=== PATIENT | female | born 1945 ===

== ENCOUNTER 2020-12-23 11:57 | Inpatient (IN) | payer MEDICARE, BC ==
[2020-12-23] MEDS ORDERED: DEXAMETHASONE SOD PHOSPHATE 10 MG/ML 1 ML VIAL IV STA (12:19)
--- NOTE | 2020-12-23 12:32 | ED ---
General Adult HPI - General Chief complaint: Shortness of Breath Stated complaint: SYNCOPE Time Seen by Provider: 12/23/20 12:04 Source: patient, EMS Mode of arrival: EMS Limitations: no limitations - History of Present Illness Initial comments: Dictation was produced using [employer] dictation software. please excuse any grammatical, word or spelling errors. Chief Complaint: 75-year-old female presents to the emergency department for s yncopal episode, shortness of breath and possible coronavirus History of Present Illness: She is 75-year-old female to the last 4-5 days she's been feeling very weak. She went to go get tested for coronavirus however while waiting she had an episode of syncope. She denies any pain complex at this time. Denies any head trauma. No neck pain. Patient states that she does not feel significantly short of breath. Patient allegedly had a syncopal episode. EMS was called and patient was found to be hypoxic with oxygen saturations of 70%. She was placed on nonrebreather with improvement into the mid 90 percents. Patient states she got her to series [employer] vaccine for coronavirus earlier th is year. She has a lower extremity pain. No leg swelling. She denies any chest pain. States that she does have myalgias and diffuse weakness. The ROS documented in this emergency department record has been reviewed and confirmed by me. Those systems with pertinent positive or negative responses have been documented in the HPI. All other systems are other negative and/or noncontributory. PHYSICAL EXAM: General Impression: Alert and oriented x3, not in acute distress HEENT: Normocephalic atraumatic, extra-ocular movements intact, pupils equal and reactive to light bilaterally, mucous membranes moist. Cardiovascular: Heart regular rate and rhythm Chest: Able to complete full sentences, no retractions, no tachypnea, diffuse lung crackles auscultation Abdomen: abdomen soft, non-tender, non-distended, no organomegaly Musculoskeletal: Pulses present and equal in all extremities, no peripheral edema Motor: no focal deficits noted Neurological: CN II-XII grossly intact, no focal motor or sensory deficits noted Skin: Intact with no visualized rashes Psych: Normal affect and mood ED course: 75-year-old female presents to the emergency department for hypoxic respiratory failure, possible coronavirus, syncopal episode vital signs upon arrival shows 71% on room air. She was placed on 15 L nonrebreather with improvement of oxygen to mid 90 percents. Patient's well-appearing at the bedside. She is a well-appearing hypoxic patient. Limited evaluation obtained. CBC within acceptable limits. Coag panel is negative. D-dimer is 1.07. Metabolic panel shows mild acute kidney injury. Troponin levels elevated 0.247. Brain natruretic peptide is 21,100. Coronavirus is positive. Chest x-ray shows diffuse bilateral infiltrates. Patient observed in the emergency department for approximately 3 hours and 20 minutes. She's been maintaining good saturations on BiPAP. Case is discussed with heel seat laster who did not feel patient met criteria for ICU admission. Patient given 10 mg of IV Decadron. Case discussed with Dr. irwin barnett was willing to accept patients care for admission. Patient will be admitted for coronavirus treatment. Pulmonology will be on consult. EKG interpretation: Ventricular rate 64, normal sinus rhythm, NY interval 180, QRS 112, QTC 491. No NY prolongation, no QTC prolongation. T-wave inversions in lateral leads and high lateral leads. No old EKG for comparison. - Related Data Allergies Allergy/AdvReac Type Severity Reaction Status Date / Time No Known Allergies Allergy Verified 12/23/20 12:38 Review of Systems ROS Statement: Those systems with pertinent positive or pertinent negative responses have been documented in the HPI. ROS Other: All systems not noted in ROS Statement are negative. Past Medical History Past Medical History: Chest Pain / Angina, Diabetes Mellitus History of Any Multi-Drug Resistant Organisms: None Reported Past Surgical History: No Surgical Hx Reported Past Psychological History: No Psychological Hx Reported Smoking Status: Never smoker Past Alcohol Use History: None Reported Past Drug Use History: None Reported General Exam Limitations: no limitations Course Vital Signs 12/23/20 12/23/20 12/23/20 12:07 12:41 14:49 Temperature 98.7 F 98.7 F Pulse Rate 58 L 60 62 Respiratory 20 25 H 32 H Rate Blood Pressure 125/61 115/57 113/64 O2 Sat by Pulse 71 L 100 92 L Oximetry Medical Decision Making - Lab Data Result diagrams: 12/23/20 12:33 12/23/20 12:33 Lab Results 12/23/20 12/23/20 12/23/20 Range/Units 12:33 12:33 12:33 WBC 10.6 (3.8-10.6) k/uL RBC 3.64 L (3.80-5.40) m/uL Hgb 12.0 (11.4-16.0) gm/dL Hct 35.0 (34.0-46.0) % MCV 96.3 (80.0-100.0) fL MCH 32.9 (25.0-35.0) pg MCHC 34.1 (31.0-37.0) g/dL RDW 13.6 (11.5-15.5) % Plt Count 191 (150-450) k/uL MPV 7.8 Neutrophils % 90 % Lymphocytes % 6 % Monocytes % 3 % Eosinophils % 0 % Basophils % 0 % Neutrophils # 9.6 H (1.3-7.7) k/uL Lymphocytes # 0.6 L (1.0-4.8) k/uL Monocytes # 0.4 (0-1.0) k/uL Eosinophils # 0.0 (0-0.7) k/uL Basophils # 0.0 (0-0.2) k/uL PT 10.7 (9.0-12.0) sec INR 1.0 (<1.2) APTT 28.4 (22.0-30.0) sec D-Dimer 1.07 H (<0.60) mg/L FEU Sodium 132 L (137-145) mmol/L Potassium 4.5 (3.5-5.1) mmol/L Chloride 102 (98-107) mmol/L Carbon Dioxide 19 L (22-30) mmol/L Anion Gap 11 mmol/L BUN 56 H (7-17) mg/dL Creatinine 1.90 H (0.52-1.04) mg/dL Est GFR (CKD-EPI)AfAm 29 (>60 ml/min/1.73 sqM) Est GFR (CKD-EPI)NonAf 25 (>60 ml/min/1.73 sqM) Glucose 283 H (74-99) mg/dL Plasma Lactic Acid Gigi (0.7-2.0) mmol/L Calcium 8.9 (8.4-10.2) mg/dL Magnesium 1.9 (1.6-2.3) mg/dL Total Bilirubin 0.7 (0.2-1.3) mg/dL AST 44 H (14-36) U/L ALT 17 (4-34) U/L Alkaline Phosphatase 51 (38-126) U/L Troponin I (0.000-0.034) ng/mL C-Reactive Protein 22.8 H (<1.0) mg/dL NT-Pro-B Natriuret Pep pg/mL Total Protein 6.3 (6.3-8.2) g/dL Albumin 3.5 (3.5-5.0) g/dL Coronavirus (PCR) (Not Detectd) 12/23/20 12/23/20 12/23/20 Range/Units 12:33 12:33 12:33 WBC (3.8-10.6) k/uL RBC (3.80-5.40) m/uL Hgb (11.4-16.0) gm/dL Hct (34.0-46.0) % MCV (80.0-100.0) fL MCH (25.0-35.0) pg MCHC (31.0-37.0) g/dL RDW (11.5-15.5) % Plt Count (150-450) k/uL MPV Neutrophils % % Lymphocytes % % Monocytes % % Eosinophils % % Basophils % % Neutrophils # (1.3-7.7) k/uL Lymphocytes # (1.0-4.8) k/uL Monocytes # (0-1.0) k/uL Eosinophils # (0-0.7) k/uL Basophils # (0-0.2) k/uL PT (9.0-12.0) sec INR (<1.2) APTT (22.0-30.0) sec D-Dimer (<0.60) mg/L FEU Sodium (137-145) mmol/L Potassium (3.5-5.1) mmol/L Chloride (98-107) mmol/L Carbon Dioxide (22-30) mmol/L Anion Gap mmol/L BUN (7-17) mg/dL Creatinine (0.52-1.04) mg/dL Est GFR (CKD-EPI)AfAm (>60 ml/min/1.73 sqM) Est GFR (CKD-EPI)NonAf (>60 ml/min/1.73 sqM) Glucose (74-99) mg/dL Plasma Lactic Acid Gigi 1.7 (0.7-2.0) mmol/L Calcium (8.4-10.2) mg/dL Magnesium (1.6-2.3) mg/dL Total Bilirubin (0.2-1.3) mg/dL AST (14-36) U/L ALT (4-34) U/L Alkaline Phosphatase (38-126) U/L Troponin I 0.247 H* (0.000-0.034) ng/mL C-Reactive Protein (<1.0) mg/dL NT-Pro-B Natriuret Pep 78263 pg/mL Total Protein (6.3-8.2) g/dL Albumin (3.5-5.0) g/dL Coronavirus (PCR) (Not Detectd) 12/23/20 Range/Units 12:33 WBC (3.8-10.6) k/uL RBC (3.80-5.40) m/uL Hgb (11.4-16.0) gm/dL Hct (34.0-46.0) % MCV (80.0-100.0) fL MCH (25.0-35.0) pg MCHC (31.0-37.0) g/dL RDW (11.5-15.5) % Plt Count (150-450) k/uL MPV Neutrophils % % Lymphocytes % % Monocytes % % Eosinophils % % Basophils % % Neutrophils # (1.3-7.7) k/uL Lymphocytes # (1.0-4.8) k/uL Monocytes # (0-1.0) k/uL Eosinophils # (0-0.7) k/uL Basophils # (0-0.2) k/uL PT (9.0-12.0) sec INR (<1.2) APTT (22.0-30.0) sec D-Dimer (<0.60) mg/L FEU Sodium (137-145) mmol/L Potassium (3.5-5.1) mmol/L Chloride (98-107) mmol/L Carbon Dioxide (22-30) mmol/L Anion Gap mmol/L BUN (7-17) mg/dL Creatinine (0.52-1.04) mg/dL Est GFR (CKD-EPI)AfAm (>60 ml/min/1.73 sqM) Est GFR (CKD-EPI)NonAf (>60 ml/min/1.73 sqM) Glucose (74-99) mg/dL Plasma Lactic Acid Gigi (0.7-2.0) mmol/L Calcium (8.4-10.2) mg/dL Magnesium (1.6-2.3) mg/dL Total Bilirubin (0.2-1.3) mg/dL AST (14-36) U/L ALT (4-34) U/L Alkaline Phosphatase (38-126) U/L Troponin I (0.000-0.034) ng/mL C-Reactive Protein (<1.0) mg/dL NT-Pro-B Natriuret Pep pg/mL Total Protein (6.3-8.2) g/dL Albumin (3.5-5.0) g/dL Coronavirus (PCR) Detected A (Not Detectd) Critical Care Time Critical Care Time: Yes Total Critical Care Time: 33 Disposition Clinical Impression: Coronavirus infection, Acute respiratory failure with hypoxia Disposition: ADMITTED IP TO THIS [facility] Condition: Critical Referrals: Cindy Landin, MARCO ANTONIO [Primary Care Provider] - 1-2 days
[2020-12-23 12:55] LABS: Basophils % (A) 0 %; Eosinophils % (A) 0 %; Lymphocytes # (A) 0.6 k/uL (1.0-4.8); Lymphocytes % (A) 6 %; MCH 32.9 pg (25.0-35.0); MCHC 34.1 g/dL (31.0-37.0); MCV 96.3 fL (80.0-100.0); Mean Platelet Volume 7.8; Monocytes # (A) 0.4 k/uL (0-1.0); Monocytes % (A) 3 %; Neutrophils # (A) 9.6 k/uL (1.3-7.7); Neutrophils % (A) 90 %; Platelet Count 191 k/uL (150-450); RBC 3.64 m/uL (3.80-5.40); RDW 13.6 % (11.5-15.5); WBC 10.6 k/uL (3.8-10.6)
[2020-12-23 13:09] LABS: Albumin 3.5 g/dL (3.5-5.0); Calcium 8.9 mg/dL (8.4-10.2); Magnesium 1.9 mg/dL (1.6-2.3); Potassium 4.5 mmol/L (3.5-5.1); Total Bilirubin 0.7 mg/dL (0.2-1.3); Total Protein 6.3 g/dL (6.3-8.2)
[2020-12-23 13:13] LABS: Partial Thromboplastin Time 28.4 sec (22.0-30.0); Prothrombin Time 10.7 sec (9.0-12.0)
[2020-12-23] MEDS ORDERED: ENOXAPARIN 40 MG/0.4 ML SYRINGE SQ STA (13:22)
[2020-12-23] MEDS ORDERED: ALBUTEROL HFA INHALER INHALATION STA (13:24)
[2020-12-23] MEDS ORDERED: SODIUM CHLORIDE 0.9% 500 ML 500 ML IV STA (13:26)
[2020-12-23 13:33] LABS: C Reactive Protein 22.8 mg/dL (<1.0)
--- NOTE | 2020-12-23 13:34 | XR ---
EXAMINATION TYPE: XR chest 1V portable DATE OF EXAM: 12/23/2020 HISTORY: Shortness of breath. COMPARISON: None. TECHNIQUE: Single view of the chest is submitted. FINDINGS: Demonstrated are scattered senescent parenchymal change. Perihilar and right basilar infiltrates. Correlate for Covid 19 pneumonia. The heart is stable. Hilar and mediastinal structures are within normal limits. Degenerative changes are seen of the dorsal spine. IMPRESSION: 1. Perihilar and right basilar infiltrates. Correlate for Covid 19 pneumonia.
[2020-12-23] MEDS ORDERED: SODIUM CHLORIDE 0.9% 1,000 ML IV STA (13:50)
[2020-12-23] MEDS ORDERED: NALOXONE 0.4 MG/ML 1 ML VIAL IV PRN (15:14)
--- NOTE | 2020-12-23 16:43 | CONS ---
CONSULTATION PULMONARY/CRITICAL CARE CONSULTATION: DATE OF CONSULTATION: 12/23/2020 This is a 75-year-old female who presented to the emergency department with complaints of shortness of breath. The patient apparently became ill on November. She tested positive for coronavirus infection on December 23. She apparently went to [facility], had a syncopal episode and was transferred here where she was evaluated and admitted. The patient is currently on BiPAP, her settings are 10/5 and 100%. Not receiving any IV fluids. The patient does not look particularly ill at this time. She seemed relatively comfortable on the BiPAP. One of the concerns of the ER physician was that she was on 100%. ALLERGIES: Denied. PAST MEDICAL HISTORY: Includes diabetes and angina pectoris. SURGICAL HISTORY: Unremarkable. FAMILY HISTORY: Unremarkable. She is a lifelong nonsmoker. No illicit drug use. No alcohol use. REVIEW OF SYSTEMS: CONSTITUTIONAL: Weakness, muscle aches, joint aches. NEUROLOGIC: Negative. HEENT: Negative. CARDIOVASCULAR: Negative. PULMONARY: Shortness of breath. GI: Negative. : Negative. RHEUMATOLOGIC: Negative. IMMUNOLOGIC: Negative. ENDOCRINOLOGIC: Negative. DERMATOLOGIC: Negative. In addition, the patient apparently did have a syncopal episode at [facility]. PHYSICAL EXAMINATION: VITAL SIGNS: Current vital signs are reviewed. Temperature is 98.7 heart rate 60, respiratory rate 20, blood pressure 115/57 with a mean of 76. The saturations are 71% on room air. On BiPAP, she is 100%. Appears in no acute distress. HEENT: Examination is grossly unremarkable. She is wearing BiPAP. NECK: Supple, full range of motion. CARDIOVASCULAR: Examination reveals regular rhythm rate. S1, S2 normal. No S3, S4, or murmur. Heart rate 60. LUNGS: Reveal mild scattered rhonchi. No wheezes or crackles. Breath sounds equal. ABDOMEN: Soft, bowel sounds are heard. EXTREMITIES are intact. No cyanosis, clubbing, or edema. SKIN: Without rash. NEUROLOGIC: Examination is nonfocal. LABS: White count 10.6, hemoglobin 12, hematocrit 35, platelet count 191,000. PT, INR and PTT normal. D-dimer 1.07. Sodium 132, potassium 4.5, chloride 102, CO2 19, anion gap 11. BUN and creatinine were 56 and 1.90. Glucose 283. Chest x-ray does show diffuse bilateral infiltrates. Medications have not yet been ordered. She is getting Decadron or least Decadron was given. ASSESSMENT: 1. Acute hypoxemic respiratory failure secondary to coronavirus infection/COVID-19 pneumonia. 2. History of diabetes mellitus. 3. History of angina. PLAN: In my opinion, the patient should get vitamin C, vitamin D3, and zinc. She should also getting an albuterol inhaler. The patient is currently on BiPAP and the FiO2 can be titrated down. She would be a good candidate for Remdesivir since she has only been sick for a few days. She should also get Decadron 6 mg a day and Lovenox at usual dose of 40 mg. In addition, if her saturations and oxygenation worsen, the patient could be a candidate for monoclonal antibody interleukin-6. We will continue to follow. Prognosis is guarded. JAMAAL / ZEE: [id number] /
[2020-12-23] MEDS: SODIUM CHLORIDE 0.9% 1,000 ML IV SCH (17:18)
--- NOTE | 2020-12-23 18:52 | P.HPIM ---
History of Present Illness H&P Date: 12/23/20 Chief Complaint: syncope Patient is a 75-year-old female with a history of prior angina, diabetes, hypothyroidism, dyslipidemia, and hypertension who presented with complaint of weakness and syncope. She started having upper respiratory symptoms approximately 4-5 days ago. She went to obtain an outpatient Covid test and passed out. She has completed a 2 series [employer] vaccine earlier this year. In the ER she underwent an extensive evaluation. On arrival her oxygenation was 71% on room air. She was started on BiPAP. Initial laboratory analysis showed a sodium of 132, carbon dioxide 19, anion gap 11, BUN 56, creatinine 1.9, S2 83, troponin 0.247, CRP 22.8, BNP 21,100. Covid testing was positive. Chest x-ray showed diffuse bilateral interstitial infiltrates is reviewed by myself. She was given a dose of dexamethasone. She was seen by pulmonary who felt she could be managed on selective care. Patient seen and examined at bedside. General: ill appearing, moderate distress, appears at stated age Derm: warm, dry Head: atraumatic, normocephalic, symmetric Eyes: EOMI, no lid lag, anicteric sclera, pupils equal round reactive to light ENT: Nose and ears atraumatic, no thrush, no pharyngeal erythema Neck: No thyromegaly, no cervical lymphadenopathy, trachea midline, supple Mouth: no lip lesion, mucus membranes moist Cardiovascular: S1S2 reg, no murmur, positive posterior tibial pulse bilateral, no edema, capillary refill less than 2 seconds Lungs: course bs bilateral, + accessory muscle use, no conversation dyspnea Abdominal: soft, nontender to palpation, no guarding, no appreciable organomegaly, normal bowel sounds Ext: no gross muscle atrophy, muscle strength muscle strength 5 out of 5 in all 4 extremities, no contractures Neuro: CN II-XI grossly intact, light touch intact all 4 extremities, finger to nose within normal limits, Psych: Alert, oriented, appropriate affect COVID-19 pneumonia Acute hypoxic respiratory failure Acute kidney injury, Hyponatremia Non-anion gap metabolic acidosis Elevated troponin Elevated BNP - Vit D - Dexamethasone, Pepcid - Wean O2 as able - Pulm recs - conisder Barasitanib - Lovenox - hold lisnopril, lasix Syncope - likely due to hypoxia - tele - echo ELevated toponin - follow trop - ASA - Consider cardio consult in AM if elevating if stable likely due to hypoxia. HTN - hold lisinopril due to VERONICA - resume norvasc, coreg - follow BP HLD - statin DM 2 - Long acting, SSI, and fixed dose insulin - follow BS with steroids - check A1C ASCAD - plavics, BB, statin The patient is admitted with an anticipated greater than 2 midnight stay for evaluation of COVID pneumonitis. Surrogate decision-maker: , daughter CODE STATUS:full DVT prophylaxis: Lovenox Discussed with: patient, bobby ED physician Anticipated discharge date: 7-[address]: undetermined A total of 75 minutes was spent on the care of this complex patient more than 50% of the time was spent in counseling and care coordination. Past Medical History Past Medical History: Coronary Artery Disease (CAD), Chest Pain / Angina, Diabetes Mellitus, Hyperlipidemia, Hypertension Last Myocardial Infarction Date:: hypothyroidism History of Any Multi-Drug Resistant Organisms: None Reported Additional Past Surgical History / Comment(s): Stent X 1, CABG X 4 Past Psychological History: No Psychological Hx Reported Smoking Status: Former smoker Past Alcohol Use History: None Reported Past Drug Use History: None Reported Additional History: no cane or walker - Past Family History Father Additional Family Medical History / Comment(s): from lung cancer Mother Additional Family Medical History / Comment(s): from old age Medications and Allergies Home Medications Medication Instructions Recorded Confirmed Type Carvedilol [Coreg] 25 mg PO BID 12/23/20 12/23/20 History Clopidogrel [Plavix] 75 mg PO DAILY 12/23/20 12/23/20 History Ergocalciferol [Vitamin D2 (1250 1,250 mcg PO Q7D 12/23/20 12/23/20 History Mcg = 13848 Iu)] Furosemide [Lasix] 20 mg PO DAILY 12/23/20 12/23/20 History INSULIN ASPART (NovoLOG) [NovoLOG 10 - 15 unit SQ AC-TID 12/23/20 12/23/20 History (formulary)] Insulin Glargine,Hum.rec.anlog 35 unit SQ DAILY 12/23/20 12/23/20 History [Lantus Solostar Pen] Levothyroxine Sodium [Euthyrox] 50 mcg PO DAILY 12/23/20 12/23/20 History Omeprazole 20 mg PO DAILY 12/23/20 12/23/20 History Rosuvastatin [Crestor] 20 mg PO HS 12/23/20 12/23/20 History amLODIPine [Norvasc] 10 mg PO DAILY 12/23/20 12/23/20 History lisinopriL [Zestril] 20 mg PO BID 12/23/20 12/23/20 History Allergies Allergy/AdvReac Type Severity Reaction Status Date / Time No Known Allergies Allergy Verified 12/23/20 15:33 Physical Exam Osteopathic Statement: *. No significant issues noted on an osteopathic structural exam other than those noted in the History and Physical/Consult. Vitals: Vital Signs Temp Pulse Resp BP Pulse Ox 12/23/20 18:24 97.9 F 60 24 110/70 96 12/23/20 17:12 98.5 F 61 20 113/61 97 12/23/20 14:49 98.7 F 62 32 H 113/64 92 L 12/23/20 12:41 60 25 H 115/57 100 12/23/20 12:07 98.7 F 58 L 20 125/61 71 L Intake and Output 12/23/20 12/23/20 12/23/20 06:59 14:59 22:59 Other: Weight 87.09 kg Results CBC & Chem 7: 12/23/20 12:33 12/23/20 12:33 Labs: Abnormal Lab Results - Last 24 Hours (Table) 12/23/20 12/23/20 12/23/20 Range/Units 12:33 12:33 12:33 RBC 3.64 L (3.80-5.40) m/uL Neutrophils # 9.6 H (1.3-7.7) k/uL Lymphocytes # 0.6 L (1.0-4.8) k/uL D-Dimer 1.07 H (<0.60) mg/L FEU Sodium 132 L (137-145) mmol/L Carbon Dioxide 19 L (22-30) mmol/L BUN 56 H (7-17) mg/dL Creatinine 1.90 H (0.52-1.04) mg/dL Glucose 283 H (74-99) mg/dL AST 44 H (14-36) U/L Lactate Dehydrogenase (313-618) U/L Troponin I (0.000-0.034) ng/mL C-Reactive Protein 22.8 H (<1.0) mg/dL Coronavirus (PCR) (Not Detectd) 12/23/20 12/23/20 12/23/20 Range/Units 12:33 12:33 12:33 RBC (3.80-5.40) m/uL Neutrophils # (1.3-7.7) k/uL Lymphocytes # (1.0-4.8) k/uL D-Dimer (<0.60) mg/L FEU Sodium (137-145) mmol/L Carbon Dioxide (22-30) mmol/L BUN (7-17) mg/dL Creatinine (0.52-1.04) mg/dL Glucose (74-99) mg/dL AST (14-36) U/L Lactate Dehydrogenase 1275 H (313-618) U/L Troponin I 0.247 H* (0.000-0.034) ng/mL C-Reactive Protein (<1.0) mg/dL Coronavirus (PCR) Detected A (Not Detectd)
[2020-12-24 06:07] LABS: Glucose,Whole Blood 355 mg/dL (75-99)
[2020-12-24] MEDS: INSULIN ASPART (NovoLOG) 100 UNIT/ML VIAL SQ SCH ×3 (06:27→17:20)
[2020-12-24] MEDS: SODIUM CHLORIDE 0.9% 1,000 ML IV SCH ×2 (06:28→17:21)
[2020-12-24] MEDS ORDERED: INSULIN DETEMIR (LEVEMIR) 100 UNIT/ML SYR SQ SCH (07:00)
[2020-12-24] MEDS: ALBUTEROL HFA INHALER INHALATION PRN ×3 (08:22→17:01)
[2020-12-24] MEDS: CHOLECALCIFEROL 25 MCG (1000 IU) TABLET PO SCH (08:58)
[2020-12-24] MEDS: FAMOTIDINE 20 MG/2 ML VIAL IV SCH (08:58)
[2020-12-24] MEDS: DEXAMETHASONE SOD PHOSPHATE 10 MG/ML 1 ML VIAL IV SCH (08:58)
[2020-12-24] MEDS ORDERED: ENOXAPARIN 30 MG/0.3 ML SYRINGE SQ SCH (09:00)
[2020-12-24 09:10] LABS: HCT 34.6 % (34.0-46.0); HGB 11.6 gm/dL (11.4-16.0); MCH 32.5 pg (25.0-35.0); MCHC 33.6 g/dL (31.0-37.0); MCV 96.5 fL (80.0-100.0); Mean Platelet Volume 7.9; Platelet Count 210 k/uL (150-450); RBC 3.59 m/uL (3.80-5.40); RDW 13.7 % (11.5-15.5); WBC 13.9 k/uL (3.8-10.6)
[2020-12-24 09:24] LABS: Prothrombin Time 10.3 sec (9.0-12.0)
[2020-12-24 09:25] LABS: Albumin 3.3 g/dL (3.5-5.0); Calcium 8.9 mg/dL (8.4-10.2); Magnesium 2.1 mg/dL (1.6-2.3); Potassium 4.4 mmol/L (3.5-5.1); Total Bilirubin 0.4 mg/dL (0.2-1.3); Total Protein 6.2 g/dL (6.3-8.2)
[2020-12-24 09:54] LABS: C Reactive Protein 22.3 mg/dL (<1.0)
--- NOTE | 2020-12-24 10:56 | ECHOF ---
Referral Reason:chf MEASUREMENTS -------- HEIGHT: 162.6 cm WEIGHT: 82.1 kg BP: RVIDd: 3.3 cm (< 3.3) IVSd: 1.3 cm (0.6 - 1.1) LVIDd: 5.1 cm (3.9 - 5.3) LVPWd: 1.6 cm (0.6 - 1.1) IVSs: 1.5 cm LVIDs: 3.8 cm LVPWs: 2.0 cm LA Diam: 5.3 cm (2.7 - 3.8) Ao Diam: 2.8 cm (2.0 - 3.7) AV Cusp: 0.6 cm (1.5 - 2.6) LA Diam: 5.8 cm (2.7 - 3.8) MV EXCURSION: 18.458 mm (> 18.000) MV EF SLOPE: 29 mm/s (70 - 150) EPSS: 1.3 cm MV E Sarthak: 1.33 m/s MV DecT: 290 ms MV A Sarthak: 0.97 m/s MV E/A Ratio: 1.37 AV maxP.90 mmHg AV meanP.75 mmHg RAP: 5.00 mmHg RVSP: 28.51 mmHg FINDINGS -------- Sinus rhythm. Pt is Covid positive. The left ventricular size is normal. There is moderate concentric left ventricular hypertrophy. O verall left ventricular systolic function is low-normal with, an EF between 50 - 55 %. The right ventricle is normal in size. The left atrium is markedly dilated. The right atrial size is normal. There is severe aortic stenosis present. Peak/mean gradient across the Aortic Valve is 69.90mmHg / 40.75mmHg. Mild mitral regurgitation is present. Mild tricuspid regurgitation present. Right ventricular systolic pressure is normal at < 35 mmHg. There is no pulmonic regurgitation present. Echo free space represents a pericardial fat pad. CONCLUSIONS -------- 1. Pt is Covid positive. 2. The left ventricular size is normal. 3. There is moderate concentric left ventricular hypertrophy. 4. Overall left ventricular systolic function is low-normal with, an EF between 50 - 55 %. 5. The right ventricle is normal in size. 6. The left atrium is markedly dilated. 7. The right atrial size is normal. 8. There is severe aortic stenosis present. 9. Peak/mean gradient across the Aortic Valve is 69.90mmHg / 40.75mmHg. 10. Mild mitral regurgitation is present. 11. Mild tricuspid regurgitation present. 12. Echo free space represents a pericardial fat pad. AUTOMATION AND CONTROLS MANAGER: Candie Juarez RDCS
[2020-12-24 12:25] LABS: Glucose,Whole Blood 257 mg/dL (75-99)
--- NOTE | 2020-12-24 13:50 | P.PN ---
Subjective Progress Note Date: 12/24/20 Principal diagnosis: COVID 19 pneumonia. Progress note dated 12/24/2020. This is a 75-year-old female presented to the emergency department complaints of shortness of breath. She apparently became ill on December 18. She tested positive for coronavirus infection on December 23. She initially went to [facility], had a syncopal episode, who was transferred here to the emergency room to be evaluated. She was on BiPAP initially saw her, with settings of 10/5, and 100%. She has a history of diabetes, and angina. She is a lifelong nonsmoker. White count 13.9, hemoglobin 11.6, hematocrit 34.6, platelet count 210,000. D- dimer was 0.90. Sodium 136, potassium 4.4, chlorides 104, CO2 19, anion gap 13, BUN and creatinine were 72 and 1.94. LDH was 1605, troponin was 0.133, C- reactive protein was 22.2, and N-terminal proBNP, was 7930, down from 21,100. Chest x-ray showed perihilar and right basilar infiltrates, consistent with coronavirus pneumonia. Objective - Vital Signs Vital signs: Vital Signs Temp 96.7 F L 12/24/20 08:00 Pulse 74 12/24/20 12:00 Resp 18 12/24/20 12:00 BP 129/68 12/24/20 12:00 Pulse Ox 90 L 12/24/20 12:00 Intake & Output 12/23/20 12/24/20 12/24/20 18:59 06:59 18:59 Intake Total 0 Balance 0 Weight 87.09 kg 82.5 kg Intake: Oral 0 Other: Voiding Method Bedside Commode # Voids 1 - Exam No acute distress, oriented 3. Currently on AIRVO, at 60 L/m and 90%. HEENT examination is grossly unremarkable. Neck supple. Full range of motion. No adenopathy thyromegaly or neck vein distention. Cardiovascular examination reveals regular rhythm rate. S1-S2 normal. No S3 or S4. No discernible murmur noted. Heart rate 74 bpm. Lungs reveal scattered bilateral rhonchi. No wheezes or crackles. Breath sounds equal bilaterally. Saturations are between 90 and 93%. Abdomen soft bowel sounds are heard. No masses or tenderness. Extremities are intact. No cyanosis clubbing or edema. Skin is without rash or lesion. Neurologic examination is brief but nonfocal. - Labs CBC & Chem 7: 12/24/20 08:38 12/24/20 08:38 Labs: Abnormal Lab Results - Last 24 Hours (Table) 12/23/20 12/23/20 12/23/20 Range/Units 12:33 12:33 12:33 WBC (3.8-10.6) k/uL RBC (3.80-5.40) m/uL D-Dimer (<0.60) mg/L FEU Sodium (137-145) mmol/L Carbon Dioxide (22-30) mmol/L BUN (7-17) mg/dL Creatinine (0.52-1.04) mg/dL Glucose (74-99) mg/dL POC Glucose (mg/dL) (75-99) mg/dL AST (14-36) U/L Lactate Dehydrogenase 1275 H (313-618) U/L Troponin I 0.247 H* (0.000-0.034) ng/mL C-Reactive Protein (<1.0) mg/dL Total Protein (6.3-8.2) g/dL Albumin (3.5-5.0) g/dL Coronavirus (PCR) Detected A (Not Detectd) 12/23/20 12/24/20 12/24/20 Range/Units 20:29 06:05 08:38 WBC (3.8-10.6) k/uL RBC (3.80-5.40) m/uL D-Dimer (<0.60) mg/L FEU Sodium 136 L (137-145) mmol/L Carbon Dioxide 19 L (22-30) mmol/L BUN 72 H (7-17) mg/dL Creatinine 1.94 H (0.52-1.04) mg/dL Glucose 325 H (74-99) mg/dL POC Glucose (mg/dL) 355 H (75-99) mg/dL AST 49 H (14-36) U/L Lactate Dehydrogenase 1605 H (313-618) U/L Troponin I 0.243 H* (0.000-0.034) ng/mL C-Reactive Protein 22.3 H (<1.0) mg/dL Total Protein 6.2 L (6.3-8.2) g/dL Albumin 3.3 L (3.5-5.0) g/dL Coronavirus (PCR) (Not Detectd) 12/24/20 12/24/20 12/24/20 Range/Units 08:38 08:38 08:38 WBC 13.9 H (3.8-10.6) k/uL RBC 3.59 L (3.80-5.40) m/uL D-Dimer 0.90 H (<0.60) mg/L FEU Sodium (137-145) mmol/L Carbon Dioxide (22-30) mmol/L BUN (7-17) mg/dL Creatinine (0.52-1.04) mg/dL Glucose (74-99) mg/dL POC Glucose (mg/dL) (75-99) mg/dL AST (14-36) U/L Lactate Dehydrogenase (313-618) U/L Troponin I 0.133 H* (0.000-0.034) ng/mL C-Reactive Protein (<1.0) mg/dL Total Protein (6.3-8.2) g/dL Albumin (3.5-5.0) g/dL Coronavirus (PCR) (Not Detectd) 12/24/20 12/24/20 Range/Units 08:38 12:21 WBC (3.8-10.6) k/uL RBC (3.80-5.40) m/uL D-Dimer (<0.60) mg/L FEU Sodium (137-145) mmol/L Carbon Dioxide (22-30) mmol/L BUN (7-17) mg/dL Creatinine (0.52-1.04) mg/dL Glucose (74-99) mg/dL POC Glucose (mg/dL) 257 H (75-99) mg/dL AST (14-36) U/L Lactate Dehydrogenase (313-618) U/L Troponin I (0.000-0.034) ng/mL C-Reactive Protein 22.2 H (<1.0) mg/dL Total Protein (6.3-8.2) g/dL Albumin (3.5-5.0) g/dL Coronavirus (PCR) (Not Detectd) Assessment and Plan Assessment: Acute hypoxemic respiratory failure secondary to coronavirus infection/COVID 19 pneumonia. History of diabetes mellitus. History of angina pectoris. Plan: Plan dated 12/24/2020. The patient was placed on vitamin C, vitamin D3, and zinc. The patient was also given an albuterol inhaler. The patient's BiPAP was converted to AIRVO. We thought she would be a good candidate for REM. In addition, Decadron and Lovenox should be given a usual doses. We will continue to follow make recommendations where appropriate. Additional recommendations and suggestions are forthcoming. Prognosis is guarded. Time with Patient: Less than 30
--- NOTE | 2020-12-24 16:10 | P.PN ---
Subjective Progress Note Date: 12/24/20 Principal diagnosis: shortness of breath Patient is a 75-year-old female with a history of prior angina, diabetes, hypothyroidism, dyslipidemia, and hypertension who presented with complaint of weakness and syncope. She started having upper respiratory symptoms approximately 4-5 days ago. She went to obtain an outpatient Covid test and passed out. She has completed a 2 series Pfizer vaccine earlier this year. In the ER she underwent an extensive evaluation. On arrival her oxygenation was 71% on room air. She was started on BiPAP. Initial laboratory analysis showed a sodium of 132, carbon dioxide 19, anion gap 11, BUN 56, creatinine 1.9, S2 83, troponin 0.247, CRP 22.8, BNP 21,100. Covid testing was positive. Chest x-ray showed diffuse bilateral interstitial infiltrates is reviewed by myself. She was given a dose of dexamethasone. She was seen by pulmonary who felt she could be managed on selective care. Patient seen and examined at bedside. She states that breathing is better than yesterday. Still feeling very tired. No nasuea, no belly pain, no chest pain some chest tightness. General: ill appearing, mild distress, appears at stated age Derm: warm, dry Head: atraumatic, normocephalic, symmetric Eyes: EOMI, no lid lag, anicteric sclera Mouth: no lip lesion, mucus membranes moist Cardiovascular: S1S2 reg, + murmur, positive posterior tibial pulse bilateral, Lungs: + wheezing bilateral, no rhonchi, no rales , + accessory muscle use Abdominal: soft, nontender to palpation, no guarding, no appreciable organomegaly Ext: no gross muscle atrophy, no edema, no contractures Neuro: CN II-XI grossly intact, no focal neuro deficits Psych: Alert, oriented, appropriate affect COVID-19 pneumonia Acute hypoxic respiratory failure Acute kidney injury, Hyponatremia Non-anion gap metabolic acidosis Elevated troponin, flat not consistent with ACS. Elevated BNP likely due to hypoxia/ - Vit D - Dexamethasone, Pepcid - Wean O2 as able - Pulm recs - Lovenox - hold lisnopril, lasix - follow inflammatory labs Severe Aortic Stenosis Syncope- likely due to hypoxia Elevated toponin- likely due to hypoxia, not consistent with ACS - careful fluid management - tele - ASA -Consult Cardio HTN - hold lisinopril due to VERONICA - resume norvasc, coreg - follow BP HLD - statin DM 2 - Long acting, SSI, and fixed dose insulin - follow BS with steroids - check A1C ASCAD - plavix, BB, statin Daughter updated over the phone DVT prophylaxis: Lovenox Discussed with: patient, nursing Anticipated discharge date: in 5-[address]: undetermined A total of 35 minutes was spent on the care of this complex patient more than 50% of the time was spent in counseling and care coordination. Objective - Vital Signs Vital signs: Vital Signs Temp 96.7 F L 12/24/20 08:00 Pulse 75 12/24/20 15:47 Resp 24 12/24/20 15:47 BP 122/63 12/24/20 15:47 Pulse Ox 89 L 12/24/20 15:47 Intake & Output 12/23/20 12/24/20 12/24/20 18:59 06:59 18:59 Intake Total 240 Balance 240 Weight 87.09 kg 82.5 kg Intake: Oral 240 Other: Voiding Method Bedside Commode # Voids 1 1 - Labs CBC & Chem 7: 12/24/20 08:38 12/24/20 08:38 Labs: Abnormal Lab Results - Last 24 Hours (Table) 12/23/20 12/23/20 12/24/20 Range/Units 12:33 20:29 06:05 WBC (3.8-10.6) k/uL RBC (3.80-5.40) m/uL D-Dimer (<0.60) mg/L FEU Sodium (137-145) mmol/L Carbon Dioxide (22-30) mmol/L BUN (7-17) mg/dL Creatinine (0.52-1.04) mg/dL Glucose (74-99) mg/dL POC Glucose (mg/dL) 355 H (75-99) mg/dL AST (14-36) U/L Lactate Dehydrogenase 1275 H (313-618) U/L Troponin I 0.243 H* (0.000-0.034) ng/mL C-Reactive Protein (<1.0) mg/dL Total Protein (6.3-8.2) g/dL Albumin (3.5-5.0) g/dL 12/24/20 12/24/20 12/24/20 Range/Units 08:38 08:38 08:38 WBC 13.9 H (3.8-10.6) k/uL RBC 3.59 L (3.80-5.40) m/uL D-Dimer 0.90 H (<0.60) mg/L FEU Sodium 136 L (137-145) mmol/L Carbon Dioxide 19 L (22-30) mmol/L BUN 72 H (7-17) mg/dL Creatinine 1.94 H (0.52-1.04) mg/dL Glucose 325 H (74-99) mg/dL POC Glucose (mg/dL) (75-99) mg/dL AST 49 H (14-36) U/L Lactate Dehydrogenase 1605 H (313-618) U/L Troponin I (0.000-0.034) ng/mL C-Reactive Protein 22.3 H (<1.0) mg/dL Total Protein 6.2 L (6.3-8.2) g/dL Albumin 3.3 L (3.5-5.0) g/dL 12/24/20 12/24/20 12/24/20 Range/Units 08:38 08:38 12:21 WBC (3.8-10.6) k/uL RBC (3.80-5.40) m/uL D-Dimer (<0.60) mg/L FEU Sodium (137-145) mmol/L Carbon Dioxide (22-30) mmol/L BUN (7-17) mg/dL Creatinine (0.52-1.04) mg/dL Glucose (74-99) mg/dL POC Glucose (mg/dL) 257 H (75-99) mg/dL AST (14-36) U/L Lactate Dehydrogenase (313-618) U/L Troponin I 0.133 H* (0.000-0.034) ng/mL C-Reactive Protein 22.2 H (<1.0) mg/dL Total Protein (6.3-8.2) g/dL Albumin (3.5-5.0) g/dL Microbiology - Last 24 Hours (Table) 12/23/20 12:33 Blood Culture - Preliminary Blood No Growth after 24 hours
[2020-12-24 16:54] LABS: Glucose,Whole Blood 247 mg/dL (75-99)
[2020-12-24] MEDS ORDERED: LORazepam 2 MG/ML INJ IV PRN (17:58)
[2020-12-24 18:29] LABS: Glucose,Whole Blood 286 mg/dL (75-99)
[2020-12-24 18:49] LABS: Basophils % (A) 0 %; Eosinophils # (A) 0.1 k/uL (0-0.7); Eosinophils % (A) 1 %; HCT 36.6 % (34.0-46.0); HGB 11.7 gm/dL (11.4-16.0); Lymphocytes # (A) 1.1 k/uL (1.0-4.8); Lymphocytes % (A) 5 %; MCH 32.1 pg (25.0-35.0); MCV 100.3 fL (80.0-100.0); Mean Platelet Volume 8.1; Monocytes # (A) 0.3 k/uL (0-1.0); Monocytes % (A) 2 %; Neutrophils # (A) 21.2 k/uL (1.3-7.7); Neutrophils % (A) 93 %; Platelet Count 313 k/uL (150-450); RBC 3.65 m/uL (3.80-5.40); RDW 13.8 % (11.5-15.5); WBC 22.9 k/uL (3.8-10.6)
[2020-12-24 18:52] LABS: Albumin 3.2 g/dL (3.5-5.0); Calcium 8.7 mg/dL (8.4-10.2); INR 0.9 (<1.2); Magnesium 2.4 mg/dL (1.6-2.3); Partial Thromboplastin Time 22.9 sec (22.0-30.0); Phosphorus 7.2 mg/dL (2.5-4.5); Potassium 4.7 mmol/L (3.5-5.1); Prothrombin Time 10.2 sec (9.0-12.0); Total Bilirubin 0.7 mg/dL (0.2-1.3); Total Protein 6.2 g/dL (6.3-8.2)
--- NOTE | 2020-12-24 18:56 | XR ---
EXAMINATION TYPE: XR chest 1V portable DATE OF EXAM: 12/24/2020 COMPARISON: NONE HISTORY: Check tube placement TECHNIQUE: Single view FINDINGS: There is moderate pulmonary edema. There are chest leads. There are sternal wires. The endo tracheal tube is 4 cm from the raúl. I see no definite pleural effusion. IMPRESSION: There is moderately severe pulmonary edema that is worse than yesterday. This could be in creasing RDS.
[2020-12-24 19:01] LABS: ABG Base Excess -7.5 mmol/L; ABG HCO3 20 mmol/L (21-25); ABG Oxygen Saturation 81.4 % (94-97); ABG PCO2 49 mmHg (35-45); ABG PH 7.22 (7.35-7.45); ABG TCO2 22 mmol/L (19-24); Allen Test Performed? Yes
[2020-12-24 19:08] LABS: ABG PO2 53 mmHg (83-108)
[2020-12-24] MEDS ORDERED: HEPARIN SODIUM 1,000 UN/ML (10ML VL) IV ONE (19:15)
--- NOTE | 2020-12-24 19:20 | P.EN ---
CODE BLUE Indication: PEA arrest Arrived on Scene to find: CPR in progress, S/P epi X 1 Initial Rhythm: PEA Code Course: received 1 of epinephrine as well as 1 amp of bicarb. Obtained Ross with an initial blood pressure of 158/83 on the monitor. She was intubated by S[employer]INE[employer] with a 7.5 ET tube. Total down time less than 7 minutes. Vital signs reviewed General: non toxic, no distress, appears at stated age Cardiovascular: S1S2 reg, no murmur, positive posterior tibial pulse bilateral, Lungs:course but equal breath sounds bilateral Abdominal: soft, nontender to palpation, no guarding, no appreciable organomegaly Ext: no gross muscle atrophy, no edema, no contractures Neuro: Moving all 4 extremity independently Psych: Alert, oriented, appropriate affect Assessment: PEA arrest with ROSC New onset A fib with incomplete right bundle. Plan: - Patient was transferred to ICU, started on the vent 14/400/12/100, CXR showed pulm edema with ET tube in place - stat labs revewed without significant change - Change from Lovenox to Heparin gtt due to new onset A fib Disposition: ICU Notified: Dr Daniels Daughter A Total of 32 minutes of critical care time was spent on the complex care of this patient.
[2020-12-24] MEDS: HEPARIN SOD,PORK IN 0.45% NACL 25,000 UNIT in 0.45% NACL 1 250ML.BAG IV SCH (20:00)
[2020-12-24] MEDS ORDERED: INSULIN ASPART (NovoLOG) 100 UNIT/ML VIAL SQ SCH (20:00)
[2020-12-24] MEDS ORDERED: NOREPINEPHRIN 4 MG-0.9% NS PMX 4 MG/250 ML ML IV ONE (20:06)
[2020-12-24] MEDS ORDERED: SODIUM CHLORIDE 0.9% 2,000 ML IV ONE (20:20)
[2020-12-24] MEDS: CHLORHEXIDINE GLUCONATE 15 ML CUP MUCOUS MEM SCH (20:24)
[2020-12-24] MEDS: INSULIN DETEMIR (LEVEMIR) 100 UNIT/ML SYR SQ SCH (20:24)
[2020-12-24] MEDS: NOREPINEPHRINE 4 MG in SODIUM CHLORIDE 0.9% 250 ML IV SCH (22:09)
[2020-12-25 00:10] LABS: Glucose,Whole Blood 214 mg/dL (75-99)
[2020-12-25] MEDS: INSULIN ASPART (NovoLOG) 100 UNIT/ML VIAL SQ SCH ×9 (00:11→23:36)
[2020-12-25 02:05] LABS: Basophils % (A) 0 %; Eosinophils % (A) 0 %; HCT 34.2 % (34.0-46.0); HGB 10.9 gm/dL (11.4-16.0); Lymphocytes # (A) 0.5 k/uL (1.0-4.8); Lymphocytes % (A) 3 %; MCH 32.3 pg (25.0-35.0); MCV 100.9 fL (80.0-100.0); Macrocytosis Slight; Mean Platelet Volume 8.2; Monocytes # (A) 0.6 k/uL (0-1.0); Monocytes % (A) 3 %; Neutrophils # (A) 17.5 k/uL (1.3-7.7); Neutrophils % (A) 93 %; Platelet Count 252 k/uL (150-450); RBC 3.39 m/uL (3.80-5.40); RDW 13.8 % (11.5-15.5); WBC 18.7 k/uL (3.8-10.6)
[2020-12-25 02:33] LABS: Albumin 2.8 g/dL (3.5-5.0); Magnesium 2.3 mg/dL (1.6-2.3); Potassium 4.8 mmol/L (3.5-5.1); Total Bilirubin 0.7 mg/dL (0.2-1.3); Total Protein 5.7 g/dL (6.3-8.2)
[2020-12-25 02:49] LABS: INR 1.1 (<1.2); Prothrombin Time 11.2 sec (9.0-12.0)
[2020-12-25] MEDS: ALBUTEROL HFA INHALER INHALATION PRN (04:58)
[2020-12-25 05:46] LABS: ABG Base Excess -11.3 mmol/L; ABG HCO3 16 mmol/L (21-25); ABG Oxygen Saturation 90.7 % (94-97); ABG PCO2 38 mmHg (35-45); ABG PH 7.23 (7.35-7.45); ABG PO2 64 mmHg (83-108); ABG TCO2 17 mmol/L (19-24); Allen Test Performed? Yes
--- NOTE | 2020-12-25 05:46 | P.CRDCN ---
History of Present Illness Consult date: 12/25/20 Chief complaint: Shortness of breath History of present illness: This is a 75-year-old female patient with consulted to see in the intensive care unit for cardiopulmonary arrest on the floor yesterday. The patient currently is intubated and she is on mechanical ventilation and the history was taken from the chart as well as was taking care of the patient does have a past medical history significant for coronary artery disease and prior coronary artery bypass grafting as well as history of aortic stenosis and hypertension and dyslipidemia and obesity. She presented to the hospital with symptoms of progressive weakness and also possible loss of consciousness. She was also experiencing symptoms of upper respiratory infection for the last week. The patient was diagnosed with COVID 19 infection and she was admitted initially on the floor. She was hypoxic. She was on BiPAP. Subsequently the patient did have cardiopulmonary arrest was pulseless electrical activity and she received CPR and subsequently she was transferred to the intensive care unit. Currently she is intubated. She is hemodynamically unstable and requiring small doses of norepinephrine. Beside that she went into atrial fibrillation with rapid ventricular response and currently she is not on any AV mayra bonnie agents because her heart rate seems to be controlled. The troponin came in to be elevated with mildly elevated and seems to be flat and not consistent with acute coronary event. The chest x-ray showed bilateral interstitial infiltrate. The EKG showed atrial fibrillation with ST changes in the lateral leads with don't have any old EKG to compare to this one. Before the event the patient underwent an echocardiogram which revealed normal left ventricular systolic function was evidence of severe aortic stenosis. The mean gradient across aortic valve was 14 mmHg. On physical examination she does have significant systolic murmur at the right upper sternal border with significant diminished in the intensity of S2 Past Medical History Past Medical History: Coronary Artery Disease (CAD), Chest Pain / Angina, Diabetes Mellitus, Hyperlipidemia, Hypertension Last Myocardial Infarction Date:: hypothyroidism History of Any Multi-Drug Resistant Organisms: None Reported Past Surgical History: No Surgical Hx Reported Additional Past Surgical History / Comment(s): Stent X 1, CABG X 4 Past Psychological History: No Psychological Hx Reported Smoking Status: Former smoker Past Alcohol Use History: None Reported Past Drug Use History: None Reported - Past Family History Father Additional Family Medical History / Comment(s): from lung cancer Mother Additional Family Medical History / Comment(s): from old age Medications and Allergies Home Medications Medication Instructions Recorded Confirmed Type Carvedilol [Coreg] 25 mg PO BID 12/23/20 12/23/20 History Clopidogrel [Plavix] 75 mg PO DAILY 12/23/20 12/23/20 History Ergocalciferol [Vitamin D2 (1250 1,250 mcg PO Q7D 12/23/20 12/23/20 History Mcg = 30545 Iu)] Furosemide [Lasix] 20 mg PO DAILY 12/23/20 12/23/20 History INSULIN ASPART (NovoLOG) [NovoLOG 10 - 15 unit SQ AC-TID 12/23/20 12/23/20 History (formulary)] Insulin Glargine,Hum.rec.anlog 35 unit SQ DAILY 12/23/20 12/23/20 History [Lantus Solostar Pen] Levothyroxine Sodium [Euthyrox] 50 mcg PO DAILY 12/23/20 12/23/20 History Omeprazole 20 mg PO DAILY 12/23/20 12/23/20 History Rosuvastatin [Crestor] 20 mg PO HS 12/23/20 12/23/20 History amLODIPine [Norvasc] 10 mg PO DAILY 12/23/20 12/23/20 History lisinopriL [Zestril] 20 mg PO BID 12/23/20 12/23/20 History Allergies Allergy/AdvReac Type Severity Reaction Status Date / Time No Known Allergies Allergy Verified 12/23/20 15:33 Physical Exam Vitals: Vital Signs Temp Pulse Pulse Resp BP BP Pulse Ox 12/25/20 05:15 96 24 95/68 96 12/25/20 05:00 81 23 78/56 96 12/25/20 04:45 100 21 79/62 99 12/25/20 04:30 111 H 20 82/66 99 12/25/20 04:15 89 28 H 101/63 99 12/25/20 04:00 95 F L 97 24 82/64 99 12/25/20 03:45 98 13 102/58 99 12/25/20 03:30 77 13 94/65 99 12/25/20 03:15 101 H 23 85/58 99 12/25/20 03:00 84 8 L 94/51 98 12/25/20 02:45 103 H 20 101/63 98 09/05/21 02:30 81 20 95/62 98 12/25/20 02:15 89 23 100/60 98 12/25/20 02:00 84 22 104/70 98 12/25/20 01:45 96 15 105/67 96 12/25/20 01:30 85 19 99/75 92 L 12/25/20 01:15 111 H 16 104/62 97 12/25/20 01:00 88 20 90/60 98 12/25/20 00:45 87 18 101/67 98 12/25/20 00:30 80 22 105/63 98 12/25/20 00:18 92 19 94 L 12/25/20 00:15 83 14 113/56 97 12/25/20 00:00 96.7 F L 81 21 115/60 98 12/24/20 23:45 88 20 105/65 97 12/24/20 23:30 78 21 98/78 93 L 12/24/20 23:15 90 20 108/72 98 12/24/20 23:00 89 20 110/76 98 12/24/20 22:45 100 27 H 116/84 97 12/24/20 22:30 86 16 101/74 95 12/24/20 22:15 82 22 79/55 91 L 12/24/20 22:00 74 20 86/53 86 L 12/24/20 21:45 80 25 H 78/56 95 12/24/20 21:30 68 28 H 82/62 88 L 12/24/20 21:15 79 25 H 83/66 88 L 12/24/20 21:00 80 22 82/55 98 12/24/20 20:45 64 33 H 76/55 98 12/24/20 20:30 87 21 65/51 97 12/24/20 20:15 98 21 69/58 96 12/24/20 20:00 97.7 F 64 22 73/36 91 L 12/24/20 19:45 80 26 H 91/65 82 L 12/24/20 19:30 74 31 H 93/62 84 L 12/24/20 19:15 84 19 93/62 80 L 12/24/20 19:00 70 34 H 93/62 82 L 12/24/20 15:47 75 24 122/63 89 L 12/24/20 14:00 18 12/24/20 12:00 74 18 129/68 90 L 12/24/20 08:23 93 L 12/24/20 08:00 96.7 F L 64 26 H 135/65 91 L Intake and Output 12/24/20 12/24/20 12/25/20 14:59 22:59 06:59 Intake Total 240 342.076 580.719 Output Total 140 160 Balance 240 202.076 420.719 Intake: IV 300 375 Sodium Chloride 0.9% 1, 300 375 000 ml @ 75 mls/hr IV . [id number] [facility]ETTE Rx#:[id number] Intake, IV Titration 42.076 205.719 Amount Norepinephrine 4 mg In 19.332 Sodium Chloride 0.9% 250 ml @ 0.05 MCG/KG/MIN 15. 716 mls/hr IV .[id number] [facility]ETTE Rx#:[id number] propofoL 1,000 mg In 42.076 186.387 Empty Bag 1 bag @ Titrate IV .Q0M EVETTE Rx#: [id number] Oral 240 Output: Urine 140 160 Other: Voiding Method Indwelling Catheter Indwelling Catheter # Voids 1 - Constitutional General appearance: no acute distress - Respiratory Respiratory: bilateral: rales - Cardiovascular Rhythm: irregularly irregular Heart sounds: normal: S1 Abnormal Heart Sounds: systolic murmur Results 12/25/20 01:30 12/25/20 01:30 Cardiac Enzymes 12/24/20 12/24/20 12/24/20 Range/Units 08:38 08:38 18:25 AST 49 H 282 H (14-36) U/L Lactate Dehydrogenase 1605 H (313-618) U/L Troponin I 0.133 H* (0.000-0.034) ng/mL 12/24/20 12/25/20 12/25/20 Range/Units 18:25 01:30 01:30 AST 243 H (14-36) U/L Lactate Dehydrogenase 2249 H (313-618) U/L Troponin I 0.090 H* 0.099 H* (0.000-0.034) ng/mL Coagulation 12/24/20 12/24/20 12/25/20 Range/Units 08:38 18:25 01:30 PT 10.3 10.2 11.2 (9.0-12.0) sec APTT 22.9 (22.0-30.0) sec 12/25/20 Range/Units 01:30 PT (9.0-12.0) sec APTT 63.9 H (22.0-30.0) sec CBC 12/24/20 12/24/20 12/25/20 Range/Units 08:38 18:25 01:30 WBC 13.9 H 22.9 H 18.7 H (3.8-10.6) k/uL RBC 3.59 L 3.65 L 3.39 L (3.80-5.40) m/uL Hgb 11.6 11.7 10.9 L (11.4-16.0) gm/dL Hct 34.6 36.6 34.2 (34.0-46.0) % Plt Count 210 313 252 (150-450) k/uL Comprehensive Metabolic Panel 12/24/20 12/24/20 12/25/20 Range/Units 08:38 18:25 01:30 Sodium 136 L 138 138 (137-145) mmol/L Potassium 4.4 4.7 4.8 (3.5-5.1) mmol/L Chloride 104 108 H 112 H (98-107) mmol/L Carbon Dioxide 19 L 18 L 15 L (22-30) mmol/L BUN 72 H 74 H 75 H (7-17) mg/dL Creatinine 1.94 H 1.79 H 1.80 H (0.52-1.04) mg/dL Glucose 325 H 307 H 272 H (74-99) mg/dL Calcium 8.9 8.7 8.0 L (8.4-10.2) mg/dL AST 49 H 282 H 243 H (14-36) U/L ALT 19 146 H 138 H (4-34) U/L Alkaline Phosphatase 63 61 70 (38-126) U/L Total Protein 6.2 L 6.2 L 5.7 L (6.3-8.2) g/dL Albumin 3.3 L 3.2 L 2.8 L (3.5-5.0) g/dL Current Medications Generic Name Dose Route Start Last Admin Trade Name Freq PRN Reason Stop Dose Admin Acetaminophen 650 mg 12/23/20 15:14 Acetaminophen Tab 325 Mg Tab PO Q6HR PRN Mild Pain or Fever > 100.5 Albuterol Sulfate 2 puff 12/23/20 18:30 12/24/20 17:01 Albuterol Hfa Inhaler INHALATION 2 puff RT-Q6H PRN Administration Shortness Of Breath Or Wheezing Ascorbic Acid 1,000 mg 12/25/20 09:00 Ascorbic Acid 500 Mg Tab PO DAILY EVETTE Chlorhexidine Gluconate 15 ml 12/24/20 21:00 12/24/20 20:24 Chlorhexidine Gluconate 15 Ml Cup MUCOUS MEM 15 ml BID EVETTE Administration Cholecalciferol 100 mcg 12/24/20 09:00 12/24/20 08:58 Cholecalciferol 25 Mcg (1000 Iu) Tablet PO 100 mcg DAILY EVETTE Administration Dexamethasone Sodium Phosphate 6 mg 12/24/20 09:00 12/24/20 08:58 Dexamethasone Sod Phosphate 10 Mg/Ml 1 Ml Vial IV 6 mg DAILY EVETTE Administration Famotidine 20 mg 12/24/20 09:00 12/24/20 08:58 Famotidine 20 Mg/2 Ml Vial IV 20 mg DAILY EVETTE Administration Heparin Sodium (Porcine) 0 unit 12/24/20 19:15 Heparin Sodium 1,000 Un/Ml (10ml Vl) IV PER PROTOCOL PRN Low PTT Protocol Sodium Chloride 1,000 mls @ 75 mls/hr 12/23/20 15:15 12/24/20 17:21 Saline 0.9% IV 75 mls/hr .[id number] [facility]TE Administration Propofol 1,000 mg/ IV Solution 100 mls @ 0 mls/hr 12/24/20 19:00 12/25/20 03:47 IV 75 mcg/kg/min .Q0M [facility] 37.125 mls/hr Administration Protocol Titrate Heparin Sodium/Sodium Chloride 250 mls @ 9.9 mls/hr 12/24/20 19:15 12/24/20 20:00 25,000 unit/ Sodium Chloride IV 12 units/kg/hr .Q24H [facility]ETTE 9.9 mls/hr Administration Protocol 12 UNITS/KG/HR Norepinephrine Bitartrate 4 mg 254 mls @ 15.716 mls/hr 12/24/20 22:15 12/25/20 00:12 / Sodium Chloride IV 0.05 mcg/kg/min .[id number] [facility]ETTE 15.716 mls/hr Titration Protocol 0.05 MCG/KG/MIN Insulin Aspart 0 unit 12/25/20 00:00 12/25/20 00:11 Insulin Aspart (Novolog) 100 Unit/Ml Vial SQ 4 unit Q6H [facility]TE Administration Protocol Insulin Detemir 35 unit 12/24/20 21:00 12/24/20 20:24 Insulin Detemir (Levemir) 100 Unit/Ml Syr SQ 35 unit HS [facility]ETTE Administration Lorazepam 0.5 mg 12/24/20 17:58 Lorazepam 2 Mg/Ml Inj IV Q6HR PRN Anxiety Naloxone HCl 0.2 mg 12/23/20 15:14 Naloxone 0.4 Mg/Ml 1 Ml Vial IV Q2M PRN Opioid Reversal Zinc Sulfate 220 mg 12/25/20 09:00 Zinc Sulfate 220 Mg Cap PO DAILY [facility]TE Intake and Output 12/24/20 12/24/20 12/25/20 14:59 22:59 06:59 Intake Total 240 342.076 580.719 Output Total 140 160 Balance 240 202.076 420.719 Intake: IV 300 375 Sodium Chloride 0.9% 1, 300 375 000 ml @ 75 mls/hr IV . [id number] [facility] Rx#:[id number] Intake, IV Titration 42.076 205.719 Amount Norepinephrine 4 mg In 19.332 Sodium Chloride 0.9% 250 ml @ 0.05 MCG/KG/MIN 15. 716 mls/hr IV .[id number] [facility] Rx#:[id number] propofoL 1,000 mg In 42.076 186.387 Empty Bag 1 bag @ Titrate IV .Q0M [facility] Rx#: [id number] Oral 240 Output: Urine 140 160 Other: Voiding Method Indwelling Catheter Indwelling Catheter # Voids 1 12/25/20 01:30 12/25/20 01:30 Assessment and Plan Assessment: Assessment #1 COVID 19 infection #2 cardiopulmonary arrest was pulseless electrical activity #3 severe aortic stenosis #4 mildly abnormal troponin does not reflect acute coronary event #5 coronary artery disease and prior revascularization #6 atrial fibrillation with controlled heart rate. This is a newly diagnosis the patient Plan #1 consider medical treatment for the mildly abnormal troponin #2 continue IV heparin #3 consider switching the patient to oral anticoagulation #4 address the aortic stenosis once the patient recovered from the current infection. The aortic stenosis could be behind her episode of loss of consciousness before she was admitted to the hospital. #5 repeat the echocardiogram #6 follow-up with the patient
[2020-12-25 06:32] LABS: Glucose,Whole Blood 328 mg/dL (75-99)
[2020-12-25] MEDS: SODIUM CHLORIDE 0.9% 1,000 ML IV SCH ×2 (06:37→19:51)
[2020-12-25] MEDS ORDERED: ALBUTEROL HFA INHALER INHALATION PRN (08:30)
[2020-12-25] MEDS ORDERED: CISATRACURIUM 2 MG/ML 5 ML VIAL IV ONE (08:36)
--- NOTE | 2020-12-25 09:30 | XR ---
EXAMINATION TYPE: XR chest 1V portable DATE OF EXAM: 12/25/2020 COMPARISON: Chest radiographs December 23 and 2020 HISTORY: Placement TECHNIQUE: Single frontal view of the chest is obtained. FINDINGS: Median sternotomy wires. Endotracheal tube with tip approximately 5 cm above the raúl. N G tube coursing below the diaphragm with the distal tip not imaged. Its over the right hemithorax. The heart is enlarged, stable. The pulmonary vasculature is obscured. Next There is diffuse bilateral patchy airspace opacity. No pneumothorax or sizable effusion. IMPRESSION: 1. Multifocal pneumonia. 2. Lines and tubes as above.
--- NOTE | 2020-12-25 09:34 | PCN ---
PROCEDURE NOTE PULMONARY/CRITICAL CARE PROCEDURE NOTE: PROCEDURE: Left internal jugular triple-lumen catheter. PREOP DIAGNOSIS: Administration of fluids and pressors. POSTOP DIAGNOSIS: Administration of fluids and pressors. FOAM CASTER: Dr. Daniels and Dr. Ha. TRIPLE LUMEN CATHETER PLACEMENT: Indication: Hemodynamic monitoring/Intravenous access. A time-out was completed verifying correct patient, procedure, site, positioning, and implant(s) or special equipment if applicable. The patient was placed in a dependent position appropriate for triple lumen catheter placement based on the vein to be cannulated. The patient's left neck was prepped and draped in sterile fashion. 1% Lidocaine was used to anesthetize the surrounding skin area. A triple lumen 9F Cordis catheter was introduced into the internal jugular vein using Seldinger technique. The catheter was threaded smoothly over the guide wire and appropriate blood return was obtained. Each lumen of the catheter was evacuated of air and flushed with sterile saline. The catheter was then sutured in place to the skin and a sterile dressing applied. Perfusion to the extremity distal to the point of catheter insertion was checked and found to be adequate. The procedure went very well. There was no immediate complication. The tip of catheter was seen in the junction of the superior vena cava right atrium. There was good blood return from all 3 ports. The patient tolerated the procedure well. The catheter was sutured in place. Sterile dressing was applied by the nurse. There was no immediate complication. MMODL / IJN: [id number] /
[2020-12-25] MEDS: ALBUTEROL HFA INHALER INHALATION SCH ×5 (09:41→23:19)
--- NOTE | 2020-12-25 09:44 | XR ---
EXAMINATION TYPE: XR chest 1V confirm line [facility] DATE OF EXAM: 12/25/2020 COMPARISON: Chest radiograph December 25, 2020 HISTORY: Pneumonia TECHNIQUE: Single frontal view of the chest is obtained. FINDINGS: Interval placement of left central venous catheter with the tip over the cavoatrial juncti on. Endotracheal tube tip over the mid trachea. Gastric tube coursing below the diaphragm with the ti p not seen. Median sternotomy wires. Clips over the left hemithorax. Cardiac mediastinal silhouette is stable. Multifocal airspace opacity. No large effusion or pneumotho rax. IMPRESSION: 1. Multifocal pneumonia. 2. Lines and tubes as above. No pneumothorax.
[2020-12-25] MEDS: CHLORHEXIDINE GLUCONATE 15 ML CUP MUCOUS MEM SCH ×2 (10:23→20:24)
[2020-12-25] MEDS: ASCORBIC ACID 500 MG TAB PO SCH (10:24)
[2020-12-25] MEDS: DEXAMETHASONE SOD PHOSPHATE 10 MG/ML 1 ML VIAL IV SCH (10:24)
[2020-12-25] MEDS: FAMOTIDINE 20 MG/2 ML VIAL IV SCH (10:24)
[2020-12-25] MEDS: CHOLECALCIFEROL 25 MCG (1000 IU) TABLET PO SCH (10:24)
[2020-12-25] MEDS: ZINC SULFATE 220 MG CAP PO SCH (10:25)
[2020-12-25] MEDS: INSULIN DETEMIR (LEVEMIR) 100 UNIT/ML SYR SQ SCH ×2 (10:25→20:24)
--- NOTE | 2020-12-25 11:24 | P.PN ---
Subjective Progress Note Date: 12/25/20 Principal diagnosis: COVID 19 pneumonia. Progress note dated 12/24/2020. This is a 75-year-old female presented to the emergency department complaints of shortness of breath. She apparently became ill on December 18. She tested positive for coronavirus infection on December 23. She initially went to [facility], had a syncopal episode, who was transferred here to the emergency room to be evaluated. She was on BiPAP initially saw her, with settings of 10/5, and 100%. She has a history of diabetes, and angina. She is a lifelong nonsmoker. White count 13.9, hemoglobin 11.6, hematocrit 34.6, platelet count 210,000. D- dimer was 0.90. Sodium 136, potassium 4.4, chlorides 104, CO2 19, anion gap 13, BUN and creatinine were 72 and 1.94. LDH was 1605, troponin was 0.133, C- reactive protein was 22.2, and N-terminal proBNP, was 7930, down from 21,100. Chest x-ray showed perihilar and right basilar infiltrates, consistent with coronavirus pneumonia. Progress note dated 12/25/2020. 75-year-old female who came into the emergency department initially with complaints of shortness of breath. She became ill on December 18, and was tested positive for coronavirus on December 23. She apparently went to [facility], which is an urgent care facility, and had a syncopal episode. Last night, the patient developed cardiopulmonary arrest. She had about 7 minutes worth of cardiopulmonary resuscitation. She was found to be in pulseless electrical activity. The patient was intubated on December 24. Currently, she is on volume assist control mode, rate 20, tidal volume 400, FiO2 80%, and a PEEP of 15. Blood gases show pO2 of 64, pCO2 of 38, pH is 7.23. The patient is currently on heparin via weightbase protocol, saline at 75 mL an hour, propofol at 75 mcg/kg/m, norepinephrine at 4 mcg/m, in she did receive 3 L of fluid yesterday. Today, she had a central line placed, and an arterial line placed. We'll also start tube feedings. White count 18.7, hemoglobin 10.9, hematocrit 34.2, and platelet count is normal. PTT is 63.9. D-dimer was 5.32. PO2 was 64, pCO2 of 38, pH 7.23. Sodium 138, potassium 4.8, chlorides 112, CO2 15, anion gap 11, BUN 75, and creatinine 1.80. Troponin was 0.099. C-reactive protein was 20. N-terminal proBNP was 8500. Her cortisol level was 35. Chest x-ray after central line placement shows multifocal pneumonia, and in properly placed left internal jugular term open catheter, without complication. Objective - Vital Signs Vital signs: Vital Signs Temp 98.5 F 12/25/20 06:45 Pulse 109 H 12/25/20 10:30 Resp 20 12/25/20 10:30 BP 96/73 12/25/20 10:30 Pulse Ox 98 12/25/20 10:30 Intake & Output 12/24/20 12/25/20 12/25/20 18:59 06:59 18:59 Intake Total 240 1228.851 300 Output Total 100 325 170 Balance 140 903.851 130 Weight 93.7 kg Intake: IV 900 300 Sodium Chloride 0.9% 1, 900 300 000 ml @ 75 mls/hr IV . [id number] [facility] Rx#:[id number] Intake, IV Titration 328.851 Amount Norepinephrine 4 mg In 19.332 Sodium Chloride 0.9% 250 ml @ 0.05 MCG/KG/MIN 15. 716 mls/hr IV .[id number] [facility] Rx#:[id number] propofoL 1,000 mg In 309.519 Empty Bag 1 bag @ Titrate IV .Q0M [facility] Rx#: [id number] Oral 240 Output: Urine 100 325 170 Other: Voiding Method Indwelling Catheter Indwelling Catheter # Voids 1 ABP, PAP, CO, CI - Last Documented Arterial Blood Pressure 95/48 - Exam No acute distress, sedated on propofol, with an orally placed endotracheal tube and NG tube. HEENT examination is grossly unremarkable. Neck supple. Full range of motion. No adenopathy thyromegaly or neck vein distention. Cardiovascular examination reveals regular rhythm rate. S1-S2 normal. No S3 or S4. No discernible murmur noted. Heart rate 109 bpm. Lungs reveal scattered bilateral rhonchi. No wheezes or crackles. Breath sounds equal bilaterally. Saturations are 98%. Abdomen soft bowel sounds are heard. No masses or tenderness. Extremities are intact. No cyanosis clubbing or edema. Skin is without rash or lesion. Neurologic examination cannot be assessed as the patient's currently sedated. - Labs CBC & Chem 7: 12/25/20 01:30 12/25/20 01:30 Labs: Abnormal Lab Results - Last 24 Hours (Table) 12/24/20 12/24/20 12/24/20 Range/Units 12:21 16:40 18:25 WBC 22.9 H (3.8-10.6) k/uL RBC 3.65 L (3.80-5.40) m/uL Hgb (11.4-16.0) gm/dL MCV 100.3 H (80.0-100.0) fL Neutrophils # 21.2 H (1.3-7.7) k/uL Lymphocytes # (1.0-4.8) k/uL APTT (22.0-30.0) sec D-Dimer (<0.60) mg/L FEU ABG pH (7.35-7.45) ABG pCO2 (35-45) mmHg ABG pO2 (83-108) mmHg ABG HCO3 (21-25) mmol/L ABG Total CO2 (19-24) mmol/L ABG O2 Saturation (94-97) % Chloride (98-107) mmol/L Carbon Dioxide (22-30) mmol/L BUN (7-17) mg/dL Creatinine (0.52-1.04) mg/dL Glucose (74-99) mg/dL POC Glucose (mg/dL) 257 H 247 H (75-99) mg/dL Calcium (8.4-10.2) mg/dL Phosphorus (2.5-4.5) mg/dL Magnesium (1.6-2.3) mg/dL AST (14-36) U/L ALT (4-34) U/L Lactate Dehydrogenase (313-618) U/L Troponin I (0.000-0.034) ng/mL C-Reactive Protein (<1.0) mg/dL Total Protein (6.3-8.2) g/dL Albumin (3.5-5.0) g/dL 12/24/20 12/24/20 12/24/20 Range/Units 18:25 18:25 18:27 WBC (3.8-10.6) k/uL RBC (3.80-5.40) m/uL Hgb (11.4-16.0) gm/dL MCV (80.0-100.0) fL Neutrophils # (1.3-7.7) k/uL Lymphocytes # (1.0-4.8) k/uL APTT (22.0-30.0) sec D-Dimer (<0.60) mg/L FEU ABG pH (7.35-7.45) ABG pCO2 (35-45) mmHg ABG pO2 (83-108) mmHg ABG HCO3 (21-25) mmol/L ABG Total CO2 (19-24) mmol/L ABG O2 Saturation (94-97) % Chloride 108 H (98-107) mmol/L Carbon Dioxide 18 L (22-30) mmol/L BUN 74 H (7-17) mg/dL Creatinine 1.79 H (0.52-1.04) mg/dL Glucose 307 H (74-99) mg/dL POC Glucose (mg/dL) 286 H (75-99) mg/dL Calcium (8.4-10.2) mg/dL Phosphorus 7.2 H (2.5-4.5) mg/dL Magnesium 2.4 H (1.6-2.3) mg/dL AST 282 H (14-36) U/L ALT 146 H (4-34) U/L Lactate Dehydrogenase (313-618) U/L Troponin I 0.090 H* (0.000-0.034) ng/mL C-Reactive Protein (<1.0) mg/dL Total Protein 6.2 L (6.3-8.2) g/dL Albumin 3.2 L (3.5-5.0) g/dL 12/24/20 12/25/20 12/25/20 Range/Units 18:52 00:08 01:30 WBC 18.7 H (3.8-10.6) k/uL RBC 3.39 L (3.80-5.40) m/uL Hgb 10.9 L (11.4-16.0) gm/dL MCV 100.9 H (80.0-100.0) fL Neutrophils # 17.5 H (1.3-7.7) k/uL Lymphocytes # 0.5 L (1.0-4.8) k/uL APTT (22.0-30.0) sec D-Dimer (<0.60) mg/L FEU ABG pH 7.22 L (7.35-7.45) ABG pCO2 49 H (35-45) mmHg ABG pO2 53 L* (83-108) mmHg ABG HCO3 20 L (21-25) mmol/L ABG Total CO2 (19-24) mmol/L ABG O2 Saturation 81.4 L (94-97) % Chloride (98-107) mmol/L Carbon Dioxide (22-30) mmol/L BUN (7-17) mg/dL Creatinine (0.52-1.04) mg/dL Glucose (74-99) mg/dL POC Glucose (mg/dL) 214 H (75-99) mg/dL Calcium (8.4-10.2) mg/dL Phosphorus (2.5-4.5) mg/dL Magnesium (1.6-2.3) mg/dL AST (14-36) U/L ALT (4-34) U/L Lactate Dehydrogenase (313-618) U/L Troponin I (0.000-0.034) ng/mL C-Reactive Protein (<1.0) mg/dL Total Protein (6.3-8.2) g/dL Albumin (3.5-5.0) g/dL 12/25/20 12/25/20 12/25/20 Range/Units 01:30 01:30 01:30 WBC (3.8-10.6) k/uL RBC (3.80-5.40) m/uL Hgb (11.4-16.0) gm/dL MCV (80.0-100.0) fL Neutrophils # (1.3-7.7) k/uL Lymphocytes # (1.0-4.8) k/uL APTT (22.0-30.0) sec D-Dimer 5.32 H (<0.60) mg/L FEU ABG pH (7.35-7.45) ABG pCO2 (35-45) mmHg ABG pO2 (83-108) mmHg ABG HCO3 (21-25) mmol/L ABG Total CO2 (19-24) mmol/L ABG O2 Saturation (94-97) % Chloride 112 H (98-107) mmol/L Carbon Dioxide 15 L (22-30) mmol/L BUN 75 H (7-17) mg/dL Creatinine 1.80 H (0.52-1.04) mg/dL Glucose 272 H (74-99) mg/dL POC Glucose (mg/dL) (75-99) mg/dL Calcium 8.0 L (8.4-10.2) mg/dL Phosphorus (2.5-4.5) mg/dL Magnesium (1.6-2.3) mg/dL AST 243 H (14-36) U/L ALT 138 H (4-34) U/L Lactate Dehydrogenase 2249 H (313-618) U/L Troponin I 0.099 H* (0.000-0.034) ng/mL C-Reactive Protein 20.0 H (<1.0) mg/dL Total Protein 5.7 L (6.3-8.2) g/dL Albumin 2.8 L (3.5-5.0) g/dL 12/25/20 12/25/20 12/25/20 Range/Units 01:30 05:40 06:30 WBC (3.8-10.6) k/uL RBC (3.80-5.40) m/uL Hgb (11.4-16.0) gm/dL MCV (80.0-100.0) fL Neutrophils # (1.3-7.7) k/uL Lymphocytes # (1.0-4.8) k/uL APTT 63.9 H (22.0-30.0) sec D-Dimer (<0.60) mg/L FEU ABG pH 7.23 L (7.35-7.45) ABG pCO2 (35-45) mmHg ABG pO2 64 L (83-108) mmHg ABG HCO3 16 L (21-25) mmol/L ABG Total CO2 17 L (19-24) mmol/L ABG O2 Saturation 90.7 L (94-97) % Chloride (98-107) mmol/L Carbon Dioxide (22-30) mmol/L BUN (7-17) mg/dL Creatinine (0.52-1.04) mg/dL Glucose (74-99) mg/dL POC Glucose (mg/dL) 328 H (75-99) mg/dL Calcium (8.4-10.2) mg/dL Phosphorus (2.5-4.5) mg/dL Magnesium (1.6-2.3) mg/dL AST (14-36) U/L ALT (4-34) U/L Lactate Dehydrogenase (313-618) U/L Troponin I (0.000-0.034) ng/mL C-Reactive Protein (<1.0) mg/dL Total Protein (6.3-8.2) g/dL Albumin (3.5-5.0) g/dL Microbiology - Last 24 Hours (Table) 12/23/20 12:33 Blood Culture - Preliminary Blood No Growth after 24 hours Assessment and Plan Assessment: Acute hypoxemic respiratory failure secondary to coronavirus infection/COVID 19 pneumonia. Status post cardiopulmonary arrest, with pulseless electrical activity, for 7 minutes, status post intubation and mechanical ventilation, on 12/24/2020. New-onset paroxysmal atrial fibrillation, currently on IV heparin. Non-anion gap metabolic acidosis. Hypotension, likely secondary to underlying sepsis/infection. History of diabetes mellitus. History of angina pectoris. Plan: Plan dated 12/24/2020. The patient was placed on vitamin C, vitamin D3, and zinc. The patient was also given an albuterol inhaler. The patient's BiPAP was converted to AIRVO. We t hought she would be a good candidate for REM. In addition, Decadron and Lovenox should be given a usual doses. We will continue to follow make recommendations where appropriate. Additional recommendations and suggestions are forthcoming. Prognosis is guarded. Plan dated 12/25/2020. The patient was transferred after being resuscitated and after having cardiopulmonary resuscitation for about 7 minutes. A right radial art line was placed today. In addition, we did a left internal jugular triple-lumen catheter. The patient remains on heparin, for her new onset atrial fibrillation, saline, propofol, a small amount of norepinephrine, and she did receive 3 L of fluid. PEEP was increased from 15-18. She's currently on 80%. We'll see if we can wean the FiO2 down. Additional recommendations and suggestions are forthcoming. Prognosis is very guarded. Time with Patient: Greater than 30
[2020-12-25 11:47] LABS: Glucose,Whole Blood 264 mg/dL (75-99)
--- NOTE | 2020-12-25 12:39 | P.PN ---
Subjective Progress Note Date: 12/25/20 Principal diagnosis: shortness of breath Patient is a 75-year-old female with a history of prior angina, diabetes, hypothyroidism, dyslipidemia, and hypertension who presented with complaint of weakness and syncope. She started having upper respiratory symptoms approximately 4-5 days ago. She went to obtain an outpatient Covid test and passed out. She has completed a 2 series Pfizer vaccine earlier this year. In the ER she underwent an extensive evaluation. On arrival her oxygenation was 71% on room air. She was started on BiPAP. Initial laboratory analysis showed a sodium of 132, carbon dioxide 19, anion gap 11, BUN 56, creatinine 1.9, S2 83, troponin 0.247, CRP 22.8, BNP 21,100. Covid testing was positive. Chest x-ray showed diffuse bilateral interstitial infiltrates. She was given a dose of dexamethasone. She was seen by pulmonary who felt she could be managed on selective care. She was continued on dexamethasone. She is not a candidate for eRemdesivir secondary to her high oxygen requirements. On the afternoon of 12/24 she had sudden decline in heart rate and had PEA arrest lasting approximately 5 minutes. She was transitioned to the ICU and started on propofol for sedation. She did require small amounts of levo. She was noted to have A. fib after Jefferson was achieved and she was subsequently transitioned from Lovenox to heparin drip. She was seen by cardiology secondary to her echocardiogram with severe aortic stenosis in her PEA arrest. Patient seen and examined at bedside. Sedated on vent. General: Ill appearing, mild distress Derm: warm, dry Head: atraumatic, normocephalic, symmetric Eyes: Pupils equal round reactive to light, no lid lesion, anicteric sclera Mouth: no lip lesion, mucus membranes dry Cardiovascular: S1S2 reg, + murmur, positive posterior tibial pulse bilateral, Lungs: Coarse breath sounds bilateral, equal chest rise, on vent Abdominal: soft, nontender to palpation, no guarding, no appreciable organomegaly Ext: no gross muscle atrophy, small amounts of left upper extremity edema likely secondary to multiple IVs with fluids running, no contractures Neuro: CN II-XI grossly intact, no focal neuro deficits Psych: Alert, oriented, appropriate affect COVID-19 pneumonia Acute hypoxic respiratory failure Acute kidney injury, Non-anion gap metabolic acidosis Transaminitis secondary to above and cardiac arrest Septic shock - Vit D, zinc, vitamin C - Dexamethasone, Pepcid - Wean O2 as able - Pulm recs - Lovenox - hold lisnopril, lasix - follow inflammatory labs : D-dimer increasing -Follow CMP - IV fluids - Start oral sodium bicarb secondary to non-gap metabolic acidosis of renal failure Severe Aortic Stenosis Syncope- likely due to hypoxia versus severe aortic stenosis Elevated toponin- likely due to hypoxia, not consistent with ACS Aborted sudden cardiac Atrial fibrillation with rapid ventricular response - careful fluid management - tele - ASA - Heparin drip -Cardiology recommendations appreciated -Patient follows with Dr. Mcgraw at [facility] if requesting records for further evaluation if appropriate HTN - hold lisinopril due to VERONICA - Norvasc and Coreg on hold secondary to hypotension - follow BP HLD - statin DM 2 - Long acting, SSI, and fixed dose insulin - follow BS with steroids - check A1C ASCAD - plavix, BB, statin Hyponatremia, resolved Daughter updated over the phone DVT prophylaxis: Lovenox Discussed with: patient, nursing Anticipated discharge date: in 7-[address]: undetermined A total of 35 minutes was spent on the care of this complex patient more than 50% of the time was spent in counseling and care coordination. Objective - Vital Signs Vital signs: Vital Signs Temp 98.5 F 12/25/20 06:45 Pulse 109 H 12/25/20 10:30 Resp 20 12/25/20 10:30 BP 96/73 12/25/20 10:30 Pulse Ox 98 12/25/20 10:30 Intake & Output 12/24/20 12/25/20 12/25/20 18:59 06:59 18:59 Intake Total 240 1228.851 300 Output Total 100 325 170 Balance 140 903.851 130 Weight 93.7 kg Intake: IV 900 300 Sodium Chloride 0.9% 1, 900 300 000 ml @ 75 mls/hr IV . [id number] [facility] Rx#:[id number] Intake, IV Titration 328.851 Amount Norepinephrine 4 mg In 19.332 Sodium Chloride 0.9% 250 ml @ 0.05 MCG/KG/MIN 15. 716 mls/hr IV .[id number] [facility] Rx#:[id number] propofoL 1,000 mg In 309.519 Empty Bag 1 bag @ Titrate IV .Q0M [facility] Rx#: [id number] Oral 240 Output: Urine 100 325 170 Other: Voiding Method Indwelling Catheter Indwelling Catheter # Voids 1 ABP, PAP, CO, CI - Last Documented Arterial Blood Pressure 95/48 - Labs CBC & Chem 7: 12/25/20 01:30 12/25/20 01:30 Labs: Abnormal Lab Results - Last 24 Hours (Table) 12/24/20 12/24/20 12/24/20 Range/Units 16:40 18:25 18:25 WBC 22.9 H (3.8-10.6) k/uL RBC 3.65 L (3.80-5.40) m/uL Hgb (11.4-16.0) gm/dL MCV 100.3 H (80.0-100.0) fL Neutrophils # 21.2 H (1.3-7.7) k/uL Lymphocytes # (1.0-4.8) k/uL APTT (22.0-30.0) sec D-Dimer (<0.60) mg/L FEU ABG pH (7.35-7.45) ABG pCO2 (35-45) mmHg ABG pO2 (83-108) mmHg ABG HCO3 (21-25) mmol/L ABG Total CO2 (19-24) mmol/L ABG O2 Saturation (94-97) % Chloride 108 H (98-107) mmol/L Carbon Dioxide 18 L (22-30) mmol/L BUN 74 H (7-17) mg/dL Creatinine 1.79 H (0.52-1.04) mg/dL Glucose 307 H (74-99) mg/dL POC Glucose (mg/dL) 247 H (75-99) mg/dL Calcium (8.4-10.2) mg/dL Phosphorus 7.2 H (2.5-4.5) mg/dL Magnesium 2.4 H (1.6-2.3) mg/dL AST 282 H (14-36) U/L ALT 146 H (4-34) U/L Lactate Dehydrogenase (313-618) U/L Troponin I (0.000-0.034) ng/mL C-Reactive Protein (<1.0) mg/dL Total Protein 6.2 L (6.3-8.2) g/dL Albumin 3.2 L (3.5-5.0) g/dL 12/24/20 12/24/20 12/24/20 Range/Units 18:25 18:27 18:52 WBC (3.8-10.6) k/uL RBC (3.80-5.40) m/uL Hgb (11.4-16.0) gm/dL MCV (80.0-100.0) fL Neutrophils # (1.3-7.7) k/uL Lymphocytes # (1.0-4.8) k/uL APTT (22.0-30.0) sec D-Dimer (<0.60) mg/L FEU ABG pH 7.22 L (7.35-7.45) ABG pCO2 49 H (35-45) mmHg ABG pO2 53 L* (83-108) mmHg ABG HCO3 20 L (21-25) mmol/L ABG Total CO2 (19-24) mmol/L ABG O2 Saturation 81.4 L (94-97) % Chloride (98-107) mmol/L Carbon Dioxide (22-30) mmol/L BUN (7-17) mg/dL Creatinine (0.52-1.04) mg/dL Glucose (74-99) mg/dL POC Glucose (mg/dL) 286 H (75-99) mg/dL Calcium (8.4-10.2) mg/dL Phosphorus (2.5-4.5) mg/dL Magnesium (1.6-2.3) mg/dL AST (14-36) U/L ALT (4-34) U/L Lactate Dehydrogenase (313-618) U/L Troponin I 0.090 H* (0.000-0.034) ng/mL C-Reactive Protein (<1.0) mg/dL Total Protein (6.3-8.2) g/dL Albumin (3.5-5.0) g/dL 12/25/20 12/25/20 12/25/20 Range/Units 00:08 01:30 01:30 WBC 18.7 H (3.8-10.6) k/uL RBC 3.39 L (3.80-5.40) m/uL Hgb 10.9 L (11.4-16.0) gm/dL MCV 100.9 H (80.0-100.0) fL Neutrophils # 17.5 H (1.3-7.7) k/uL Lymphocytes # 0.5 L (1.0-4.8) k/uL APTT (22.0-30.0) sec D-Dimer 5.32 H (<0.60) mg/L FEU ABG pH (7.35-7.45) ABG pCO2 (35-45) mmHg ABG pO2 (83-108) mmHg ABG HCO3 (21-25) mmol/L ABG Total CO2 (19-24) mmol/L ABG O2 Saturation (94-97) % Chloride (98-107) mmol/L Carbon Dioxide (22-30) mmol/L BUN (7-17) mg/dL Creatinine (0.52-1.04) mg/dL Glucose (74-99) mg/dL POC Glucose (mg/dL) 214 H (75-99) mg/dL Calcium (8.4-10.2) mg/dL Phosphorus (2.5-4.5) mg/dL Magnesium (1.6-2.3) mg/dL AST (14-36) U/L ALT (4-34) U/L Lactate Dehydrogenase (313-618) U/L Troponin I (0.000-0.034) ng/mL C-Reactive Protein (<1.0) mg/dL Total Protein (6.3-8.2) g/dL Albumin (3.5-5.0) g/dL 12/25/20 12/25/20 12/25/20 Range/Units 01:30 01:30 01:30 WBC (3.8-10.6) k/uL RBC (3.80-5.40) m/uL Hgb (11.4-16.0) gm/dL MCV (80.0-100.0) fL Neutrophils # (1.3-7.7) k/uL Lymphocytes # (1.0-4.8) k/uL APTT 63.9 H (22.0-30.0) sec D-Dimer (<0.60) mg/L FEU ABG pH (7.35-7.45) ABG pCO2 (35-45) mmHg ABG pO2 (83-108) mmHg ABG HCO3 (21-25) mmol/L ABG Total CO2 (19-24) mmol/L ABG O2 Saturation (94-97) % Chloride 112 H (98-107) mmol/L Carbon Dioxide 15 L (22-30) mmol/L BUN 75 H (7-17) mg/dL Creatinine 1.80 H (0.52-1.04) mg/dL Glucose 272 H (74-99) mg/dL POC Glucose (mg/dL) (75-99) mg/dL Calcium 8.0 L (8.4-10.2) mg/dL Phosphorus (2.5-4.5) mg/dL Magnesium (1.6-2.3) mg/dL AST 243 H (14-36) U/L ALT 138 H (4-34) U/L Lactate Dehydrogenase 2249 H (313-618) U/L Troponin I 0.099 H* (0.000-0.034) ng/mL C-Reactive Protein 20.0 H (<1.0) mg/dL Total Protein 5.7 L (6.3-8.2) g/dL Albumin 2.8 L (3.5-5.0) g/dL 12/25/20 12/25/20 12/25/20 Range/Units 05:40 06:30 11:46 WBC (3.8-10.6) k/uL RBC (3.80-5.40) m/uL Hgb (11.4-16.0) gm/dL MCV (80.0-100.0) fL Neutrophils # (1.3-7.7) k/uL Lymphocytes # (1.0-4.8) k/uL APTT (22.0-30.0) sec D-Dimer (<0.60) mg/L FEU ABG pH 7.23 L (7.35-7.45) ABG pCO2 (35-45) mmHg ABG pO2 64 L (83-108) mmHg ABG HCO3 16 L (21-25) mmol/L ABG Total CO2 17 L (19-24) mmol/L ABG O2 Saturation 90.7 L (94-97) % Chloride (98-107) mmol/L Carbon Dioxide (22-30) mmol/L BUN (7-17) mg/dL Creatinine (0.52-1.04) mg/dL Glucose (74-99) mg/dL POC Glucose (mg/dL) 328 H 264 H (75-99) mg/dL Calcium (8.4-10.2) mg/dL Phosphorus (2.5-4.5) mg/dL Magnesium (1.6-2.3) mg/dL AST (14-36) U/L ALT (4-34) U/L Lactate Dehydrogenase (313-618) U/L Troponin I (0.000-0.034) ng/mL C-Reactive Protein (<1.0) mg/dL Total Protein (6.3-8.2) g/dL Albumin (3.5-5.0) g/dL Microbiology - Last 24 Hours (Table) 12/23/20 12:33 Blood Culture - Preliminary Blood No Growth after 24 hours
[2020-12-25] MEDS: SODIUM BICARBONATE TAB 650 MG TAB PO SCH ×2 (16:56→21:10)
[2020-12-25] MEDS: NOREPINEPHRINE 4 MG in SODIUM CHLORIDE 0.9% 250 ML IV SCH ×2 (16:56→20:24)
[2020-12-25 17:40] LABS: Glucose,Whole Blood 171 mg/dL (75-99)
[2020-12-25] MEDS: HEPARIN SOD,PORK IN 0.45% NACL 25,000 UNIT in 0.45% NACL 1 250ML.BAG IV SCH (18:28)
[2020-12-25 23:34] LABS: Glucose,Whole Blood 212 mg/dL (75-99)
[2020-12-26] MEDS: ALBUTEROL HFA INHALER INHALATION SCH ×6 (03:29→23:30)
[2020-12-26 04:03] LABS: HGB 10.9 gm/dL (11.4-16.0); Hypochromasia Slight; MCH 33.2 pg (25.0-35.0); MCHC 33.1 g/dL (31.0-37.0); MCV 100.5 fL (80.0-100.0); Macrocytosis Slight; Mean Platelet Volume 7.3; Platelet Count 323 k/uL (150-450); RBC 3.28 m/uL (3.80-5.40); RDW 13.9 % (11.5-15.5); WBC 14.6 k/uL (3.8-10.6)
[2020-12-26 04:21] LABS: Albumin 2.8 g/dL (3.5-5.0); Calcium 8.4 mg/dL (8.4-10.2); Potassium 4.9 mmol/L (3.5-5.1); Total Bilirubin 0.4 mg/dL (0.2-1.3); Total Protein 5.9 g/dL (6.3-8.2)
[2020-12-26 04:22] LABS: Partial Thromboplastin Time 67.4 sec (22.0-30.0)
[2020-12-26 05:24] LABS: ABG Base Excess -9.1 mmol/L; ABG HCO3 19 mmol/L (21-25); ABG Oxygen Saturation 99.3 % (94-97); ABG PCO2 50 mmHg (35-45); ABG PO2 237 mmHg (83-108); ABG TCO2 21 mmol/L (19-24)
[2020-12-26 05:37] LABS: ABG PH 7.19 (7.35-7.45); Allen Test Performed? NO
[2020-12-26 05:46] LABS: C Reactive Protein 16.4 mg/dL (<1.0)
[2020-12-26 06:07] LABS: Glucose,Whole Blood 259 mg/dL (75-99)
[2020-12-26] MEDS: INSULIN ASPART (NovoLOG) 100 UNIT/ML VIAL SQ SCH ×6 (06:07→17:58)
[2020-12-26] MEDS: INSULIN DETEMIR (LEVEMIR) 100 UNIT/ML SYR SQ SCH (06:07)
--- NOTE | 2020-12-26 07:45 | P.PN ---
Subjective Progress Note Date: 12/26/20 Principal diagnosis: Cardiopulmonary arrest The patient was seen this morning. She continues to be intubated on mechanical ventilation. Hemodynamically she is stable and not requiring any vasopressors. She continues to be in atrial fibrillation was controlled heart rate. She continues to be on IV heparin at this point. She is on amiodarone IV as well. The echo showed normal left ventricular systolic function with evidence of severe aortic stenosis with a mean gradient more than 40 mmHg. That echo was performed before the patient went into cardiopulmonary arrest. The chest x-ray as well as blood work were reviewed. We will consider repeating the echocardiogram. Objective - Vital Signs Vital signs: Vital Signs Temp 97.7 F 12/26/20 04:00 Pulse 86 12/26/20 06:00 Resp 20 12/26/20 06:00 BP 96/73 12/26/20 06:00 Pulse Ox 99 12/26/20 06:00 Intake & Output 12/25/20 12/26/20 12/26/20 18:59 06:59 18:59 Intake Total 9396.623 8579.457 Output Total 510 590 Balance 957.088 823.457 Weight 92.3 kg Intake: IV 900 825 Sodium Chloride 0.9% 1, 900 825 000 ml @ 75 mls/hr IV . [id number] [facility] Rx#:[id number] Intake, IV Titration 557.088 388.457 Amount Heparin Sod,Pork in 0.45% 222.42 98.505 NaCl 25,000 unit In 0.45 % NaCl 1 250ml.bag @ 12 UNITS/KG/HR 9.9 mls/hr IV .Q24H [facility] Rx#:[id number] Norepinephrine 4 mg In 234.668 Sodium Chloride 0.9% 250 ml @ 0.05 MCG/KG/MIN 15. 716 mls/hr IV .[id number] [facility] Rx#:[id number] propofoL 1,000 mg In 100 289.952 Empty Bag 1 bag @ Titrate IV .Q0M [facility] Rx#: [id number] Tube Feeding 10 110 Other 90 Output: Urine 510 590 Other: Voiding Method Indwelling Catheter Indwelling Catheter ABP, PAP, CO, CI - Last Documented Arterial Blood Pressure 93/54 - Constitutional General appearance: Present: no acute distress - Labs CBC & Chem 7: 12/26/20 03:45 12/26/20 03:45 Labs: Abnormal Lab Results - Last 24 Hours (Table) 12/25/20 12/25/20 12/25/20 Range/Units 11:46 17:38 23:33 WBC (3.8-10.6) k/uL RBC (3.80-5.40) m/uL Hgb (11.4-16.0) gm/dL Hct (34.0-46.0) % MCV (80.0-100.0) fL APTT (22.0-30.0) sec D-Dimer (<0.60) mg/L FEU ABG pH (7.35-7.45) ABG pCO2 (35-45) mmHg ABG pO2 (83-108) mmHg ABG HCO3 (21-25) mmol/L ABG O2 Saturation (94-97) % Chloride (98-107) mmol/L Carbon Dioxide (22-30) mmol/L BUN (7-17) mg/dL Creatinine (0.52-1.04) mg/dL Glucose (74-99) mg/dL POC Glucose (mg/dL) 264 H 171 H 212 H (75-99) mg/dL AST (14-36) U/L ALT (4-34) U/L Lactate Dehydrogenase (313-618) U/L C-Reactive Protein (<1.0) mg/dL Total Protein (6.3-8.2) g/dL Albumin (3.5-5.0) g/dL 12/26/20 12/26/20 12/26/20 Range/Units 03:45 03:45 03:45 WBC 14.6 H (3.8-10.6) k/uL RBC 3.28 L (3.80-5.40) m/uL Hgb 10.9 L (11.4-16.0) gm/dL Hct 33.0 L (34.0-46.0) % MCV 100.5 H (80.0-100.0) fL APTT 67.4 H (22.0-30.0) sec D-Dimer 1.20 H (<0.60) mg/L FEU ABG pH (7.35-7.45) ABG pCO2 (35-45) mmHg ABG pO2 (83-108) mmHg ABG HCO3 (21-25) mmol/L ABG O2 Saturation (94-97) % Chloride 114 H (98-107) mmol/L Carbon Dioxide 17 L (22-30) mmol/L BUN 73 H (7-17) mg/dL Creatinine 1.95 H (0.52-1.04) mg/dL Glucose 258 H (74-99) mg/dL POC Glucose (mg/dL) (75-99) mg/dL AST 71 H (14-36) U/L ALT 93 H (4-34) U/L Lactate Dehydrogenase 1142 H (313-618) U/L C-Reactive Protein 16.4 H (<1.0) mg/dL Total Protein 5.9 L (6.3-8.2) g/dL Albumin 2.8 L (3.5-5.0) g/dL 12/26/20 12/26/20 Range/Units 05:11 06:05 WBC (3.8-10.6) k/uL RBC (3.80-5.40) m/uL Hgb (11.4-16.0) gm/dL Hct (34.0-46.0) % MCV (80.0-100.0) fL APTT (22.0-30.0) sec D-Dimer (<0.60) mg/L FEU ABG pH 7.19 L* (7.35-7.45) ABG pCO2 50 H (35-45) mmHg ABG pO2 237 H (83-108) mmHg ABG HCO3 19 L (21-25) mmol/L ABG O2 Saturation 99.3 H (94-97) % Chloride (98-107) mmol/L Carbon Dioxide (22-30) mmol/L BUN (7-17) mg/dL Creatinine (0.52-1.04) mg/dL Glucose (74-99) mg/dL POC Glucose (mg/dL) 259 H (75-99) mg/dL AST (14-36) U/L ALT (4-34) U/L Lactate Dehydrogenase (313-618) U/L C-Reactive Protein (<1.0) mg/dL Total Protein (6.3-8.2) g/dL Albumin (3.5-5.0) g/dL Microbiology - Last 24 Hours (Table) 12/23/20 12:33 Blood Culture - Preliminary Blood No Growth after 48 hours Assessment and Plan Assessment: Assessment #1 COVID 19 infection #2 cardiopulmonary arrest with pulseless electrical activity #3 severe aortic stenosis #4 mildly abnormal troponin does not reflect acute coronary event #5 coronary artery disease and prior revascularization #6 atrial fibrillation with controlled heart rate. This is a newly diagnosis the patient Plan #1 consider medical treatment for the mildly abnormal troponin #2 continue IV heparin at this point #3 consider switching the patient to oral anticoagulation down the line #4 address the aortic stenosis once the patient recovered from the current infection. The aortic stenosis could be behind her episode of loss of consciousness before she was admitted to the hospital. #5 switch the patient to amiodarone by mouth #6 consider repeating the echocardiogram
--- NOTE | 2020-12-26 07:59 | XR ---
EXAMINATION TYPE: XR chest 1V portable DATE OF EXAM: 12/26/2020 COMPARISON: 12/25/2020 INDICATION: Tube placement TECHNIQUE: Single frontal view of the chest is obtained. FINDINGS: The heart size is normal. The pulmonary vasculature is prominent. Diffuse increased lung markings are present bilaterally. This is improved over the interval. Sternoto my wires are in the midline. Endotracheal tube tip is above the raúl. Nasogastric tube transverses the thorax. Left-sided centra l venous catheter tip is in the proximal right atrium IMPRESSION: 1. Improving bilateral lung infiltrates. 2. Lines and catheters discussed above
[2020-12-26] MEDS: ZINC SULFATE 220 MG CAP PO SCH (10:28)
[2020-12-26] MEDS: CHOLECALCIFEROL 25 MCG (1000 IU) TABLET PO SCH (10:28)
[2020-12-26] MEDS: CHLORHEXIDINE GLUCONATE 15 ML CUP MUCOUS MEM SCH ×2 (10:29→19:39)
[2020-12-26] MEDS: ASCORBIC ACID 500 MG TAB PO SCH (10:29)
[2020-12-26] MEDS: FAMOTIDINE 20 MG/2 ML VIAL IV SCH (10:29)
[2020-12-26] MEDS: DEXAMETHASONE SOD PHOSPHATE 10 MG/ML 1 ML VIAL IV SCH (10:29)
[2020-12-26] MEDS: AMIODARONE 200 MG TAB PO SCH ×2 (10:29→19:39)
[2020-12-26] MEDS: SODIUM CHLORIDE 0.9% 1,000 ML IV SCH (10:30)
[2020-12-26 11:29] LABS: Glucose,Whole Blood 274 mg/dL (75-99)
--- NOTE | 2020-12-26 11:48 | P.PN ---
Subjective Progress Note Date: 12/26/20 Principal diagnosis: COVID 19 pneumonia. Progress note dated 12/24/2020. This is a 75-year-old female presented to the emergency department complaints of shortness of breath. She apparently became ill on December 18. She tested positive for coronavirus infection on December 23. She initially went to [facility], had a syncopal episode, who was transferred here to the emergency room to be evaluated. She was on BiPAP initially saw her, with settings of 10/5, and 100%. She has a history of diabetes, and angina. She is a lifelong nonsmoker. White count 13.9, hemoglobin 11.6, hematocrit 34.6, platelet count 210,000. D- dimer was 0.90. Sodium 136, potassium 4.4, chlorides 104, CO2 19, anion gap 13, BUN and creatinine were 72 and 1.94. LDH was 1605, troponin was 0.133, C- reactive protein was 22.2, and N-terminal proBNP, was 7930, down from 21,100. Chest x-ray showed perihilar and right basilar infiltrates, consistent with coronavirus pneumonia. Progress note dated 12/25/2020. 75-year-old female who came into the emergency department initially with complaints of shortness of breath. She became ill on December 18, and was tested positive for coronavirus on December 23. She apparently went to [facility], which is an urgent care facility, and had a syncopal episode. Last night, the patient developed cardiopulmonary arrest. She had about 7 minutes worth of cardiopulmonary resuscitation. She was found to be in pulseless electrical activity. The patient was intubated on December 24. Currently, she is on volume assist control mode, rate 20, tidal volume 400, FiO2 80%, and a PEEP of 15. Blood gases show pO2 of 64, pCO2 of 38, pH is 7.23. The patient is currently on heparin via weightbase protocol, saline at 75 mL an hour, propofol at 75 mcg/kg/m, norepinephrine at 4 mcg/m, in she did receive 3 L of fluid yesterday. Today, she had a central line placed, and an arterial line placed. We'll also start tube feedings. White count 18.7, hemoglobin 10.9, hematocrit 34.2, and platelet count is normal. PTT is 63.9. D-dimer was 5.32. PO2 was 64, pCO2 of 38, pH 7.23. Sodium 138, potassium 4.8, chlorides 112, CO2 15, anion gap 11, BUN 75, and creatinine 1.80. Troponin was 0.099. C-reactive protein was 20. N-terminal proBNP was 8500. Her cortisol level was 35. Chest x-ray after central line placement shows multifocal pneumonia, and in properly placed left internal jugular term open catheter, without complication. Progress note dated 12/26/2020. 75-year-old female came into the emergency department, initially with complaints of shortness of breath. She became ill, back on December 18, and was tested positive for coronavirus on December 23. She went to [facility], and apparently had a syncopal episode. The patient did develop cardiopulmonary arrest, and had about 7 minutes of cardiopulmonary resuscitation with return of spontaneous circulation. The patient was found to have PEA. Currently, the patient remains on the mechanical ventilator. He is on the volume assist control mode, rate 20, to be increased to 26, tidal volume 400, FiO2 50%, to be dropped down to 40%, and PEEP of 18. Blood gases show pO2 of 237, pCO2 of 50, and a pH is 7.19. Those blood gases were done on 60%. The patient is on propofol 60 mcg/kg/m, norepinephrine at 4.6 mcg/m, heparin via weightbase protocol, saline IV at 75 mL an hour, and vital high protein at 10 mL an hour. The patient will have a daily interruption of sedation. We will also attempt to wean down the PEEP levels. White count 14.6, hemoglobin 10.9, hematocrit 33, and platelet count 323,000. PTT is 67.4. D-dimer 1.2. Sodium 139, potassium 4.9, chlorides 114, CO2 17, anion gap 8, BUN 73, and creatinine 1.95. C- reactive protein is 16.4 and LDH is 1142. Chest x-ray shows improving bilateral lung infiltrates. Objective - Vital Signs Vital signs: Vital Signs Temp 97.7 F 12/26/20 04:00 Pulse 90 12/26/20 07:30 Resp 24 12/26/20 07:30 BP 96/73 12/26/20 07:30 Pulse Ox 99 12/26/20 07:30 Intake & Output 09/09/0912/26/20 12/26/20 18:59 06:59 18:59 Intake Total 6621.294 4089.457 85 Output Total 510 590 50 Balance 957.088 923.457 35 Weight 92.3 kg 92.3 kg Intake: IV 900 825 75 Sodium Chloride 0.9% 1, 900 825 75 000 ml @ 75 mls/hr IV . [id number] [facility] Rx#:[id number] Intake, IV Titration 557.088 488.457 Amount Heparin Sod,Pork in 0.45% 222.42 98.505 NaCl 25,000 unit In 0.45 % NaCl 1 250ml.bag @ 12 UNITS/KG/HR 9.9 mls/hr IV .Q24H [facility] Rx#:[id number] Norepinephrine 4 mg In 234.668 Sodium Chloride 0.9% 250 ml @ 0.05 MCG/KG/MIN 15. 716 mls/hr IV .[id number] [facility] Rx#:[id number] propofoL 1,000 mg In 100 389.952 Empty Bag 1 bag @ Titrate IV .Q0M [facility] Rx#: [id number] Tube Feeding 10 110 10 Other 90 Output: Urine 510 590 50 Other: Voiding Method Indwelling Catheter Indwelling Catheter ABP, PAP, CO, CI - Last Documented Arterial Blood Pressure 135/68 - Exam No acute distress, sedated on propofol, with an orally placed endotracheal tube and NG tube. HEENT examination is grossly unremarkable. Neck supple. Full range of motion. No adenopathy thyromegaly or neck vein distention. Cardiovascular examination reveals regular rhythm rate. S1-S2 normal. No S3 or S4. No discernible murmur noted. Heart rate 90 bpm. Lungs reveal scattered bilateral rhonchi. No wheezes or crackles. Breath sounds equal bilaterally. Saturations are 99%. Abdomen soft bowel sounds are heard. No masses or tenderness. Extremities are intact. No cyanosis clubbing or edema. Skin is without rash or lesion. Neurologic examination cannot be assessed as the patient's currently sedated. - Labs CBC & Chem 7: 12/26/20 03:45 12/26/20 03:45 Labs: Abnormal Lab Results - Last 24 Hours (Table) 12/25/20 12/25/20 12/25/20 Range/Units 11:46 17:38 23:33 WBC (3.8-10.6) k/uL RBC (3.80-5.40) m/uL Hgb (11.4-16.0) gm/dL Hct (34.0-46.0) % MCV (80.0-100.0) fL APTT (22.0-30.0) sec D-Dimer (<0.60) mg/L FEU ABG pH (7.35-7.45) ABG pCO2 (35-45) mmHg ABG pO2 (83-108) mmHg ABG HCO3 (21-25) mmol/L ABG O2 Saturation (94-97) % Chloride (98-107) mmol/L Carbon Dioxide (22-30) mmol/L BUN (7-17) mg/dL Creatinine (0.52-1.04) mg/dL Glucose (74-99) mg/dL POC Glucose (mg/dL) 264 H 171 H 212 H (75-99) mg/dL AST (14-36) U/L ALT (4-34) U/L Lactate Dehydrogenase (313-618) U/L C-Reactive Protein (<1.0) mg/dL Total Protein (6.3-8.2) g/dL Albumin (3.5-5.0) g/dL 12/26/20 12/26/20 12/26/20 Range/Units 03:45 03:45 03:45 WBC 14.6 H (3.8-10.6) k/uL RBC 3.28 L (3.80-5.40) m/uL Hgb 10.9 L (11.4-16.0) gm/dL Hct 33.0 L (34.0-46.0) % MCV 100.5 H (80.0-100.0) fL APTT 67.4 H (22.0-30.0) sec D-Dimer 1.20 H (<0.60) mg/L FEU ABG pH (7.35-7.45) ABG pCO2 (35-45) mmHg ABG pO2 (83-108) mmHg ABG HCO3 (21-25) mmol/L ABG O2 Saturation (94-97) % Chloride 114 H (98-107) mmol/L Carbon Dioxide 17 L (22-30) mmol/L BUN 73 H (7-17) mg/dL Creatinine 1.95 H (0.52-1.04) mg/dL Glucose 258 H (74-99) mg/dL POC Glucose (mg/dL) (75-99) mg/dL AST 71 H (14-36) U/L ALT 93 H (4-34) U/L Lactate Dehydrogenase 1142 H (313-618) U/L C-Reactive Protein 16.4 H (<1.0) mg/dL Total Protein 5.9 L (6.3-8.2) g/dL Albumin 2.8 L (3.5-5.0) g/dL 12/26/20 12/26/20 12/26/20 Range/Units 05:11 06:05 11:28 WBC (3.8-10.6) k/uL RBC (3.80-5.40) m/uL Hgb (11.4-16.0) gm/dL Hct (34.0-46.0) % MCV (80.0-100.0) fL APTT (22.0-30.0) sec D-Dimer (<0.60) mg/L FEU ABG pH 7.19 L* (7.35-7.45) ABG pCO2 50 H (35-45) mmHg ABG pO2 237 H (83-108) mmHg ABG HCO3 19 L (21-25) mmol/L ABG O2 Saturation 99.3 H (94-97) % Chloride (98-107) mmol/L Carbon Dioxide (22-30) mmol/L BUN (7-17) mg/dL Creatinine (0.52-1.04) mg/dL Glucose (74-99) mg/dL POC Glucose (mg/dL) 259 H 274 H (75-99) mg/dL AST (14-36) U/L ALT (4-34) U/L Lactate Dehydrogenase (313-618) U/L C-Reactive Protein (<1.0) mg/dL Total Protein (6.3-8.2) g/dL Albumin (3.5-5.0) g/dL Microbiology - Last 24 Hours (Table) 12/23/20 12:33 Blood Culture - Preliminary Blood No Growth after 48 hours Assessment and Plan Assessment: Acute hypoxemic respiratory failure secondary to coronavirus infection/COVID 19 pneumonia. Status post cardiopulmonary arrest, with pulseless electrical activity, for 7 minutes, status post intubation and mechanical ventilation, on 12/24/2020. New-onset paroxysmal atrial fibrillation, currently on IV heparin. Non-anion gap metabolic acidosis. Hypotension, likely secondary to underlying sepsis/infection. History of diabetes mellitus. History of angina pectoris. Combined respiratory and metabolic acidosis. Plan: Plan dated 12/24/2020. The patient was placed on vitamin C, vitamin D3, and zinc. The patient was also given an albuterol inhaler. The patient's BiPAP was converted to AIRVO. We thought she would be a good candidate for REM. In addition, Decadron and Lovenox should be given a usual doses. We will continue to follow make recommendations where appropriate. Additional recommendations and suggestions are forthcoming. Prognosis is guarded. Plan dated 12/25/2020. The patient was transferred after being resuscitated and after having cardiopulmonary resuscitation for about 7 minutes. A right radial art line was placed today. In addition, we did a left internal jugular triple-lumen laura ter. The patient remains on heparin, for her new onset atrial fibrillation, saline, propofol, a small amount of norepinephrine, and she did receive 3 L of fluid. PEEP was increased from 15-18. She's currently on 80%. We'll see if we can wean the FiO2 down. Additional recommendations and suggestions are forthcoming. Prognosis is very guarded. Plan dated 12/26/2020. The patient's events changes were made. The FiO2 to was reduced from 60%, to 50%, down to 40%. In addition, the patient's ventilator rate was increased from 20-26 breaths per minute. The patient will have a daily interruption of sedation. The patient's PEEP levels will be reduced. We will continue to follow. Prognosis is guarded. No additional recommendations are made. The patient remains on appropriate medications as noted above. The patient's chest x-ray is a bit improved. Time with Patient: Greater than 30
--- NOTE | 2020-12-26 13:17 | P.PN ---
Subjective Progress Note Date: 12/26/20 Principal diagnosis: shortness of breath Patient is a 75-year-old female with a history of prior angina, diabetes, hypothyroidism, dyslipidemia, and hypertension who presented with complaint of weakness and syncope. She started having upper respiratory symptoms approximately 4-5 days ago. She went to obtain an outpatient Covid test and passed out. She has completed a 2 series Pfizer vaccine earlier this year. In the ER she underwent an extensive evaluation. On arrival her oxygenation was 71% on room air. She was started on BiPAP. Initial laboratory analysis showed a sodium of 132, carbon dioxide 19, anion gap 11, BUN 56, creatinine 1.9, S2 83, troponin 0.247, CRP 22.8, BNP 21,100. Covid testing was positive. Chest x-ray showed diffuse bilateral interstitial infiltrates. She was given a dose of dexamethasone. She was seen by pulmonary who felt she could be managed on selective care. She was continued on dexamethasone. She is not a candidate for eRemdesivir secondary to her high oxygen requirements. On the afternoon of 12/24 she had sudden decline in heart rate and had PEA arrest lasting approximately 5 minutes. She was transitioned to the ICU and started on propofol for sedation. She did require small amounts of levo. She was noted to have A. fib after [place] was achieved and she was subsequently transitioned from Lovenox to heparin drip. She was seen by cardiology secondary to her echocardiogram with severe aortic stenosis in her PEA arrest. She did require increasing PEEP on 12/25 that was able to be diminished on 12/26. Patient seen and examined at bedside. Sedated on vent. Per nursing no acute events overnight. General: Ill appearing, mild distress Derm: warm, dry Head: atraumatic, normocephalic, symmetric Eyes: Pupils equal round reactive to light, no lid lesion, anicteric sclera Mouth: no lip lesion, mucus membranes dry Cardiovascular: S1S2 reg, + murmur, positive posterior tibial pulse bilateral, Lungs: Coarse breath sounds bilateral, equal chest rise, on vent Abdominal: soft, nontender to palpation, no guarding, no appreciable organomegaly Ext: no gross muscle atrophy, trace edema, no contractures Neuro: Stable and then, not moving extremities Psych: Sedated on vent COVID-19 pneumonia Acute hypoxic respiratory failure Acute kidney injury, Non-anion gap metabolic acidosis Transaminitis secondary to above and cardiac arrest Septic shock - Vit D, zinc, vitamin C - Dexamethasone, Pepcid - Wean O2 as able - Pulm recs - Lovenox - hold lisnopril, lasix - follow inflammatory labs = -Follow CMP - IV fluids -oral sodium bicarb was started secondary to non-gap metabolic acidosis of renal failure discontinued by pulmonary Severe Aortic Stenosis Syncope- likely due to hypoxia versus severe aortic stenosis Elevated toponin- likely due to hypoxia, not consistent with ACS Aborted sudden cardiac Atrial fibrillation with rapid ventricular response - careful fluid management - tele - ASA - Heparin drip -Cardiology recommendations appreciated -Patient follows with Dr. Blake Herbert at [facility] if requesting records for further evaluation if appropriate - not a candidate for rate control at this time due to hypotnesion HTN - hold lisinopril due to VERONICA - Norvasc and Coreg on hold secondary to hypotension - follow BP HLD - statin DM 2 - Long acting, SSI, and fixed dose insulin - increased - follow BS with steroids - check A1C ASCAD - plavix, BB, statin Hyponatremia, resolved Daughter updated over the phone [phone] DVT prophylaxis: heparin gtt Discussed with: patient, nursing Anticipated discharge date: in 7-[address]: undetermined A total of 35 minutes was spent on the care of this complex patient more than 50% of the time was spent in counseling and care coordination. Objective - Vital Signs Vital signs: Vital Signs Temp 96.6 F L 12/26/20 12:00 Pulse 88 12/26/20 12:00 Resp 26 H 12/26/20 12:00 BP 96/73 12/26/20 12:00 Pulse Ox 99 12/26/20 12:00 Intake & Output 12/25/20 12/26/20 12/26/20 18:59 06:59 18:59 Intake Total 2495.735 0622.457 85 Output Total 510 590 50 Balance 957.088 923.457 35 Weight 92.3 kg 92.3 kg Intake: IV 900 825 75 Sodium Chloride 0.9% 1, 900 825 75 000 ml @ 75 mls/hr IV . [id number] [facility] Rx#:[id number] Intake, IV Titration 557.088 488.457 Amount Heparin Sod,Pork in 0.45% 222.42 98.505 NaCl 25,000 unit In 0.45 % NaCl 1 250ml.bag @ 12 UNITS/KG/HR 9.9 mls/hr IV .Q24H [facility] Rx#:[id number] Norepinephrine 4 mg In 234.668 Sodium Chloride 0.9% 250 ml @ 0.05 MCG/KG/MIN 15. 716 mls/hr IV .[id number] [facility] Rx#:[id number] propofoL 1,000 mg In 100 389.952 Empty Bag 1 bag @ Titrate IV .Q0M [facility] Rx#: [id number] Tube Feeding 10 110 10 Other 90 Output: Urine 510 590 50 Other: Voiding Method Indwelling Catheter Indwelling Catheter ABP, PAP, CO, CI - Last Documented Arterial Blood Pressure 138/64 - Labs CBC & Chem 7: 12/26/20 03:45 12/26/20 03:45 Labs: Abnormal Lab Results - Last 24 Hours (Table) 12/25/20 12/25/20 12/26/20 Range/Units 17:38 23:33 03:45 WBC 14.6 H (3.8-10.6) k/uL RBC 3.28 L (3.80-5.40) m/uL Hgb 10.9 L (11.4-16.0) gm/dL Hct 33.0 L (34.0-46.0) % MCV 100.5 H (80.0-100.0) fL APTT (22.0-30.0) sec D-Dimer (<0.60) mg/L FEU ABG pH (7.35-7.45) ABG pCO2 (35-45) mmHg ABG pO2 (83-108) mmHg ABG HCO3 (21-25) mmol/L ABG O2 Saturation (94-97) % Chloride (98-107) mmol/L Carbon Dioxide (22-30) mmol/L BUN (7-17) mg/dL Creatinine (0.52-1.04) mg/dL Glucose (74-99) mg/dL POC Glucose (mg/dL) 171 H 212 H (75-99) mg/dL AST (14-36) U/L ALT (4-34) U/L Lactate Dehydrogenase (313-618) U/L C-Reactive Protein (<1.0) mg/dL Total Protein (6.3-8.2) g/dL Albumin (3.5-5.0) g/dL 12/26/20 12/26/20 12/26/20 Range/Units 03:45 03:45 05:11 WBC (3.8-10.6) k/uL RBC (3.80-5.40) m/uL Hgb (11.4-16.0) gm/dL Hct (34.0-46.0) % MCV (80.0-100.0) fL APTT 67.4 H (22.0-30.0) sec D-Dimer 1.20 H (<0.60) mg/L FEU ABG pH 7.19 L* (7.35-7.45) ABG pCO2 50 H (35-45) mmHg ABG pO2 237 H (83-108) mmHg ABG HCO3 19 L (21-25) mmol/L ABG O2 Saturation 99.3 H (94-97) % Chloride 114 H (98-107) mmol/L Carbon Dioxide 17 L (22-30) mmol/L BUN 73 H (7-17) mg/dL Creatinine 1.95 H (0.52-1.04) mg/dL Glucose 258 H (74-99) mg/dL POC Glucose (mg/dL) (75-99) mg/dL AST 71 H (14-36) U/L ALT 93 H (4-34) U/L Lactate Dehydrogenase 1142 H (313-618) U/L C-Reactive Protein 16.4 H (<1.0) mg/dL Total Protein 5.9 L (6.3-8.2) g/dL Albumin 2.8 L (3.5-5.0) g/dL 12/26/20 12/26/20 12/26/20 Range/Units 06:05 11:28 11:42 WBC (3.8-10.6) k/uL RBC (3.80-5.40) m/uL Hgb (11.4-16.0) gm/dL Hct (34.0-46.0) % MCV (80.0-100.0) fL APTT 47.0 H (22.0-30.0) sec D-Dimer (<0.60) mg/L FEU ABG pH (7.35-7.45) ABG pCO2 (35-45) mmHg ABG pO2 (83-108) mmHg ABG HCO3 (21-25) mmol/L ABG O2 Saturation (94-97) % Chloride (98-107) mmol/L Carbon Dioxide (22-30) mmol/L BUN (7-17) mg/dL Creatinine (0.52-1.04) mg/dL Glucose (74-99) mg/dL POC Glucose (mg/dL) 259 H 274 H (75-99) mg/dL AST (14-36) U/L ALT (4-34) U/L Lactate Dehydrogenase (313-618) U/L C-Reactive Protein (<1.0) mg/dL Total Protein (6.3-8.2) g/dL Albumin (3.5-5.0) g/dL Microbiology - Last 24 Hours (Table) 12/23/20 12:33 Blood Culture - Preliminary Blood No Growth after 48 hours
[2020-12-26] MEDS: SODIUM CHLORIDE 0.45% 1,000 ML IV SCH (13:30)
[2020-12-26 17:52] LABS: Glucose,Whole Blood 195 mg/dL (75-99)
[2020-12-26] MEDS ORDERED: INSULIN DETEMIR (LEVEMIR) 100 UNIT/ML SYR SQ SCH (21:00)
[2020-12-26] MEDS: HEPARIN SOD,PORK IN 0.45% NACL 25,000 UNIT in 0.45% NACL 1 250ML.BAG IV SCH (21:17)
[2020-12-26] MEDS: NOREPINEPHRINE 4 MG in SODIUM CHLORIDE 0.9% 250 ML IV SCH (22:17)
[2020-12-27 00:37] LABS: Glucose,Whole Blood 79 mg/dL (75-99)
[2020-12-27] MEDS: INSULIN ASPART (NovoLOG) 100 UNIT/ML VIAL SQ SCH ×8 (01:25→18:14)
[2020-12-27] MEDS: ALBUTEROL HFA INHALER INHALATION SCH ×6 (03:19→23:45)
[2020-12-27 04:11] LABS: HCT 31.4 % (34.0-46.0); HGB 10.5 gm/dL (11.4-16.0); MCH 33.3 pg (25.0-35.0); MCHC 33.5 g/dL (31.0-37.0); MCV 99.4 fL (80.0-100.0); Platelet Count 337 k/uL (150-450); RBC 3.16 m/uL (3.80-5.40); RDW 14.1 % (11.5-15.5); WBC 18.8 k/uL (3.8-10.6)
[2020-12-27 04:24] LABS: Albumin 2.4 g/dL (3.5-5.0); Calcium 8.4 mg/dL (8.4-10.2); Magnesium 2.5 mg/dL (1.6-2.3); Phosphorus 2.7 mg/dL (2.5-4.5); Potassium 4.1 mmol/L (3.5-5.1); Total Bilirubin 0.4 mg/dL (0.2-1.3); Total Protein 5.1 g/dL (6.3-8.2)
[2020-12-27 05:28] LABS: ABG Base Excess -6.5 mmol/L; ABG HCO3 19 mmol/L (21-25); ABG PCO2 36 mmHg (35-45); ABG PH 7.34 (7.35-7.45); ABG PO2 105 mmHg (83-108); ABG TCO2 20 mmol/L (19-24)
[2020-12-27 05:30] LABS: Allen Test Performed? no
--- NOTE | 2020-12-27 05:39 | XR ---
EXAMINATION TYPE: XR chest 1V portable DATE OF EXAM: 12/27/2020 CLINICAL HISTORY: Difficulty breathing progress study. COVID. TECHNIQUE: Single AP portable semiupright view of the chest is obtained. COMPARISON: Chest x-ray from one day earlier and older studies. FINDINGS: Stable endotracheal and orogastric tubes. Stable left internal jugular central venous cath eter. Overlying sternal wires and mediastinal clips redemonstrated. Stable cardiomegaly with atheroscleroti c aorta. Persistent reticular interstitial changes with bilateral multifocal areas of increased opaci ty. No pleural effusion or pneumothorax seen. Osseous structures intact. IMPRESSION: Bilateral multifocal opacities consistent with covid-19 infection on background cardiomeg breanna and chronic parenchymal changes. No significant change from one day earlier.
[2020-12-27] MEDS: SODIUM CHLORIDE 0.45% 1,000 ML IV SCH (06:07)
[2020-12-27] MEDS: INSULIN DETEMIR (LEVEMIR) 100 UNIT/ML SYR SQ SCH ×2 (06:21→19:49)
[2020-12-27] MEDS: HEPARIN SODIUM 1,000 UN/ML (10ML VL) IV PRN (06:22)
[2020-12-27] MEDS ORDERED: FUROSEMIDE 10 MG/ML 4 ML VIAL IV STA ×2 (08:27→20:05)
[2020-12-27] MEDS: CHOLECALCIFEROL 25 MCG (1000 IU) TABLET PO SCH (08:47)
[2020-12-27] MEDS: CHLORHEXIDINE GLUCONATE 15 ML CUP MUCOUS MEM SCH ×2 (08:47→19:48)
[2020-12-27] MEDS: ASCORBIC ACID 500 MG TAB PO SCH (08:48)
[2020-12-27] MEDS: FAMOTIDINE 20 MG/2 ML VIAL IV SCH (08:48)
[2020-12-27] MEDS: AMIODARONE 200 MG TAB PO SCH ×2 (08:48→19:48)
[2020-12-27] MEDS: DEXAMETHASONE SOD PHOSPHATE 10 MG/ML 1 ML VIAL IV SCH (08:48)
--- NOTE | 2020-12-27 09:53 | PN ---
PROGRESS NOTE Ms. Manuel is a 75-year-old female who presented with cardiopulmonary arrest and was intubated with diagnosis with Covid 19 pneumonia. She had an echocardiogram revealed preserved left ventricular size and systolic function with severe aortic stenosis. She had mild troponin elevation and was felt to be related to a non acute ischemic event. She remains intubated and sedated at this time. She had atrial fibrillation on presentation and has been back in sinus mechanism. She continues to have episode of paroxysmal atrial fibrillation. MEDICATION: At this time include amiodarone 400 mg twice a day, IV heparin, insulin. PHYSICAL EXAMINATION: Blood pressure is running in the 130s with a heart rate in the 60s. LAB DATA: Lab data revealed a hemoglobin 10.5, white blood cell of 18.8, BUN and creatinine 64 and 1.37. Her potassium is 4.1. Renal function has improved compared to admission. Her pH 7.34 with a PO2 of 105. Her peak troponin was 0.247. IMPRESSION: 1. Respiratory failure. Status post cardiopulmonary arrest. 2. Covid 19 pneumonia. 3. Paroxysmal atrial fibrillation, most likely related to infectious process. 4. Severe aortic stenosis. 5. Status post CPR. 6. History of diabetes. RECOMMENDATION: From the cardiac standpoint, we will continue observation at this time. We will continue anticoagulation and continue on the amiodarone as present. Depending on her respiratory status, further recommendation will be made regarding further evaluating the aortic valve down the road. At this time, we will continue observation. MMODL / DALIN: [id number] /
[2020-12-27] MEDS: ZINC SULFATE 220 MG CAP PO SCH (09:57)
--- NOTE | 2020-12-27 11:06 | ECHOF ---
Referral Reason:Cardiac arrest MEASUREMENTS -------- HEIGHT: 162.6 cm WEIGHT: 92.1 kg BP: 135/68 IVSd: 1.6 cm (0.6 - 1.1) LVIDd: 4.3 cm (3.9 - 5.3) LVPWd: 1.7 cm (0.6 - 1.1) IVSs: 1.9 cm LVIDs: 3.3 cm LVPWs: 2.1 cm AV maxP.95 mmHg AV meanP.21 mmHg FINDINGS -------- Sinus rhythm. Limited Study Pt. on a vent. The left ventricular size is normal. There is moderate concentric left ventricular hypertrophy. T here is moderate global hypokinesis of LV . Overall left ventricular systolic function is moderate- severely impaired with, an EF between 30 - 35 %. There is lbjugzsx-re-apxquw aortic stenosis present. Peak/mean gradient across the Aortic Valve is 58.95mmHg / 37.21mmHg. There is no pericardial effusion. CONCLUSIONS -------- 1. The left ventricular size is normal. 2. There is moderate concentric left ventricular hypertrophy. 3. There is moderate global hypokinesis of LV . 4. Overall left ventricular systolic function is moderate-severely impaired with, an EF between 30 - 35 %. 5. There is ckmaxmtm-ut-uogyrg aortic stenosis present. 6. Peak/mean gradient across the Aortic Valve is 58.95mmHg / 37.21mmHg. [employer]: Adina Santamaria JONA
[2020-12-27 12:28] LABS: Glucose,Whole Blood 146 mg/dL (75-99)
[2020-12-27 13:42] LABS: Glucose,Whole Blood 144 mg/dL (75-99)
--- NOTE | 2020-12-27 14:59 | P.PN ---
Subjective Progress Note Date: 12/27/20 Patient is sedated and intubated. Vent setting improved compared to yesterday currently on PEEP of 12. Objective - Vital Signs Vital signs: Vital Signs Temp 98.6 F 12/27/20 12:00 Pulse 61 12/27/20 14:00 Resp 27 H 12/27/20 14:00 BP 130/59 12/27/20 09:00 Pulse Ox 97 12/27/20 14:00 Intake & Output 12/26/20 12/27/20 12/27/20 18:59 06:59 18:59 Intake Total 5613.537 0135.087 655.383 Output Total 775 1060 1375 Balance 364.000 386.087 -719.617 Weight 92.3 kg Intake: IV 775 650 140 Sodium Chloride 0.45% 1, 250 650 140 000 ml @ 20 mls/hr IV . Q24H [facility] Rx#:[id number] Sodium Chloride 0.9% 1, 525 000 ml @ 75 mls/hr IV . [id number] [facility] Rx#:[id number] Intake, IV Titration 354.000 514.087 375.383 Amount Heparin Sod,Pork in 0.45% 214.087 NaCl 25,000 unit In 0.45 % NaCl 1 250ml.bag @ 12 UNITS/KG/HR 9.9 mls/hr IV .Q24H [facility] Rx#:[id number] Norepinephrine 4 mg In 254 148.154 Sodium Chloride 0.9% 250 ml @ 0.05 MCG/KG/MIN 15. 716 mls/hr IV .[id number] [facility] Rx#:[id number] propofoL 1,000 mg In 100.000 300 227.229 Empty Bag 1 bag @ Titrate IV .Q0M [facility] Rx#: [id number] Tube Feeding 10 192 80 Other 90 60 Output: Urine 775 1060 1375 Other: Voiding Method Indwelling Catheter Indwelling Catheter ABP, PAP, CO, CI - Last Documented Arterial Blood Pressure 151/52 - Exam General: The patient is sedated and intubated Eye: there is normal conjunctiva bilaterally. Neck: The neck is supple, there is no JVD. Cardiovascular: Normal S1-S2, no S3-S4, no murmurs. Respiratory: Lungs clear to auscultation bilaterally Gastrointestinal: Abdomen is soft, nontender Musculoskeletal: There is +1 pedal edema. Skin: Skin is warm and dry - Labs CBC & Chem 7: 12/27/20 03:50 12/27/20 03:50 Labs: Abnormal Lab Results - Last 24 Hours (Table) 12/26/20 12/26/20 12/27/20 Range/Units 03:45 17:50 03:50 WBC 18.8 H (3.8-10.6) k/uL RBC 3.16 L (3.80-5.40) m/uL Hgb 10.5 L (11.4-16.0) gm/dL Hct 31.4 L (34.0-46.0) % APTT (22.0-30.0) sec ABG pH (7.35-7.45) ABG HCO3 (21-25) mmol/L ABG O2 Saturation (94-97) % Chloride (98-107) mmol/L Carbon Dioxide (22-30) mmol/L BUN (7-17) mg/dL Creatinine (0.52-1.04) mg/dL Glucose (74-99) mg/dL POC Glucose (mg/dL) 195 H (75-99) mg/dL Hemoglobin A1c 8.5 H (4.0-6.0) % Magnesium (1.6-2.3) mg/dL AST (14-36) U/L ALT (4-34) U/L Total Protein (6.3-8.2) g/dL Albumin (3.5-5.0) g/dL 12/27/20 12/27/20 12/27/20 Range/Units 03:50 03:50 05:26 WBC (3.8-10.6) k/uL RBC (3.80-5.40) m/uL Hgb (11.4-16.0) gm/dL Hct (34.0-46.0) % APTT 31.1 H (22.0-30.0) sec ABG pH 7.34 L (7.35-7.45) ABG HCO3 19 L (21-25) mmol/L ABG O2 Saturation 98.0 H (94-97) % Chloride 120 H (98-107) mmol/L Carbon Dioxide 18 L (22-30) mmol/L BUN 64 H (7-17) mg/dL Creatinine 1.37 H (0.52-1.04) mg/dL Glucose 103 H (74-99) mg/dL POC Glucose (mg/dL) (75-99) mg/dL Hemoglobin A1c (4.0-6.0) % Magnesium 2.5 H (1.6-2.3) mg/dL AST 48 H (14-36) U/L ALT 68 H (4-34) U/L Total Protein 5.1 L (6.3-8.2) g/dL Albumin 2.4 L (3.5-5.0) g/dL 12/27/20 12/27/20 Range/Units 12:27 13:40 WBC (3.8-10.6) k/uL RBC (3.80-5.40) m/uL Hgb (11.4-16.0) gm/dL Hct (34.0-46.0) % APTT (22.0-30.0) sec ABG pH (7.35-7.45) ABG HCO3 (21-25) mmol/L ABG O2 Saturation (94-97) % Chloride (98-107) mmol/L Carbon Dioxide (22-30) mmol/L BUN (7-17) mg/dL Creatinine (0.52-1.04) mg/dL Glucose (74-99) mg/dL POC Glucose (mg/dL) 146 H 144 H (75-99) mg/dL Hemoglobin A1c (4.0-6.0) % Magnesium (1.6-2.3) mg/dL AST (14-36) U/L ALT (4-34) U/L Total Protein (6.3-8.2) g/dL Albumin (3.5-5.0) g/dL Microbiology - Last 24 Hours (Table) 12/23/20 12:33 Blood Culture - Preliminary Blood No Growth after 96 hours Assessment and Plan Assessment: Patient is a 75-year-old female with a history of prior angina, diabetes, hypothyroidism, dyslipidemia, and hypertension who presented with complaint of weakness and syncope. She started having upper respiratory symptoms approximately 4-5 days ago. She went to obtain an outpatient Covid test and passed out. She has completed a 2 series Pfizer vaccine earlier this year. In the ER she underwent an extensive evaluation. On arrival her oxygenation was 71% on room air. She was started on BiPAP. Initial laboratory analysis showed a sodium of 132, carbon dioxide 19, anion gap 11, BUN 56, creatinine 1.9, S2 83, troponin 0.247, CRP 22.8, BNP 21,100. Covid testing was positive. Chest x-ray showed diffuse bilateral interstitial infiltrates. She was given a dose of dexamethasone. She was seen by pulmonary who felt she could be managed on selective care. She was continued on dexamethasone. She is not a candidate for eRemdesivir secondary to her high oxygen requirements. On the afternoon of 12/24 she had sudden decline in heart rate and had PEA arrest lasting approximately 5 minutes. She was transitioned to the ICU and started on propofol for sedation. She did require small amounts of levo. She was noted to have A. fib after [place] was achieved and she was subsequently transitioned from Lovenox to heparin drip. She was seen by cardiology secondary to her echocardiogram with severe aortic stenosis in her PEA arrest. COVID-19 pneumonia Acute hypoxic respiratory failure Acute kidney injury, Non-anion gap metabolic acidosis Transaminitis secondary to above and cardiac arrest Septic shock - Vit D, zinc, vitamin C - Dexamethasone, Pepcid - Wean O2 as able - Pulm recs, managing ventilator - Lovenox - IV Lasix when necessary - follow inflammatory labs = Severe Aortic Stenosis Syncope- likely due to hypoxia versus severe aortic stenosis Elevated toponin- likely due to hypoxia, not consistent with ACS Aborted sudden cardiac Atrial fibrillation with rapid ventricular response Underlying ischemic cardiomyopathy with ejection fraction of 30-35% down from 45% on last echocardiogram at [facility] - careful fluid management - tele - ASA - Heparin drip -Cardiology recommendations appreciated - not a candidate for rate control at this time due to hypotnesion HTN - hold lisinopril due to VERONICA - Norvasc and Coreg on hold secondary to hypotension - follow BP HLD - statin DM 2 - Long acting, SSI, and fixed dose insulin - increased - follow BS with steroids - check A1C ASCAD - plavix, BB, statin Hyponatremia, resolved
--- NOTE | 2020-12-27 16:09 | P.PN ---
Subjective Progress Note Date: 12/27/20 12/27/2020, the patient is being seen for a follow-up. Patient is a 75-year-old here patient with community related pneumonia with secondary respiratory failure. The patient also has severe valvular heart disease with severe aortic stenosis. The patient is post cardiac pulmonary arrest with a PEA rhythm that lasted around 7 minutes post intubation on 12/24/2020. The patient also has new onset paroxysmal atrial fibrillation. The patient is diabetic. On today's evaluation, the patient remains sedated. The patient on Profore running at 60 mg/kg/m. The patient is well sedated and she is calm and comfortable on mechanical ventilator. She is an assist-control mode with a rate of 26 with a tidal volume of 400 and PEEP of 13 with a FiO2 of 40%. The blood gases from today shows a pH of 7.34 with a pCO2 of 36 and pO2 of 105. Peak airway pressure 31. Static airway airway pressure 23. The patient had a follow-up chest x-ray that showed no evidence of any pneumothorax. There is persistent but the pulmonary infiltrates consistent with community related pneumonia. Pulmonary edema cannot be completely excluded. Previous echocardiogram in this patient echocardiogram showed global hypokinesis with an ejection fraction of 3035%. There was also moderate to severe degree of aortic valve was 58 with a mean gradient of 37. Hemodynamically, the patient remains on pressors. The patient is running on a low-dose of norepinephrine urine at 0.03 units per kilogram per minute. The patient is in a sinus rhythm and the patient is also on IV heparin. Patient is sitting up and feeding for nutritional support. The patient is on vital high protein at 60 mL an hour which is currently at goal. Afebrile. She is also on Decadron 6 mg IV every 24 hours. She remains on amiodarone 400 mg by mouth twice a day and Levemir insulin for blood sugar control 30 units at night and 20 units in the morning along with a fasting coverage. She remains on IV Pepcid. Objective - Vital Signs Vital signs: Vital Signs Temp 98.8 F 12/27/20 15:00 Pulse 66 12/27/20 15:00 Resp 26 H 12/27/20 15:00 BP 130/59 12/27/20 09:00 Pulse Ox 95 12/27/20 15:00 Intake & Output 12/26/20 12/27/2021 18:59 06:59 18:59 Intake Total 8170.066 7860.087 691.383 Output Total 775 1060 1600 Balance 364.000 386.087 -908.617 Weight 92.3 kg Intake: IV 775 650 160 Sodium Chloride 0.45% 1, 250 650 160 000 ml @ 20 mls/hr IV . Q24H [facility] Rx#:[id number] Sodium Chloride 0.9% 1, 525 000 ml @ 75 mls/hr IV . [id number] [facility] Rx#:[id number] Intake, IV Titration 354.000 514.087 375.383 Amount Heparin Sod,Pork in 0.45% 214.087 NaCl 25,000 unit In 0.45 % NaCl 1 250ml.bag @ 12 UNITS/KG/HR 9.9 mls/hr IV .Q24H [facility] Rx#:[id number] Norepinephrine 4 mg In 254 148.154 Sodium Chloride 0.9% 250 ml @ 0.05 MCG/KG/MIN 15. 716 mls/hr IV .[id number] [facility] Rx#:[id number] propofoL 1,000 mg In 100.000 300 227.229 Empty Bag 1 bag @ Titrate IV .Q0M [facility] Rx#: [id number] Tube Feeding 10 192 96 Other 90 60 Output: Urine 775 1060 1600 Other: Voiding Method Indwelling Catheter Indwelling Catheter ABP, PAP, CO, CI - Last Documented Arterial Blood Pressure 105/44 - Exam No acute distress, sedated on propofol, with an orally placed endotracheal tube and NG tube. The patient is well sedated, comfortable and symptoms mechanical ventilator. Head exam was generally normal. There was no scleral icterus or corneal arcus. Mucous membranes were moist. Neck was supple and without jugular venous distension, thyromegaly, or carotid bruits. Carotids were easily palpable bilaterally. There was no adenopathy. Orogastric and orotracheal tube are both in place Cardiac exam revealed the PMI to be normally situated and sized. The rhythm was regular and no extrasystoles were noted during several minutes of auscultation. The first and second heart sounds were normal and physiologic splitting of the second heart sound was noted. There were there is a severe systolic ejection murmur grade 4/6 systolic the precordium specially the left lung apex, rubs, clicks, or gallops. Lungs reveal scattered bilateral rhonchi. No wheezes or crackles. Breath sounds equal bilaterally. Abdominal exam revealed normal bowel sounds. The abdomen was soft, non-tender, and without masses, organomegaly, or appreciable enlargement of the abdominal aorta. Extremities are intact. No cyanosis clubbing or edema. Examination of the extremities revealed easily palpable radial, femoral and pedal pulses. There was no cyanosis, clubbing or edema. Examination of the skin revealed no evidence of significant rashes, suspicious appearing nevi or other concerning lesions. Neurologic the patient is sedated and the patient is able to withdraw to painful stimulation bilaterally. - Labs CBC & Chem 7: 12/27/20 03:50 12/27/20 03:50 Labs: Abnormal Lab Results - Last 24 Hours (Table) 12/26/20 12/26/20 12/27/20 Range/Units 03:45 17:50 03:50 WBC 18.8 H (3.8-10.6) k/uL RBC 3.16 L (3.80-5.40) m/uL Hgb 10.5 L (11.4-16.0) gm/dL Hct 31.4 L (34.0-46.0) % APTT (22.0-30.0) sec ABG pH (7.35-7.45) ABG HCO3 (21-25) mmol/L ABG O2 Saturation (94-97) % Chloride (98-107) mmol/L Carbon Dioxide (22-30) mmol/L BUN (7-17) mg/dL Creatinine (0.52-1.04) mg/dL Glucose (74-99) mg/dL POC Glucose (mg/dL) 195 H (75-99) mg/dL Hemoglobin A1c 8.5 H (4.0-6.0) % Magnesium (1.6-2.3) mg/dL AST (14-36) U/L ALT (4-34) U/L Total Protein (6.3-8.2) g/dL Albumin (3.5-5.0) g/dL 12/27/20 12/27/20 12/27/20 Range/Units 03:50 03:50 05:26 WBC (3.8-10.6) k/uL RBC (3.80-5.40) m/uL Hgb (11.4-16.0) gm/dL Hct (34.0-46.0) % APTT 31.1 H (22.0-30.0) sec ABG pH 7.34 L (7.35-7.45) ABG HCO3 19 L (21-25) mmol/L ABG O2 Saturation 98.0 H (94-97) % Chloride 120 H (98-107) mmol/L Carbon Dioxide 18 L (22-30) mmol/L BUN 64 H (7-17) mg/dL Creatinine 1.37 H (0.52-1.04) mg/dL Glucose 103 H (74-99) mg/dL POC Glucose (mg/dL) (75-99) mg/dL Hemoglobin A1c (4.0-6.0) % Magnesium 2.5 H (1.6-2.3) mg/dL AST 48 H (14-36) U/L ALT 68 H (4-34) U/L Total Protein 5.1 L (6.3-8.2) g/dL Albumin 2.4 L (3.5-5.0) g/dL 12/27/20 12/27/20 Range/Units 12:27 13:40 WBC (3.8-10.6) k/uL RBC (3.80-5.40) m/uL Hgb (11.4-16.0) gm/dL Hct (34.0-46.0) % APTT (22.0-30.0) sec ABG pH (7.35-7.45) ABG HCO3 (21-25) mmol/L ABG O2 Saturation (94-97) % Chloride (98-107) mmol/L Carbon Dioxide (22-30) mmol/L BUN (7-17) mg/dL Creatinine (0.52-1.04) mg/dL Glucose (74-99) mg/dL POC Glucose (mg/dL) 146 H 144 H (75-99) mg/dL Hemoglobin A1c (4.0-6.0) % Magnesium (1.6-2.3) mg/dL AST (14-36) U/L ALT (4-34) U/L Total Protein (6.3-8.2) g/dL Albumin (3.5-5.0) g/dL Microbiology - Last 24 Hours (Table) 12/23/20 12:33 Blood Culture - Preliminary Blood No Growth after 96 hours Assessment and Plan Plan: 1 acute hypoxic respiratory failure. This is associated related to community related pneumonia. The patient is currently intubated on a mechanical ventilator. The patient was intubated on 12/24/2020. 2 acute COVID 19 pneumonia with secondary hypoxic respiratory failure and currently the patient intubated on a mechanical ventilator 3 Status post cardiopulmonary arrest, with pulseless electrical activity, for 7 minutes, status post intubation and mechanical ventilation, on 12/24/2020. 4 moderate severe aortic stenosis 5 CHF with global hypokinesis and an ejection fraction of 30-35%. The patient has systolic heart failure, likely chronic 6 hypotension secondary to above, , currently on a low-dose norepinephrine infusion for blood pressure support 7 diabetes mellitus 8 proximity fibrillation currently normal sinus rhythm and the patient remains on IV heparin and the patient is also on oral amiodarone 9 acute kidney injury, improving and the creatinine is down to 1.37 10 non-anion gap metabolic acidosis, improving 11 elevated inflammatory markers, improving. The patient's LDH level is down to 1142 12 non-STEMI troponin peaked at 0.2, improved and the patient subsequent up in the LV function with an ejection fraction of 30-35%, currently on pressors Plan Continue ventilator support. keep down to 11. Give the patient a dose of Lasix 40 mg IV push 1 Wean off pressors and the patient is currently on low-dose norepinephrine infusion IV fluids to KVO Continue Decadron Give the patient sedation holiday and says underlying mental status Continue enteral feeding for nutritional support Chest x-ray blood gases were noted. No other ventilator changes for today We'll continue to follow make further recommendations. Renal function is improving. Inflammatory markers will be monitored. Continue aspirin and IV heparin for now We'll continue to follow make further recommendations based on patient's clini karishma response. There is a critically care evaluation that was done and more than 30 minutes. Time with Patient: Greater than 30
[2020-12-27] MEDS: HEPARIN SOD,PORK IN 0.45% NACL 25,000 UNIT in 0.45% NACL 1 250ML.BAG IV SCH (17:29)
[2020-12-27 17:46] LABS: Glucose,Whole Blood 181 mg/dL (75-99)
[2020-12-27] MEDS: NOREPINEPHRINE 4 MG in SODIUM CHLORIDE 0.9% 250 ML IV SCH (20:06)
[2020-12-27] MEDS ORDERED: MIDAZOLAM HCL 50 MG in SODIUM CHLORIDE 0.9% 40 ML IV SCH (23:00)
[2020-12-28 00:03] LABS: Glucose,Whole Blood 155 mg/dL (75-99)
[2020-12-28] MEDS: INSULIN ASPART (NovoLOG) 100 UNIT/ML VIAL SQ SCH ×8 (00:06→19:25)
[2020-12-28] MEDS: HEPARIN SODIUM 1,000 UN/ML (10ML VL) IV PRN ×2 (00:06→07:17)
[2020-12-28] MEDS: ALBUTEROL HFA INHALER INHALATION SCH ×5 (03:27→19:41)
[2020-12-28 04:48] LABS: ABG Base Excess -2.4 mmol/L; ABG HCO3 22 mmol/L (21-25); ABG Oxygen Saturation 95.7 % (94-97); ABG PCO2 36 mmHg (35-45); ABG PO2 77 mmHg (83-108); ABG TCO2 24 mmol/L (19-24); Allen Test Performed? Yes
[2020-12-28] MEDS: SODIUM CHLORIDE 0.45% 1,000 ML IV SCH (05:00)
[2020-12-28 05:41] LABS: Glucose,Whole Blood 143 mg/dL (75-99)
[2020-12-28] MEDS: INSULIN DETEMIR (LEVEMIR) 100 UNIT/ML SYR SQ SCH ×2 (06:05→20:52)
[2020-12-28] MEDS: NOREPINEPHRINE 4 MG in SODIUM CHLORIDE 0.9% 250 ML IV SCH (06:13)
[2020-12-28 06:23] LABS: Basophils % (A) 0 %; Eosinophils # (A) 0.1 k/uL (0-0.7); Eosinophils % (A) 1 %; HCT 30.7 % (34.0-46.0); HGB 10.1 gm/dL (11.4-16.0); Lymphocytes # (A) 0.6 k/uL (1.0-4.8); Lymphocytes % (A) 4 %; MCH 32.4 pg (25.0-35.0); Mean Platelet Volume 7.5; Monocytes # (A) 0.7 k/uL (0-1.0); Monocytes % (A) 4 %; Neutrophils # (A) 14.1 k/uL (1.3-7.7); Neutrophils % (A) 90 %; Platelet Count 268 k/uL (150-450); RBC 3.13 m/uL (3.80-5.40); RDW 13.6 % (11.5-15.5); WBC 15.7 k/uL (3.8-10.6)
[2020-12-28 07:21] LABS: Albumin 2.3 g/dL (3.5-5.0); Calcium 8.5 mg/dL (8.4-10.2); Potassium 4.1 mmol/L (3.5-5.1); Total Bilirubin 0.4 mg/dL (0.2-1.3); Total Protein 5.3 g/dL (6.3-8.2)
[2020-12-28] MEDS ORDERED: FUROSEMIDE 10 MG/ML 4 ML VIAL IV STA (07:37)
--- NOTE | 2020-12-28 08:29 | XR ---
EXAMINATION TYPE: XR chest 1V portable DATE OF EXAM: 12/28/2020 COMPARISON: 12/27/2020 INDICATION: Tube placement TECHNIQUE: Single frontal view of the chest is obtained. FINDINGS: The heart size is mildly prominent. The pulmonary vasculature is normal. Mild patchy infiltrate is present. This is improving. This may be more focal in the right lower lobe. Endotracheal tube tip is above the raúl. Nasogastric tube transverses the thorax. Left central veno us catheter tip is in proximal right atrium IMPRESSION: 1. Patchy infiltrates greater in the right lower lobe slightly improved from comparison. 2. Lines and catheters discussed above.
[2020-12-28] MEDS: ENOXAPARIN 30 MG/0.3 ML SYRINGE SQ SCH (08:59)
[2020-12-28] MEDS: ASCORBIC ACID 500 MG TAB PO SCH (08:59)
[2020-12-28] MEDS: AMIODARONE 200 MG TAB PO SCH (08:59)
[2020-12-28] MEDS: CHOLECALCIFEROL 25 MCG (1000 IU) TABLET PO SCH (08:59)
[2020-12-28] MEDS: CHLORHEXIDINE GLUCONATE 15 ML CUP MUCOUS MEM SCH ×2 (08:59→20:53)
[2020-12-28] MEDS: FAMOTIDINE 20 MG/2 ML VIAL IV SCH (08:59)
[2020-12-28] MEDS: DEXAMETHASONE SOD PHOSPHATE 10 MG/ML 1 ML VIAL IV SCH (08:59)
[2020-12-28] MEDS: ZINC SULFATE 220 MG CAP PO SCH (09:00)
[2020-12-28 09:49] LABS: C Reactive Protein 22.6 mg/dL (<1.0)
--- NOTE | 2020-12-28 10:55 | PN ---
PROGRESS NOTE Mrs. Manuel is a 75-year-old female who presented with cardiopulmonary arrest, intubated, has evidence of severe aortic stenosis, COVID-19 pneumonia. She remains intubated, hemodynamically stable. She continues to be in sinus mechanism. There is no evidence of malignant arrhythmia. She has good urinary output. She has been evaluated by Dr. Maldonado regarding her respiratory status and possibility of trying to wean the patient. She continues to be at this time on amiodarone 400 mg twice a day, Lovenox subcutaneously. She received one dose of IV Lasix. PHYSICAL EXAMINATION: Her blood pressure is running in the 140s with a heart rate in the 50s. LAB DATA: Lab data revealed a D-dimer 0.74, BUN and creatinine of 64 and 1.40, which is improved compared to admission. Her AST is 33, ALT is 49, improved. IMPRESSION: 1. Respiratory failure with pneumonia and COVID-19 infection. 2. Status post cardiopulmonary arrest. 3. Severe aortic stenosis. 4. Mild troponin elevation related to the event. RECOMMENDATIONS: I will cut down the dose of her amiodarone, start her on low-dose beta bonnie. Continue supportive care. Will await the input of the pulmonary service and, depending on her progress, further recommendations will be made. MMODL / IJN: [id number] /
[2020-12-28] MEDS: CLEVIDIPINE BUTYRATE 25 MG in EMPTY BAG 1 BAG IV SCH (11:20)
[2020-12-28 11:35] LABS: Glucose,Whole Blood 191 mg/dL (75-99)
--- NOTE | 2020-12-28 13:59 | P.PN ---
Subjective Progress Note Date: 12/28/20 Patient is sedated and intubated. No acute events overnight reported to me by nursing staff Objective - Vital Signs Vital signs: Vital Signs Temp 97.7 F 12/28/20 12:00 Pulse 68 12/28/20 13:30 Resp 24 12/28/20 13:30 BP 130/59 12/28/20 06:00 Pulse Ox 97 12/28/20 13:30 Intake & Output 12/27/20 12/28/20 12/28/20 18:59 06:59 18:59 Intake Total 1016.446 739.228 491.647 Output Total 1900 2100 1800 Balance -883.554 -1360.772 -1308.353 Intake: IV 220 240 140 Sodium Chloride 0.45% 1, 220 240 140 000 ml @ 20 mls/hr IV . Q24H [facility] Rx#:[id number] Intake, IV Titration 562.446 233.228 179.647 Amount Heparin Sod,Pork in 0.45% 109.216 54.588 77.041 NaCl 25,000 unit In 0.45 % NaCl 1 250ml.bag @ 12 UNITS/KG/HR 9.9 mls/hr IV .Q24H [facility] Rx#:[id number] Midazolam HCl 50 mg In 8.183 Sodium Chloride 0.9% 40 ml @ 1 MG/HR 1 mls/hr IV .Q24H [facility] Rx#:[id number] Norepinephrine 4 mg In 148.154 Sodium Chloride 0.9% 250 ml @ 0.05 MCG/KG/MIN 15. 716 mls/hr IV .[id number] [facility] Rx#:[id number] propofoL 1,000 mg In 305.076 178.64 94.423 Empty Bag 1 bag @ Titrate IV .Q0M [facility] Rx#: [id number] Tube Feeding 144 176 112 Other 90 90 60 Output: Urine 1900 2100 1800 Other: Voiding Method Indwelling Catheter Indwelling Catheter ABP, PAP, CO, CI - Last Documented Arterial Blood Pressure 160/53 - Exam General: The patient is sedated and intubated Eye: there is normal conjunctiva bilaterally. Neck: The neck is supple, there is no JVD. Cardiovascular: Normal S1-S2, no S3-S4, no murmurs. Respiratory: Lungs clear to auscultation bilaterally Gastrointestinal: Abdomen is soft, nontender Musculoskeletal: There is +1 pedal edema. Skin: Skin is warm and dry - Labs CBC & Chem 7: 12/28/20 05:35 12/28/20 05:35 Labs: Abnormal Lab Results - Last 24 Hours (Table) 12/27/20 12/27/20 12/28/20 Range/Units 17:45 22:15 00:02 WBC (3.8-10.6) k/uL RBC (3.80-5.40) m/uL Hgb (11.4-16.0) gm/dL Hct (34.0-46.0) % Neutrophils # (1.3-7.7) k/uL Lymphocytes # (1.0-4.8) k/uL APTT 31.0 H (22.0-30.0) sec D-Dimer (<0.60) mg/L FEU ABG pO2 (83-108) mmHg Chloride (98-107) mmol/L Carbon Dioxide (22-30) mmol/L BUN (7-17) mg/dL Creatinine (0.52-1.04) mg/dL Glucose (74-99) mg/dL POC Glucose (mg/dL) 181 H 155 H (75-99) mg/dL ALT (4-34) U/L Lactate Dehydrogenase (313-618) U/L C-Reactive Protein (<1.0) mg/dL Total Protein (6.3-8.2) g/dL Albumin (3.5-5.0) g/dL 12/28/20 12/28/20 12/28/20 Range/Units 04:42 05:35 05:35 WBC 15.7 H (3.8-10.6) k/uL RBC 3.13 L (3.80-5.40) m/uL Hgb 10.1 L (11.4-16.0) gm/dL Hct 30.7 L (34.0-46.0) % Neutrophils # 14.1 H (1.3-7.7) k/uL Lymphocytes # 0.6 L (1.0-4.8) k/uL APTT (22.0-30.0) sec D-Dimer (<0.60) mg/L FEU ABG pO2 77 L (83-108) mmHg Chloride 118 H (98-107) mmol/L Carbon Dioxide 21 L (22-30) mmol/L BUN 64 H (7-17) mg/dL Creatinine 1.40 H (0.52-1.04) mg/dL Glucose 140 H (74-99) mg/dL POC Glucose (mg/dL) (75-99) mg/dL ALT 49 H (4-34) U/L Lactate Dehydrogenase (313-618) U/L C-Reactive Protein (<1.0) mg/dL Total Protein 5.3 L (6.3-8.2) g/dL Albumin 2.3 L (3.5-5.0) g/dL 12/28/20 12/28/20 12/28/20 Range/Units 05:35 05:35 05:35 WBC (3.8-10.6) k/uL RBC (3.80-5.40) m/uL Hgb (11.4-16.0) gm/dL Hct (34.0-46.0) % Neutrophils # (1.3-7.7) k/uL Lymphocytes # (1.0-4.8) k/uL APTT 32.9 H (22.0-30.0) sec D-Dimer 0.74 H (<0.60) mg/L FEU ABG pO2 (83-108) mmHg Chloride (98-107) mmol/L Carbon Dioxide (22-30) mmol/L BUN (7-17) mg/dL Creatinine (0.52-1.04) mg/dL Glucose (74-99) mg/dL POC Glucose (mg/dL) (75-99) mg/dL ALT (4-34) U/L Lactate Dehydrogenase 970 H (313-618) U/L C-Reactive Protein 22.6 H (<1.0) mg/dL Total Protein (6.3-8.2) g/dL Albumin (3.5-5.0) g/dL 12/28/20 12/28/20 Range/Units 05:40 11:34 WBC (3.8-10.6) k/uL RBC (3.80-5.40) m/uL Hgb (11.4-16.0) gm/dL Hct (34.0-46.0) % Neutrophils # (1.3-7.7) k/uL Lymphocytes # (1.0-4.8) k/uL APTT (22.0-30.0) sec D-Dimer (<0.60) mg/L FEU ABG pO2 (83-108) mmHg Chloride (98-107) mmol/L Carbon Dioxide (22-30) mmol/L BUN (7-17) mg/dL Creatinine (0.52-1.04) mg/dL Glucose (74-99) mg/dL POC Glucose (mg/dL) 143 H 191 H (75-99) mg/dL ALT (4-34) U/L Lactate Dehydrogenase (313-618) U/L C-Reactive Protein (<1.0) mg/dL Total Protein (6.3-8.2) g/dL Albumin (3.5-5.0) g/dL Microbiology - Last 24 Hours (Table) 12/23/20 12:33 Blood Culture - Preliminary Blood No Growth after 96 hours Assessment and Plan Assessment: Patient is a 75-year-old female with a history of prior angina, diabetes, hypoth yroidism, dyslipidemia, and hypertension who presented with complaint of weakness and syncope. She started having upper respiratory symptoms approximately 4-5 days ago. She went to obtain an outpatient Covid test and passed out. She has completed a 2 series Pfizer vaccine earlier this year. In the ER she underwent an extensive evaluation. On arrival her oxygenation was 71% on room air. She was started on BiPAP. Initial laboratory analysis showed a sodium of 132, carbon dioxide 19, anion gap 11, BUN 56, creatinine 1.9, S2 83, troponin 0.247, CRP 22.8, BNP 21,100. Covid testing was positive. Chest x-ray showed diffuse bilateral interstitial infiltrates. She was given a dose of dexamethasone. She was seen by pulmonary who felt she could be managed on selective care. She was continued on dexamethasone. She is not a candidate for eRemdesivir secondary to her high oxygen requirements. On the afternoon of 12/24 she had sudden decline in heart rate and had PEA arrest lasting approximately 5 minutes. She was transitioned to the ICU and started on propofol for sedation. She did require small amounts of levo. She was noted to have A. fib after [place] was achieved and she was subsequently transitioned from Lovenox to heparin drip. She was seen by cardiology secondary to her echocardiogram with severe aortic stenosis in her PEA arrest. COVID-19 pneumonia Acute hypoxic respiratory failure Acute kidney injury, Non-anion gap metabolic acidosis Transaminitis secondary to above and cardiac arrest Septic shock - Vit D, zinc, vitamin C - Dexamethasone, Pepcid - Wean O2 as able - Pulm recs, managing ventilator - Lovenox - IV Lasix as directed by ICU team Severe Aortic Stenosis Syncope- likely due to hypoxia versus severe aortic stenosis Elevated toponin- likely due to hypoxia, not consistent with ACS Aborted sudden cardiac Atrial fibrillation with rapid ventricular response Underlying ischemic cardiomyopathy with ejection fraction of 30-35% down from 45% on last echocardiogram at - careful fluid management - tele - ASA - Heparin drip -Cardiology recommendations appreciated - not a candidate for rate control at this time due to hypotnesion HTN - hold lisinopril due to VERONICA - Norvasc and Coreg on hold secondary to hypotension - follow BP HLD - statin DM 2 - Long acting, SSI, and fixed dose insulin - increased - follow BS with steroids - check A1C ASCAD - plavix, BB, statin Hyponatremia, resolved
--- NOTE | 2020-12-28 16:27 | P.PN ---
Subjective Progress Note Date: 12/28/20 12/27/2020, the patient is being seen for a follow-up. Patient is a 75-year-old here patient with community related pneumonia with secondary respiratory failure. The patient also has severe valvular heart disease with severe aortic stenosis. The patient is post cardiac pulmonary arrest with a PEA rhythm that lasted around 7 minutes post intubation on 12/24/2020. The patient also has new onset paroxysmal atrial fibrillation. The patient is diabetic. On today's evaluation, the patient remains sedated. The patient on Profore running at 60 mg/kg/m. The patient is well sedated and she is calm and comfortable on mechanical ventilator. She is an assist-control mode with a rate of 26 with a tidal volume of 400 and PEEP of 13 with a FiO2 of 40%. The blood gases from today shows a pH of 7.34 with a pCO2 of 36 and pO2 of 105. Peak airway pressure 31. Static airway airway pressure 23. The patient had a follow-up chest x-ray that showed no evidence of any pneumothorax. There is persistent but the pulmonary infiltrates consistent with community related pneumonia. Pulmonary edema cannot be completely excluded. Previous echocardiogram in this patient echocardiogram showed global hypokinesis with an ejection fraction of 3035%. There was also moderate to severe degree of aortic valve was 58 with a mean gradient of 37. Hemodynamically, the patient remains on pressors. The patient is running on a low-dose of norepinephrine urine at 0.03 units per kilogram per minute. The patient is in a sinus rhythm and the patient is also on IV heparin. Patient is sitting up and feeding for nutritional support. The patient is on vital high protein at 60 mL an hour which is currently at goal. Afebrile. She is also on Decadron 6 mg IV every 24 hours. She remains on amiodarone 400 mg by mouth twice a day and Levemir insulin for blood sugar control 30 units at night and 20 units in the morning along with a fasting coverage. She remains on IV Pepcid. 12/28/2020, the patient is being seen for a follow-up. The patient remains intubated on a mechanical ventilator. This morning, the patient is on propofol at 40 mg/kg per minute and the patient is also on Versed at 1 mg an hour. She is intubated on a mechanical ventilator. She remains on assist control mode at a rate of 26 with a volume of 400 and FiO2 of 60% with a PEEP of 9. The cages at 7.4 episodes of 36 and pO2 77. Chest x-rays on changes consistent with diffuse but the pulmonary infiltrates consistent with community related pneumonia. Since yesterday, the patient was diuresed IV Lasix. The patient was given a total of 60 mg of IV Lasix and she has been negative fluid balance. Nevertheless, no major improvement in her oxygenation nor her chest x-ray findings. She is off pressors. She remains on IV heparin per protocol. The cardiac rhythm is sinus. She is receiving enteral feeding for nutritional support. White cell count of 15.7 with a hemoglobin of 10.1. Creatinine is at 1.4 with a BUN of 64. Electrolytes are normal. AST and ALP are 33 and 49 respectively. LDH level is at 970. CRP level is at 22.6. The d-dimer from today is at 0.7. The patient remains on Decadron 6 mg IV every 24 hours. When the process of getting the patient is sedation holiday. We'll use Cleviprex if needed for tighter blood pressure control. otherwise, no other significant events overnight. The patient on Levemir insulin 30 units at bedtime and 20 units in the morning along with sliding scale coverage and 4 units of regular insulin every 4 hours coverage. Objective - Vital Signs Vital signs: Vital Signs Temp 97.7 F 12/28/20 12:00 Pulse 68 12/28/20 13:30 Resp 24 12/28/20 13:30 BP 130/59 12/28/20 06:00 Pulse Ox 97 12/28/20 13:30 Intake & Output 12/27/20 12/28/20 12/28/20 18:59 06:59 18:59 Intake Total 1016.446 739.228 491.647 Output Total 1900 2100 1800 Balance -883.554 -1360.772 -1308.353 Intake: IV 220 240 140 Sodium Chloride 0.45% 1, 220 240 140 000 ml @ 20 mls/hr IV . Q24H [facility] [place] Rx#:[id number] Intake, IV Titration 562.446 233.228 179.647 Amount Heparin Sod,Pork in 0.45% 109.216 54.588 77.041 NaCl 25,000 unit In 0.45 % NaCl 1 250ml.bag @ 12 UNITS/KG/HR 9.9 mls/hr IV .Q24H [facility] Rx#:[id number] Midazolam HCl 50 mg In 8.183 Sodium Chloride 0.9% 40 ml @ 1 MG/HR 1 mls/hr IV .Q24H [facility] Rx#:[id number] Norepinephrine 4 mg In 148.154 Sodium Chloride 0.9% 250 ml @ 0.05 MCG/KG/MIN 15. 716 mls/hr IV .[id number] [facility] Rx#:[id number] propofoL 1,000 mg In 305.076 178.64 94.423 Empty Bag 1 bag @ Titrate IV .Q0M [facility] Rx#: [id number] Tube Feeding 144 176 112 Other 90 90 60 Output: Urine 1900 2100 1800 Other: Voiding Method Indwelling Catheter Indwelling Catheter Indwelling Catheter ABP, PAP, CO, CI - Last Documented Arterial Blood Pressure 160/53 - Exam No acute distress, sedated on propofo/Versed drip l, with an orally placed endotracheal tube and NG tube. The patient is well sedated, comfortable and symptoms mechanical ventilator. Head exam was generally normal. There was no scleral icterus or corneal arcus. Mucous membranes were moist. Neck was supple and without jugular venous distension, thyromegaly, or carotid bruits. Carotids were easily palpable bilaterally. There was no adenopathy. Orogastric and orotracheal tube are both in place Cardiac exam revealed the PMI to be normally situated and sized. The rhythm was regular and no extrasystoles were noted during several minutes of auscultation. The first and second heart sounds were normal and physiologic splitting of the second heart sound was noted. There were there is a severe systolic ejection murmur grade 4/6 systolic the precordium specially the left lung apex, rubs, clicks, or gallops. Lungs reveal scattered bilateral rhonchi. No wheezes or crackles. Breath sounds equal bilaterally. Abdominal exam revealed normal bowel sounds. The abdomen was soft, non-tender, and without masses, organomegaly, or appreciable enlargement of the abdominal aorta. Extremities are intact. No cyanosis clubbing or edema. Examination of the extremities revealed easily palpable radial, femoral and pedal pulses. There was no cyanosis, clubbing or edema. Examination of the skin revealed no evidence of significant rashes, suspicious appearing nevi or other concerning lesions. Neurologic the patient is sedated and the patient is able to withdraw to painful stimulation bilaterally. - Labs CBC & Chem 7: 12/28/20 05:35 12/28/20 05:35 Labs: Abnormal Lab Results - Last 24 Hours (Table) 12/27/20 12/27/20 12/28/20 Range/Units 17:45 22:15 00:02 WBC (3.8-10.6) k/uL RBC (3.80-5.40) m/uL Hgb (11.4-16.0) gm/dL Hct (34.0-46.0) % Neutrophils # (1.3-7.7) k/uL Lymphocytes # (1.0-4.8) k/uL APTT 31.0 H (22.0-30.0) sec D-Dimer (<0.60) mg/L FEU ABG pO2 (83-108) mmHg Chloride (98-107) mmol/L Carbon Dioxide (22-30) mmol/L BUN (7-17) mg/dL Creatinine (0.52-1.04) mg/dL Glucose (74-99) mg/dL POC Glucose (mg/dL) 181 H 155 H (75-99) mg/dL ALT (4-34) U/L Lactate Dehydrogenase (313-618) U/L C-Reactive Protein (<1.0) mg/dL Total Protein (6.3-8.2) g/dL Albumin (3.5-5.0) g/dL 12/28/20 12/28/20 12/28/20 Range/Units 04:42 05:35 05:35 WBC 15.7 H (3.8-10.6) k/uL RBC 3.13 L (3.80-5.40) m/uL Hgb 10.1 L (11.4-16.0) gm/dL Hct 30.7 L (34.0-46.0) % Neutrophils # 14.1 H (1.3-7.7) k/uL Lymphocytes # 0.6 L (1.0-4.8) k/uL APTT (22.0-30.0) sec D-Dimer (<0.60) mg/L FEU ABG pO2 77 L (83-108) mmHg Chloride 118 H (98-107) mmol/L Carbon Dioxide 21 L (22-30) mmol/L BUN 64 H (7-17) mg/dL Creatinine 1.40 H (0.52-1.04) mg/dL Glucose 140 H (74-99) mg/dL POC Glucose (mg/dL) (75-99) mg/dL ALT 49 H (4-34) U/L Lactate Dehydrogenase (313-618) U/L C-Reactive Protein (<1.0) mg/dL Total Protein 5.3 L (6.3-8.2) g/dL Albumin 2.3 L (3.5-5.0) g/dL 12/28/20 12/28/20 12/28/20 Range/Units 05:35 05:35 05:35 WBC (3.8-10.6) k/uL RBC (3.80-5.40) m/uL Hgb (11.4-16.0) gm/dL Hct (34.0-46.0) % Neutrophils # (1.3-7.7) k/uL Lymphocytes # (1.0-4.8) k/uL APTT 32.9 H (22.0-30.0) sec D-Dimer 0.74 H (<0.60) mg/L FEU ABG pO2 (83-108) mmHg Chloride (98-107) mmol/L Carbon Dioxide (22-30) mmol/L BUN (7-17) mg/dL Creatinine (0.52-1.04) mg/dL Glucose (74-99) mg/dL POC Glucose (mg/dL) (75-99) mg/dL ALT (4-34) U/L Lactate Dehydrogenase 970 H (313-618) U/L C-Reactive Protein 22.6 H (<1.0) mg/dL Total Protein (6.3-8.2) g/dL Albumin (3.5-5.0) g/dL 12/28/20 12/28/20 Range/Units 05:40 11:34 WBC (3.8-10.6) k/uL RBC (3.80-5.40) m/uL Hgb (11.4-16.0) gm/dL Hct (34.0-46.0) % Neutrophils # (1.3-7.7) k/uL Lymphocytes # (1.0-4.8) k/uL APTT (22.0-30.0) sec D-Dimer (<0.60) mg/L FEU ABG pO2 (83-108) mmHg Chloride (98-107) mmol/L Carbon Dioxide (22-30) mmol/L BUN (7-17) mg/dL Creatinine (0.52-1.04) mg/dL Glucose (74-99) mg/dL POC Glucose (mg/dL) 143 H 191 H (75-99) mg/dL ALT (4-34) U/L Lactate Dehydrogenase (313-618) U/L C-Reactive Protein (<1.0) mg/dL Total Protein (6.3-8.2) g/dL Albumin (3.5-5.0) g/dL Microbiology - Last 24 Hours (Table) 12/23/20 12:33 Blood Culture - Preliminary Blood No Growth after 120 hours Assessment and Plan Plan: 1 acute hypoxic respiratory failure. This is associated related to community re lated pneumonia. The patient is currently intubated on a mechanical ventilator. The patient was intubated on 12/24/2020. Chest x-ray on today's evaluation is unchanged. 2 acute COVID 19 pneumonia with secondary hypoxic respiratory failure and currently the patient intubated on a mechanical ventilator 3 Status post cardiopulmonary arrest, with pulseless electrical activity, for 7 minutes, status post intubation and mechanical ventilation, on 12/24/2020. 4 moderate severe aortic stenosis 5 CHF with global hypokinesis and an ejection fraction of 30-35%. The patient has systolic heart failure, likely chronic 6 hypotension secondary to above, , currently off pressors 7 diabetes mellitus, blood sugar has been under adequate control 8 proximity fibrillation currently normal sinus rhythm and the patient remains on IV heparin and the patient is also on oral amiodarone 9 acute kidney injury, creatinine is stable and the patient is producing adequate amount of urine output 10 non-anion gap metabolic acidosis, improving 11 elevated inflammatory markers, improving. The patient's LDH level is down compared to earlier levels 12 non-STEMI troponin peaked at 0.2, improved and the patient subsequent up in the LV function with an ejection fraction of 30-35%, currently on pressors Plan Continue ventilator support. Reduce the PEEP down to 8 Sedation holiday as the patient will be taken off the Versed drip and the patient will be gradually taken off the propofol and her underlying mental status will be assessed. We'll definitely get rid of the Versed drip. We will also wean off propofol and assess the patient's underlying mental status. Give the patient another dose of Lasix 40 mg IV push 1 Norepinephrine has been discontinued IV fluids to KVO Continue Decadron Use Cleviprex for blood pressure control especially while the patient is being off the sedation Continue enteral feeding for nutritional support Chest x-ray blood gases were noted. No other ventilator changes for today We'll discontinue IV heparin and put the patient on Lovenox for DVT prophylaxis. We'll continue to follow make further recommendations based on patient's clinical response. There is a critically care evaluation that was done and more than 30 minutes. Time with Patient: Greater than 30
[2020-12-28 17:56] LABS: Glucose,Whole Blood 198 mg/dL (75-99)
[2020-12-28] MEDS: METOPROLOL TARTRATE 25 MG TAB PO SCH (20:52)
[2020-12-28] MEDS ORDERED: AMIODARONE 200 MG TAB PO SCH (21:00)
[2020-12-28 23:20] LABS: Glucose,Whole Blood 183 mg/dL (75-99)
[2020-12-28 23:28] LABS: Glucose,Whole Blood 197 mg/dL (75-99)
[2020-12-29] MEDS: ALBUTEROL HFA INHALER INHALATION SCH ×6 (00:21→19:40)
[2020-12-29] MEDS: INSULIN ASPART (NovoLOG) 100 UNIT/ML VIAL SQ SCH ×10 (01:19→23:59)
[2020-12-29] MEDS: SODIUM CHLORIDE 0.45% 1,000 ML IV SCH ×2 (01:20→21:00)
[2020-12-29 04:16] LABS: Basophils % (A) 0 %; Eosinophils % (A) 0 %; HCT 34.5 % (34.0-46.0); HGB 11.4 gm/dL (11.4-16.0); Lymphocytes # (A) 0.6 k/uL (1.0-4.8); Lymphocytes % (A) 3 %; MCH 32.1 pg (25.0-35.0); MCHC 33.1 g/dL (31.0-37.0); MCV 97.2 fL (80.0-100.0); Mean Platelet Volume 7.6; Monocytes # (A) 0.9 k/uL (0-1.0); Monocytes % (A) 5 %; Neutrophils # (A) 17.4 k/uL (1.3-7.7); Neutrophils % (A) 91 %; Platelet Count 316 k/uL (150-450); RBC 3.55 m/uL (3.80-5.40); RDW 13.6 % (11.5-15.5); WBC 19.2 k/uL (3.8-10.6)
[2020-12-29 04:50] LABS: Calcium 9.1 mg/dL (8.4-10.2); Potassium 4.2 mmol/L (3.5-5.1)
[2020-12-29 04:53] LABS: ABG HCO3 26 mmol/L (21-25); ABG Oxygen Saturation 95.8 % (94-97); ABG PCO2 35 mmHg (35-45); ABG PH 7.47 (7.35-7.45); ABG PO2 78 mmHg (83-108); ABG TCO2 27 mmol/L (19-24); Allen Test Performed? Yes
[2020-12-29] MEDS: DEXMEDETOMIDINE/0.9% NACL(PMX) 400 MCG in EMPTY BAG 1 BAG IV SCH ×2 (05:02→19:56)
[2020-12-29 05:05] LABS: C Reactive Protein 16.5 mg/dL (<1.0)
[2020-12-29 05:31] LABS: Glucose,Whole Blood 169 mg/dL (75-99)
[2020-12-29] MEDS: CLEVIDIPINE BUTYRATE 25 MG in EMPTY BAG 1 BAG IV SCH (06:09)
[2020-12-29] MEDS: INSULIN DETEMIR (LEVEMIR) 100 UNIT/ML SYR SQ SCH ×2 (06:09→20:59)
--- NOTE | 2020-12-29 07:18 | XR ---
EXAMINATION TYPE: XR chest 1V portable DATE OF EXAM: 12/29/2020 CLINICAL HISTORY: Difficulty breathing progress study. COVID. TECHNIQUE: Single AP portable semiupright view of the chest is obtained. COMPARISON: Chest x-ray from one day earlier and older studies. FINDINGS: Stable endotracheal and orogastric tubes. Stable left internal jugular central venous cath eter. Overlying sternal wires and mediastinal clips redemonstrated. Stable cardiomegaly with atheroscleroti c aorta. Persistent bilateral multifocal reticulonodular opacities. No pleural effusion or pneumothor ax seen. Osseous structures intact. IMPRESSION: Persistent Bilateral multifocal opacities consistent with covid-19 infection on backgroun d cardiomegaly and chronic parenchymal changes. No significant change from one day earlier.
--- NOTE | 2020-12-29 07:51 | P.PN ---
Subjective Progress Note Date: 12/29/20 12/27/2020, the patient is being seen for a follow-up. Patient is a 75-year-old here patient with community related pneumonia with secondary respiratory failure. The patient also has severe valvular heart disease with severe aortic stenosis. The patient is post cardiac pulmonary arrest with a PEA rhythm that lasted around 7 minutes post intubation on 12/24/2020. The patient also has new onset paroxysmal atrial fibrillation. The patient is diabetic. On today's evaluation, the patient remains sedated. The patient on Profore running at 60 mg/kg/m. The patient is well sedated and she is calm and comfortable on mechanical ventilator. She is an assist-control mode with a rate of 26 with a tidal volume of 400 and PEEP of 13 with a FiO2 of 40%. The blood gases from today shows a pH of 7.34 with a pCO2 of 36 and pO2 of 105. Peak airway pressure 31. Static airway airway pressure 23. The patient had a follow-up chest x-ray that showed no evidence of any pneumothorax. There is persistent but the pulmonary infiltrates consistent with community related pneumonia. Pulmonary edema cannot be completely excluded. Previous echocardiogram in this patient echocardiogram showed global hypokinesis with an ejection fraction of 3035%. There was also moderate to severe degree of aortic valve was 58 with a mean gradient of 37. Hemodynamically, the patient remains on pressors. The patient is running on a low-dose of norepinephrine urine at 0.03 units per kilogram per minute. The patient is in a sinus rhythm and the patient is also on IV heparin. Patient is sitting up and feeding for nutritional support. The patient is on vital high protein at 60 mL an hour which is currently at goal. Afebrile. She is also on Decadron 6 mg IV every 24 hours. She remains on amiodarone 400 mg by mouth twice a day and Levemir insulin for blood sugar control 30 units at night and 20 units in the morning along with a fasting coverage. She remains on IV Pepcid. 12/28/2020, the patient is being seen for a follow-up. The patient remains intubated on a mechanical ventilator. This morning, the patient is on propofol at 40 mg/kg per minute and the patient is also on Versed at 1 mg an hour. She is intubated on a mechanical ventilator. She remains on assist control mode at a rate of 26 with a volume of 400 and FiO2 of 60% with a PEEP of 9. The cages at 7.4 episodes of 36 and pO2 77. Chest x-rays on changes consistent with diffuse but the pulmonary infiltrates consistent with community related pneumonia. Since yesterday, the patient was diuresed IV Lasix. The patient was given a total of 60 mg of IV Lasix and she has been negative fluid balance. Nevertheless, no major improvement in her oxygenation nor her chest x-ray findings. She is off pressors. She remains on IV heparin per protocol. The cardiac rhythm is sinus. She is receiving enteral feeding for nutritional support. White cell count of 15.7 with a hemoglobin of 10.1. Creatinine is at 1.4 with a BUN of 64. Electrolytes are normal. AST and ALP are 33 and 49 respectively. LDH level is at 970. CRP level is at 22.6. The d-dimer from today is at 0.7. The patient remains on Decadron 6 mg IV every 24 hours. When the process of getting the patient is sedation holiday. We'll use Cleviprex if needed for tighter blood pressure control. otherwise, no other significant events overnight. The patient on Levemir insulin 30 units at bedtime and 20 units in the morning along with sliding scale coverage and 4 units of regular insulin every 4 hours coverage. 12/29/2020, the patient is being seen for a follow-up. Remains on a mechanical ventilator. Remains on Precedex for sedation. Note that I think this patient off sedation yesterday. Following her sedation holiday, the patient did not wake up completely. She was becoming more restless and hypertensive at that point Cleviprex was admitted for blood pressure control is currently running at 2 mg an hour. Later on during the day, Precedex was also added for sedation at around 4:30 AM this morning and Precedex is running at 0.2 g. Remains intubat ed. The patient remains on assist control mode at the rate of 26 with a tidal volume of 100 and FiO2 is currently at 40% with a PEEP of 6. We managed to cut down the PEEP overnight slowly maintaining a saturation above 90%. Current pulse ox is 96%. Morning blood gases showed a pH of 7.47 with a pCO2 of 35 and pO2 of 78 and this was on FiO2 of 40%. Chest x-ray from today showing bilateral pulmonary infiltrates, with probably some improvement in infiltrates patient the right lung base. ET tube remains in a good location. The patient also has a left IJ triple-lumen catheter in place. The patient was receiving daily diuretics. The net fluid balance over the past 24 hours has been -2.4 L. The peak airway pressure on a mechanical ventilator is 16. No significant orotracheal secretions. Creatinine today is at 1.4 which is essentially stable. Sodium level is at 146 slightly higher compared to yesterday as the patient is being diuresed. In terms of inflammatory markers, the patient has a LDH level of 1100 and his CRP level of 16.5. The white cell count is slightly elevated today at 19.2. In terms of her medication coverage, the patient remains on Decadron 6 g IV every 24 hours. The patient is still on she will feeds and currently she is receiving enteral feeding for nutritional support and she is on vital high protein at the rate of 16 mL an hour. Blood sugars are under adequate control and patient is receiving Levemir insulin 30 units at bedtime and 20 units in the morning along with a sliding scale coverage. Objective - Vital Signs Vital signs: Vital Signs Temp 99.9 F H 12/29/20 04:00 Pulse 72 12/29/20 07:00 Resp 26 H 12/29/20 07:00 BP 130/59 12/29/20 07:00 Pulse Ox 96 12/29/20 07:00 Intake & Output 12/28/20 12/29/20 12/29/20 18:59 06:59 18:59 Intake Total 669.647 529.633 36 Output Total 2625 1020 75 Balance -1955.353 -490.367 -39 Intake: IV 240 240 20 Sodium Chloride 0.45% 1, 240 240 20 000 ml @ 20 mls/hr IV . Q24H [facility] Rx#:[id number] Intake, IV Titration 179.647 37.633 Amount Clevidipine Butyrate 25 37.633 mg In Empty Bag 1 bag @ 1 MG/HR 2 mls/hr IV .Q24H [facility] Rx#:[id number] Heparin Sod,Pork in 0.45% 77.041 NaCl 25,000 unit In 0.45 % NaCl 1 250ml.bag @ 12 UNITS/KG/HR 9.9 mls/hr IV .Q24H [facility] Rx#:[id number] Midazolam HCl 50 mg In 8.183 Sodium Chloride 0.9% 40 ml @ 1 MG/HR 1 mls/hr IV .Q24H [facility] Rx#:[id number] propofoL 1,000 mg In 94.423 Empty Bag 1 bag @ Titrate IV .Q0M [facility] Rx#: [id number] Tube Feeding 160 192 16 Other 90 60 Output: Urine 2625 1020 75 Other: Voiding Method Indwelling Catheter Indwelling Catheter ABP, PAP, CO, CI - Last Documented Arterial Blood Pressure 138/44 - Exam No acute distress, sedated on precedex, with an orally placed endotracheal tube and NG tube. The patient is well sedated, comfortable and symptoms mechanical ventilator. Head exam was generally normal. There was no scleral icterus or corneal arcus. Mucous membranes were moist. Neck was supple and without jugular venous distension, thyromegaly, or carotid bruits. Carotids were easily palpable bilaterally. There was no adenopathy. Orogastric and orotracheal tube are both in place Cardiac exam revealed the PMI to be normally situated and sized. The rhythm was regular and no extrasystoles were noted during several minutes of auscultation. The first and second heart sounds were normal and physiologic splitting of the second heart sound was noted. There were there is a severe systolic ejection murmur grade 4/6 systolic the precordium specially the left lung apex, rubs, clicks, or gallops. Lungs reveal scattered bilateral rhonchi. No wheezes or crackles. Breath sounds equal bilaterally. Abdominal exam revealed normal bowel sounds. The abdomen was soft, non-tender, and without masses, organomegaly, or appreciable enlargement of the abdominal aorta. Extremities are intact. No cyanosis clubbing or edema. Examination of the extremities revealed easily palpable radial, femoral and pedal pulses. There was no cyanosis, clubbing or edema. Examination of the skin revealed no evidence of significant rashes, suspicious appearing nevi or other concerning lesions. Neurologic the patient is sedated and the patient is able to withdraw to painful stimulation bilaterally. - Labs CBC & Chem 7: 12/29/20 03:45 12/29/20 03:45 Labs: Abnormal Lab Results - Last 24 Hours (Table) 12/28/20 12/28/20 12/28/20 Range/Units 05:35 05:35 11:34 WBC (3.8-10.6) k/uL RBC (3.80-5.40) m/uL Neutrophils # (1.3-7.7) k/uL Lymphocytes # (1.0-4.8) k/uL D-Dimer 0.74 H (<0.60) mg/L FEU ABG pH (7.35-7.45) ABG pO2 (83-108) mmHg ABG HCO3 (21-25) mmol/L ABG Total CO2 (19-24) mmol/L Sodium (137-145) mmol/L Chloride (98-107) mmol/L BUN (7-17) mg/dL Creatinine (0.52-1.04) mg/dL Glucose (74-99) mg/dL POC Glucose (mg/dL) 191 H (75-99) mg/dL Lactate Dehydrogenase 970 H (313-618) U/L C-Reactive Protein 22.6 H (<1.0) mg/dL 12/28/20 12/28/20 12/28/20 Range/Units 17:55 23:19 23:26 WBC (3.8-10.6) k/uL RBC (3.80-5.40) m/uL Neutrophils # (1.3-7.7) k/uL Lymphocytes # (1.0-4.8) k/uL D-Dimer (<0.60) mg/L FEU ABG pH (7.35-7.45) ABG pO2 (83-108) mmHg ABG HCO3 (21-25) mmol/L ABG Total CO2 (19-24) mmol/L Sodium (137-145) mmol/L Chloride (98-107) mmol/L BUN (7-17) mg/dL Creatinine (0.52-1.04) mg/dL Glucose (74-99) mg/dL POC Glucose (mg/dL) 198 H 183 H 197 H (75-99) mg/dL Lactate Dehydrogenase (313-618) U/L C-Reactive Protein (<1.0) mg/dL 12/29/20 12/29/20 12/29/20 Range/Units 03:45 03:45 03:45 WBC 19.2 H (3.8-10.6) k/uL RBC 3.55 L (3.80-5.40) m/uL Neutrophils # 17.4 H (1.3-7.7) k/uL Lymphocytes # 0.6 L (1.0-4.8) k/uL D-Dimer 2.19 H (<0.60) mg/L FEU ABG pH (7.35-7.45) ABG pO2 (83-108) mmHg ABG HCO3 (21-25) mmol/L ABG Total CO2 (19-24) mmol/L Sodium (137-145) mmol/L Chloride (98-107) mmol/L BUN (7-17) mg/dL Creatinine (0.52-1.04) mg/dL Glucose (74-99) mg/dL POC Glucose (mg/dL) (75-99) mg/dL Lactate Dehydrogenase 1100 H (313-618) U/L C-Reactive Protein 16.5 H (<1.0) mg/dL 12/29/20 12/29/20 12/29/20 Range/Units 03:45 04:50 05:20 WBC (3.8-10.6) k/uL RBC (3.80-5.40) m/uL Neutrophils # (1.3-7.7) k/uL Lymphocytes # (1.0-4.8) k/uL D-Dimer (<0.60) mg/L FEU ABG pH 7.47 H (7.35-7.45) ABG pO2 78 L (83-108) mmHg ABG HCO3 26 H (21-25) mmol/L ABG Total CO2 27 H (19-24) mmol/L Sodium 146 H (137-145) mmol/L Chloride 114 H (98-107) mmol/L BUN 60 H (7-17) mg/dL Creatinine 1.43 H (0.52-1.04) mg/dL Glucose 187 H (74-99) mg/dL POC Glucose (mg/dL) 169 H (75-99) mg/dL Lactate Dehydrogenase (313-618) U/L C-Reactive Protein (<1.0) mg/dL Microbiology - Last 24 Hours (Table) 12/23/20 12:33 Blood Culture - Preliminary Blood No Growth after 120 hours Assessment and Plan Plan: 1 acute hypoxic respiratory failure. This is associated related to community related pneumonia. The patient is currently intubated on a mechanical ventilator. The patient was intubated on 12/24/2020. Chest x-ray he has was noted. There is improvement in the patient's oxygenation. PEEP is down to 6 with an FiO2 of 40%. The patient is maintaining her pulse ox above 90%. Chest x-ray showed limited improvement and the patient remains on Decadron. She has been adequately diuresed with IV Lasix. 2 acute COVID 19 pneumonia with secondary hypoxic respiratory failure and currently the patient intubated on a mechanical ventilator 3 Status post cardiopulmonary arrest, with pulseless electrical activity, for 7 minutes, status post intubation and mechanical ventilation, on 12/24/2020. 4 moderate severe aortic stenosis 5 CHF with global hypokinesis and an ejection fraction of 30-35%. The patient has systolic heart failure, likely chronic 6 hypotension secondary to above, , currently off pressors the patient is currently hypertensive while coming off sedation and she is on Cleviprex drip running at 2 mg an hour. 7 diabetes mellitus, blood sugar has been under adequate control 8 proximity fibrillation currently normal sinus rhythm and the patient remains on IV heparin and the patient is also on oral amiodarone 9 acute kidney injury, creatinine is stable and the patient is producing adequate amount of urine output 10 non-anion gap metabolic acidosis, improving 11 elevated inflammatory markers, improving. The patient's LDH level is down compared to earlier levels 12 non-STEMI troponin peaked at 0.2, improved and the patient subsequent up in the LV function with an ejection fraction of 30-35%, currently on pressors Plan Continue ventilator support. Reduce the PEEP down to5 Sedation holiday that only if needed. I'm very interested to I will evaluate this patient's mental status and hopefully she will be able to follow some commands. When he was Cleviprex drip for tighter blood pressure control if needed. IV fluids to KVO Continue Decadron Use Cleviprex for blood pressure control especially while the patient is being off the sedation Continue enteral feeding for nutritional support Chest x-ray blood gases were noted. Lovenox for DVT prophylaxis. We'll continue to follow make further recommendations based on patient's clinical response. There is a critically care evaluation that was done and more than 30 minutes. Time with Patient: Greater than 30
[2020-12-29] MEDS: ENOXAPARIN 30 MG/0.3 ML SYRINGE SQ SCH (09:34)
[2020-12-29] MEDS: ZINC SULFATE 220 MG CAP PO SCH (09:35)
[2020-12-29] MEDS: CHOLECALCIFEROL 25 MCG (1000 IU) TABLET PO SCH (09:35)
[2020-12-29] MEDS: METOPROLOL TARTRATE 25 MG TAB PO SCH (09:35)
[2020-12-29] MEDS: CHLORHEXIDINE GLUCONATE 15 ML CUP MUCOUS MEM SCH ×2 (09:35→20:54)
[2020-12-29] MEDS: AMIODARONE 200 MG TAB PO SCH ×3 (09:35→20:58)
[2020-12-29] MEDS: FAMOTIDINE 20 MG/2 ML VIAL IV SCH (09:35)
[2020-12-29] MEDS: ASCORBIC ACID 500 MG TAB PO SCH (09:35)
[2020-12-29] MEDS: DEXAMETHASONE SOD PHOSPHATE 10 MG/ML 1 ML VIAL IV SCH (09:35)
--- NOTE | 2020-12-29 10:24 | P.PN ---
Subjective Progress Note Date: 12/29/20 Patient was seen and evaluated by me this morning. She was off sedation but not following commands. She appears slightly restless. She is on minimal vent settings. Objective - Vital Signs Vital signs: Vital Signs Temp 99.9 F H 12/29/20 04:00 Pulse 72 12/29/20 07:00 Resp 26 H 12/29/20 07:00 BP 130/59 12/29/20 07:00 Pulse Ox 96 12/29/20 07:00 Intake & Output 12/28/20 12/29/20 12/29/20 18:59 06:59 18:59 Intake Total 669.647 529.633 36 Output Total 2625 1020 75 Balance -1955.353 -490.367 -39 Intake: IV 240 240 20 Sodium Chloride 0.45% 1, 240 240 20 000 ml @ 20 mls/hr IV . Q24H [facility] Rx#:[id number] Intake, IV Titration 179.647 37.633 Amount Clevidipine Butyrate 25 37.633 mg In Empty Bag 1 bag @ 1 MG/HR 2 mls/hr IV .Q24H [facility] Rx#:[id number] Heparin Sod,Pork in 0.45% 77.041 NaCl 25,000 unit In 0.45 % NaCl 1 250ml.bag @ 12 UNITS/KG/HR 9.9 mls/hr IV .Q24H [facility] Rx#:[id number] Midazolam HCl 50 mg In 8.183 Sodium Chloride 0.9% 40 ml @ 1 MG/HR 1 mls/hr IV .Q24H [facility] Rx#:[id number] propofoL 1,000 mg In 94.423 Empty Bag 1 bag @ Titrate IV .Q0M [facility] Rx#: [id number] Tube Feeding 160 192 16 Other 90 60 Output: Urine 2625 1020 75 Other: Voiding Method Indwelling Catheter Indwelling Catheter ABP, PAP, CO, CI - Last Documented Arterial Blood Pressure 138/44 - Exam General: The patient is sedated and intubated Eye: there is normal conjunctiva bilaterally. Neck: The neck is supple, there is no JVD. Cardiovascular: Normal S1-S2, no S3-S4, no murmurs. Respiratory: Lungs clear to auscultation bilaterally Gastrointestinal: Abdomen is soft, nontender Musculoskeletal: There is +1 pedal edema. Skin: Skin is warm and dry - Labs CBC & Chem 7: 12/29/20 03:45 12/29/20 03:45 Labs: Abnormal Lab Results - Last 24 Hours (Table) 12/28/20 12/28/20 12/28/20 Range/Units 11:34 17:55 23:19 WBC (3.8-10.6) k/uL RBC (3.80-5.40) m/uL Neutrophils # (1.3-7.7) k/uL Lymphocytes # (1.0-4.8) k/uL D-Dimer (<0.60) mg/L FEU ABG pH (7.35-7.45) ABG pO2 (83-108) mmHg ABG HCO3 (21-25) mmol/L ABG Total CO2 (19-24) mmol/L Sodium (137-145) mmol/L Chloride (98-107) mmol/L BUN (7-17) mg/dL Creatinine (0.52-1.04) mg/dL Glucose (74-99) mg/dL POC Glucose (mg/dL) 191 H 198 H 183 H (75-99) mg/dL Lactate Dehydrogenase (313-618) U/L C-Reactive Protein (<1.0) mg/dL 12/28/20 12/29/20 12/29/20 Range/Units 23:26 03:45 03:45 WBC (3.8-10.6) k/uL RBC (3.80-5.40) m/uL Neutrophils # (1.3-7.7) k/uL Lymphocytes # (1.0-4.8) k/uL D-Dimer 2.19 H (<0.60) mg/L FEU ABG pH (7.35-7.45) ABG pO2 (83-108) mmHg ABG HCO3 (21-25) mmol/L ABG Total CO2 (19-24) mmol/L Sodium (137-145) mmol/L Chloride (98-107) mmol/L BUN (7-17) mg/dL Creatinine (0.52-1.04) mg/dL Glucose (74-99) mg/dL POC Glucose (mg/dL) 197 H (75-99) mg/dL Lactate Dehydrogenase 1100 H (313-618) U/L C-Reactive Protein 16.5 H (<1.0) mg/dL 12/29/20 12/29/20 12/29/20 Range/Units 03:45 03:45 04:50 WBC 19.2 H (3.8-10.6) k/uL RBC 3.55 L (3.80-5.40) m/uL Neutrophils # 17.4 H (1.3-7.7) k/uL Lymphocytes # 0.6 L (1.0-4.8) k/uL D-Dimer (<0.60) mg/L FEU ABG pH 7.47 H (7.35-7.45) ABG pO2 78 L (83-108) mmHg ABG HCO3 26 H (21-25) mmol/L ABG Total CO2 27 H (19-24) mmol/L Sodium 146 H (137-145) mmol/L Chloride 114 H (98-107) mmol/L BUN 60 H (7-17) mg/dL Creatinine 1.43 H (0.52-1.04) mg/dL Glucose 187 H (74-99) mg/dL POC Glucose (mg/dL) (75-99) mg/dL Lactate Dehydrogenase (313-618) U/L C-Reactive Protein (<1.0) mg/dL 12/29/20 Range/Units 05:20 WBC (3.8-10.6) k/uL RBC (3.80-5.40) m/uL Neutrophils # (1.3-7.7) k/uL Lymphocytes # (1.0-4.8) k/uL D-Dimer (<0.60) mg/L FEU ABG pH (7.35-7.45) ABG pO2 (83-108) mmHg ABG HCO3 (21-25) mmol/L ABG Total CO2 (19-24) mmol/L Sodium (137-145) mmol/L Chloride (98-107) mmol/L BUN (7-17) mg/dL Creatinine (0.52-1.04) mg/dL Glucose (74-99) mg/dL POC Glucose (mg/dL) 169 H (75-99) mg/dL Lactate Dehydrogenase (313-618) U/L C-Reactive Protein (<1.0) mg/dL Microbiology - Last 24 Hours (Table) 12/23/20 12:33 Blood Culture - Preliminary Blood No Growth after 120 hours Assessment and Plan Assessment: Patient is a 75-year-old female with a history of prior angina, diabetes, hypothyroidism, dyslipidemia, and hypertension who presented with complaint of weakness and syncope. She started having upper respiratory symptoms approximately 4-5 days ago. She went to obtain an outpatient Covid test and passed out. She has completed a 2 series Pfizer vaccine earlier this year. In the ER she underwent an extensive evaluation. On arrival her oxygenation was 71% on room air. She was started on BiPAP. Initial laboratory analysis showed a sodium of 132, carbon dioxide 19, anion gap 11, BUN 56, creatinine 1.9, S2 83, troponin 0.247, CRP 22.8, BNP 21,100. Covid testing was positive. Chest x-ray showed diffuse bilateral interstitial infiltrates. She was given a dose of dexamethasone. She was seen by pulmonary who felt she could be managed on selective care. She was continued on dexamethasone. She is not a candidate for eRemdesivir secondary to her high oxygen requirements. On the afternoon of 12/24 she had sudden decline in heart rate and had PEA arrest lasting approximately 5 minutes. She was transitioned to the ICU and started on propofol for sedation. She did require small amounts of levo. She was noted to have A. fib after [place] was achieved and she was subsequently transitioned from Lovenox to heparin drip. She was seen by cardiology secondary to her echocardiogram with severe aortic stenosis in her PEA arrest. COVID-19 pneumonia Acute hypoxic respiratory failure Acute kidney injury, Non-anion gap metabolic acidosis Transaminitis secondary to above and cardiac arrest Septic shock - Vit D, zinc, vitamin C - Dexamethasone, Pepcid - Wean O2 as able - Pulm recs, managing ventilator - Lovenox - IV Lasix as directed by ICU team Severe Aortic Stenosis Syncope- likely due to hypoxia versus severe aortic stenosis Elevated toponin- likely due to hypoxia, not consistent with ACS Aborted sudden cardiac Atrial fibrillation with rapid ventricular response Underlying ischemic cardiomyopathy with ejection fraction of 30-35% down from 45% on last echocardiogram at [facility] - careful fluid management - tele - ASA - Heparin drip -Cardiology recommendations appreciated - not a candidate for rate control at this time due to hypotnesion HTN - hold lisinopril due to VERONICA - Norvasc and Coreg on hold secondary to hypotension - follow BP HLD - statin DM 2 - Long acting, SSI, and fixed dose insulin - increased - follow BS with steroids - A1C 8.5 ASCAD - plavix, BB, statin Hyponatremia, resolved
--- NOTE | 2020-12-29 11:09 | PN ---
PROGRESS NOTE Mrs. Manuel is a 75-year-old female who presented with respiratory failure, pneumonia and COVID-19 infection. She has a history of aortic stenosis. She remains intubated. She had short bursts of atrial fibrillation earlier. She is back in sinus mechanism. There is no evident ventricular ectopic activity. Her urine output has been stable. Her echocardiogram during this admission revealed an ejection fraction of 30% to 35% with moderate to severe aortic stenosis. She continues to be at this time on amiodarone 200 mg twice a day, Lovenox subcutaneously, Lasix 20 mg IV daily, insulin, metoprolol tartrate 25 mg twice a day. PHYSICAL EXAMINATION: Blood pressure 130/59 with a heart rate in the 70s. LAB DATA: Lab data revealed a BUN and creatinine of 16 and 1.43, potassium 4.2, hemoglobin of 11.4, white blood cell count of 19.2. IMPRESSION: 1. Respiratory failure with pneumonia and COVID-19 infection. 2. Paroxysmal atrial fibrillation. 3. Aortic stenosis. 4. Cardiomyopathy. 5. Renal failure. RECOMMENDATIONS: From the cardiac standpoint, I will increase the dose of her amiodarone because of her episode of atrial fibrillation. I will continue supportive care. Continue her on the beta bonnie and, depending on her blood pressure, the dose will be adjusted. The patient remains intubated. Will await the input of the pulmonary service to see if there is any plan for weaning. Unfortunately the prognosis remains guarded. MMODL / IJN: [id number] / MTDD
[2020-12-29] MEDS ORDERED: METOPROLOL TARTRATE 25 MG TAB PO STA (11:12)
[2020-12-29] MEDS: NOREPINEPHRINE 4 MG in SODIUM CHLORIDE 0.9% 250 ML IV SCH (11:12)
[2020-12-29 11:39] LABS: Glucose,Whole Blood 178 mg/dL (75-99)
[2020-12-29] MEDS ORDERED: DEXMEDETOMIDINE/0.9% NACL(PMX) 400 MCG in EMPTY BAG 1 BAG IV SCH (16:45)
[2020-12-29 17:55] LABS: Glucose,Whole Blood 158 mg/dL (75-99)
[2020-12-29] MEDS: METOPROLOL TARTRATE 50 MG TAB PO SCH (20:55)
[2020-12-29] MEDS: ACETAMINOPHEN TAB 325 MG TAB PO PRN (23:41)
[2020-12-29 23:56] LABS: Glucose,Whole Blood 105 mg/dL (75-99)
[2020-12-30] MEDS: ALBUTEROL HFA INHALER INHALATION SCH ×7 (00:03→23:47)
[2020-12-30 00:23] LABS: Amorphous Sediment,Urine Rare /hpf; Appearance,Urine Turbid (Clear); Bacteria,Urine Many /hpf; Bilirubin,Urine Negative (Negative); Blood,Urine Trace (Negative); Color,Urine Yellow; Glucose,Urine (UA) Negative (Negative); Ketones,Urine Negative (Negative); Leukocyte Esterase,Urine Moderate (Negative); Mucus,Urine Rare /hpf; Nitrite,Urine Negative (Negative); Protein,Urine 1+ (Negative); RBC,Urine 2 /hpf (0-5); Specific Gravity,Urine 1.016 (1.001-1.035); Squamous Epithelial Cell,Urine <1 /hpf (0-4); Uric Acid Crystals,Urine Moderate /hpf; Urobilinogen,Urine <2.0 mg/dL (<2.0); WBC,Urine 19 /hpf (0-5)
[2020-12-30 04:02] LABS: ABG Base Excess 4.3 mmol/L; ABG HCO3 28 mmol/L (21-25); ABG Oxygen Saturation 96.3 % (94-97); ABG PCO2 35 mmHg (35-45); ABG PO2 80 mmHg (83-108); ABG TCO2 29 mmol/L (19-24); Allen Test Performed? Yes
[2020-12-30] MEDS: DEXMEDETOMIDINE/0.9% NACL(PMX) 400 MCG in EMPTY BAG 1 BAG IV SCH ×2 (04:30→12:53)
[2020-12-30] MEDS: ACETAMINOPHEN TAB 325 MG TAB PO PRN ×4 (04:43→20:56)
[2020-12-30 05:12] LABS: Glucose,Whole Blood 150 mg/dL (75-99)
[2020-12-30 05:26] LABS: Basophils % (A) 0 %; Eosinophils % (A) 0 %; HGB 11.5 gm/dL (11.4-16.0); Lymphocytes # (A) 0.9 k/uL (1.0-4.8); Lymphocytes % (A) 4 %; MCH 31.3 pg (25.0-35.0); MCHC 31.9 g/dL (31.0-37.0); MCV 98.3 fL (80.0-100.0); Mean Platelet Volume 7.5; Monocytes # (A) 1.1 k/uL (0-1.0); Monocytes % (A) 6 %; Neutrophils % (A) 88 %; Platelet Count 311 k/uL (150-450); RBC 3.66 m/uL (3.80-5.40); RDW 13.6 % (11.5-15.5); WBC 19.3 k/uL (3.8-10.6)
[2020-12-30 05:39] LABS: Calcium 9.7 mg/dL (8.4-10.2); Potassium 4.4 mmol/L (3.5-5.1)
[2020-12-30] MEDS: INSULIN ASPART (NovoLOG) 100 UNIT/ML VIAL SQ SCH ×6 (07:12→17:29)
[2020-12-30] MEDS: INSULIN DETEMIR (LEVEMIR) 100 UNIT/ML SYR SQ SCH ×2 (07:13→20:14)
[2020-12-30] MEDS: DEXAMETHASONE SOD PHOSPHATE 10 MG/ML 1 ML VIAL IV SCH (08:02)
[2020-12-30] MEDS: CHLORHEXIDINE GLUCONATE 15 ML CUP MUCOUS MEM SCH ×2 (08:02→20:14)
[2020-12-30] MEDS: ENOXAPARIN 30 MG/0.3 ML SYRINGE SQ SCH (08:03)
[2020-12-30] MEDS: FAMOTIDINE 20 MG/2 ML VIAL IV SCH (08:03)
[2020-12-30] MEDS: ASCORBIC ACID 500 MG TAB PO SCH (08:03)
[2020-12-30] MEDS: CHOLECALCIFEROL 25 MCG (1000 IU) TABLET PO SCH (08:03)
[2020-12-30] MEDS: hydrALAZINE HCL 25 MG TAB PO SCH ×3 (08:03→20:56)
[2020-12-30] MEDS: ZINC SULFATE 220 MG CAP PO SCH (08:04)
[2020-12-30] MEDS: METOPROLOL TARTRATE 50 MG TAB PO SCH ×2 (08:04→20:14)
[2020-12-30] MEDS: AMIODARONE 200 MG TAB PO SCH ×3 (08:04→21:45)
--- NOTE | 2020-12-30 08:24 | XR ---
EXAMINATION TYPE: XR chest 1V portable DATE OF EXAM: 12/30/2020 Comparison: 12/29/2020 Clinical History: 75-year-old female Tube placement Findings: ET tube tip satisfactory. Left CVC tip cavoatrial junction. Median sternotomy wires with postoperativ e clips in the mediastinum. NG tube courses below the diaphragm. Heart remains borderline enlarged. I nterstitial changes persist but may show slight improvement. No mabel consolidation or pleural effusi on. Impression: Slight improvement in interstitial changes, possible improving pulmonary vascular congestion.
[2020-12-30] MEDS: DEXTROSE 5% IN WATER 1,000 ML IV SCH (09:00)
--- NOTE | 2020-12-30 09:29 | PN ---
PROGRESS NOTE Mrs. Manuel is a 75-year-old female who presented with respiratory failure requiring mechanical ventilation, had COVID-19 pneumonia. She remains intubated. She continues to have episodes of atrial fibrillation, predominantly on movement or repositioning. She has cardiomyopathy by echocardiography as well as moderate severe aortic stenosis. Her urine output is stable. She continues to be hypertensive. She has no malignant arrhythmia. She continues to be anticoagulated. Attempts to wean her yesterday were unsuccessful. She became agitated, according to the nursing staff. She continues to be on amiodarone 200 mg 3 times a day, Lovenox, metoprolol tartrate 50 mg twice a day. PHYSICAL EXAMINATION: Blood pressure is still running in the 160s with a heart rate in the 70s. LAB DATA: BUN and creatinine of 60 and 1.40; not changed compared to yesterday. Her sodium is 150, potassium 4.4, hemoglobin 11.5, pH 7.5. IMPRESSION: 1. Respiratory failure with COVID-19 pneumonia requiring mechanical ventilation. 2. Status post cardiopulmonary arrest. 3. Moderate to severe aortic stenosis. 4. Cardiomyopathy of unknown duration. 5. Hypertension. 6. Paroxysmal atrial fibrillation. RECOMMENDATIONS: From the cardiac standpoint, I will add to her regimen hydralazine to improve her blood pressure. Will continue on the present dose of amiodarone and the beta bonnie. Continue to attempt to wean her and extubate her. I will adjust the dose of her Lovenox if it is agreeable with Dr. Maldonado. MMMARIA GUADALUPEL / DALIN: [id number] /
--- NOTE | 2020-12-30 09:34 | P.PN ---
Subjective Progress Note Date: 12/30/20 Principal diagnosis: Acute hypoxic respiratory failure secondary to COVID-19 pneumonia 12/27/2020, the patient is being seen for a follow-up. Patient is a 75-year-old here patient with community related pneumonia with secondary respiratory failure. The patient also has severe valvular heart disease with severe aortic stenosis. The patient is post cardiac pulmonary arrest with a PEA rhythm that lasted around 7 minutes post intubation on 12/24/2020. The patient also has new onset paroxysmal atrial fibrillation. The patient is diabetic. On today's evaluation, the patient remains sedated. The patient on Profore running at 60 mg/kg/m. The patient is well sedated and she is calm and comfortable on mechanical ventilator. She is an assist-control mode with a rate of 26 with a tidal volume of 400 and PEEP of 13 with a FiO2 of 40%. The blood gases from today shows a pH of 7.34 with a pCO2 of 36 and pO2 of 105. Peak airway pressure 31. Static airway airway pressure 23. The patient had a follow-up chest x-ray that showed no evidence of any pneumothorax. There is persistent but the pulmonary infiltrates consistent with community related pneumonia. Pulmonary e jose francisco cannot be completely excluded. Previous echocardiogram in this patient echocardiogram showed global hypokinesis with an ejection fraction of 3035%. There was also moderate to severe degree of aortic valve was 58 with a mean gradient of 37. Hemodynamically, the patient remains on pressors. The patient is running on a low-dose of norepinephrine urine at 0.03 units per kilogram per minute. The patient is in a sinus rhythm and the patient is also on IV heparin. Patient is sitting up and feeding for nutritional support. The patient is on vital high protein at 60 mL an hour which is currently at goal. Afebrile. She is also on Decadron 6 mg IV every 24 hours. She remains on amiodarone 400 mg by mouth twice a day and Levemir insulin for blood sugar control 30 units at night and 20 units in the morning along with a fasting coverage. She remains on IV Pepcid. 12/28/2020, the patient is being seen for a follow-up. The patient remains intubated on a mechanical ventilator. This morning, the patient is on propofol at 40 mg/kg per minute and the patient is also on Versed at 1 mg an hour. She is intubated on a mechanical ventilator. She remains on assist control mode at a rate of 26 with a volume of 400 and FiO2 of 60% with a PEEP of 9. The cages at 7.4 episodes of 36 and pO2 77. Chest x-rays on changes consistent with diffuse but the pulmonary infiltrates consistent with community related pneumonia. Since yesterday, the patient was diuresed IV Lasix. The patient was given a total of 60 mg of IV Lasix and she has been negative fluid balance. Nevertheless, no major improvement in her oxygenation nor her chest x-ray findings. She is off pressors. She remains on IV heparin per protocol. The cardiac rhythm is sinus. She is receiving enteral feeding for nutritional support. White cell count of 15.7 with a hemoglobin of 10.1. Creatinine is at 1.4 with a BUN of 64. Electrolytes are normal. AST and ALP are 33 and 49 respectively. LDH level is at 970. CRP level is at 22.6. The d-dimer from today is at 0.7. The patient remains on Decadron 6 mg IV every 24 hours. When the process of getting the patient is sedation holiday. We'll use Cleviprex if needed for tighter blood pressure control. otherwise, no other significant events overnight. The patient on Levemir insulin 30 units at bedtime and 20 units in the morning along with sliding scale coverage and 4 units of regular insulin every 4 hours coverage. 12/29/2020, the patient is being seen for a follow-up. Remains on a mechanical ventilator. Remains on Precedex for sedation. Note that I think this patient off sedation yesterday. Following her sedation holiday, the patient did not wak e up completely. She was becoming more restless and hypertensive at that point Cleviprex was admitted for blood pressure control is currently running at 2 mg an hour. Later on during the day, Precedex was also added for sedation at around 4:30 AM this morning and Precedex is running at 0.2 g. Remains intubated. The patient remains on assist control mode at the rate of 26 with a tidal volume of 100 and FiO2 is currently at 40% with a PEEP of 6. We managed to cut down the PEEP overnight slowly maintaining a saturation above 90%. Current pulse ox is 96%. Morning blood gases showed a pH of 7.47 with a pCO2 of 35 and pO2 of 78 and this was on FiO2 of 40%. Chest x-ray from today showing b ilateral pulmonary infiltrates, with probably some improvement in infiltrates patient the right lung base. ET tube remains in a good location. The patient also has a left IJ triple-lumen catheter in place. The patient was receiving daily diuretics. The net fluid balance over the past 24 hours has been -2.4 L. The peak airway pressure on a mechanical ventilator is 16. No significant orotracheal secretions. Creatinine today is at 1.4 which is essentially stable. Sodium level is at 146 slightly higher compared to yesterday as the patient is being diuresed. In terms of inflammatory markers, the patient has a LDH level of 1100 and his CRP level of 16.5. The white cell count is slightly elevated today at 19.2. In terms of her medication coverage, the patient remains on Decadron 6 g IV every 24 hours. The patient is still on she will feeds and currently she is receiving enteral feeding for nutritional support and she is on vital high protein at the rate of 16 mL an hour. Blood sugars are under adequate control and patient is receiving Levemir insulin 30 units at bedtime and 20 units in the morning along with a sliding scale coverage. Patient was reevaluated today on 12/30/2020, patient remains in the ICU, intubated and mechanically ventilated. Remains sedated on Precedex. Dose is 0.4 mcg/kg/h. IV fluid is 0.9 at 20 mL per hour. Patient is not arousable. She seems to get intermittent episodes of atrial fibrillation with RVR with any minimal agitation hence unable to address weaning on this patient today. Ventilator settings are assist control of 26, volume is 400 FiO2 40% PEEP of 5 ABG showed a pO2 of 80 pCO2 of 35 pH of 7.50. No changes were made in the venti lator settings. Chest x-ray continues to show bilateral infiltrates. Patient had a T-max of 101.7. Sputum cultures are negative. Blood cultures remain negative. Patient remains on enteral feedings. Elisa peterson has a left IJ triple- lumen catheter in place. Remains on diuretics intermittently. CBC count is 19.0 hemoglobin is 11.5. Sodium is 150. Hence we'll change her IV fluid to D5W. BUN is 60 creatinine 1.40. Considering the patient is having significant episodes of atrial fibrillation with RVR, patient was placed on oral anticoagulation in the form of Eliquis 2.5 mg twice a day and we can discontinue Lovenox. Remains on albuterol, remains on Decadron. Remains on the COVID-19 cocktail. And she remains on Precedex. Considering her atrial fibrillation with RVR, I have no plans to wean and extubate the patient, she is presently not weanable Objective - Vital Signs Vital signs: Vital Signs Temp 100.4 F H 12/30/20 04:00 Pulse 72 12/30/20 07:30 Resp 26 H 12/30/20 07:30 BP 163/75 12/30/20 07:30 Pulse Ox 94 L 12/30/20 07:30 Intake & Output 12/29/20 12/30/20 12/30/20 18:59 06:59 18:59 Intake Total 507.7 680.680 77.55 Output Total 1175 1335 100 Balance -667.3 -654.320 -22.45 Weight 92.3 kg 86 kg Intake: IV 240 240 20 Sodium Chloride 0.45% 1, 240 240 20 000 ml @ 20 mls/hr IV . Q24H [facility] Rx#:[id number] Intake, IV Titration 17.7 149.680 36.55 Amount Clevidipine Butyrate 25 17.7 mg In Empty Bag 1 bag @ 1 MG/HR 2 mls/hr IV .Q24H [facility] Rx#:[id number] Dexmedetomidine/0.9% NaCl 149.680 36.55 (Pmx) 400 mcg In Empty Bag 1 bag @ Titrate IV . Q0M [facility] Rx#:[id number] Tube Feeding 160 231 21 Other 90 60 Output: Urine 1175 1335 100 Other: Voiding Method Indwelling Catheter Indwelling Catheter ABP, PAP, CO, CI - Last Documented Arterial Blood Pressure 131/80 - Exam Physical Exam: Revealed 75-year-old female sedated, on Precedex, in no distress, intubated and mechanically ventilated. Head: Atraumatic, normocephalic. HEENT:[Neck is supple.] [No neck masses.] [No thyromegaly.] [No JVD.] Endotracheal tube is intact. Orogastric tube is intact. Chest: [Symmetrical chest expansion fine crackles at the bases..] Cardiac Exam: [Normal S1 and S2, no S3 gallop, 3/6 systolic murmur thought the precordium best heard at the left apex. Abdomen: [Soft, nontender, no megaly, no rebound, no guarding, normal bowel sounds.] Extremities: [No clubbing, no edema, no cyanosis.] Pulses bilaterally. Neurological Exam: Patient is sedated, and with any minimal stimulation, the patient goes into atrial fibrillation with RVR, hence could not assess neurological status. Psychiatric: Could not be assessed. Skin: No rashes. - Labs CBC & Chem 7: 12/30/20 05:10 12/30/20 05:10 Labs: Abnormal Lab Results - Last 24 Hours (Table) 12/29/20 12/29/20 12/29/20 Range/Units 03:45 11:37 14:24 WBC (3.8-10.6) k/uL RBC (3.80-5.40) m/uL Neutrophils # (1.3-7.7) k/uL Lymphocytes # (1.0-4.8) k/uL Monocytes # (0-1.0) k/uL ABG pH (7.35-7.45) ABG pO2 (83-108) mmHg ABG HCO3 (21-25) mmol/L ABG Total CO2 (19-24) mmol/L Sodium (137-145) mmol/L Chloride (98-107) mmol/L BUN (7-17) mg/dL Creatinine (0.52-1.04) mg/dL Glucose (74-99) mg/dL POC Glucose (mg/dL) 178 H (75-99) mg/dL Procalcitonin 0.26 H (0.02-0.09) ng/mL Urine Appearance Turbid H (Clear) Urine Protein 1+ H (Negative) Urine Blood Trace H (Negative) Ur Leukocyte Esterase Moderate H (Negative) Urine WBC 19 H (0-5) /hpf Urine WBC Clumps Few H (None) /hpf Uric Acid Crystals Moderate H (None) /hpf Amorphous Sediment Rare H (None) /hpf Urine Bacteria Many H (None) /hpf Urine Mucus Rare H (None) /hpf 12/29/20 12/29/20 12/30/20 Range/Units 17:53 23:54 03:58 WBC (3.8-10.6) k/uL RBC (3.80-5.40) m/uL Neutrophils # (1.3-7.7) k/uL Lymphocytes # (1.0-4.8) k/uL Monocytes # (0-1.0) k/uL ABG pH 7.50 H (7.35-7.45) ABG pO2 80 L (83-108) mmHg ABG HCO3 28 H (21-25) mmol/L ABG Total CO2 29 H (19-24) mmol/L Sodium (137-145) mmol/L Chloride (98-107) mmol/L BUN (7-17) mg/dL Creatinine (0.52-1.04) mg/dL Glucose (74-99) mg/dL POC Glucose (mg/dL) 158 H 105 H (75-99) mg/dL Procalcitonin (0.02-0.09) ng/mL Urine Appearance (Clear) Urine Protein (Negative) Urine Blood (Negative) Ur Leukocyte Esterase (Negative) Urine WBC (0-5) /hpf Urine WBC Clumps (None) /hpf Uric Acid Crystals (None) /hpf Amorphous Sediment (None) /hpf Urine Bacteria (None) /hpf Urine Mucus (None) /hpf 12/30/20 12/30/20 12/30/20 Range/Units 05:10 05:10 05:10 WBC 19.3 H (3.8-10.6) k/uL RBC 3.66 L (3.80-5.40) m/uL Neutrophils # 17.0 H (1.3-7.7) k/uL Lymphocytes # 0.9 L (1.0-4.8) k/uL Monocytes # 1.1 H (0-1.0) k/uL ABG pH (7.35-7.45) ABG pO2 (83-108) mmHg ABG HCO3 (21-25) mmol/L ABG Total CO2 (19-24) mmol/L Sodium 150 H (137-145) mmol/L Chloride 118 H (98-107) mmol/L BUN 60 H (7-17) mg/dL Creatinine 1.40 H (0.52-1.04) mg/dL Glucose 162 H (74-99) mg/dL POC Glucose (mg/dL) 150 H (75-99) mg/dL Procalcitonin (0.02-0.09) ng/mL Urine Appearance (Clear) Urine Protein (Negative) Urine Blood (Negative) Ur Leukocyte Esterase (Negative) Urine WBC (0-5) /hpf Urine WBC Clumps (None) /hpf Uric Acid Crystals (None) /hpf Amorphous Sediment (None) /hpf Urine Bacteria (None) /hpf Urine Mucus (None) /hpf Microbiology - Last 24 Hours (Table) 12/29/20 Unknown Gram Stain - Preliminary Sputum Sputum Culture - Preliminary 12/23/20 12:33 Blood Culture - Final Blood No Growth after 144 hours Assessment and Plan Assessment: Impression: Acute hypoxic respiratory failure secondary to COVID-19 pneumonia requiring intubation and mechanical ventilation. Status post cardiac arrest with pulseless electrical activity for 7 minutes, status post intubation and mechanical ventilation since 12/2020. Severe aortic stenosis. Severe cardiomyopathy and LV dysfunction with ejection fraction of 30%. Atrial fibrillation with RVR. Seems to be paroxysmal. Type 2 diabetes. Acute kidney injury with a relatively good urine output. Could be cardiorenal or could be related to the COVID-19 pneumonia Elevated inflammatory markers secondary to acute COVID-19 infection/pneumonia Non-ST elevation [place] is suspected. Recommendation: Continue ventilatory support, no changes in the present vent settings made. Continue nutritional support. Continue anticoagulation therapy patient is now on Eliquis. Continue hemodynamic support if necessary presently not requiring any pressors. Continue the COVID-19 cocktail. Continue Decadron. Consider adding Baricitinib at 2 mg daily, no clear-cut evidence of infection noted. Patient is not receiving any antibiotics. Urine culture so far is nondiagnostic, the final report is pending Overall prognosis remains extremely poor and guarded. Patient is a critically ill. Critical care time is over 30 minutes. Discussed her condition with the silver wrapper on the case. Time with Patient: Greater than 30
[2020-12-30] MEDS: APIXABAN 2.5 MG TABLET PO SCH ×2 (10:30→20:13)
[2020-12-30 11:45] LABS: Glucose,Whole Blood 234 mg/dL (75-99)
[2020-12-30] MEDS ORDERED: CEFEPIME 1 GM in SODIUM CHLORIDE 0.9% 50 ML IVPB ONE (12:30)
--- NOTE | 2020-12-30 13:49 | P.PN ---
Subjective Patient was noted to be in atrial fibrillation with rapid ventricular response this morning. Her heart rate is fluctuating between 110 and 150. She is hemodynamically stable. She is still on Precedex. Objective - Vital Signs Vital signs: Vital Signs Temp 102.1 F H 12/30/20 12:20 Pulse 93 12/30/20 12:00 Resp 33 H 12/30/20 12:00 BP 155/93 12/30/20 12:00 Pulse Ox 94 L 12/30/20 12:00 Intake & Output 12/29/20 12/30/20 12/30/20 18:59 06:59 18:59 Intake Total 507.7 680.680 320.87 Output Total 1175 1335 642 Balance -667.3 -654.320 -321.13 Weight 92.3 kg 86 kg 86 kg Intake: IV 240 240 60 Sodium Chloride 0.45% 1, 240 240 60 000 ml @ 20 mls/hr IV . Q24H [facility] Rx#:[id number] Intake, IV Titration 17.7 149.680 239.87 Amount Clevidipine Butyrate 25 17.7 mg In Empty Bag 1 bag @ 1 MG/HR 2 mls/hr IV .Q24H [facility] Rx#:[id number] Dexmedetomidine/0.9% NaCl 149.680 89.87 (Pmx) 400 mcg In Empty Bag 1 bag @ Titrate IV . Q0M [facility] Rx#:[id number] Dextrose 5% in Water 1, 150 000 ml @ 50 mls/hr IV . Q20H [facility] Rx#:[id number] Tube Feeding 160 231 21 Other 90 60 Output: Urine 1175 1335 642 Other: Voiding Method Indwelling Catheter Indwelling Catheter Indwelling Catheter ABP, PAP, CO, CI - Last Documented Arterial Blood Pressure 163/72 - Exam General: The patient is sedated and intubated Eye: there is normal conjunctiva bilaterally. Neck: The neck is supple, there is no JVD. Cardiovascular: Normal S1-S2, no S3-S4, no murmurs. Respiratory: Lungs clear to auscultation bilaterally Gastrointestinal: Abdomen is soft, nontender Musculoskeletal: There is +1 pedal edema. Skin: Skin is warm and dry - Labs CBC & Chem 7: 12/30/20 05:10 12/30/20 05:10 Labs: Abnormal Lab Results - Last 24 Hours (Table) 12/29/20 12/29/20 12/29/20 Range/Units 03:45 14:24 17:53 WBC (3.8-10.6) k/uL RBC (3.80-5.40) m/uL Neutrophils # (1.3-7.7) k/uL Lymphocytes # (1.0-4.8) k/uL Monocytes # (0-1.0) k/uL ABG pH (7.35-7.45) ABG pO2 (83-108) mmHg ABG HCO3 (21-25) mmol/L ABG Total CO2 (19-24) mmol/L Sodium (137-145) mmol/L Chloride (98-107) mmol/L BUN (7-17) mg/dL Creatinine (0.52-1.04) mg/dL Glucose (74-99) mg/dL POC Glucose (mg/dL) 158 H (75-99) mg/dL Procalcitonin 0.26 H (0.02-0.09) ng/mL Urine Appearance Turbid H (Clear) Urine Protein 1+ H (Negative) Urine Blood Trace H (Negative) Ur Leukocyte Esterase Moderate H (Negative) Urine WBC 19 H (0-5) /hpf Urine WBC Clumps Few H (None) /hpf Uric Acid Crystals Moderate H (None) /hpf Amorphous Sediment Rare H (None) /hpf Urine Bacteria Many H (None) /hpf Urine Mucus Rare H (None) /hpf 12/29/20 12/30/20 12/30/20 Range/Units 23:54 03:58 05:10 WBC 19.3 H (3.8-10.6) k/uL RBC 3.66 L (3.80-5.40) m/uL Neutrophils # 17.0 H (1.3-7.7) k/uL Lymphocytes # 0.9 L (1.0-4.8) k/uL Monocytes # 1.1 H (0-1.0) k/uL ABG pH 7.50 H (7.35-7.45) ABG pO2 80 L (83-108) mmHg ABG HCO3 28 H (21-25) mmol/L ABG Total CO2 29 H (19-24) mmol/L Sodium (137-145) mmol/L Chloride (98-107) mmol/L BUN (7-17) mg/dL Creatinine (0.52-1.04) mg/dL Glucose (74-99) mg/dL POC Glucose (mg/dL) 105 H (75-99) mg/dL Procalcitonin (0.02-0.09) ng/mL Urine Appearance (Clear) Urine Protein (Negative) Urine Blood (Negative) Ur Leukocyte Esterase (Negative) Urine WBC (0-5) /hpf Urine WBC Clumps (None) /hpf Uric Acid Crystals (None) /hpf Amorphous Sediment (None) /hpf Urine Bacteria (None) /hpf Urine Mucus (None) /hpf 12/30/20 12/30/20 12/30/20 Range/Units 05:10 05:10 11:43 WBC (3.8-10.6) k/uL RBC (3.80-5.40) m/uL Neutrophils # (1.3-7.7) k/uL Lymphocytes # (1.0-4.8) k/uL Monocytes # (0-1.0) k/uL ABG pH (7.35-7.45) ABG pO2 (83-108) mmHg ABG HCO3 (21-25) mmol/L ABG Total CO2 (19-24) mmol/L Sodium 150 H (137-145) mmol/L Chloride 118 H (98-107) mmol/L BUN 60 H (7-17) mg/dL Creatinine 1.40 H (0.52-1.04) mg/dL Glucose 162 H (74-99) mg/dL POC Glucose (mg/dL) 150 H 234 H (75-99) mg/dL Procalcitonin (0.02-0.09) ng/mL Urine Appearance (Clear) Urine Protein (Negative) Urine Blood (Negative) Ur Leukocyte Esterase (Negative) Urine WBC (0-5) /hpf Urine WBC Clumps (None) /hpf Uric Acid Crystals (None) /hpf Amorphous Sediment (None) /hpf Urine Bacteria (None) /hpf Urine Mucus (None) /hpf Microbiology - Last 24 Hours (Table) 12/29/20 Unknown Gram Stain - Preliminary Sputum Sputum Culture - Preliminary Gram Neg Bacilli 12/23/20 12:33 Blood Culture - Final Blood No Growth after 144 hours Assessment and Plan Assessment: Patient is a 75-year-old female with a history of prior angina, diabetes, hypothyroidism, dyslipidemia, and hypertension who presented with complaint of weakness and syncope. She started having upper respiratory symptoms approximately 4-5 days ago. She went to obtain an outpatient Covid test and passed out. She has completed a 2 series Pfizer vaccine earlier this year. In the ER she underwent an extensive evaluation. On arrival her oxygenation was 71% on room air. She was started on BiPAP. Initial laboratory analysis showed a sodium of 132, carbon dioxide 19, anion gap 11, BUN 56, creatinine 1.9, S2 83, troponin 0.247, CRP 22.8, BNP 21,100. Covid testing was positive. Chest x-ray showed diffuse bilateral interstitial infiltrates. She was given a dose of dexamethasone. She was seen by pulmonary who felt she could be managed on selective care. She was continued on dexamethasone. She is not a candidate for eRemdesivir secondary to her high oxygen requirements. On the afternoon of 12/24 she had sudden decline in heart rate and had PEA arrest lasting approximately 5 minutes. She was transitioned to the ICU and started on propofol for sedation. She did require small amounts of levo. She was noted to have A. fib after [place] was achieved and she was subsequently transitioned from Lovenox to heparin drip. She was seen by cardiology secondary to her echocardiogram with severe aortic stenosis in her PEA arrest. COVID-19 pneumonia Acute hypoxic respiratory failure Acute kidney injury, Non-anion gap metabolic acidosis Transaminitis secondary to above and cardiac arrest Septic shock - Vit D, zinc, vitamin C - Dexamethasone, Pepcid - Wean O2 as able - Pulm recs, managing ventilator - Anticoagulation currently with Eliquis - IV Lasix as directed by ICU team Severe Aortic Stenosis Syncope- likely due to hypoxia versus severe aortic stenosis Elevated toponin- likely due to hypoxia, not consistent with ACS Aborted sudden cardiac Atrial fibrillation with rapid ventricular response Underlying ischemic cardiomyopathy with ejection fraction of 30-35% down from 45% on last echocardiogram at [facility] - tele - ASA - Eliquis twice daily -Cardiology recommendations appreciated - not a candidate for rate control at this time due to hypotnesion HTN - hold lisinopril due to VERONICA - Norvasc and Coreg on hold secondary to hypotension - follow BP HLD - statin DM 2 - Long acting, SSI, and fixed dose insulin - increased - follow BS with steroids - A1C 8.5 ASCAD - plavix, BB, statin Hyponatremia, resolved No plan for ventilator weaning today given significant rapid ventricular response
[2020-12-30] MEDS ORDERED: METOPROLOL TARTRATE 50 MG TAB PO STA (17:02)
[2020-12-30 17:16] LABS: Glucose,Whole Blood 191 mg/dL (75-99)
[2020-12-30] MEDS: CEFEPIME 1 GM in SODIUM CHLORIDE 0.9% 50 ML IVPB SCH (20:13)
[2020-12-31 00:15] LABS: Glucose,Whole Blood 192 mg/dL (75-99)
[2020-12-31] MEDS: INSULIN ASPART (NovoLOG) 100 UNIT/ML VIAL SQ SCH ×8 (00:45→18:33)
[2020-12-31] MEDS: CEFEPIME 1 GM in SODIUM CHLORIDE 0.9% 50 ML IVPB SCH ×3 (03:14→22:06)
[2020-12-31] MEDS: ACETAMINOPHEN TAB 325 MG TAB PO PRN ×3 (03:18→22:08)
[2020-12-31] MEDS: ALBUTEROL HFA INHALER INHALATION SCH ×6 (03:26→23:57)
[2020-12-31] MEDS: DEXMEDETOMIDINE/0.9% NACL(PMX) 400 MCG in EMPTY BAG 1 BAG IV SCH ×2 (04:47→13:45)
[2020-12-31 04:52] LABS: ABG Base Excess 3.5 mmol/L; ABG HCO3 26 mmol/L (21-25); ABG Oxygen Saturation 95.6 % (94-97); ABG PCO2 33 mmHg (35-45); ABG PH 7.52 (7.35-7.45); ABG PO2 74 mmHg (83-108); ABG TCO2 27 mmol/L (19-24); Allen Test Performed? Yes
[2020-12-31 04:53] LABS: Calcium 9.2 mg/dL (8.4-10.2); Potassium 4.3 mmol/L (3.5-5.1)
--- NOTE | 2020-12-31 06:17 | XR ---
EXAMINATION TYPE: XR chest 1V portable DATE OF EXAM: 12/31/2020 CLINICAL HISTORY: Difficulty breathing progress study. TECHNIQUE: Single AP portable semiupright view of the chest is obtained. COMPARISON: Chest x-ray from one day earlier and older studies FINDINGS: Stable endotracheal and orogastric tubes. Stable left internal jugular central venous cath eter. Overlying sternal wires and mediastinal clips redemonstrated. Stable cardiomegaly with atheroscleroti c aorta. Persistent improved bilateral opacities with residual right basilar opacity. No pleural effu padmini or pneumothorax seen. Osseous structures intact. IMPRESSION: Cardiomegaly and background chronic parenchymal changes. Continued improved bilateral mul tifocal opacities, some residual right basilar acute infiltrate and/or atelectasis remains present.
[2020-12-31] MEDS: DEXTROSE 5% IN WATER 1,000 ML IV SCH (06:46)
[2020-12-31 06:58] LABS: Glucose,Whole Blood 238 mg/dL (75-99)
[2020-12-31] MEDS: INSULIN DETEMIR (LEVEMIR) 100 UNIT/ML SYR SQ SCH ×2 (07:08→22:07)
[2020-12-31] MEDS: AMIODARONE 200 MG TAB PO SCH ×3 (08:17→22:08)
[2020-12-31] MEDS: ZINC SULFATE 220 MG CAP PO SCH (08:17)
[2020-12-31] MEDS: hydrALAZINE HCL 25 MG TAB PO SCH (08:18)
[2020-12-31] MEDS: CHOLECALCIFEROL 25 MCG (1000 IU) TABLET PO SCH (08:18)
[2020-12-31] MEDS: APIXABAN 2.5 MG TABLET PO SCH ×2 (08:18→21:52)
[2020-12-31] MEDS: ASCORBIC ACID 500 MG TAB PO SCH (08:18)
[2020-12-31] MEDS: METOPROLOL TARTRATE 50 MG TAB PO SCH ×2 (08:20→22:07)
[2020-12-31] MEDS: DEXAMETHASONE SOD PHOSPHATE 10 MG/ML 1 ML VIAL IV SCH (08:21)
[2020-12-31] MEDS: FAMOTIDINE 20 MG/2 ML VIAL IV SCH (08:21)
[2020-12-31] MEDS: CHLORHEXIDINE GLUCONATE 15 ML CUP MUCOUS MEM SCH ×2 (08:22→22:07)
[2020-12-31] MEDS: hydrALAZINE HCL 50 MG TAB PO SCH ×3 (10:01→22:08)
--- NOTE | 2020-12-31 10:21 | PN ---
PROGRESS NOTE Mrs. Manuel is a 75 -year-old female who presented with respiratory failure requiring mechanical ventilation. Covid 19. Evidence of aortic stenosis as well as cardiomyopathy. She remains intubated. She is in atrial fibrillation. She had episode of paroxysmal atrial fibrillation earlier. She is in persistent atrial fibrillation at this time. Hemodynamically, she is stable. She had episode of hypertension. Her urine output is good. She was started on oral Eliquis. She continues to be on amiodarone 200 mg 3 times a day, Eliquis 2.5 mg twice a day, hydralazine 25 mg 3 times a day, metoprolol tartrate 50 mg twice a day. PHYSICAL EXAMINATION: Blood pressure running in the 140s and 160s with a heart rate in the 70s. Temperature of 101. LAB DATA: Lab data revealed BUN and creatinine of 63 and 1.5. pH 7.52 with pCO2 83, PO2 of 74. Her chest x-ray revealed some improvement in the infiltrate. IMPRESSION: 1. Respiratory failure with Covid 19 infection. 2. Atrial fibrillation, paroxysmal anticoagulation initiated. 3. Renal failure. 4. Aortic stenosis. 5. Cardiomyopathy. 6. Hypertension. RECOMMENDATIONS: I will increase the dose of hydralazine to improve her blood pressure control. Continue the rest of her medical regimen. Follow her blood pressure and her rhythm and depending on her progress, further recommendations will be made. The prognosis remains guarded. MMODL / IJN: [id number] /
--- NOTE | 2020-12-31 10:32 | P.PN ---
Subjective Progress Note Date: 12/31/20 Patient was seen and evaluated by me this morning. She is still sedated and intubated. No acute events overnight. Sodium level is not improving and still around 150. Objective - Vital Signs Vital signs: Vital Signs Temp 101.7 F H 12/31/20 08:00 Pulse 80 12/31/20 10:00 Resp 28 H 12/31/20 10:00 BP 121/69 12/30/20 21:00 Pulse Ox 93 L 12/31/20 10:00 Intake & Output 12/30/20 12/31/20 12/31/20 18:59 06:59 18:59 Intake Total 703.87 1157 279.715 Output Total 1201 1201 300 Balance -497.13 -44 -20.285 Weight 86 kg 87.8 kg Intake: IV 93 36 12 Sodium Chloride 0.45% 1, 60 000 ml @ 20 mls/hr IV . Q24H [facility] Rx#:[id number] pressure bag 33 36 12 Intake, IV Titration 589.87 800 174.715 Amount Cefepime 1 gm In Sodium 50 100 110 Chloride 0.9% 50 ml @ 100 mls/hr IVPB ONCE ONE Rx# :[id number] Dexmedetomidine/0.9% NaCl 89.87 100 64.715 (Pmx) 400 mcg In Empty Bag 1 bag @ Titrate IV . Q0M [facility] Rx#:[id number] Dextrose 5% in Water 1, 450 600 000 ml @ 50 mls/hr IV . Q20H [facility] Rx#:[id number] Tube Feeding 21 231 63 Other 90 30 Output: Urine 1201 1201 300 Other: Voiding Method Indwelling Catheter Indwelling Catheter # Voids 1 ABP, PAP, CO, CI - Last Documented Arterial Blood Pressure 164/67 - Exam General: The patient is sedated and intubated Eye: there is normal conjunctiva bilaterally. Neck: The neck is supple, there is no JVD. Cardiovascular: Normal S1-S2, no S3-S4, no murmurs. Respiratory: Lungs clear to auscultation bilaterally Gastrointestinal: Abdomen is soft, nontender Musculoskeletal: There is +1 pedal edema. Skin: Skin is warm and dry - Labs CBC & Chem 7: 12/30/20 05:10 12/31/20 04:10 Labs: Abnormal Lab Results - Last 24 Hours (Table) 12/30/20 12/30/20 12/31/20 Range/Units 11:43 17:15 00:14 ABG pH (7.35-7.45) ABG pCO2 (35-45) mmHg ABG pO2 (83-108) mmHg ABG HCO3 (21-25) mmol/L ABG Total CO2 (19-24) mmol/L Sodium (137-145) mmol/L Chloride (98-107) mmol/L BUN (7-17) mg/dL Creatinine (0.52-1.04) mg/dL Glucose (74-99) mg/dL POC Glucose (mg/dL) 234 H 191 H 192 H (75-99) mg/dL 12/31/20 12/31/20 12/31/20 Range/Units 04:10 04:47 06:57 ABG pH 7.52 H (7.35-7.45) ABG pCO2 33 L (35-45) mmHg ABG pO2 74 L (83-108) mmHg ABG HCO3 26 H (21-25) mmol/L ABG Total CO2 27 H (19-24) mmol/L Sodium 150 H (137-145) mmol/L Chloride 118 H (98-107) mmol/L BUN 63 H (7-17) mg/dL Creatinine 1.50 H (0.52-1.04) mg/dL Glucose 214 H (74-99) mg/dL POC Glucose (mg/dL) 238 H (75-99) mg/dL Microbiology - Last 24 Hours (Table) 12/29/20 14:24 Urine Culture - Preliminary Urine,Voided 12/29/20 Unknown Gram Stain - Preliminary Sputum Sputum Culture - Preliminary Gram Neg Bacilli Assessment and Plan Assessment: Patient is a 75-year-old female with a history of prior angina, diabetes, hypothyroidism, dyslipidemia, and hypertension who presented with complaint of weakness and syncope. She started having upper respiratory symptoms approximately 4-5 days prior to presentation. She went to obtain an outpatient Covid test and passed out. She has completed a 2 series Pfizer vaccine earlier this year. In the ER she underwent an extensive evaluation. On arrival her oxygenation was 71% on room air. She was started on BiPAP. Covid testing was positive. Chest x-ray showed diffuse bilateral interstitial infiltrates. She was given a dose of dexamethasone. She was seen by pulmonary who felt she could be managed on selective care. She was continued on dexamethasone. She is not a candidate for Remdesivir secondary to her high oxygen requirements. On the afternoon of 12/24 she had sudden decline in heart rate and had PEA arrest lasting approximately 5 minutes. She was transitioned to the ICU and started on propofol for sedation. She did require small amounts of levo. She was noted to have A. fib after ROSC was achieved and she was subsequently transitioned from Lovenox to heparin drip and then to Eliquis. She was seen by cardiology secondary to her echocardiogram with severe aortic stenosis in her PEA arrest. COVID-19 pneumonia Acute hypoxic respiratory failure Acute kidney injury, Non-anion gap metabolic acidosis Transaminitis secondary to above and cardiac arrest Septic shock - Vit D, zinc, vitamin C - Dexamethasone, Pepcid - Wean O2 as able - Pulm recs, managing ventilator - Anticoagulation currently with Eliquis - IV Lasix as directed by ICU team Severe Aortic Stenosis Syncope- likely due to hypoxia versus severe aortic stenosis Elevated toponin- likely due to hypoxia, not consistent with ACS Aborted sudden cardiac Atrial fibrillation with rapid ventricular response Underlying ischemic cardiomyopathy with ejection fraction of 30-35% down from 45% on last echocardiogram at [facility] - tele - ASA, any other room - Eliquis twice daily -Cardiology recommendations appreciated - not a candidate for rate control at this time due to hypotnesion Hypernatremia -I would start patient on D5/half-normal saline and recheck lab work in the morning HTN - hold lisinopril due to VERONICA - Norvasc and Coreg on hold secondary to hypotension - follow BP HLD - statin DM 2 - Long acting, SSI, and fixed dose insulin - increased - follow BS with steroids - A1C 8.5 ASCAD - plavix, BB, statin Hyponatremia, resolved No plan for ventilator weaning today given significant rapid ventricular response
[2020-12-31] MEDS: DEXTROSE 5%-0.45% NACL 1,000 ML IV SCH (11:35)
[2020-12-31 11:44] LABS: Glucose,Whole Blood 200 mg/dL (75-99)
--- NOTE | 2020-12-31 12:18 | P.PN ---
Subjective Progress Note Date: 12/31/20 Principal diagnosis: Acute hypoxic respiratory failure secondary to COVID-19 pneumonia 12/27/2020, the patient is being seen for a follow-up. Patient is a 75-year-old here patient with community related pneumonia with secondary respiratory failure. The patient also has severe valvular heart disease with severe aortic stenosis. The patient is post cardiac pulmonary arrest with a PEA rhythm that lasted around 7 minutes post intubation on 12/24/2020. The patient also has new onset paroxysmal atrial fibrillation. The patient is diabetic. On today's evaluation, the patient remains sedated. The patient on Profore running at 60 mg/kg/m. The patient is well sedated and she is calm and comfortable on mechanical ventilator. She is an assist-control mode with a rate of 26 with a tidal volume of 400 and PEEP of 13 with a FiO2 of 40%. The blood gases from today shows a pH of 7.34 with a pCO2 of 36 and pO2 of 105. Peak airway pressure 31. Static airway airway pressure 23. The patient had a follow-up chest x-ray that showed no evidence of any pneumothorax. There is persistent but the pulmonary infiltrates consistent with community related pneumonia. Pulmonary e jose francisco cannot be completely excluded. Previous echocardiogram in this patient echocardiogram showed global hypokinesis with an ejection fraction of 3035%. There was also moderate to severe degree of aortic valve was 58 with a mean gradient of 37. Hemodynamically, the patient remains on pressors. The patient is running on a low-dose of norepinephrine urine at 0.03 units per kilogram per minute. The patient is in a sinus rhythm and the patient is also on IV heparin. Patient is sitting up and feeding for nutritional support. The patient is on vital high protein at 60 mL an hour which is currently at goal. Afebrile. She is also on Decadron 6 mg IV every 24 hours. She remains on amiodarone 400 mg by mouth twice a day and Levemir insulin for blood sugar control 30 units at night and 20 units in the morning along with a fasting coverage. She remains on IV Pepcid. 12/28/2020, the patient is being seen for a follow-up. The patient remains intubated on a mechanical ventilator. This morning, the patient is on propofol at 40 mg/kg per minute and the patient is also on Versed at 1 mg an hour. She is intubated on a mechanical ventilator. She remains on assist control mode at a rate of 26 with a volume of 400 and FiO2 of 60% with a PEEP of 9. The cages at 7.4 episodes of 36 and pO2 77. Chest x-rays on changes consistent with diffuse but the pulmonary infiltrates consistent with community related pneumonia. Since yesterday, the patient was diuresed IV Lasix. The patient was given a total of 60 mg of IV Lasix and she has been negative fluid balance. Nevertheless, no major improvement in her oxygenation nor her chest x-ray findings. She is off pressors. She remains on IV heparin per protocol. The cardiac rhythm is sinus. She is receiving enteral feeding for nutritional support. White cell count of 15.7 with a hemoglobin of 10.1. Creatinine is at 1.4 with a BUN of 64. Electrolytes are normal. AST and ALP are 33 and 49 respectively. LDH level is at 970. CRP level is at 22.6. The d-dimer from today is at 0.7. The patient remains on Decadron 6 mg IV every 24 hours. When the process of getting the patient is sedation holiday. We'll use Cleviprex if needed for tighter blood pressure control. otherwise, no other significant events overnight. The patient on Levemir insulin 30 units at bedtime and 20 units in the morning along with sliding scale coverage and 4 units of regular insulin every 4 hours coverage. 12/29/2020, the patient is being seen for a follow-up. Remains on a mechanical ventilator. Remains on Precedex for sedation. Note that I think this patient off sedation yesterday. Following her sedation holiday, the patient did not wak e up completely. She was becoming more restless and hypertensive at that point Cleviprex was admitted for blood pressure control is currently running at 2 mg an hour. Later on during the day, Precedex was also added for sedation at around 4:30 AM this morning and Precedex is running at 0.2 g. Remains intubated. The patient remains on assist control mode at the rate of 26 with a tidal volume of 100 and FiO2 is currently at 40% with a PEEP of 6. We managed to cut down the PEEP overnight slowly maintaining a saturation above 90%. Current pulse ox is 96%. Morning blood gases showed a pH of 7.47 with a pCO2 of 35 and pO2 of 78 and this was on FiO2 of 40%. Chest x-ray from today showing b ilateral pulmonary infiltrates, with probably some improvement in infiltrates patient the right lung base. ET tube remains in a good location. The patient also has a left IJ triple-lumen catheter in place. The patient was receiving daily diuretics. The net fluid balance over the past 24 hours has been -2.4 L. The peak airway pressure on a mechanical ventilator is 16. No significant orotracheal secretions. Creatinine today is at 1.4 which is essentially stable. Sodium level is at 146 slightly higher compared to yesterday as the patient is being diuresed. In terms of inflammatory markers, the patient has a LDH level of 1100 and his CRP level of 16.5. The white cell count is slightly elevated today at 19.2. In terms of her medication coverage, the patient remains on Decadron 6 g IV every 24 hours. The patient is still on she will feeds and currently she is receiving enteral feeding for nutritional support and she is on vital high protein at the rate of 16 mL an hour. Blood sugars are under adequate control and patient is receiving Levemir insulin 30 units at bedtime and 20 units in the morning along with a sliding scale coverage. Patient was reevaluated today on 12/30/2020, patient remains in the ICU, intubated and mechanically ventilated. Remains sedated on Precedex. Dose is 0.4 mcg/kg/h. IV fluid is 0.9 at 20 mL per hour. Patient is not arousable. She seems to get intermittent episodes of atrial fibrillation with RVR with any minimal agitation hence unable to address weaning on this patient today. Ventilator settings are assist control of 26, volume is 400 FiO2 40% PEEP of 5 ABG showed a pO2 of 80 pCO2 of 35 pH of 7.50. No changes were made in the venti lator settings. Chest x-ray continues to show bilateral infiltrates. Patient had a T-max of 101.7. Sputum cultures are negative. Blood cultures remain negative. Patient remains on enteral feedings. Elisa peterson has a left IJ triple- lumen catheter in place. Remains on diuretics intermittently. CBC count is 19.0 hemoglobin is 11.5. Sodium is 150. Hence we'll change her IV fluid to D5W. BUN is 60 creatinine 1.40. Considering the patient is having significant episodes of atrial fibrillation with RVR, patient was placed on oral anticoagulation in the form of Eliquis 2.5 mg twice a day and we can discontinue Lovenox. Remains on albuterol, remains on Decadron. Remains on the COVID-19 cocktail. And she remains on Precedex. Considering her atrial fibrillation with RVR, I have no plans to wean and extubate the patient, she is presently not weanable Reevaluated today on 12/31/2020, patient remains in the ICU, intubated and mechanically ventilated remains on Precedex. At 0.6 mcg/kg per hour. Remains on D5W at 50 mL per hour. She is on enteral feeding using vital HP. Continues to have hypernatremia, and we are recommending that the patient receives free water via nasogastric tube. Her ventilator settings are assist control rate of 26 tidal volume 400 FiO2 40% PEEP of 5 ABG showed a pO2 of 74 pCO2 of 33 pH of 7.52, and I lowered down her rate down to 24. Patient remains in atrial fibrillation but seems to be controlled rate is 92. The pressure seems to be a bit elevated at 173/76. Neurologically the patient does not seem to be responding to any verbal or painful stimuli, hence I'm recommending a CT of the brain, I'm also recommending neurologic evaluation. In the meantime we will discontinue Precedex and assess mental status. Clearly the patient is not ready for any form of weaning. Chest x-ray continues to show cardiomegaly and parenchymal changes, there is definite improvement in her multifocal opacities related to her underlying COVID-19 pneumonia. And that is clearly reflected on the improvement in the ABG. Appendectomy were reviewed sodium is 150 BUN is 63 creatinine 1.50 slightly worse compared to yesterday. Patient remains on updrafts, remains on amiodarone. Eliquis. Cefepime, Decadron, Pepcid, insulin, Toprol, sputum is positive for Klebsiella and proteus mirabilis. Both are sensitive to cefepime. Objective - Vital Signs Vital signs: Vital Signs Temp 101.7 F H 12/31/20 08:00 Pulse 89 12/31/20 11:00 Resp 21 12/31/20 11:00 BP 121/69 12/30/20 21:00 Pulse Ox 95 12/31/20 11:00 Intake & Output 12/30/20 12/31/20 12/31/20 18:59 06:59 18:59 Intake Total 703.87 1157 292.592 Output Total 1201 1201 300 Balance -497.13 -44 -7.408 Weight 86 kg 87.8 kg 87.8 kg Intake: IV 93 36 12 Sodium Chloride 0.45% 1, 60 000 ml @ 20 mls/hr IV . Q24H [facility] Rx#:[id number] pressure bag 33 36 12 Intake, IV Titration 589.87 800 187.592 Amount Cefepime 1 gm In Sodium 50 100 110 Chloride 0.9% 50 ml @ 100 mls/hr IVPB ONCE ONE Rx# :[id number] Dexmedetomidine/0.9% NaCl 89.87 100 77.592 (Pmx) 400 mcg In Empty Bag 1 bag @ Titrate IV . Q0M [facility] Rx#:[id number] Dextrose 5% in Water 1, 450 600 000 ml @ 50 mls/hr IV . Q20H [facility] Rx#:[id number] Tube Feeding 21 231 63 Other 90 30 Output: Urine 1201 1201 300 Other: Voiding Method Indwelling Catheter Indwelling Catheter Indwelling Catheter # Voids 1 ABP, PAP, CO, CI - Last Documented Arterial Blood Pressure 180/71 - Exam Physical Exam: Revealed 75-year-old female sedated, on Precedex, in no distress, intubated and mechanically ventilated. Not responding to any stimuli. Head: Atraumatic, normocephalic. HEENT:[Neck is supple.] [No neck masses.] [No thyromegaly.] [No JVD.] Endotracheal tube is intact. Orogastric tube is intact. Chest: [Symmetrical chest expansion fine crackles at the bases..] Cardiac Exam: [Irregular irregular rhythm. Normal S1 and S2, no S3 gallop, 3/6 systolic murmur thought the precordium best heard at the left apex. Abdomen: [Soft, nontender, no megaly, no rebound, no guarding, normal bowel sounds.] Extremities: [No clubbing, no edema, no cyanosis.] Pulses bilaterally. Neurological Exam: Patient is sedated, not responding to any stimuli. Psychiatric: Could not be assessed. Skin: No rashes. - Labs CBC & Chem 7: 12/30/20 05:10 12/31/20 04:10 Labs: Abnormal Lab Results - Last 24 Hours (Table) 12/30/20 12/31/20 12/31/20 Range/Units 17:15 00:14 04:10 ABG pH (7.35-7.45) ABG pCO2 (35-45) mmHg ABG pO2 (83-108) mmHg ABG HCO3 (21-25) mmol/L ABG Total CO2 (19-24) mmol/L Sodium 150 H (137-145) mmol/L Chloride 118 H (98-107) mmol/L BUN 63 H (7-17) mg/dL Creatinine 1.50 H (0.52-1.04) mg/dL Glucose 214 H (74-99) mg/dL POC Glucose (mg/dL) 191 H 192 H (75-99) mg/dL 12/31/20 12/31/20 12/31/20 Range/Units 04:47 06:57 11:42 ABG pH 7.52 H (7.35-7.45) ABG pCO2 33 L (35-45) mmHg ABG pO2 74 L (83-108) mmHg ABG HCO3 26 H (21-25) mmol/L ABG Total CO2 27 H (19-24) mmol/L Sodium (137-145) mmol/L Chloride (98-107) mmol/L BUN (7-17) mg/dL Creatinine (0.52-1.04) mg/dL Glucose (74-99) mg/dL POC Glucose (mg/dL) 238 H 200 H (75-99) mg/dL Microbiology - Last 24 Hours (Table) 12/29/20 Unknown Gram Stain - Final Sputum Sputum Culture - Final Klebsiella oxytoca Proteus mirabilis 12/29/20 14:24 Urine Culture - Preliminary Urine,Voided Assessment and Plan Assessment: Impression: Acute hypoxic respiratory failure secondary to COVID-19 pneumonia requiring intubation and mechanical ventilation. Status post cardiac arrest with pulseless electrical activity for 7 minutes, st atus post intubation and mechanical ventilation since 12/2020. Possible anoxic brain injury. CT of the brain was ordered and may consider neurological consultation. Severe aortic stenosis. Severe cardiomyopathy and LV dysfunction with ejection fraction of 30%. Atrial fibrillation with RVR. Seems to be paroxysmal. Type 2 diabetes. Acute kidney injury with a relatively good urine output. Could be cardiorenal or could be related to the COVID-19 pneumonia Elevated inflammatory markers secondary to acute COVID-19 infection/pneumonia Non-ST elevation IL is suspected. Possible underlying bacterial pneumonia secondary to Klebsiella and Proteus mirabilis. Hence the patient will remain on cefepime for now. Possible anoxic brain injury. Recommendation: CT of the brain without contrast. Consider neurological evaluation. Continue ventilatory support, decreased stressors rate to 24. Continue nutritional support. Patient is on enteral feeding up to goal. Continue anticoagulation therapy patient is now on Eliquis. Continue hemodynamic support if necessary presently not requiring any pressors. Continue the COVID-19 cocktail. Continue Decadron. Overall prognosis remains extremely poor and guarded. Patient is a critically ill. Critical care time is over 30 minutes. Time with Patient: Greater than 30
[2020-12-31 13:08] LABS: HCT 32.7 % (34.0-46.0); HGB 10.4 gm/dL (11.4-16.0); MCH 31.5 pg (25.0-35.0); MCHC 31.7 g/dL (31.0-37.0); MCV 99.2 fL (80.0-100.0); Mean Platelet Volume 7.8; Platelet Count 266 k/uL (150-450); RDW 13.9 % (11.5-15.5); WBC 17.2 k/uL (3.8-10.6)
[2020-12-31 13:29] LABS: Albumin 2.7 g/dL (3.5-5.0); C Reactive Protein 6.2 mg/dL (<1.0); Magnesium 2.5 mg/dL (1.6-2.3); Potassium 4.4 mmol/L (3.5-5.1); Total Bilirubin 1.5 mg/dL (0.2-1.3)
[2020-12-31 16:46] LABS: HCT 33.7 % (34.0-46.0); HGB 10.7 gm/dL (11.4-16.0); MCH 31.4 pg (25.0-35.0); MCHC 31.8 g/dL (31.0-37.0); MCV 98.8 fL (80.0-100.0); Platelet Count 262 k/uL (150-450); RBC 3.42 m/uL (3.80-5.40); WBC 16.8 k/uL (3.8-10.6)
--- NOTE | 2020-12-31 16:52 | CT ---
EXAMINATION TYPE: CT brain wo con DATE OF EXAM: 12/31/2020 COMPARISON: None available HISTORY: ams, unresponsive, covid CT DLP: 1158.4 mGycm. Automated Exposure Control for Dose Reduction was Utilized. TECHNIQUE: Multiple contiguous axial CT images of the head were performed from the skull base through the vertex without the administration of intravenous contrast. 2-D sagittal and coronal reformats we re obtained. FINDINGS: No acute intracranial hemorrhage, mass effect, or midline shift. The ventricles and sulci are within normal limits in size. Johnson-white differentiation is preserved. No CT evidence of acute large vessel territorial ischemia. Moderate diffuse cerebral atrophy and decreased attenuation of the periventricu lar and deep white matter bilaterally likely chronic small vessel ischemic disease. Calvarium appears intact. The globes appear intact. Partial opacification of the paranasal sinuses. Endotracheal and e nteric tubes are partially visualized. IMPRESSION: No acute intracranial process. If there is clinical concern for acute ischemia recommend MRI.
[2020-12-31 17:30] LABS: Glucose,Whole Blood 209 mg/dL (75-99)
[2020-12-31] MEDS: PANTOPRAZOLE 40 MG/10 ML VIAL IVP SCH (22:08)
[2020-12-31 23:54] LABS: Glucose,Whole Blood 195 mg/dL (75-99)
[2021-01-01] MEDS: INSULIN ASPART (NovoLOG) 100 UNIT/ML VIAL SQ SCH ×8 (00:59→17:48)
[2021-01-01] MEDS: ALBUTEROL HFA INHALER INHALATION SCH ×6 (03:49→23:00)
[2021-01-01] MEDS: CEFEPIME 1 GM in SODIUM CHLORIDE 0.9% 50 ML IVPB SCH ×3 (04:24→21:16)
[2021-01-01 05:22] LABS: Basophils % (A) 0 %; Eosinophils % (A) 0 %; HCT 35.1 % (34.0-46.0); HGB 11.3 gm/dL (11.4-16.0); Hypochromasia Slight; Lymphocytes # (A) 0.8 k/uL (1.0-4.8); Lymphocytes % (A) 5 %; MCH 32.3 pg (25.0-35.0); MCHC 32.2 g/dL (31.0-37.0); MCV 100.1 fL (80.0-100.0); Mean Platelet Volume 8.4; Monocytes # (A) 0.6 k/uL (0-1.0); Monocytes % (A) 4 %; Neutrophils # (A) 14.5 k/uL (1.3-7.7); Neutrophils % (A) 90 %; Platelet Count 237 k/uL (150-450); RBC 3.51 m/uL (3.80-5.40); RDW 13.2 % (11.5-15.5); WBC 16.1 k/uL (3.8-10.6)
[2021-01-01 05:26] LABS: Glucose,Whole Blood 201 mg/dL (75-99)
[2021-01-01 05:28] LABS: ABG Base Excess 1.9 mmol/L; ABG HCO3 25 mmol/L (21-25); ABG Oxygen Saturation 96.9 % (94-97); ABG PCO2 33 mmHg (35-45); ABG PH 7.49 (7.35-7.45); ABG PO2 84 mmHg (83-108); ABG TCO2 26 mmol/L (19-24); Allen Test Performed? Yes
[2021-01-01] MEDS: DEXTROSE 5%-0.45% NACL 1,000 ML IV SCH (05:33)
[2021-01-01 05:35] LABS: Calcium 8.7 mg/dL (8.4-10.2); Potassium 4.1 mmol/L (3.5-5.1)
[2021-01-01] MEDS: ACETAMINOPHEN TAB 325 MG TAB PO PRN ×2 (05:41→12:00)
[2021-01-01 05:42] LABS: INR 1.1 (<1.2); Partial Thromboplastin Time 21.5 sec (22.0-30.0); Prothrombin Time 11.5 sec (9.0-12.0)
[2021-01-01] MEDS: DEXMEDETOMIDINE/0.9% NACL(PMX) 400 MCG in EMPTY BAG 1 BAG IV SCH ×2 (05:59→14:57)
[2021-01-01] MEDS: INSULIN DETEMIR (LEVEMIR) 100 UNIT/ML SYR SQ SCH ×2 (06:02→21:15)
--- NOTE | 2021-01-01 07:21 | XR ---
EXAMINATION TYPE: XR chest 1V portable DATE OF EXAM: 01/01/2021 CLINICAL HISTORY: Difficulty breathing progress study. TECHNIQUE: Single AP portable semiupright view of the chest is obtained. COMPARISON: Chest x-ray from one day earlier and older studies. FINDINGS: Stable endotracheal and orogastric tubes. Stable left internal jugular central venous cath eter. Overlying sternal wires and mediastinal clips redemonstrated. Stable cardiomegaly with atheroscleroti c aorta. Persistent right greater than left bibasilar opacities . No pleural effusion or pneumothorax seen. Osseous structures are intact. IMPRESSION: Cardiomegaly and background chronic parenchymal changes redemonstrated. Persistent right greater than left patchy bibasilar acute infiltrate and/or atelectasis remains present. No Significan t change from one day earlier.
--- NOTE | 2021-01-01 09:06 | PN ---
PROGRESS NOTE Mrs. Manuel is a 75 -year-old female who presented with respiratory distress requiring mechanical ventilation with pneumonia, Covid 19 infection. She has a history of aortic valve disease and cardiomyopathy. She had episode of atrial fibrillation. She is back in atrial fibrillation and has been persistent for the last 24 hours. Left ventricular response is controlled. Her urine output is stable. Attempts to wean her yesterday was not successful. Patient has not been responsive. She has is inappropriate. She is on no vasopressor. She continues to be anticoagulated. She had a CT scan of the head that showed no evidence of acute event. She continues to be on amiodarone 200 mg 3 times a day, Eliquis 2.5 mg twice a day, hydralazine 50 mg 3 times a day, metoprolol tartrate 50 mg twice a day. PHYSICAL EXAMINATION: Blood pressure 138/60 with a heart rate in the 70s. LAB DATA: Lab data revealed a BUN and creatinine of 69 and 1.51. Potassium 4.1, hemoglobin 11.3, white blood cell of 16.1. IMPRESSION: 1. Respiratory failure with pneumonia and Covid 19 infection. 2. Inability to wean. 3. Aortic stenosis. 4. Cardiomyopathy. 5. Atrial fibrillation persistent for the last 24 hours. 6. Acute renal injury. 7. Episode of cardiac arrest and possible anoxic encephalopathy. RECOMMENDATIONS: From the cardiac standpoint, we will continue on supportive care. The patient remains critically ill. The prognosis is guarded. From the cardiac standpoint, no change in her treatment at this point. MMODL / IJN: [id number] /
--- NOTE | 2021-01-01 09:57 | P.PN ---
Subjective Patient is completely unresponsive today. She was taking off sedation and Precedex and not responding to painful stimuli. No purposeful movement. Objective - Vital Signs Vital signs: Vital Signs Temp 100.7 F H 01/01/21 04:00 Pulse 78 01/01/21 07:00 Resp 24 01/01/21 07:00 BP 121/69 12/30/20 21:00 Pulse Ox 96 01/01/21 07:00 Intake & Output 12/31/20 01/01/21 01/01/21 18:59 06:59 18:59 Intake Total 8904.856 4742.5 56.5 Output Total 1110 1025 60 Balance -104 611.5 -3.5 Weight 87.8 kg 84.6 kg Intake: IV 256 276 23 Dextrose 5%-0.45% NaCl 1, 220 240 20 000 ml @ 20 mls/hr IV . Q24H [facility] Rx#:[id number] pressure bag 36 36 3 Intake, IV Titration 210.000 187.5 12.5 Amount Cefepime 1 gm In Sodium 110 Chloride 0.9% 50 ml @ 100 mls/hr IVPB ONCE ONE Rx# :[id number] Cefepime 1 gm In Sodium 87.5 12.5 Chloride 0.9% 50 ml @ 12. 5 mls/hr IVPB Q8H [facility] Rx# :[id number] Dexmedetomidine/0.9% NaCl 100.000 100 (Pmx) 400 mcg In Empty Bag 1 bag @ Titrate IV . Q0M [facility] Rx#:[id number] Tube Feeding 210 273 21 Other 330 900 Output: Urine 1110 1025 60 Other: Voiding Method Indwelling Catheter Indwelling Catheter ABP, PAP, CO, CI - Last Documented Arterial Blood Pressure 138/61 - Exam General: The patient is sedated and intubated Eye: there is normal conjunctiva bilaterally. Neck: The neck is supple, there is no JVD. Cardiovascular: Normal S1-S2, no S3-S4, no murmurs. Respiratory: Lungs clear to auscultation bilaterally Gastrointestinal: Abdomen is soft, nontender Musculoskeletal: There is +1 pedal edema. Skin: Skin is warm and dry - Labs CBC & Chem 7: 01/01/21 05:00 01/01/21 05:00 Labs: Abnormal Lab Results - Last 24 Hours (Table) 12/31/20 12/31/20 12/31/20 Range/Units 11:42 12:30 12:30 WBC 17.2 H (3.8-10.6) k/uL RBC 3.30 L (3.80-5.40) m/uL Hgb 10.4 L (11.4-16.0) gm/dL Hct 32.7 L (34.0-46.0) % MCV (80.0-100.0) fL Neutrophils # (1.3-7.7) k/uL Lymphocytes # (1.0-4.8) k/uL APTT (22.0-30.0) sec D-Dimer 2.80 H (<0.60) mg/L FEU ABG pH (7.35-7.45) ABG pCO2 (35-45) mmHg ABG Total CO2 (19-24) mmol/L Sodium (137-145) mmol/L Chloride (98-107) mmol/L BUN (7-17) mg/dL Creatinine (0.52-1.04) mg/dL Glucose (74-99) mg/dL POC Glucose (mg/dL) 200 H (75-99) mg/dL Magnesium (1.6-2.3) mg/dL Total Bilirubin (0.2-1.3) mg/dL AST (14-36) U/L ALT (4-34) U/L Lactate Dehydrogenase (313-618) U/L C-Reactive Protein (<1.0) mg/dL Total Protein (6.3-8.2) g/dL Albumin (3.5-5.0) g/dL 12/31/20 12/31/20 12/31/20 Range/Units 12:30 16:34 17:29 WBC 16.8 H (3.8-10.6) k/uL RBC 3.42 L (3.80-5.40) m/uL Hgb 10.7 L (11.4-16.0) gm/dL Hct 33.7 L (34.0-46.0) % MCV (80.0-100.0) fL Neutrophils # (1.3-7.7) k/uL Lymphocytes # (1.0-4.8) k/uL APTT (22.0-30.0) sec D-Dimer (<0.60) mg/L FEU ABG pH (7.35-7.45) ABG pCO2 (35-45) mmHg ABG Total CO2 (19-24) mmol/L Sodium 149 H (137-145) mmol/L Chloride 117 H (98-107) mmol/L BUN 64 H (7-17) mg/dL Creatinine 1.55 H (0.52-1.04) mg/dL Glucose 246 H (74-99) mg/dL POC Glucose (mg/dL) 209 H (75-99) mg/dL Magnesium 2.5 H (1.6-2.3) mg/dL Total Bilirubin 1.5 H (0.2-1.3) mg/dL AST 85 H (14-36) U/L ALT 82 H (4-34) U/L Lactate Dehydrogenase 1167 H (313-618) U/L C-Reactive Protein 6.2 H (<1.0) mg/dL Total Protein 6.0 L (6.3-8.2) g/dL Albumin 2.7 L (3.5-5.0) g/dL 12/31/20 01/01/21 01/01/21 Range/Units 23:54 05:00 05:00 WBC 16.1 H (3.8-10.6) k/uL RBC 3.51 L (3.80-5.40) m/uL Hgb 11.3 L (11.4-16.0) gm/dL Hct (34.0-46.0) % MCV 100.1 H (80.0-100.0) fL Neutrophils # 14.5 H (1.3-7.7) k/uL Lymphocytes # 0.8 L (1.0-4.8) k/uL APTT 21.5 L (22.0-30.0) sec D-Dimer (<0.60) mg/L FEU ABG pH (7.35-7.45) ABG pCO2 (35-45) mmHg ABG Total CO2 (19-24) mmol/L Sodium (137-145) mmol/L Chloride (98-107) mmol/L BUN (7-17) mg/dL Creatinine (0.52-1.04) mg/dL Glucose (74-99) mg/dL POC Glucose (mg/dL) 195 H (75-99) mg/dL Magnesium (1.6-2.3) mg/dL Total Bilirubin (0.2-1.3) mg/dL AST (14-36) U/L ALT (4-34) U/L Lactate Dehydrogenase (313-618) U/L C-Reactive Protein (<1.0) mg/dL Total Protein (6.3-8.2) g/dL Albumin (3.5-5.0) g/dL 01/01/21 01/01/21 01/01/21 Range/Units 05:00 05:00 05:23 WBC (3.8-10.6) k/uL RBC (3.80-5.40) m/uL Hgb (11.4-16.0) gm/dL Hct (34.0-46.0) % MCV (80.0-100.0) fL Neutrophils # (1.3-7.7) k/uL Lymphocytes # (1.0-4.8) k/uL APTT (22.0-30.0) sec D-Dimer 2.95 H (<0.60) mg/L FEU ABG pH 7.49 H (7.35-7.45) ABG pCO2 33 L (35-45) mmHg ABG Total CO2 26 H (19-24) mmol/L Sodium 148 H (137-145) mmol/L Chloride 118 H (98-107) mmol/L BUN 69 H (7-17) mg/dL Creatinine 1.51 H (0.52-1.04) mg/dL Glucose 218 H (74-99) mg/dL POC Glucose (mg/dL) (75-99) mg/dL Magnesium (1.6-2.3) mg/dL Total Bilirubin (0.2-1.3) mg/dL AST (14-36) U/L ALT (4-34) U/L Lactate Dehydrogenase (313-618) U/L C-Reactive Protein (<1.0) mg/dL Total Protein (6.3-8.2) g/dL Albumin (3.5-5.0) g/dL 01/01/21 Range/Units 05:24 WBC (3.8-10.6) k/uL RBC (3.80-5.40) m/uL Hgb (11.4-16.0) gm/dL Hct (34.0-46.0) % MCV (80.0-100.0) fL Neutrophils # (1.3-7.7) k/uL Lymphocytes # (1.0-4.8) k/uL APTT (22.0-30.0) sec D-Dimer (<0.60) mg/L FEU ABG pH (7.35-7.45) ABG pCO2 (35-45) mmHg ABG Total CO2 (19-24) mmol/L Sodium (137-145) mmol/L Chloride (98-107) mmol/L BUN (7-17) mg/dL Creatinine (0.52-1.04) mg/dL Glucose (74-99) mg/dL POC Glucose (mg/dL) 201 H (75-99) mg/dL Magnesium (1.6-2.3) mg/dL Total Bilirubin (0.2-1.3) mg/dL AST (14-36) U/L ALT (4-34) U/L Lactate Dehydrogenase (313-618) U/L C-Reactive Protein (<1.0) mg/dL Total Protein (6.3-8.2) g/dL Albumin (3.5-5.0) g/dL Microbiology - Last 24 Hours (Table) 12/29/20 14:24 Urine Culture - Preliminary Urine,Voided Gram Neg Bacilli 12/29/20 Unknown Gram Stain - Final Sputum Sputum Culture - Final Klebsiella oxytoca Proteus mirabilis Assessment and Plan Assessment: Patient is a 75-year-old female with a history of prior angina, diabetes, hypothyroidism, dyslipidemia, and hypertension who presented with complaint of weakness and syncope. She started having upper respiratory symptoms approximately 4-5 days prior to presentation. She went to obtain an outpatient Covid test and passed out. She has completed a 2 series Pfizer vaccine earlier this year. In the ER she underwent an extensive evaluation. On arrival her oxygenation was 71% on room air. She was started on BiPAP. Covid testing was positive. Chest x-ray showed diffuse bilateral interstitial infiltrates. She was given a dose of dexamethasone. She was seen by pulmonary who felt she could be managed on selective care. She was continued on dexamethasone. She is not a candidate for Remdesivir secondary to her high oxygen requirements. On the afternoon of 12/24 she had sudden decline in heart rate and had PEA arrest lasting approximately 5 minutes. She was transitioned to the ICU and started on propofol for sedation. She did require small amounts of levo. She was noted to have A. fib after ROSC was achieved and she was subsequently transitioned from Lovenox to heparin drip and then to Eliquis. She was seen by cardiology secondary to her echocardiogram with severe aortic stenosis. Patient had a complicated clinical course in the ICU and was eventually taken off sedation but was not responsive to painful stimuli or any stimulation. Patient did not have any purposeful movement. Awaiting neurology evaluation. Suspected anoxic brain injury -Computed tomography scan of the brain showed no acute findings. EEG ordered. -Neurology consulted for further evaluation. COVID-19 pneumonia Acute hypoxic respiratory failure Acute kidney injury, Non-anion gap metabolic acidosis Transaminitis secondary to above and cardiac arrest Septic shock - Vit D, zinc, vitamin C - Steroid managed by pulmonary - Wean O2 as able - Pulm recs, managing ventilator - Anticoagulation as directed by pulmonary - IV Lasix as directed by ICU team Severe Aortic Stenosis Syncope- likely due to hypoxia versus severe aortic stenosis Elevated toponin- likely due to hypoxia, not consistent with ACS Aborted sudden cardiac Atrial fibrillation with rapid ventricular response Underlying ischemic cardiomyopathy with ejection fraction of 30-35% down from 45% on last echocardiogram at [facility] - tele - ASA, any other room - Eliquis twice daily -Cardiology recommendations appreciated - not a candidate for rate control at this time due to hypotnesion Hypernatremia -Continue D5/half-normal saline and recheck lab work in the morning HTN - hold lisinopril due to VERONICA - Norvasc and Coreg on hold secondary to hypotension - follow BP HLD - statin DM 2 - Long acting, SSI, and fixed dose insulin - increased - follow BS with steroids - A1C 8.5 ASCAD - plavix, BB, statin Hyponatremia, resolved
[2021-01-01] MEDS: CHLORHEXIDINE GLUCONATE 15 ML CUP MUCOUS MEM SCH ×2 (10:09→21:15)
[2021-01-01] MEDS: FAMOTIDINE 20 MG/2 ML VIAL IV SCH (10:09)
[2021-01-01] MEDS: DEXAMETHASONE SOD PHOSPHATE 10 MG/ML 1 ML VIAL IV SCH (10:09)
[2021-01-01] MEDS: PANTOPRAZOLE 40 MG/10 ML VIAL IVP SCH ×2 (10:09→21:16)
[2021-01-01] MEDS: METOPROLOL TARTRATE 50 MG TAB PO SCH ×2 (10:10→21:16)
[2021-01-01] MEDS: AMIODARONE 200 MG TAB PO SCH ×3 (10:10→21:16)
[2021-01-01] MEDS: CHOLECALCIFEROL 25 MCG (1000 IU) TABLET PO SCH (10:10)
[2021-01-01] MEDS: APIXABAN 2.5 MG TABLET PO SCH ×2 (10:10→21:16)
[2021-01-01] MEDS: ZINC SULFATE 220 MG CAP PO SCH (10:10)
[2021-01-01] MEDS: hydrALAZINE HCL 50 MG TAB PO SCH ×3 (10:10→21:16)
[2021-01-01] MEDS: ASCORBIC ACID 500 MG TAB PO SCH (10:10)
[2021-01-01 11:54] LABS: Glucose,Whole Blood 181 mg/dL (75-99)
--- NOTE | 2021-01-01 12:38 | P.PN ---
Subjective Progress Note Date: 01/01/21 Principal diagnosis: Acute hypoxic respiratory failure secondary to COVID-19 pneumonia 12/27/2020, the patient is being seen for a follow-up. Patient is a 75-year-old here patient with community related pneumonia with secondary respiratory failure. The patient also has severe valvular heart disease with severe aortic stenosis. The patient is post cardiac pulmonary arrest with a PEA rhythm that lasted around 7 minutes post intubation on 12/24/2020. The patient also has new onset paroxysmal atrial fibrillation. The patient is diabetic. On today's evaluation, the patient remains sedated. The patient on Profore running at 60 mg/kg/m. The patient is well sedated and she is calm and comfortable on mechanical ventilator. She is an assist-control mode with a rate of 26 with a tidal volume of 400 and PEEP of 13 with a FiO2 of 40%. The blood gases from today shows a pH of 7.34 with a pCO2 of 36 and pO2 of 105. Peak airway pressure 31. Static airway airway pressure 23. The patient had a follow-up chest x-ray that showed no evidence of any pneumothorax. There is persistent but the pulmonary infiltrates consistent with community related pneumonia. Pulmonary e jose francisco cannot be completely excluded. Previous echocardiogram in this patient echocardiogram showed global hypokinesis with an ejection fraction of 3035%. There was also moderate to severe degree of aortic valve was 58 with a mean gradient of 37. Hemodynamically, the patient remains on pressors. The patient is running on a low-dose of norepinephrine urine at 0.03 units per kilogram per minute. The patient is in a sinus rhythm and the patient is also on IV heparin. Patient is sitting up and feeding for nutritional support. The patient is on vital high protein at 60 mL an hour which is currently at goal. Afebrile. She is also on Decadron 6 mg IV every 24 hours. She remains on amiodarone 400 mg by mouth twice a day and Levemir insulin for blood sugar control 30 units at night and 20 units in the morning along with a fasting coverage. She remains on IV Pepcid. 12/28/2020, the patient is being seen for a follow-up. The patient remains intubated on a mechanical ventilator. This morning, the patient is on propofol at 40 mg/kg per minute and the patient is also on Versed at 1 mg an hour. She is intubated on a mechanical ventilator. She remains on assist control mode at a rate of 26 with a volume of 400 and FiO2 of 60% with a PEEP of 9. The cages at 7.4 episodes of 36 and pO2 77. Chest x-rays on changes consistent with diffuse but the pulmonary infiltrates consistent with community related pneumonia. Since yesterday, the patient was diuresed IV Lasix. The patient was given a total of 60 mg of IV Lasix and she has been negative fluid balance. Nevertheless, no major improvement in her oxygenation nor her chest x-ray findings. She is off pressors. She remains on IV heparin per protocol. The cardiac rhythm is sinus. She is receiving enteral feeding for nutritional support. White cell count of 15.7 with a hemoglobin of 10.1. Creatinine is at 1.4 with a BUN of 64. Electrolytes are normal. AST and ALP are 33 and 49 respectively. LDH level is at 970. CRP level is at 22.6. The d-dimer from today is at 0.7. The patient remains on Decadron 6 mg IV every 24 hours. When the process of getting the patient is sedation holiday. We'll use Cleviprex if needed for tighter blood pressure control. otherwise, no other significant events overnight. The patient on Levemir insulin 30 units at bedtime and 20 units in the morning along with sliding scale coverage and 4 units of regular insulin every 4 hours coverage. 12/29/2020, the patient is being seen for a follow-up. Remains on a mechanical ventilator. Remains on Precedex for sedation. Note that I think this patient off sedation yesterday. Following her sedation holiday, the patient did not wak e up completely. She was becoming more restless and hypertensive at that point Cleviprex was admitted for blood pressure control is currently running at 2 mg an hour. Later on during the day, Precedex was also added for sedation at around 4:30 AM this morning and Precedex is running at 0.2 g. Remains intubated. The patient remains on assist control mode at the rate of 26 with a tidal volume of 100 and FiO2 is currently at 40% with a PEEP of 6. We managed to cut down the PEEP overnight slowly maintaining a saturation above 90%. Current pulse ox is 96%. Morning blood gases showed a pH of 7.47 with a pCO2 of 35 and pO2 of 78 and this was on FiO2 of 40%. Chest x-ray from today showing b ilateral pulmonary infiltrates, with probably some improvement in infiltrates patient the right lung base. ET tube remains in a good location. The patient also has a left IJ triple-lumen catheter in place. The patient was receiving daily diuretics. The net fluid balance over the past 24 hours has been -2.4 L. The peak airway pressure on a mechanical ventilator is 16. No significant orotracheal secretions. Creatinine today is at 1.4 which is essentially stable. Sodium level is at 146 slightly higher compared to yesterday as the patient is being diuresed. In terms of inflammatory markers, the patient has a LDH level of 1100 and his CRP level of 16.5. The white cell count is slightly elevated today at 19.2. In terms of her medication coverage, the patient remains on Decadron 6 g IV every 24 hours. The patient is still on she will feeds and currently she is receiving enteral feeding for nutritional support and she is on vital high protein at the rate of 16 mL an hour. Blood sugars are under adequate control and patient is receiving Levemir insulin 30 units at bedtime and 20 units in the morning along with a sliding scale coverage. Patient was reevaluated today on 12/30/2020, patient remains in the ICU, intubated and mechanically ventilated. Remains sedated on Precedex. Dose is 0.4 mcg/kg/h. IV fluid is 0.9 at 20 mL per hour. Patient is not arousable. She seems to get intermittent episodes of atrial fibrillation with RVR with any minimal agitation hence unable to address weaning on this patient today. Ventilator settings are assist control of 26, volume is 400 FiO2 40% PEEP of 5 ABG showed a pO2 of 80 pCO2 of 35 pH of 7.50. No changes were made in the venti lator settings. Chest x-ray continues to show bilateral infiltrates. Patient had a T-max of 101.7. Sputum cultures are negative. Blood cultures remain negative. Patient remains on enteral feedings. Elisa peterson has a left IJ triple- lumen catheter in place. Remains on diuretics intermittently. CBC count is 19.0 hemoglobin is 11.5. Sodium is 150. Hence we'll change her IV fluid to D5W. BUN is 60 creatinine 1.40. Considering the patient is having significant episodes of atrial fibrillation with RVR, patient was placed on oral anticoagulation in the form of Eliquis 2.5 mg twice a day and we can discontinue Lovenox. Remains on albuterol, remains on Decadron. Remains on the COVID-19 cocktail. And she remains on Precedex. Considering her atrial fibrillation with RVR, I have no plans to wean and extubate the patient, she is presently not weanable Reevaluated today on 12/31/2020, patient remains in the ICU, intubated and mechanically ventilated remains on Precedex. At 0.6 mcg/kg per hour. Remains on D5W at 50 mL per hour. She is on enteral feeding using vital HP. Continues to have hypernatremia, and we are recommending that the patient receives free water via nasogastric tube. Her ventilator settings are assist control rate of 26 tidal volume 400 FiO2 40% PEEP of 5 ABG showed a pO2 of 74 pCO2 of 33 pH of 7.52, and I lowered down her rate down to 24. Patient remains in atrial fibrillation but seems to be controlled rate is 92. The pressure seems to be a bit elevated at 173/76. Neurologically the patient does not seem to be responding to any verbal or painful stimuli, hence I'm recommending a CT of the brain, I'm also recommending neurologic evaluation. In the meantime we will discontinue Precedex and assess mental status. Clearly the patient is not ready for any form of weaning. Chest x-ray continues to show cardiomegaly and parenchymal changes, there is definite improvement in her multifocal opacities related to her underlying COVID-19 pneumonia. And that is clearly reflected on the improvement in the ABG. Appendectomy were reviewed sodium is 150 BUN is 63 creatinine 1.50 slightly worse compared to yesterday. Patient remains on updrafts, remains on amiodarone. Eliquis. Cefepime, Decadron, Pepcid, insulin, Toprol, sputum is positive for Klebsiella and proteus mirabilis. Both are sensitive to cefepime. Patient was reevaluated today on 01/01/2021, remains in the ICU, intubated and mechanically ventilated. No major electronic data interchange specialist the last 24 hours, patient remains unresponsive to any verbal or painful stimuli. CT of the brain showed no evidence of active disease. And neurological consultation is pending. I strongly believe the patient also sustained some anoxic brain injury related to her initial cardiac arrest. Her ventilator settings are assist control rate of 24 to 400 FiO2 40% and PEEP of 5. ABG showed a pO2 of 84 pCO2 33 pH of 7.49. Patient remains on Precedex. And I would likely place on hold and continue to assess mental status on a regular basis. He she does not requiring any narcotics or any paralytics. Yesterday she developed some coffee-ground emesis, and Eliquis was placed on hold, Protonix was increased to twice a day, however no further evidence of any GI bleeding, we'll restart Eliquis today. Patient remains in atrial flutter with a rate of 93. She is also on enteral feeding using vital HP at 20 mL per hour. Neurological consultation is pending on this patient. Chest x-ray continues to show cardiomegaly, chronic parenchymal changes, and possibly left patchy basilar atelectasis, possible infiltrate. CBC today showed leukocytosis with WBC count of 16.1 hemoglobin of 11.3. D-dimer is 2.95. Laura ctrolytes showed sodium of 148 potassium 4.1 chloride 118 bicarb 23 BUN is 69 creatinine is 1.51. Renal profile seems to be holding about the same. Objective - Vital Signs Vital signs: Vital Signs Temp 99.9 F H 01/01/21 08:00 Pulse 68 01/01/21 11:00 Resp 24 01/01/21 11:00 BP 121/69 12/30/20 21:00 Pulse Ox 97 01/01/21 11:00 Intake & Output 12/31/20 01/01/21 01/01/21 18:59 06:59 18:59 Intake Total 1146.234 6817.5 532.5 Output Total 1110 1025 385 Balance -104 611.5 147.5 Weight 87.8 kg 84.6 kg Intake: IV 256 276 115 Dextrose 5%-0.45% NaCl 1, 220 240 100 000 ml @ 20 mls/hr IV . Q24H [facility] Rx#:[id number] pressure bag 36 36 15 Intake, IV Titration 210.000 187.5 12.5 Amount Cefepime 1 gm In Sodium 110 Chloride 0.9% 50 ml @ 100 mls/hr IVPB ONCE ONE Rx# :[id number] Cefepime 1 gm In Sodium 87.5 12.5 Chloride 0.9% 50 ml @ 12. 5 mls/hr IVPB Q8H [facility] Rx# :[id number] Dexmedetomidine/0.9% NaCl 100.000 100 (Pmx) 400 mcg In Empty Bag 1 bag @ Titrate IV . Q0M [facility] Rx#:[id number] Tube Feeding 210 273 105 Other 330 900 300 Output: Urine 1110 1025 385 Other: Voiding Method Indwelling Catheter Indwelling Catheter ABP, PAP, CO, CI - Last Documented Arterial Blood Pressure 131/57 - Exam Physical Exam: Revealed 75-year-old female sedated, on Precedex, in no distress, intubated and mechanically ventilated. No response to any deep painful stimuli or verbal stimuli. Head: Atraumatic, normocephalic. HEENT:[Neck is supple.] [No neck masses.] [No thyromegaly.] [No JVD.] Endotracheal tube is intact. Orogastric tube is intact. Chest: [Symmetrical chest expansion minimal crackles at the bases. Cardiac Exam: [Irregular irregular rhythm. Normal S1 and S2, no S3 gallop, 3/6 systolic murmur thought the precordium best heard at the left apex. Abdomen: [Soft, nontender, no megaly, no rebound, no guarding, normal bowel sounds.] Extremities: [No clubbing, no edema, no cyanosis.] Pulses bilaterally. Neurological Exam, not responding to any stimuli. Loading verbal and painful stimuli. Psychiatric: Could not be assessed. Skin: No rashes. - Labs CBC & Chem 7: 01/01/21 05:00 01/01/21 05:00 Labs: Abnormal Lab Results - Last 24 Hours (Table) 12/31/20 12/31/20 12/31/20 Range/Units 12:30 12:30 12:30 WBC 17.2 H (3.8-10.6) k/uL RBC 3.30 L (3.80-5.40) m/uL Hgb 10.4 L (11.4-16.0) gm/dL Hct 32.7 L (34.0-46.0) % MCV (80.0-100.0) fL Neutrophils # (1.3-7.7) k/uL Lymphocytes # (1.0-4.8) k/uL APTT (22.0-30.0) sec D-Dimer 2.80 H (<0.60) mg/L FEU ABG pH (7.35-7.45) ABG pCO2 (35-45) mmHg ABG Total CO2 (19-24) mmol/L Sodium 149 H (137-145) mmol/L Chloride 117 H (98-107) mmol/L BUN 64 H (7-17) mg/dL Creatinine 1.55 H (0.52-1.04) mg/dL Glucose 246 H (74-99) mg/dL POC Glucose (mg/dL) (75-99) mg/dL Magnesium 2.5 H (1.6-2.3) mg/dL Total Bilirubin 1.5 H (0.2-1.3) mg/dL AST 85 H (14-36) U/L ALT 82 H (4-34) U/L Lactate Dehydrogenase 1167 H (313-618) U/L C-Reactive Protein 6.2 H (<1.0) mg/dL Total Protein 6.0 L (6.3-8.2) g/dL Albumin 2.7 L (3.5-5.0) g/dL 12/31/20 12/31/20 12/31/20 Range/Units 16:34 17:29 23:54 WBC 16.8 H (3.8-10.6) k/uL RBC 3.42 L (3.80-5.40) m/uL Hgb 10.7 L (11.4-16.0) gm/dL Hct 33.7 L (34.0-46.0) % MCV (80.0-100.0) fL Neutrophils # (1.3-7.7) k/uL Lymphocytes # (1.0-4.8) k/uL APTT (22.0-30.0) sec D-Dimer (<0.60) mg/L FEU ABG pH (7.35-7.45) ABG pCO2 (35-45) mmHg ABG Total CO2 (19-24) mmol/L Sodium (137-145) mmol/L Chloride (98-107) mmol/L BUN (7-17) mg/dL Creatinine (0.52-1.04) mg/dL Glucose (74-99) mg/dL POC Glucose (mg/dL) 209 H 195 H (75-99) mg/dL Magnesium (1.6-2.3) mg/dL Total Bilirubin (0.2-1.3) mg/dL AST (14-36) U/L ALT (4-34) U/L Lactate Dehydrogenase (313-618) U/L C-Reactive Protein (<1.0) mg/dL Total Protein (6.3-8.2) g/dL Albumin (3.5-5.0) g/dL 01/01/21 01/01/21 01/01/21 Range/Units 05:00 05:00 05:00 WBC 16.1 H (3.8-10.6) k/uL RBC 3.51 L (3.80-5.40) m/uL Hgb 11.3 L (11.4-16.0) gm/dL Hct (34.0-46.0) % MCV 100.1 H (80.0-100.0) fL Neutrophils # 14.5 H (1.3-7.7) k/uL Lymphocytes # 0.8 L (1.0-4.8) k/uL APTT 21.5 L (22.0-30.0) sec D-Dimer (<0.60) mg/L FEU ABG pH (7.35-7.45) ABG pCO2 (35-45) mmHg ABG Total CO2 (19-24) mmol/L Sodium 148 H (137-145) mmol/L Chloride 118 H (98-107) mmol/L BUN 69 H (7-17) mg/dL Creatinine 1.51 H (0.52-1.04) mg/dL Glucose 218 H (74-99) mg/dL POC Glucose (mg/dL) (75-99) mg/dL Magnesium (1.6-2.3) mg/dL Total Bilirubin (0.2-1.3) mg/dL AST (14-36) U/L ALT (4-34) U/L Lactate Dehydrogenase (313-618) U/L C-Reactive Protein (<1.0) mg/dL Total Protein (6.3-8.2) g/dL Albumin (3.5-5.0) g/dL 01/01/21 01/01/21 01/01/21 Range/Units 05:00 05:23 05:24 WBC (3.8-10.6) k/uL RBC (3.80-5.40) m/uL Hgb (11.4-16.0) gm/dL Hct (34.0-46.0) % MCV (80.0-100.0) fL Neutrophils # (1.3-7.7) k/uL Lymphocytes # (1.0-4.8) k/uL APTT (22.0-30.0) sec D-Dimer 2.95 H (<0.60) mg/L FEU ABG pH 7.49 H (7.35-7.45) ABG pCO2 33 L (35-45) mmHg ABG Total CO2 26 H (19-24) mmol/L Sodium (137-145) mmol/L Chloride (98-107) mmol/L BUN (7-17) mg/dL Creatinine (0.52-1.04) mg/dL Glucose (74-99) mg/dL POC Glucose (mg/dL) 201 H (75-99) mg/dL Magnesium (1.6-2.3) mg/dL Total Bilirubin (0.2-1.3) mg/dL AST (14-36) U/L ALT (4-34) U/L Lactate Dehydrogenase (313-618) U/L C-Reactive Protein (<1.0) mg/dL Total Protein (6.3-8.2) g/dL Albumin (3.5-5.0) g/dL 01/01/21 Range/Units 11:53 WBC (3.8-10.6) k/uL RBC (3.80-5.40) m/uL Hgb (11.4-16.0) gm/dL Hct (34.0-46.0) % MCV (80.0-100.0) fL Neutrophils # (1.3-7.7) k/uL Lymphocytes # (1.0-4.8) k/uL APTT (22.0-30.0) sec D-Dimer (<0.60) mg/L FEU ABG pH (7.35-7.45) ABG pCO2 (35-45) mmHg ABG Total CO2 (19-24) mmol/L Sodium (137-145) mmol/L Chloride (98-107) mmol/L BUN (7-17) mg/dL Creatinine (0.52-1.04) mg/dL Glucose (74-99) mg/dL POC Glucose (mg/dL) 181 H (75-99) mg/dL Magnesium (1.6-2.3) mg/dL Total Bilirubin (0.2-1.3) mg/dL AST (14-36) U/L ALT (4-34) U/L Lactate Dehydrogenase (313-618) U/L C-Reactive Protein (<1.0) mg/dL Total Protein (6.3-8.2) g/dL Albumin (3.5-5.0) g/dL Microbiology - Last 24 Hours (Table) 12/29/20 14:24 Urine Culture - Preliminary Urine,Voided Gram Neg Bacilli 12/29/20 Unknown Gram Stain - Final Sputum Sputum Culture - Final Klebsiella oxytoca Proteus mirabilis Assessment and Plan Assessment: Impression: Acute hypoxic respiratory failure secondary to COVID-19 pneumonia requiring intubation and mechanical ventilation. Status post cardiac arrest with pulseless electrical activity for 7 minutes, status post intubation and mechanical ventilation since 12/24/2020. Possible anoxic brain injury. CT of the brain was ordered and may consider neurological consultation. Severe aortic stenosis. Severe cardiomyopathy and LV dysfunction with ejection fraction of 30%. Atrial fibrillation/atrial flutter. Type 2 diabetes. Acute kidney injury, likely secondary to acute tubular necrosis. And related to cardiac arrest possibly related to COVID-19 infection. Elevated inflammatory markers secondary to acute COVID-19 infection/pneumonia Non-ST elevation VT is suspected. Possible underlying bacterial pneumonia secondary to Klebsiella and Proteus mirabilis. Hence the patient will remain on cefepime for now. Possible anoxic brain injury. Coffee-ground emesis, possibly erosive gastritis, Protonix is 40 mg twice a day. Recommendation: CT of the brain without contrast. Was nondiagnostic. Neurologic consultation is pending. Continue ventilatory support, no changes in the vent settings today. ABG was noted. Ventilator settings were The same. Continue nutritional support. Patient is on enteral feeding up to goal. Continue anticoagulation therapy, back on Eliquis. Continue hemodynamic support if necessary presently not requiring any pressors. Continue the COVID-19 cocktail. Continue Decadron. Overall prognosis remains extremely poor and guarded. Patient is a critically ill. Critical care time is over 30 minutes. Time with Patient: Greater than 30
--- NOTE | 2021-01-01 14:04 | P.CNNES ---
History of Present Illness Consult date: 01/01/21 History of Present Illness: The patient is a 75-year-old female who is seen in neurologic consultation on January 01, 2021, via teleneurology. The patient is being seen because of concerns regarding cerebral anoxia. The patient has suffered respiratory failure secondary to pneumonia and Covid 19 infection. Patient also has been having episodes of atrial fibrillation. She is currently anticoagulated. In review of the chart, it seems that there have been attempts to wean sedation and wean the patient from the respirator. Neither of these have been successful. According to the patient's nurse, she reports that when the patient's sedation is weaned the patient becomes agitated. Per nursing, the patient was rotating her head, had her eyes open, did not follow commands and there was no withdrawal from noxious stimulation, at the time sedation was placed on hold.In review of another progress note, patient reportedly was weaned from sedation and continued to be nonresponsive. CT scan of the brain was performed yesterday. There is no evidence of acute he morrhage or infarct. No definitive ischemia was seen. Past Medical History Past Medical History: Coronary Artery Disease (CAD), Chest Pain / Angina, Diabetes Mellitus, Hyperlipidemia, Hypertension Last Myocardial Infarction Date:: hypothyroidism History of Any Multi-Drug Resistant Organisms: None Reported Past Surgical History: No Surgical Hx Reported Additional Past Surgical History / Comment(s): Stent X 1, CABG X 4 Past Psychological History: No Psychological Hx Reported Smoking Status: Former smoker Past Alcohol Use History: None Reported Past Drug Use History: None Reported - Past Family History Father Additional Family Medical History / Comment(s): from lung cancer Mother Additional Family Medical History / Comment(s): from old age Medications and Allergies Home Medications Medication Instructions Recorded Confirmed Type Carvedilol [Coreg] 25 mg PO BID 12/23/20 12/23/20 History Clopidogrel [Plavix] 75 mg PO DAILY 12/23/20 12/23/20 History Ergocalciferol [Vitamin D2 (1250 1,250 mcg PO Q7D 12/23/20 12/23/20 History Mcg = [id number] Iu)] Furosemide [Lasix] 20 mg PO DAILY 12/23/20 12/23/20 History INSULIN ASPART (NovoLOG) [NovoLOG 10 - 15 unit SQ AC-TID 12/23/20 12/23/20 His tory (formulary)] Insulin Glargine,Hum.rec.anlog 35 unit SQ DAILY 12/23/20 12/23/20 History [Lantus Solostar Pen] Levothyroxine Sodium [Euthyrox] 50 mcg PO DAILY 12/23/20 12/23/20 History Omeprazole 20 mg PO DAILY 12/23/20 12/23/20 History Rosuvastatin [Crestor] 20 mg PO HS 12/23/20 12/23/20 History amLODIPine [Norvasc] 10 mg PO DAILY 12/23/20 12/23/20 History lisinopriL [Zestril] 20 mg PO BID 12/23/20 12/23/20 History Allergies Allergy/AdvReac Type Severity Reaction Status Date / Time No Known Allergies Allergy Verified 12/23/20 15:33 Physical Examination - Vital Signs Vital Signs: Vital Signs Temp Pulse Resp Pulse Ox 01/01/21 12:00 102.7 F H 90 24 96 01/01/21 11:00 68 24 97 01/01/21 10:00 87 24 97 01/01/21 09:00 75 24 97 01/01/21 08:00 99.9 F H 88 24 97 01/01/21 07:00 78 24 96 01/01/21 06:00 95 22 97 01/01/21 05:00 84 24 97 01/01/21 04:00 100.7 F H 88 26 H 97 01/01/21 03:00 80 22 97 01/01/21 02:00 82 24 97 01/01/21 01:00 86 24 97 01/01/21 00:13 102 H 24 98 01/01/21 00:00 79 24 97 12/31/20 23:00 84 22 95 12/31/20 22:00 112 H 25 H 96 12/31/20 21:00 94 26 H 96 12/31/20 20:00 99.9 F H 81 19 95 12/31/20 19:00 86 25 H 96 12/31/20 18:00 86 26 H 96 12/31/20 17:00 85 24 96 12/31/20 16:00 100.7 F H 93 24 95 12/31/20 15:00 87 29 H 97 12/31/20 14:00 109 H 26 H 96 Intake and Output 12/31/20 01/01/21 01/01/21 22:59 06:59 14:59 Intake Total 764.5 1027.0 876.5 Output Total 750 725 510 Balance 14.5 302.0 366.5 Intake: IV 184 184 138 Dextrose 5%-0.45% NaCl 1, 160 160 120 000 ml @ 20 mls/hr IV . Q24H [facility] Rx#:[id number] pressure bag 24 24 18 Intake, IV Titration 112.5 75.0 12.5 Amount Cefepime 1 gm In Sodium 12.5 75.0 12.5 Chloride 0.9% 50 ml @ 12. 5 mls/hr IVPB Q8H [facility] Rx# :[id number] Dexmedetomidine/0.9% NaCl 100 (Pmx) 400 mcg In Empty Bag 1 bag @ Titrate IV . Q0M [facility] Rx#:[id number] Tube Feeding 168 168 126 Other 300 600 600 Output: Urine 750 725 510 Other: Voiding Method Indwelling Catheter Indwelling Catheter Weight 84.6 kg ABP, PAP, CO, CI - Last 8 Hours Arterial Blood Pressure 156/64 Arterial Blood Pressure 131/57 Arterial Blood Pressure 144/63 Arterial Blood Pressure 146/60 Arterial Blood Pressure 138/62 Arterial Blood Pressure 138/61 Arterial Blood Pressure 123/49 Gen.: Patient is reclining in the bed. She is intubated. She is in no acute distress. HEENT: Head is atraumatic, normocephalic. Fundus not visualized. There is no scleral icterus. Mucous membranes are moist. Neck: Supple Heart: Irregularly irregular Lungs: Diminished breath sounds throughout Extremities: Without edema Neurological examination Mental status: Patient is not responsive to verbal stimulation. There is no eye opening. Patient follows no commands. Cranial nerves: Pupils are equal at 2 mm and reactive. The patient does blink to visual threat when eyelids are passively held open. Corneal reflexes present bilaterally. There is no obvious facial asymmetry. Gag reflex is present. Motor: There are no spontaneous movements of the extremities. Patient is observed to reposition her head. Sensation: There is localization and slight withdrawal from noxious stimulation of the bilateral upper extremities. There is no response to noxious stimulation of the lower extremities. Results - Laboratory Findings CBC and BMP: 01/01/21 05:00 01/01/21 05:00 Abnormal Lab Findings: Abnormal Labs 12/23/20 12/23/20 12/23/20 12:33 12:33 12:33 WBC RBC 3.64 L Hgb Hct MCV Neutrophils # 9.6 H Lymphocytes # 0.6 L Monocytes # APTT D-Dimer 1.07 H ABG pH ABG pCO2 ABG pO2 ABG HCO3 ABG Total CO2 ABG O2 Saturation Sodium 132 L Chloride Carbon Dioxide 19 L BUN 56 H Creatinine 1.90 H Glucose 283 H POC Glucose (mg/dL) Hemoglobin A1c Calcium Phosphorus Magnesium Total Bilirubin AST 44 H ALT Lactate Dehydrogenase Troponin I C-Reactive Protein 22.8 H Total Protein Albumin Procalcitonin Urine Appearance Urine Protein Urine Blood Ur Leukocyte Esterase Urine WBC Urine WBC Clumps Uric Acid Crystals Amorphous Sediment Urine Bacteria Urine Mucus Coronavirus (PCR) 12/23/20 12/23/20 12/23/20 12:33 12:33 12:33 WBC RBC Hgb Hct MCV Neutrophils # Lymphocytes # Monocytes # APTT D-Dimer ABG pH ABG pCO2 ABG pO2 ABG HCO3 ABG Total CO2 ABG O2 Saturation Sodium Chloride Carbon Dioxide BUN Creatinine Glucose POC Glucose (mg/dL) Hemoglobin A1c Calcium Phosphorus Magnesium Total Bilirubin AST ALT Lactate Dehydrogenase 1275 H Troponin I 0.247 H* C-Reactive Protein Total Protein Albumin Procalcitonin Urine Appearance Urine Protein Urine Blood Ur Leukocyte Esterase Urine WBC Urine WBC Clumps Uric Acid Crystals Amorphous Sediment Urine Bacteria Urine Mucus Coronavirus (PCR) Detected A 12/23/20 12/24/20 12/24/20 20:29 06:05 08:38 WBC RBC Hgb Hct MCV Neutrophils # Lymphocytes # Monocytes # APTT D-Dimer ABG pH ABG pCO2 ABG pO2 ABG HCO3 ABG Total CO2 ABG O2 Saturation Sodium 136 L Chloride Carbon Dioxide 19 L BUN 72 H Creatinine 1.94 H Glucose 325 H POC Glucose (mg/dL) 355 H Hemoglobin A1c Calcium Phosphorus Magnesium Total Bilirubin AST 49 H ALT Lactate Dehydrogenase 1605 H Troponin I 0.243 H* C-Reactive Protein 22.3 H Total Protein 6.2 L Albumin 3.3 L Procalcitonin Urine Appearance Urine Protein Urine Blood Ur Leukocyte Esterase Urine WBC Urine WBC Clumps Uric Acid Crystals Amorphous Sediment Urine Bacteria Urine Mucus Coronavirus (PCR) 12/24/20 12/24/20 12/24/20 08:38 08:38 08:38 WBC 13.9 H RBC 3.59 L Hgb Hct MCV Neutrophils # Lymphocytes # Monocytes # APTT D-Dimer 0.90 H ABG pH ABG pCO2 ABG pO2 ABG HCO3 ABG Total CO2 ABG O2 Saturation Sodium Chloride Carbon Dioxide BUN Creatinine Glucose POC Glucose (mg/dL) Hemoglobin A1c Calcium Phosphorus Magnesium Total Bilirubin AST ALT Lactate Dehydrogenase Troponin I 0.133 H* C-Reactive Protein Total Protein Albumin Procalcitonin Urine Appearance Urine Protein Urine Blood Ur Leukocyte Esterase Urine WBC Urine WBC Clumps Uric Acid Crystals Amorphous Sediment Urine Bacteria Urine Mucus Coronavirus (PCR) 12/24/20 12/24/20 12/24/20 08:38 12:21 16:40 WBC RBC Hgb Hct MCV Neutrophils # Lymphocytes # Monocytes # APTT D-Dimer ABG pH ABG pCO2 ABG pO2 ABG HCO3 ABG Total CO2 ABG O2 Saturation Sodium Chloride Carbon Dioxide BUN Creatinine Glucose POC Glucose (mg/dL) 257 H 247 H Hemoglobin A1c Calcium Phosphorus Magnesium Total Bilirubin AST ALT Lactate Dehydrogenase Troponin I C-Reactive Protein 22.2 H Total Protein Albumin Procalcitonin Urine Appearance Urine Protein Urine Blood Ur Leukocyte Esterase Urine WBC Urine WBC Clumps Uric Acid Crystals Amorphous Sediment Urine Bacteria Urine Mucus Coronavirus (PCR) 12/24/20 12/24/20 12/24/20 18:25 18:25 18:25 WBC 22.9 H RBC 3.65 L Hgb Hct MCV 100.3 H Neutrophils # 21.2 H Lymphocytes # Monocytes # APTT D-Dimer ABG pH ABG pCO2 ABG pO2 ABG HCO3 ABG Total CO2 ABG O2 Saturation Sodium Chloride 108 H Carbon Dioxide 18 L BUN 74 H Creatinine 1.79 H Glucose 307 H POC Glucose (mg/dL) Hemoglobin A1c Calcium Phosphorus 7.2 H Magnesium 2.4 H Total Bilirubin AST 282 H ALT 146 H Lactate Dehydrogenase Troponin I 0.090 H* C-Reactive Protein Total Protein 6.2 L Albumin 3.2 L Procalcitonin Urine Appearance Urine Protein Urine Blood Ur Leukocyte Esterase Urine WBC Urine WBC Clumps Uric Acid Crystals Amorphous Sediment Urine Bacteria Urine Mucus Coronavirus (PCR) 12/24/20 12/24/20 12/25/20 18:27 18:52 00:08 WBC RBC Hgb Hct MCV Neutrophils # Lymphocytes # Monocytes # APTT D-Dimer ABG pH 7.22 L ABG pCO2 49 H ABG pO2 53 L* ABG HCO3 20 L ABG Total CO2 ABG O2 Saturation 81.4 L Sodium Chloride Carbon Dioxide BUN Creatinine Glucose POC Glucose (mg/dL) 286 H 214 H Hemoglobin A1c Calcium Phosphorus Magnesium Total Bilirubin AST ALT Lactate Dehydrogenase Troponin I C-Reactive Protein Total Protein Albumin Procalcitonin Urine Appearance Urine Protein Urine Blood Ur Leukocyte Esterase Urine WBC Urine WBC Clumps Uric Acid Crystals Amorphous Sediment Urine Bacteria Urine Mucus Coronavirus (PCR) 12/25/20 12/25/20 12/25/20 01:30 01:30 01:30 WBC 18.7 H RBC 3.39 L Hgb 10.9 L Hct MCV 100.9 H Neutrophils # 17.5 H Lymphocytes # 0.5 L Monocytes # APTT D-Dimer 5.32 H ABG pH ABG pCO2 ABG pO2 ABG HCO3 ABG Total CO2 ABG O2 Saturation Sodium Chloride 112 H Carbon Dioxide 15 L BUN 75 H Creatinine 1.80 H Glucose 272 H POC Glucose (mg/dL) Hemoglobin A1c Calcium 8.0 L Phosphorus Magnesium Total Bilirubin AST 243 H ALT 138 H Lactate Dehydrogenase 2249 H Troponin I C-Reactive Protein 20.0 H Total Protein 5.7 L Albumin 2.8 L Procalcitonin Urine Appearance Urine Protein Urine Blood Ur Leukocyte Esterase Urine WBC Urine WBC Clumps Uric Acid Crystals Amorphous Sediment Urine Bacteria Urine Mucus Coronavirus (PCR) 12/25/20 12/25/20 12/25/20 01:30 01:30 05:40 WBC RBC Hgb Hct MCV Neutrophils # Lymphocytes # Monocytes # APTT 63.9 H D-Dimer ABG pH 7.23 L ABG pCO2 ABG pO2 64 L ABG HCO3 16 L ABG Total CO2 17 L ABG O2 Saturation 90.7 L Sodium Chloride Carbon Dioxide BUN Creatinine Glucose POC Glucose (mg/dL) Hemoglobin A1c Calcium Phosphorus Magnesium Total Bilirubin AST ALT Lactate Dehydrogenase Troponin I 0.099 H* C-Reactive Protein Total Protein Albumin Procalcitonin Urine Appearance Urine Protein Urine Blood Ur Leukocyte Esterase Urine WBC Urine WBC Clumps Uric Acid Crystals Amorphous Sediment Urine Bacteria Urine Mucus Coronavirus (PCR) 12/25/20 12/25/20 12/25/20 06:30 11:46 17:38 WBC RBC Hgb Hct MCV Neutrophils # Lymphocytes # Monocytes # APTT D-Dimer ABG pH ABG pCO2 ABG pO2 ABG HCO3 ABG Total CO2 ABG O2 Saturation Sodium Chloride Carbon Dioxide BUN Creatinine Glucose POC Glucose (mg/dL) 328 H 264 H 171 H Hemoglobin A1c Calcium Phosphorus Magnesium Total Bilirubin AST ALT Lactate Dehydrogenase Troponin I C-Reactive Protein Total Protein Albumin Procalcitonin Urine Appearance Urine Protein Urine Blood Ur Leukocyte Esterase Urine WBC Urine WBC Clumps Uric Acid Crystals Amorphous Sediment Urine Bacteria Urine Mucus Coronavirus (PCR) 12/25/20 12/26/20 12/26/20 23:33 03:45 03:45 WBC 14.6 H RBC 3.28 L Hgb 10.9 L Hct 33.0 L MCV 100.5 H Neutrophils # Lymphocytes # Monocytes # APTT D-Dimer ABG pH ABG pCO2 ABG pO2 ABG HCO3 ABG Total CO2 ABG O2 Saturation Sodium Chloride Carbon Dioxide BUN Creatinine Glucose POC Glucose (mg/dL) 212 H Hemoglobin A1c 8.5 H Calcium Phosphorus Magnesium Total Bilirubin AST ALT Lactate Dehydrogenase Troponin I C-Reactive Protein Total Protein Albumin Procalcitonin Urine Appearance Urine Protein Urine Blood Ur Leukocyte Esterase Urine WBC Urine WBC Clumps Uric Acid Crystals Amorphous Sediment Urine Bacteria Urine Mucus Coronavirus (PCR) 12/26/20 12/26/20 12/26/20 03:45 03:45 05:11 WBC RBC Hgb Hct MCV Neutrophils # Lymphocytes # Monocytes # APTT 67.4 H D-Dimer 1.20 H ABG pH 7.19 L* ABG pCO2 50 H ABG pO2 237 H ABG HCO3 19 L ABG Total CO2 ABG O2 Saturation 99.3 H Sodium Chloride 114 H Carbon Dioxide 17 L BUN 73 H Creatinine 1.95 H Glucose 258 H POC Glucose (mg/dL) Hemoglobin A1c Calcium Phosphorus Magnesium Total Bilirubin AST 71 H ALT 93 H Lactate Dehydrogenase 1142 H Troponin I C-Reactive Protein 16.4 H Total Protein 5.9 L Albumin 2.8 L Procalcitonin Urine Appearance Urine Protein Urine Blood Ur Leukocyte Esterase Urine WBC Urine WBC Clumps Uric Acid Crystals Amorphous Sediment Urine Bacteria Urine Mucus Coronavirus (PCR) 12/26/20 12/26/20 12/26/20 06:05 11:28 11:42 WBC RBC Hgb Hct MCV Neutrophils # Lymphocytes # Monocytes # APTT 47.0 H D-Dimer ABG pH ABG pCO2 ABG pO2 ABG HCO3 ABG Total CO2 ABG O2 Saturation Sodium Chloride Carbon Dioxide BUN Creatinine Glucose POC Glucose (mg/dL) 259 H 274 H Hemoglobin A1c Calcium Phosphorus Magnesium Total Bilirubin AST ALT Lactate Dehydrogenase Troponin I C-Reactive Protein Total Protein Albumin Procalcitonin Urine Appearance Urine Protein Urine Blood Ur Leukocyte Esterase Urine WBC Urine WBC Clumps Uric Acid Crystals Amorphous Sediment Urine Bacteria Urine Mucus Coronavirus (PCR) 12/26/20 12/27/20 12/27/20 17:50 03:50 03:50 WBC 18.8 H RBC 3.16 L Hgb 10.5 L Hct 31.4 L MCV Neutrophils # Lymphocytes # Monocytes # APTT D-Dimer ABG pH ABG pCO2 ABG pO2 ABG HCO3 ABG Total CO2 ABG O2 Saturation Sodium Chloride 120 H Carbon Dioxide 18 L BUN 64 H Creatinine 1.37 H Glucose 103 H POC Glucose (mg/dL) 195 H Hemoglobin A1c Calcium Phosphorus Magnesium 2.5 H Total Bilirubin AST 48 H ALT 68 H Lactate Dehydrogenase Troponin I C-Reactive Protein Total Protein 5.1 L Albumin 2.4 L Procalcitonin Urine Appearance Urine Protein Urine Blood Ur Leukocyte Esterase Urine WBC Urine WBC Clumps Uric Acid Crystals Amorphous Sediment Urine Bacteria Urine Mucus Coronavirus (PCR) 12/27/20 12/27/20 12/27/20 03:50 05:26 12:27 WBC RBC Hgb Hct MCV Neutrophils # Lymphocytes # Monocytes # APTT 31.1 H D-Dimer ABG pH 7.34 L ABG pCO2 ABG pO2 ABG HCO3 19 L ABG Total CO2 ABG O2 Saturation 98.0 H Sodium Chloride Carbon Dioxide BUN Creatinine Glucose POC Glucose (mg/dL) 146 H Hemoglobin A1c Calcium Phosphorus Magnesium Total Bilirubin AST ALT Lactate Dehydrogenase Troponin I C-Reactive Protein Total Protein Albumin Procalcitonin Urine Appearance Urine Protein Urine Blood Ur Leukocyte Esterase Urine WBC Urine WBC Clumps Uric Acid Crystals Amorphous Sediment Urine Bacteria Urine Mucus Coronavirus (PCR) 12/27/20 12/27/20 12/27/20 13:40 17:45 22:15 WBC RBC Hgb Hct MCV Neutrophils # Lymphocytes # Monocytes # APTT 31.0 H D-Dimer ABG pH ABG pCO2 ABG pO2 ABG HCO3 ABG Total CO2 ABG O2 Saturation Sodium Chloride Carbon Dioxide BUN Creatinine Glucose POC Glucose (mg/dL) 144 H 181 H Hemoglobin A1c Calcium Phosphorus Magnesium Total Bilirubin AST ALT Lactate Dehydrogenase Troponin I C-Reactive Protein Total Protein Albumin Procalcitonin Urine Appearance Urine Protein Urine Blood Ur Leukocyte Esterase Urine WBC Urine WBC Clumps Uric Acid Crystals Amorphous Sediment Urine Bacteria Urine Mucus Coronavirus (PCR) 12/28/20 12/28/20 12/28/20 00:02 04:42 05:35 WBC 15.7 H RBC 3.13 L Hgb 10.1 L Hct 30.7 L MCV Neutrophils # 14.1 H Lymphocytes # 0.6 L Monocytes # APTT D-Dimer ABG pH ABG pCO2 ABG pO2 77 L ABG HCO3 ABG Total CO2 ABG O2 Saturation Sodium Chloride Carbon Dioxide BUN Creatinine Glucose POC Glucose (mg/dL) 155 H Hemoglobin A1c Calcium Phosphorus Magnesium Total Bilirubin AST ALT Lactate Dehydrogenase Troponin I C-Reactive Protein Total Protein Albumin Procalcitonin Urine Appearance Urine Protein Urine Blood Ur Leukocyte Esterase Urine WBC Urine WBC Clumps Uric Acid Crystals Amorphous Sediment Urine Bacteria Urine Mucus Coronavirus (PCR) 12/28/20 12/28/20 12/28/20 05:35 05:35 05:35 WBC RBC Hgb Hct MCV Neutrophils # Lymphocytes # Monocytes # APTT 32.9 H D-Dimer 0.74 H ABG pH ABG pCO2 ABG pO2 ABG HCO3 ABG Total CO2 ABG O2 Saturation Sodium Chloride 118 H Carbon Dioxide 21 L BUN 64 H Creatinine 1.40 H Glucose 140 H POC Glucose (mg/dL) Hemoglobin A1c Calcium Phosphorus Magnesium Total Bilirubin AST ALT 49 H Lactate Dehydrogenase Troponin I C-Reactive Protein Total Protein 5.3 L Albumin 2.3 L Procalcitonin Urine Appearance Urine Protein Urine Blood Ur Leukocyte Esterase Urine WBC Urine WBC Clumps Uric Acid Crystals Amorphous Sediment Urine Bacteria Urine Mucus Coronavirus (PCR) 12/28/20 12/28/20 12/28/20 05:35 05:40 11:34 WBC RBC Hgb Hct MCV Neutrophils # Lymphocytes # Monocytes # APTT D-Dimer ABG pH ABG pCO2 ABG pO2 ABG HCO3 ABG Total CO2 ABG O2 Saturation Sodium Chloride Carbon Dioxide BUN Creatinine Glucose POC Glucose (mg/dL) 143 H 191 H Hemoglobin A1c Calcium Phosphorus Magnesium Total Bilirubin AST ALT Lactate Dehydrogenase 970 H Troponin I C-Reactive Protein 22.6 H Total Protein Albumin Procalcitonin Urine Appearance Urine Protein Urine Blood Ur Leukocyte Esterase Urine WBC Urine WBC Clumps Uric Acid Crystals Amorphous Sediment Urine Bacteria Urine Mucus Coronavirus (PCR) 12/28/20 12/28/20 12/28/20 17:55 23:19 23:26 WBC RBC Hgb Hct MCV Neutrophils # Lymphocytes # Monocytes # APTT D-Dimer ABG pH ABG pCO2 ABG pO2 ABG HCO3 ABG Total CO2 ABG O2 Saturation Sodium Chloride Carbon Dioxide BUN Creatinine Glucose POC Glucose (mg/dL) 198 H 183 H 197 H Hemoglobin A1c Calcium Phosphorus Magnesium Total Bilirubin AST ALT Lactate Dehydrogenase Troponin I C-Reactive Protein Total Protein Albumin Procalcitonin Urine Appearance Urine Protein Urine Blood Ur Leukocyte Esterase Urine WBC Urine WBC Clumps Uric Acid Crystals Amorphous Sediment Urine Bacteria Urine Mucus Coronavirus (PCR) 12/29/20 12/29/20 12/29/20 03:45 03:45 03:45 WBC 19.2 H RBC 3.55 L Hgb Hct MCV Neutrophils # 17.4 H Lymphocytes # 0.6 L Monocytes # APTT D-Dimer 2.19 H ABG pH ABG pCO2 ABG pO2 ABG HCO3 ABG Total CO2 ABG O2 Saturation Sodium Chloride Carbon Dioxide BUN Creatinine Glucose POC Glucose (mg/dL) Hemoglobin A1c Calcium Phosphorus Magnesium Total Bilirubin AST ALT Lactate Dehydrogenase 1100 H Troponin I C-Reactive Protein 16.5 H Total Protein Albumin Procalcitonin Urine Appearance Urine Protein Urine Blood Ur Leukocyte Esterase Urine WBC Urine WBC Clumps Uric Acid Crystals Amorphous Sediment Urine Bacteria Urine Mucus Coronavirus (PCR) 12/29/20 12/29/20 12/29/20 03:45 03:45 04:50 WBC RBC Hgb Hct MCV Neutrophils # Lymphocytes # Monocytes # APTT D-Dimer ABG pH 7.47 H ABG pCO2 ABG pO2 78 L ABG HCO3 26 H ABG Total CO2 27 H ABG O2 Saturation Sodium 146 H Chloride 114 H Carbon Dioxide BUN 60 H Creatinine 1.43 H Glucose 187 H POC Glucose (mg/dL) Hemoglobin A1c Calcium Phosphorus Magnesium Total Bilirubin AST ALT Lactate Dehydrogenase Troponin I C-Reactive Protein Total Protein Albumin Procalcitonin 0.26 H Urine Appearance Urine Protein Urine Blood Ur Leukocyte Esterase Urine WBC Urine WBC Clumps Uric Acid Crystals Amorphous Sediment Urine Bacteria Urine Mucus Coronavirus (PCR) 12/29/20 12/29/20 12/29/20 05:20 11:37 14:24 WBC RBC Hgb Hct MCV Neutrophils # Lymphocytes # Monocytes # APTT D-Dimer ABG pH ABG pCO2 ABG pO2 ABG HCO3 ABG Total CO2 ABG O2 Saturation Sodium Chloride Carbon Dioxide BUN Creatinine Glucose POC Glucose (mg/dL) 169 H 178 H Hemoglobin A1c Calcium Phosphorus Magnesium Total Bilirubin AST ALT Lactate Dehydrogenase Troponin I C-Reactive Protein Total Protein Albumin Procalcitonin Urine Appearance Turbid H Urine Protein 1+ H Urine Blood Trace H Ur Leukocyte Esterase Moderate H Urine WBC 19 H Urine WBC Clumps Few H Uric Acid Crystals Moderate H Amorphous Sediment Rare H Urine Bacteria Many H Urine Mucus Rare H Coronavirus (PCR) 12/29/20 12/29/20 12/30/20 17:53 23:54 03:58 WBC RBC Hgb Hct MCV Neutrophils # Lymphocytes # Monocytes # APTT D-Dimer ABG pH 7.50 H ABG pCO2 ABG pO2 80 L ABG HCO3 28 H ABG Total CO2 29 H ABG O2 Saturation Sodium Chloride Carbon Dioxide BUN Creatinine Glucose POC Glucose (mg/dL) 158 H 105 H Hemoglobin A1c Calcium Phosphorus Magnesium Total Bilirubin AST ALT Lactate Dehydrogenase Troponin I C-Reactive Protein Total Protein Albumin Procalcitonin Urine Appearance Urine Protein Urine Blood Ur Leukocyte Esterase Urine WBC Urine WBC Clumps Uric Acid Crystals Amorphous Sediment Urine Bacteria Urine Mucus Coronavirus (PCR) 12/30/20 12/30/20 12/30/20 05:10 05:10 05:10 WBC 19.3 H RBC 3.66 L Hgb Hct MCV Neutrophils # 17.0 H Lymphocytes # 0.9 L Monocytes # 1.1 H APTT D-Dimer ABG pH ABG pCO2 ABG pO2 ABG HCO3 ABG Total CO2 ABG O2 Saturation Sodium 150 H Chloride 118 H Carbon Dioxide BUN 60 H Creatinine 1.40 H Glucose 162 H POC Glucose (mg/dL) 150 H Hemoglobin A1c Calcium Phosphorus Magnesium Total Bilirubin AST ALT Lactate Dehydrogenase Troponin I C-Reactive Protein Total Protein Albumin Procalcitonin Urine Appearance Urine Protein Urine Blood Ur Leukocyte Esterase Urine WBC Urine WBC Clumps Uric Acid Crystals Amorphous Sediment Urine Bacteria Urine Mucus Coronavirus (PCR) 12/30/20 12/30/20 12/31/20 11:43 17:15 00:14 WBC RBC Hgb Hct MCV Neutrophils # Lymphocytes # Monocytes # APTT D-Dimer ABG pH ABG pCO2 ABG pO2 ABG HCO3 ABG Total CO2 ABG O2 Saturation Sodium Chloride Carbon Dioxide BUN Creatinine Glucose POC Glucose (mg/dL) 234 H 191 H 192 H Hemoglobin A1c Calcium Phosphorus Magnesium Total Bilirubin AST ALT Lactate Dehydrogenase Troponin I C-Reactive Protein Total Protein Albumin Procalcitonin Urine Appearance Urine Protein Urine Blood Ur Leukocyte Esterase Urine WBC Urine WBC Clumps Uric Acid Crystals Amorphous Sediment Urine Bacteria Urine Mucus Coronavirus (PCR) 12/31/20 12/31/20 12/31/20 04:10 04:47 06:57 WBC RBC Hgb Hct MCV Neutrophils # Lymphocytes # Monocytes # APTT D-Dimer ABG pH 7.52 H ABG pCO2 33 L ABG pO2 74 L ABG HCO3 26 H ABG Total CO2 27 H ABG O2 Saturation Sodium 150 H Chloride 118 H Carbon Dioxide BUN 63 H Creatinine 1.50 H Glucose 214 H POC Glucose (mg/dL) 238 H Hemoglobin A1c Calcium Phosphorus Magnesium Total Bilirubin AST ALT Lactate Dehydrogenase Troponin I C-Reactive Protein Total Protein Albumin Procalcitonin Urine Appearance Urine Protein Urine Blood Ur Leukocyte Esterase Urine WBC Urine WBC Clumps Uric Acid Crystals Amorphous Sediment Urine Bacteria Urine Mucus Coronavirus (PCR) 12/31/20 12/31/20 12/31/20 11:42 12:30 12:30 WBC 17.2 H RBC 3.30 L Hgb 10.4 L Hct 32.7 L MCV Neutrophils # Lymphocytes # Monocytes # APTT D-Dimer 2.80 H ABG pH ABG pCO2 ABG pO2 ABG HCO3 ABG Total CO2 ABG O2 Saturation Sodium Chloride Carbon Dioxide BUN Creatinine Glucose POC Glucose (mg/dL) 200 H Hemoglobin A1c Calcium Phosphorus Magnesium Total Bilirubin AST ALT Lactate Dehydrogenase Troponin I C-Reactive Protein Total Protein Albumin Procalcitonin Urine Appearance Urine Protein Urine Blood Ur Leukocyte Esterase Urine WBC Urine WBC Clumps Uric Acid Crystals Amorphous Sediment Urine Bacteria Urine Mucus Coronavirus (PCR) 12/31/20 12/31/20 12/31/20 12:30 16:34 17:29 WBC 16.8 H RBC 3.42 L Hgb 10.7 L Hct 33.7 L MCV Neutrophils # Lymphocytes # Monocytes # APTT D-Dimer ABG pH ABG pCO2 ABG pO2 ABG HCO3 ABG Total CO2 ABG O2 Saturation Sodium 149 H Chloride 117 H Carbon Dioxide BUN 64 H Creatinine 1.55 H Glucose 246 H POC Glucose (mg/dL) 209 H Hemoglobin A1c Calcium Phosphorus Magnesium 2.5 H Total Bilirubin 1.5 H AST 85 H ALT 82 H Lactate Dehydrogenase 1167 H Troponin I C-Reactive Protein 6.2 H Total Protein 6.0 L Albumin 2.7 L Procalcitonin Urine Appearance Urine Protein Urine Blood Ur Leukocyte Esterase Urine WBC Urine WBC Clumps Uric Acid Crystals Amorphous Sediment Urine Bacteria Urine Mucus Coronavirus (PCR) 12/31/20 01/01/21 01/01/21 23:54 05:00 05:00 WBC 16.1 H RBC 3.51 L Hgb 11.3 L Hct MCV 100.1 H Neutrophils # 14.5 H Lymphocytes # 0.8 L Monocytes # APTT 21.5 L D-Dimer ABG pH ABG pCO2 ABG pO2 ABG HCO3 ABG Total CO2 ABG O2 Saturation Sodium Chloride Carbon Dioxide BUN Creatinine Glucose POC Glucose (mg/dL) 195 H Hemoglobin A1c Calcium Phosphorus Magnesium Total Bilirubin AST ALT Lactate Dehydrogenase Troponin I C-Reactive Protein Total Protein Albumin Procalcitonin Urine Appearance Urine Protein Urine Blood Ur Leukocyte Esterase Urine WBC Urine WBC Clumps Uric Acid Crystals Amorphous Sediment Urine Bacteria Urine Mucus Coronavirus (PCR) 01/01/21 01/01/21 01/01/21 05:00 05:00 05:23 WBC RBC Hgb Hct MCV Neutrophils # Lymphocytes # Monocytes # APTT D-Dimer 2.95 H ABG pH 7.49 H ABG pCO2 33 L ABG pO2 ABG HCO3 ABG Total CO2 26 H ABG O2 Saturation Sodium 148 H Chloride 118 H Carbon Dioxide BUN 69 H Creatinine 1.51 H Glucose 218 H POC Glucose (mg/dL) Hemoglobin A1c Calcium Phosphorus Magnesium Total Bilirubin AST ALT Lactate Dehydrogenase Troponin I C-Reactive Protein Total Protein Albumin Procalcitonin Urine Appearance Urine Protein Urine Blood Ur Leukocyte Esterase Urine WBC Urine WBC Clumps Uric Acid Crystals Amorphous Sediment Urine Bacteria Urine Mucus Coronavirus (PCR) 01/01/21 01/01/21 05:24 11:53 WBC RBC Hgb Hct MCV Neutrophils # Lymphocytes # Monocytes # APTT D-Dimer ABG pH ABG pCO2 ABG pO2 ABG HCO3 ABG Total CO2 ABG O2 Saturation Sodium Chloride Carbon Dioxide BUN Creatinine Glucose POC Glucose (mg/dL) 201 H 181 H Hemoglobin A1c Calcium Phosphorus Magnesium Total Bilirubin AST ALT Lactate Dehydrogenase Troponin I C-Reactive Protein Total Protein Albumin Procalcitonin Urine Appearance Urine Protein Urine Blood Ur Leukocyte Esterase Urine WBC Urine WBC Clumps Uric Acid Crystals Amorphous Sediment Urine Bacteria Urine Mucus Coronavirus (PCR) Assessment and Plan Assessment: 1. Cerebral anoxia/hypoxia secondary to respiratory failure related to pneumonia and Covid 19 infection, degree of insult is not apparent at this time secondary to sedation 2. History of coronary artery disease 3. History of hypertension 4. History of atrial fibrillation on anticoagulation Plan: 1. Agree with EEG 2. MRI of brain, without gadolinium 3. Continue to attempt weaning from sedation Time with Patient: Greater than 30 (spent 35 minutes with patient via teleneurology)
[2021-01-01 17:45] LABS: Glucose,Whole Blood 182 mg/dL (75-99)
[2021-01-02 00:40] LABS: Glucose,Whole Blood 166 mg/dL (75-99)
[2021-01-02] MEDS: INSULIN ASPART (NovoLOG) 100 UNIT/ML VIAL SQ SCH ×8 (00:46→17:41)
[2021-01-02] MEDS: ALBUTEROL HFA INHALER INHALATION SCH ×6 (02:57→23:33)
[2021-01-02 03:51] LABS: Basophils % (A) 0 %; Eosinophils % (A) 0 %; HCT 33.3 % (34.0-46.0); HGB 10.3 gm/dL (11.4-16.0); Hypochromasia Slight; Lymphocytes # (A) 0.7 k/uL (1.0-4.8); Lymphocytes % (A) 4 %; MCHC 30.9 g/dL (31.0-37.0); MCV 100.1 fL (80.0-100.0); Mean Platelet Volume 8.8; Monocytes # (A) 0.7 k/uL (0-1.0); Monocytes % (A) 4 %; Neutrophils # (A) 13.3 k/uL (1.3-7.7); Neutrophils % (A) 90 %; Platelet Count 203 k/uL (150-450); RBC 3.33 m/uL (3.80-5.40); RDW 13.1 % (11.5-15.5); WBC 14.8 k/uL (3.8-10.6)
[2021-01-02] MEDS: DEXTROSE 5%-0.45% NACL 1,000 ML IV SCH (03:54)
[2021-01-02] MEDS: CEFEPIME 1 GM in SODIUM CHLORIDE 0.9% 50 ML IVPB SCH ×3 (03:54→19:47)
[2021-01-02 05:35] LABS: ABG Base Excess -0.5 mmol/L; ABG HCO3 23 mmol/L (21-25); ABG Oxygen Saturation 96.3 % (94-97); ABG PCO2 32 mmHg (35-45); ABG PH 7.47 (7.35-7.45); ABG PO2 80 mmHg (83-108); ABG TCO2 24 mmol/L (19-24)
[2021-01-02 05:39] LABS: C Reactive Protein 3.5 mg/dL (<1.0); Calcium 8.4 mg/dL (8.4-10.2); Potassium 4.1 mmol/L (3.5-5.1)
[2021-01-02 06:04] LABS: Allen Test Performed? no
[2021-01-02] MEDS: INSULIN DETEMIR (LEVEMIR) 100 UNIT/ML SYR SQ SCH ×2 (06:11→20:46)
--- NOTE | 2021-01-02 06:38 | XR ---
EXAMINATION TYPE: XR chest 1V portable DATE OF EXAM: 01/02/2021 CLINICAL HISTORY: Difficulty breathing progress study. TECHNIQUE: Single AP portable semiupright view of the chest is obtained. COMPARISON: Chest x-ray from one day earlier and older studies. FINDINGS: Stable endotracheal and orogastric tubes. Stable left internal jugular central venous cath eter. Overlying sternal wires and mediastinal clips redemonstrated. Stable mild cardiomegaly with atheroscl erotic thoracic aorta. Persistent patchy bibasilar opacities . No pleural effusion or pneumothorax se en. Osseous structures are intact. IMPRESSION: Cardiomegaly and background chronic parenchymal changes with persistent patchy bibasilar acute infiltrate and/or atelectasis remains present. No new infiltrate identified.
[2021-01-02] MEDS: DEXMEDETOMIDINE/0.9% NACL(PMX) 400 MCG in EMPTY BAG 1 BAG IV SCH (07:11)
--- NOTE | 2021-01-02 09:00 | P.PN ---
Subjective HISTORY OF PRESENTING ILLNESS This is a pleasant 75-year-old with past medical history significant for paroxysmal atrial fibrillation, COVID-19 pneumonia, cardiac arrest, cardiomyopathy ejection fraction 30-35%, moderate to severe aortic stenosis, possible anoxic brain injury. Patient had presented 12/23/2020 with shortness of breath having recently been diagnosed with [place] pneumonia. She has been unable to wean the vent and remains intubated and sedated. Currently remains in A. fib with controlled ventricular rates on amiodarone oral. Labs reviewed, white blood cell 14.8, hemoglobin 10.3, platelets 203, d-dimer 2.5, sodium 147, BUN 73, creatinine 1.47. Chest x-ray 01/02/2021 shows cardiomegaly and background chronic parenchymal changes with persistent patchy by basilar infiltrates. REVIEW OF SYSTEMS At the time of my exam: Unable to supply secondary to sedation PHYSICAL EXAMINATION Vital signs reviewed. CONSTITUTIONAL: No apparent distress, chronically ill appearing, sedated on ventilator. HEENT: Head is normocephalic. Pupils are equal, round. Sclerae anicteric. Mucous membranes of the mouth are moist. No JVD. No carotid bruit. CHEST EXAMINATION: Coarse breath sounds bilateralls HEART EXAMINATION: Irregular rate and rhythm. S1, S2 heard. +3/6 systolic murmur. ABDOMEN: Soft, nontender. Positive bowel sounds. EXTREMITIES: 2+ peripheral pulses, no lower extremity edema and no calf tenderness. NEUROLOGIC EXAMINATION: Patient is awake, alert and oriented x3. ASSESSMENT 1. COVID-19 pneumonia 2. Mildly elevated troponins likely type II mechanism 3. Cardiomyopathy ejection fraction 30-35% 4. Moderate to severe aortic stenosis, may be component of low-flow low gradient 5. Chronic kidney disease 6. Respiratory failure with inability to wean from ventilator 7. Staus post cardiac arrest, questionable anoxic brain injury 8. Paroxysmal atrial fibrillation, currently controlled ventricular rates 9. Hypernatremia PLAN Continue with supportive care for COVID-19 pneumonia. Continue with heart failure regimen with metoprolol 50 mg twice a day, hydralazine 50 mg 3 times a day, ideally UVALDO inhibitor or angiotensin receptor bonnie however she does have acute on chronic kidney disease. Continue with tube feeds and monitor ins and outs. Patient hypernatremic and may benefit from gentle IV fluids. Continue amiodarone at this time. Monitor with previous liver injury. Currently Eliquis 2.5 mg dosing however pending clinical course would likely increase to 5 mg dosing. Prognosis guarded. Objective - Vital Signs Vital signs: Vital Signs Temp 98.3 F 01/02/21 04:00 Pulse 80 01/02/21 07:00 Resp 24 01/02/21 07:00 BP 121/69 12/30/20 21:00 Pulse Ox 97 01/02/21 07:00 Intake & Output 01/01/21 01/02/21 01/02/21 18:59 06:59 18:59 Intake Total 2221.478 6663.529 20.515 Output Total 900 825 Balance 662.496 697.529 20.515 Weight 87.2 kg Intake: IV 276 299 Dextrose 5%-0.45% NaCl 1, 240 260 000 ml @ 20 mls/hr IV . Q24H [facility] Rx#:[id number] pressure bag 36 39 Intake, IV Titration 134.496 50.529 20.515 Amount Cefepime 1 gm In Sodium 12.5 50 Chloride 0.9% 50 ml @ 12. 5 mls/hr IVPB Q8H [facility] Rx# :[id number] Dexmedetomidine/0.9% NaCl 121.996 0.529 20.515 (Pmx) 400 mcg In Empty Bag 1 bag @ Titrate IV . Q0M [facility] Rx#:[id number] Tube Feeding 252 273 Other 900 900 Output: Urine 900 825 Other: Voiding Method Indwelling Catheter Indwelling Catheter ABP, PAP, CO, CI - Last Documented Arterial Blood Pressure 130/67 - Labs CBC & Chem 7: 01/02/21 03:32 01/02/21 04:30 Labs: Abnormal Lab Results - Last 24 Hours (Table) 01/01/21 01/01/21 01/02/21 Range/Units 11:53 17:43 00:38 WBC (3.8-10.6) k/uL RBC (3.80-5.40) m/uL Hgb (11.4-16.0) gm/dL Hct (34.0-46.0) % MCV (80.0-100.0) fL MCHC (31.0-37.0) g/dL Neutrophils # (1.3-7.7) k/uL Lymphocytes # (1.0-4.8) k/uL D-Dimer (<0.60) mg/L FEU ABG pH (7.35-7.45) ABG pCO2 (35-45) mmHg ABG pO2 (83-108) mmHg Sodium (137-145) mmol/L Chloride (98-107) mmol/L BUN (7-17) mg/dL Creatinine (0.52-1.04) mg/dL Glucose (74-99) mg/dL POC Glucose (mg/dL) 181 H 182 H 166 H (75-99) mg/dL Lactate Dehydrogenase (313-618) U/L Creatine Kinase (30-135) U/L C-Reactive Protein (<1.0) mg/dL 01/02/21 01/02/21 01/02/21 Range/Units 03:32 03:32 04:30 WBC 14.8 H (3.8-10.6) k/uL RBC 3.33 L (3.80-5.40) m/uL Hgb 10.3 L (11.4-16.0) gm/dL Hct 33.3 L (34.0-46.0) % MCV 100.1 H (80.0-100.0) fL MCHC 30.9 L (31.0-37.0) g/dL Neutrophils # 13.3 H (1.3-7.7) k/uL Lymphocytes # 0.7 L (1.0-4.8) k/uL D-Dimer 2.51 H (<0.60) mg/L FEU ABG pH (7.35-7.45) ABG pCO2 (35-45) mmHg ABG pO2 (83-108) mmHg Sodium 147 H (137-145) mmol/L Chloride 120 H (98-107) mmol/L BUN 73 H (7-17) mg/dL Creatinine 1.47 H (0.52-1.04) mg/dL Glucose 187 H (74-99) mg/dL POC Glucose (mg/dL) (75-99) mg/dL Lactate Dehydrogenase 905 H (313-618) U/L Creatine Kinase 27 L (30-135) U/L C-Reactive Protein 3.5 H (<1.0) mg/dL 01/02/21 Range/Units 05:34 WBC (3.8-10.6) k/uL RBC (3.80-5.40) m/uL Hgb (11.4-16.0) gm/dL Hct (34.0-46.0) % MCV (80.0-100.0) fL MCHC (31.0-37.0) g/dL Neutrophils # (1.3-7.7) k/uL Lymphocytes # (1.0-4.8) k/uL D-Dimer (<0.60) mg/L FEU ABG pH 7.47 H (7.35-7.45) ABG pCO2 32 L (35-45) mmHg ABG pO2 80 L (83-108) mmHg Sodium (137-145) mmol/L Chloride (98-107) mmol/L BUN (7-17) mg/dL Creatinine (0.52-1.04) mg/dL Glucose (74-99) mg/dL POC Glucose (mg/dL) (75-99) mg/dL Lactate Dehydrogenase (313-618) U/L Creatine Kinase (30-135) U/L C-Reactive Protein (<1.0) mg/dL Microbiology - Last 24 Hours (Table) 12/29/20 14:24 Urine Culture - Preliminary Urine,Voided Escherichia coli
[2021-01-02] MEDS: PANTOPRAZOLE 40 MG/10 ML VIAL IVP SCH ×2 (09:14→20:46)
[2021-01-02] MEDS: CHOLECALCIFEROL 25 MCG (1000 IU) TABLET PO SCH (09:15)
[2021-01-02] MEDS: AMIODARONE 200 MG TAB PO SCH ×3 (09:15→20:45)
[2021-01-02] MEDS: FAMOTIDINE 20 MG/2 ML VIAL IV SCH (09:15)
[2021-01-02] MEDS: APIXABAN 2.5 MG TABLET PO SCH ×2 (09:15→20:45)
[2021-01-02] MEDS: hydrALAZINE HCL 50 MG TAB PO SCH ×3 (09:15→20:45)
[2021-01-02] MEDS: ASCORBIC ACID 500 MG TAB PO SCH (09:15)
[2021-01-02] MEDS: ZINC SULFATE 220 MG CAP PO SCH (09:15)
[2021-01-02] MEDS: DEXAMETHASONE SOD PHOSPHATE 10 MG/ML 1 ML VIAL IV SCH (09:15)
[2021-01-02] MEDS: CHLORHEXIDINE GLUCONATE 15 ML CUP MUCOUS MEM SCH ×2 (09:15→20:46)
[2021-01-02] MEDS: METOPROLOL TARTRATE 50 MG TAB PO SCH ×2 (09:15→20:45)
--- NOTE | 2021-01-02 10:45 | XR ---
EXAMINATION TYPE: XR chest 1V portable DATE OF EXAM: 01/02/2021 CLINICAL HISTORY: OG placement. TECHNIQUE: Single AP portable frontal view of the chest is obtained. COMPARISON: Chest x-ray from earlier today and older studies FINDINGS: Stable endotracheal tube. Stable left internal jugular central venous catheter. Slight adv ancement of orogastric tube from prior. Position still satisfactory. Overlying sternal wires and mediastinal clips redemonstrated. Stable mild cardiomegaly with atheroscl erotic thoracic aorta. Stable Persistent patchy bibasilar opacities . No pleural effusion or pneumoth orax seen. Osseous structures are intact. IMPRESSION: As above.
[2021-01-02] MEDS: DEXTROSE 5% IN WATER 1,000 ML IV SCH ×2 (11:19→20:53)
[2021-01-02 11:30] LABS: Glucose,Whole Blood 189 mg/dL (75-99)
--- NOTE | 2021-01-02 11:45 | P.PN ---
Subjective Patient is still on low dose of Precedex today. Nursing staff informing the patient is still not following commands or doing any purposeful movement. Occasionally she open her eyes but does not track nursing staff around the room. Objective - Vital Signs Vital signs: Vital Signs Temp 99.2 F 01/02/21 08:00 Pulse 77 01/02/21 11:00 Resp 24 01/02/21 11:00 BP 121/69 12/30/20 21:00 Pulse Ox 97 01/02/21 11:00 Intake & Output 01/01/21 01/02/21 01/02/21 18:59 06:59 18:59 Intake Total 8150.489 7364.529 20.515 Output Total 900 825 Balance 662.496 697.529 20.515 Weight 87.2 kg Intake: IV 276 299 Dextrose 5%-0.45% NaCl 1, 240 260 000 ml @ 20 mls/hr IV . Q24H [facility] Rx#:[id number] pressure bag 36 39 Intake, IV Titration 134.496 50.529 20.515 Amount Cefepime 1 gm In Sodium 12.5 50 Chloride 0.9% 50 ml @ 12. 5 mls/hr IVPB Q8H [facility] Rx# :[id number] Dexmedetomidine/0.9% NaCl 121.996 0.529 20.515 (Pmx) 400 mcg In Empty Bag 1 bag @ Titrate IV . Q0M [facility] Rx#:[id number] Tube Feeding 252 273 Other 900 900 Output: Urine 900 825 Other: Voiding Method Indwelling Catheter Indwelling Catheter ABP, PAP, CO, CI - Last Documented Arterial Blood Pressure 133/61 - Exam General: The patient is sedated and intubated Eye: there is normal conjunctiva bilaterally. Neck: The neck is supple, there is no JVD. Cardiovascular: Normal S1-S2, no S3-S4, no murmurs. Respiratory: Lungs clear to auscultation bilaterally Gastrointestinal: Abdomen is soft, nontender Musculoskeletal: There is +1 pedal edema. Skin: Skin is warm and dry - Labs CBC & Chem 7: 01/02/21 03:32 01/02/21 04:30 Labs: Abnormal Lab Results - Last 24 Hours (Table) 01/01/21 01/01/21 01/02/21 Range/Units 11:53 17:43 00:38 WBC (3.8-10.6) k/uL RBC (3.80-5.40) m/uL Hgb (11.4-16.0) gm/dL Hct (34.0-46.0) % MCV (80.0-100.0) fL MCHC (31.0-37.0) g/dL Neutrophils # (1.3-7.7) k/uL Lymphocytes # (1.0-4.8) k/uL D-Dimer (<0.60) mg/L FEU ABG pH (7.35-7.45) ABG pCO2 (35-45) mmHg ABG pO2 (83-108) mmHg Sodium (137-145) mmol/L Chloride (98-107) mmol/L BUN (7-17) mg/dL Creatinine (0.52-1.04) mg/dL Glucose (74-99) mg/dL POC Glucose (mg/dL) 181 H 182 H 166 H (75-99) mg/dL Lactate Dehydrogenase (313-618) U/L Creatine Kinase (30-135) U/L C-Reactive Protein (<1.0) mg/dL 01/02/21 01/02/21 01/02/21 Range/Units 03:32 03:32 04:30 WBC 14.8 H (3.8-10.6) k/uL RBC 3.33 L (3.80-5.40) m/uL Hgb 10.3 L (11.4-16.0) gm/dL Hct 33.3 L (34.0-46.0) % MCV 100.1 H (80.0-100.0) fL MCHC 30.9 L (31.0-37.0) g/dL Neutrophils # 13.3 H (1.3-7.7) k/uL Lymphocytes # 0.7 L (1.0-4.8) k/uL D-Dimer 2.51 H (<0.60) mg/L FEU ABG pH (7.35-7.45) ABG pCO2 (35-45) mmHg ABG pO2 (83-108) mmHg Sodium 147 H (137-145) mmol/L Chloride 120 H (98-107) mmol/L BUN 73 H (7-17) mg/dL Creatinine 1.47 H (0.52-1.04) mg/dL Glucose 187 H (74-99) mg/dL POC Glucose (mg/dL) (75-99) mg/dL Lactate Dehydrogenase 905 H (313-618) U/L Creatine Kinase 27 L (30-135) U/L C-Reactive Protein 3.5 H (<1.0) mg/dL 01/02/21 01/02/21 Range/Units 05:34 11:28 WBC (3.8-10.6) k/uL RBC (3.80-5.40) m/uL Hgb (11.4-16.0) gm/dL Hct (34.0-46.0) % MCV (80.0-100.0) fL MCHC (31.0-37.0) g/dL Neutrophils # (1.3-7.7) k/uL Lymphocytes # (1.0-4.8) k/uL D-Dimer (<0.60) mg/L FEU ABG pH 7.47 H (7.35-7.45) ABG pCO2 32 L (35-45) mmHg ABG pO2 80 L (83-108) mmHg Sodium (137-145) mmol/L Chloride (98-107) mmol/L BUN (7-17) mg/dL Creatinine (0.52-1.04) mg/dL Glucose (74-99) mg/dL POC Glucose (mg/dL) 189 H (75-99) mg/dL Lactate Dehydrogenase (313-618) U/L Creatine Kinase (30-135) U/L C-Reactive Protein (<1.0) mg/dL Microbiology - Last 24 Hours (Table) 12/29/20 14:24 Urine Culture - Final Urine,Voided Escherichia coli Klebsiella ornithinolytica Assessment and Plan Assessment: Patient is a 75-year-old female with a history of prior angina, diabetes, hypothyroidism, dyslipidemia, and hypertension who presented with complaint of weakness and syncope. She started having upper respiratory symptoms approximately 4-5 days prior to presentation. She went to obtain an outpatient Covid test and passed out. She has completed a 2 series Pfizer vaccine earlier this year. In the ER she underwent an extensive evaluation. On arrival her oxygenation was 71% on room air. She was started on BiPAP. Covid testing was positive. Chest x-ray showed diffuse bilateral interstitial infiltrates. She was given a dose of dexamethasone. She was seen by pulmonary who felt she could be managed on selective care. She was continued on dexamethasone. She is not a candidate for Remdesivir secondary to her high oxygen requirements. On the afternoon of 12/24 she had sudden decline in heart rate and had PEA arrest lasting approximately 5 minutes. She was transitioned to the ICU and started on propofol for sedation. She did require small amounts of levo. She was noted to have A. fib after ROSC was achieved and she was subsequently transitioned from Lovenox to heparin drip and then to Eliquis. She was seen by cardiology secondary to her echocardiogram with severe aortic stenosis. Patient had a complicated clinical course in the ICU and was eventually taken off sedation but was not responsive to painful stimuli or any stimulation. Patient did not have any purposeful movement. Awaiting neurology evaluation. Suspected anoxic brain injury -Computed tomography scan of the brain showed no acute findings. EEG ordered. -Neurology consulted for further evaluation. COVID-19 pneumonia Acute hypoxic respiratory failure Acute kidney injury, Non-anion gap metabolic acidosis Transaminitis secondary to above and cardiac arrest Septic shock - Vit D, zinc, vitamin C - Steroid managed by pulmonary - Wean O2 as able - Pulm recs, managing ventilator - Anticoagulation as directed by pulmonary - IV Lasix as directed by ICU team Severe Aortic Stenosis Syncope- likely due to hypoxia versus severe aortic stenosis Elevated toponin- likely due to hypoxia, not consistent with ACS Aborted sudden cardiac Atrial fibrillation with rapid ventricular response Underlying ischemic cardiomyopathy with ejection fraction of 30-35% down from 45% on last echocardiogram at [facility] - tele - ASA, any other room - Eliquis twice daily -Cardiology recommendations appreciated - not a candidate for rate control at this time due to hypotnesion Hypernatremia -Continue D5/half-normal saline and recheck lab work in the morning HTN - hold lisinopril due to VERONICA - Norvasc and Coreg on hold secondary to hypotension - follow BP HLD - statin DM 2 - Long acting, SSI, and fixed dose insulin - increased - follow BS with steroids - A1C 8.5 ASCAD - plavix, BB, statin Hyponatremia, resolved On 01/01, I had a prolonged discussion over the phone with her daughter Lulu. We discussed the patient's current clinical condition and concern for possible anoxic brain injury and poor outcome. We also discussed that we are still waiting on EEG testing and neurology evaluation. Her daughter seems reasonable. She wanted to wait couple more days to see how her mother response. She also informed me that a few years ago apparently her mom was hospitalized for a severe illness and was not responding for a few days then she woke up and return to her normal self. Goals of care will be discussed with the daughter again in the next couple of days pending clinical course.
--- NOTE | 2021-01-02 13:16 | P.PN ---
Subjective Progress Note Date: 01/02/21 Principal diagnosis: Acute hypoxic respiratory failure secondary to COVID-19 pneumonia 12/27/2020, the patient is being seen for a follow-up. Patient is a 75-year-old here patient with community related pneumonia with secondary respiratory failure. The patient also has severe valvular heart disease with severe aortic stenosis. The patient is post cardiac pulmonary arrest with a PEA rhythm that lasted around 7 minutes post intubation on 12/24/2020. The patient also has new onset paroxysmal atrial fibrillation. The patient is diabetic. On today's evaluation, the patient remains sedated. The patient on Profore running at 60 mg/kg/m. The patient is well sedated and she is calm and comfortable on mechanical ventilator. She is an assist-control mode with a rate of 26 with a tidal volume of 400 and PEEP of 13 with a FiO2 of 40%. The blood gases from today shows a pH of 7.34 with a pCO2 of 36 and pO2 of 105. Peak airway pressure 31. Static airway airway pressure 23. The patient had a follow-up chest x-ray that showed no evidence of any pneumothorax. There is persistent but the pulmonary infiltrates consistent with community related pneumonia. Pulmonary e jose francisco cannot be completely excluded. Previous echocardiogram in this patient echocardiogram showed global hypokinesis with an ejection fraction of 3035%. There was also moderate to severe degree of aortic valve was 58 with a mean gradient of 37. Hemodynamically, the patient remains on pressors. The patient is running on a low-dose of norepinephrine urine at 0.03 units per kilogram per minute. The patient is in a sinus rhythm and the patient is also on IV heparin. Patient is sitting up and feeding for nutritional support. The patient is on vital high protein at 60 mL an hour which is currently at goal. Afebrile. She is also on Decadron 6 mg IV every 24 hours. She remains on amiodarone 400 mg by mouth twice a day and Levemir insulin for blood sugar control 30 units at night and 20 units in the morning along with a fasting coverage. She remains on IV Pepcid. 12/28/2020, the patient is being seen for a follow-up. The patient remains intubated on a mechanical ventilator. This morning, the patient is on propofol at 40 mg/kg per minute and the patient is also on Versed at 1 mg an hour. She is intubated on a mechanical ventilator. She remains on assist control mode at a rate of 26 with a volume of 400 and FiO2 of 60% with a PEEP of 9. The cages at 7.4 episodes of 36 and pO2 77. Chest x-rays on changes consistent with diffuse but the pulmonary infiltrates consistent with community related pneumonia. Since yesterday, the patient was diuresed IV Lasix. The patient was given a total of 60 mg of IV Lasix and she has been negative fluid balance. Nevertheless, no major improvement in her oxygenation nor her chest x-ray findings. She is off pressors. She remains on IV heparin per protocol. The cardiac rhythm is sinus. She is receiving enteral feeding for nutritional support. White cell count of 15.7 with a hemoglobin of 10.1. Creatinine is at 1.4 with a BUN of 64. Electrolytes are normal. AST and ALP are 33 and 49 respectively. LDH level is at 970. CRP level is at 22.6. The d-dimer from today is at 0.7. The patient remains on Decadron 6 mg IV every 24 hours. When the process of getting the patient is sedation holiday. We'll use Cleviprex if needed for tighter blood pressure control. otherwise, no other significant events overnight. The patient on Levemir insulin 30 units at bedtime and 20 units in the morning along with sliding scale coverage and 4 units of regular insulin every 4 hours coverage. 12/29/2020, the patient is being seen for a follow-up. Remains on a mechanical ventilator. Remains on Precedex for sedation. Note that I think this patient off sedation yesterday. Following her sedation holiday, the patient did not wak e up completely. She was becoming more restless and hypertensive at that point Cleviprex was admitted for blood pressure control is currently running at 2 mg an hour. Later on during the day, Precedex was also added for sedation at around 4:30 AM this morning and Precedex is running at 0.2 g. Remains intubated. The patient remains on assist control mode at the rate of 26 with a tidal volume of 100 and FiO2 is currently at 40% with a PEEP of 6. We managed to cut down the PEEP overnight slowly maintaining a saturation above 90%. Current pulse ox is 96%. Morning blood gases showed a pH of 7.47 with a pCO2 of 35 and pO2 of 78 and this was on FiO2 of 40%. Chest x-ray from today showing b ilateral pulmonary infiltrates, with probably some improvement in infiltrates patient the right lung base. ET tube remains in a good location. The patient also has a left IJ triple-lumen catheter in place. The patient was receiving daily diuretics. The net fluid balance over the past 24 hours has been -2.4 L. The peak airway pressure on a mechanical ventilator is 16. No significant orotracheal secretions. Creatinine today is at 1.4 which is essentially stable. Sodium level is at 146 slightly higher compared to yesterday as the patient is being diuresed. In terms of inflammatory markers, the patient has a LDH level of 1100 and his CRP level of 16.5. The white cell count is slightly elevated today at 19.2. In terms of her medication coverage, the patient remains on Decadron 6 g IV every 24 hours. The patient is still on she will feeds and currently she is receiving enteral feeding for nutritional support and she is on vital high protein at the rate of 16 mL an hour. Blood sugars are under adequate control and patient is receiving Levemir insulin 30 units at bedtime and 20 units in the morning along with a sliding scale coverage. Patient was reevaluated today on 12/30/2020, patient remains in the ICU, intubated and mechanically ventilated. Remains sedated on Precedex. Dose is 0.4 mcg/kg/h. IV fluid is 0.9 at 20 mL per hour. Patient is not arousable. She seems to get intermittent episodes of atrial fibrillation with RVR with any minimal agitation hence unable to address weaning on this patient today. Ventilator settings are assist control of 26, volume is 400 FiO2 40% PEEP of 5 ABG showed a pO2 of 80 pCO2 of 35 pH of 7.50. No changes were made in the venti lator settings. Chest x-ray continues to show bilateral infiltrates. Patient had a T-max of 101.7. Sputum cultures are negative. Blood cultures remain negative. Patient remains on enteral feedings. Elisa peterson has a left IJ triple- lumen catheter in place. Remains on diuretics intermittently. CBC count is 19.0 hemoglobin is 11.5. Sodium is 150. Hence we'll change her IV fluid to D5W. BUN is 60 creatinine 1.40. Considering the patient is having significant episodes of atrial fibrillation with RVR, patient was placed on oral anticoagulation in the form of Eliquis 2.5 mg twice a day and we can discontinue Lovenox. Remains on albuterol, remains on Decadron. Remains on the COVID-19 cocktail. And she remains on Precedex. Considering her atrial fibrillation with RVR, I have no plans to wean and extubate the patient, she is presently not weanable Reevaluated today on 12/31/2020, patient remains in the ICU, intubated and mechanically ventilated remains on Precedex. At 0.6 mcg/kg per hour. Remains on D5W at 50 mL per hour. She is on enteral feeding using vital HP. Continues to have hypernatremia, and we are recommending that the patient receives free water via nasogastric tube. Her ventilator settings are assist control rate of 26 tidal volume 400 FiO2 40% PEEP of 5 ABG showed a pO2 of 74 pCO2 of 33 pH of 7.52, and I lowered down her rate down to 24. Patient remains in atrial fibrillation but seems to be controlled rate is 92. The pressure seems to be a bit elevated at 173/76. Neurologically the patient does not seem to be responding to any verbal or painful stimuli, hence I'm recommending a CT of the brain, I'm also recommending neurologic evaluation. In the meantime we will discontinue Precedex and assess mental status. Clearly the patient is not ready for any form of weaning. Chest x-ray continues to show cardiomegaly and parenchymal changes, there is definite improvement in her multifocal opacities related to her underlying COVID-19 pneumonia. And that is clearly reflected on the improvement in the ABG. Appendectomy were reviewed sodium is 150 BUN is 63 creatinine 1.50 slightly worse compared to yesterday. Patient remains on updrafts, remains on amiodarone. Eliquis. Cefepime, Decadron, Pepcid, insulin, Toprol, sputum is positive for Klebsiella and proteus mirabilis. Both are sensitive to cefepime. Patient was reevaluated today on 01/01/2021, remains in the ICU, intubated and mechanically ventilated. No major car changer the last 24 hours, patient remains unresponsive to any verbal or painful stimuli. CT of the brain showed no evidence of active disease. And neurological consultation is pending. I strongly believe the patient also sustained some anoxic brain injury related to her initial cardiac arrest. Her ventilator settings are assist control rate of 24 to 400 FiO2 40% and PEEP of 5. ABG showed a pO2 of 84 pCO2 33 pH of 7.49. Patient remains on Precedex. And I would likely place on hold and continue to assess mental status on a regular basis. He she does not requiring any narcotics or any paralytics. Yesterday she developed some coffee-ground emesis, and Eliquis was placed on hold, Protonix was increased to twice a day, however no further evidence of any GI bleeding, we'll restart Eliquis today. Patient remains in atrial flutter with a rate of 93. She is also on enteral feeding using vital HP at 20 mL per hour. Neurological consultation is pending on this patient. Chest x-ray continues to show cardiomegaly, chronic parenchymal changes, and possibly left patchy basilar atelectasis, possible infiltrate. CBC today showed leukocytosis with WBC count of 16.1 hemoglobin of 11.3. D-dimer is 2.95. Laura ctrolytes showed sodium of 148 potassium 4.1 chloride 118 bicarb 23 BUN is 69 creatinine is 1.51. Renal profile seems to be holding about the same Reevaluated today on 01/02/2021, patient remains in the ICU, intubated and mechanically ventilated. Patient remains on assist control rate of 24 volume is 400 FiO2 40% PEEP of 5 ABG showed a pO2 of 80 pCO2 32 pH of 7.47 patient is on Precedex at 0.3, and she is on IV fluid at KVO. She is still receiving water at 300 mL every 6 hours via orogastric tube. Patient is still receiving vital HP , patient is scheduled to have EGD today. And I continuing her Precedex. Patient remains unresponsive except today for the first time she seems to open her eyes to voice. And open eyes to verbal stimuli. However does not seem to be following any other instructions. Her atrial fibrillation is well controlled, remains on Eliquis. Patient was seen by urology yesterday, and EEG was scheduled to be done today. I have changed her IV fluid to D5W at 75 mL per hour since she continues to have slightly elevated sodium. WBC count today is 14.8 hemoglobin is 10.3. D-dimer is 2.51. Sodium is 147 today. Chloride is 120 BUN is 73 creatinine 1.47. LDH is 905 C-reactive protein is 3.5. Objective - Vital Signs Vital signs: Vital Signs Temp 98.9 F 01/02/21 12:00 Pulse 81 01/02/21 12:00 Resp 24 01/02/21 12:00 BP 121/69 12/30/20 21:00 Pulse Ox 98 01/02/21 12:00 Intake & Output 01/01/21 01/02/21 01/02/21 18:59 06:59 18:59 Intake Total 6686.703 7350.529 425.515 Output Total 900 825 275 Balance 662.496 697.529 150.515 Weight 87.2 kg Intake: IV 276 299 55 Dextrose 5%-0.45% NaCl 1, 240 260 40 000 ml @ 20 mls/hr IV . Q24H [facility] Rx#:[id number] pressure bag 36 39 15 Intake, IV Titration 134.496 50.529 370.515 Amount Cefepime 1 gm In Sodium 12.5 50 50 Chloride 0.9% 50 ml @ 12. 5 mls/hr IVPB Q8H [facility] Rx# :[id number] Dexmedetomidine/0.9% NaCl 121.996 0.529 20.515 (Pmx) 400 mcg In Empty Bag 1 bag @ Titrate IV . Q0M [facility] Rx#:[id number] Dextrose 5% in Water 1, 300 000 ml @ 75 mls/hr IV . [id number] [facility] Rx#:[id number] Tube Feeding 252 273 Other 900 900 Output: Urine 900 825 275 Other: Voiding Method Indwelling Catheter Indwelling Catheter Indwelling Catheter ABP, PAP, CO, CI - Last Documented Arterial Blood Pressure 132/62 - Exam Physical Exam: Revealed 75-year-old female sedated, on Precedex, in no distress, intubated and mechanically ventilated. Opens eyes to verbal and painful stimuli otherwise no other neurological responses. Head: Atraumatic, normocephalic. HEENT:[Neck is supple.] [No neck masses.] [No thyromegaly.] [No JVD.] Endotracheal tube is intact. Orogastric tube is intact. Chest: [Symmetrical chest expansion minimal crackles at the bases. Cardiac Exam: [Irregular irregular rhythm. Normal S1 and S2, no S3 gallop, 3/6 systolic murmur thought the precordium best heard at the left apex. Abdomen: [Soft, nontender, no megaly, no rebound, no guarding, normal bowel sounds.] Extremities: [No clubbing, no edema, no cyanosis.] Pulses bilaterally. Neurological Exam, the only responds a computed get today is opening eyes to verbal and painful stimuli. Psychiatric: Could not be assessed. Skin: No rashes. - Labs CBC & Chem 7: 01/02/21 03:32 01/02/21 04:30 Labs: Abnormal Lab Results - Last 24 Hours (Table) 01/01/21 01/02/21 01/02/21 Range/Units 17:43 00:38 03:32 WBC 14.8 H (3.8-10.6) k/uL RBC 3.33 L (3.80-5.40) m/uL Hgb 10.3 L (11.4-16.0) gm/dL Hct 33.3 L (34.0-46.0) % MCV 100.1 H (80.0-100.0) fL MCHC 30.9 L (31.0-37.0) g/dL Neutrophils # 13.3 H (1.3-7.7) k/uL Lymphocytes # 0.7 L (1.0-4.8) k/uL D-Dimer (<0.60) mg/L FEU ABG pH (7.35-7.45) ABG pCO2 (35-45) mmHg ABG pO2 (83-108) mmHg Sodium (137-145) mmol/L Chloride (98-107) mmol/L BUN (7-17) mg/dL Creatinine (0.52-1.04) mg/dL Glucose (74-99) mg/dL POC Glucose (mg/dL) 182 H 166 H (75-99) mg/dL Lactate Dehydrogenase (313-618) U/L Creatine Kinase (30-135) U/L C-Reactive Protein (<1.0) mg/dL 01/02/21 01/02/21 01/02/21 Range/Units 03:32 04:30 05:34 WBC (3.8-10.6) k/uL RBC (3.80-5.40) m/uL Hgb (11.4-16.0) gm/dL Hct (34.0-46.0) % MCV (80.0-100.0) fL MCHC (31.0-37.0) g/dL Neutrophils # (1.3-7.7) k/uL Lymphocytes # (1.0-4.8) k/uL D-Dimer 2.51 H (<0.60) mg/L FEU ABG pH 7.47 H (7.35-7.45) ABG pCO2 32 L (35-45) mmHg ABG pO2 80 L (83-108) mmHg Sodium 147 H (137-145) mmol/L Chloride 120 H (98-107) mmol/L BUN 73 H (7-17) mg/dL Creatinine 1.47 H (0.52-1.04) mg/dL Glucose 187 H (74-99) mg/dL POC Glucose (mg/dL) (75-99) mg/dL Lactate Dehydrogenase 905 H (313-618) U/L Creatine Kinase 27 L (30-135) U/L C-Reactive Protein 3.5 H (<1.0) mg/dL 01/02/21 Range/Units 11:28 WBC (3.8-10.6) k/uL RBC (3.80-5.40) m/uL Hgb (11.4-16.0) gm/dL Hct (34.0-46.0) % MCV (80.0-100.0) fL MCHC (31.0-37.0) g/dL Neutrophils # (1.3-7.7) k/uL Lymphocytes # (1.0-4.8) k/uL D-Dimer (<0.60) mg/L FEU ABG pH (7.35-7.45) ABG pCO2 (35-45) mmHg ABG pO2 (83-108) mmHg Sodium (137-145) mmol/L Chloride (98-107) mmol/L BUN (7-17) mg/dL Creatinine (0.52-1.04) mg/dL Glucose (74-99) mg/dL POC Glucose (mg/dL) 189 H (75-99) mg/dL Lactate Dehydrogenase (313-618) U/L Creatine Kinase (30-135) U/L C-Reactive Protein (<1.0) mg/dL Microbiology - Last 24 Hours (Table) 12/29/20 14:24 Urine Culture - Final Urine,Voided Escherichia coli Klebsiella ornithinolytica Assessment and Plan Assessment: Impression: Acute hypoxic respiratory failure secondary to COVID-19 pneumonia requiring intubation and mechanical ventilation. Status post cardiac arrest with pulseless electrical activity for 7 minutes, status post intubation and mechanical ventilation since 12/24/2020. Possible anoxic brain injury. CT of the brain was ordered and may consider neurological consultation. Severe aortic stenosis. Severe cardiomyopathy and LV dysfunction with ejection fraction of 30%. Atrial fibrillation/atrial flutter. Type 2 diabetes. Acute kidney injury, likely secondary to acute tubular necrosis. And related to cardiac arrest possibly related to COVID-19 infection. Elevated inflammatory markers secondary to acute COVID-19 infection/pneumonia Non-ST elevation [place] is suspected. Possible underlying bacterial pneumonia secondary to Klebsiella and Proteus renetta bilis. Hence the patient will remain on cefepime for now. Possible anoxic brain injury. Coffee-ground emesis, possibly erosive gastritis, Protonix is 40 mg twice a day. Resume Eliquis Recommendation: Continue present supportive care measures including ventilatory support and support hemodynamic support if necessary anticoagulation therapy neurology to assess further today by EEG.. Continue ventilatory support, no changes in the vent settings today. ABG was noted. Ventilator settings were The same. Continue nutritional support. Patient is on enteral feeding up to goal. Continue anticoagulation therapy Continue hemodynamic support if necessary presently not requiring any pressors. Continue the COVID-19 cocktail. Continue Decadron. Overall prognosis remains extremely poor and guarded. I have a feeling that the patient didn't recover fully from her COVID-19 infection, however her main issue seems to be related to her anoxic brain injury and metabolic encephalopathy. Patient is a critically ill. Critical care time is over 30 minutes. Time with Patient: Greater than 30
--- NOTE | 2021-01-02 16:07 | EEG ---
ELECTROENCEPHALOGRAM REPORT DATE OF SERVICE: 01/02/2021. CLINICAL HISTORY: This is a 75-year-old woman who has Covid 19 pneumonia and has altered mental status. The video EEG is obtained to evaluate for seizure epileptiform activity. RELEVANT MEDICATION: The patient is not on any antiepileptic drug. EEG TYPE: A routine 21 channel EEG is performed with video using the 10/20 electrode placement system. DESCRIPTION: The patient is intubated on a ventilator. The background consists of low to moderate voltage of 6-7 hertz theta that is poorly modulated. At times, the background consists of 5-6 hertz theta activity. There IS no physiological sleep architecture seen. There is no focal slowing. There is significant diffuse myogenic artifact. Interictal and ictal is none. ACTIVATION PROCEDURES: Photic stimulation and hyperventilation are not performed. CLINICAL INTERPRETATION: This is an abnormal routine EEG. The background slowing is suggestive of moderate encephalopathy. There are no focal slowing, epileptiform discharges or seizure on the EEG. Clinical correlation is recommended. MMARELIS / DALIN: [id number] / MARGARET
[2021-01-02 16:09] LABS: Ferritin 685.9 ng/mL (10.0-291.0)
[2021-01-02 17:36] LABS: Glucose,Whole Blood 198 mg/dL (75-99)
--- NOTE | 2021-01-02 18:38 | P.PN ---
Subjective Progress Note Date: 01/02/21 I am seeing the patient for the first time for neurological management. Please refer to Dr. Alexander for further details. Per the patient's nurse, the patient was on low dose Precedex in the AM and was held since 9am today. Patient has not been verbalizing or following commands. She continues to be intubated and on ventilator. Objective - Vital Signs Vital signs: Vital Signs Temp 98.9 F 01/02/21 16:00 Pulse 99 01/02/21 17:00 Resp 24 01/02/21 17:00 BP 121/69 12/30/20 21:00 Pulse Ox 98 01/02/21 17:00 Intake & Output 01/01/21 01/02/21 01/02/21 18:59 06:59 18:59 Intake Total 3028.453 3790.529 737.515 Output Total 900 825 525 Balance 662.496 697.529 212.515 Weight 87.2 kg Intake: IV 276 299 67 Dextrose 5%-0.45% NaCl 1, 240 260 40 000 ml @ 20 mls/hr IV . Q24H [facility] Rx#:[id number] pressure bag 36 39 27 Intake, IV Titration 134.496 50.529 670.515 Amount Cefepime 1 gm In Sodium 12.5 50 50 Chloride 0.9% 50 ml @ 12. 5 mls/hr IVPB Q8H [facility] Rx# :[id number] Dexmedetomidine/0.9% NaCl 121.996 0.529 20.515 (Pmx) 400 mcg In Empty Bag 1 bag @ Titrate IV . Q0M [facility] Rx#:[id number] Dextrose 5% in Water 1, 600 000 ml @ 75 mls/hr IV . [id number] [facility] Rx#:[id number] Tube Feeding 252 273 Other 900 900 Output: Urine 900 825 525 Other: Voiding Method Indwelling Catheter Indwelling Catheter Indwelling Catheter ABP, PAP, CO, CI - Last Documented Arterial Blood Pressure 125/58 - Exam GENERAL: The patient is lying in bed and does not seem is not in acute distress. LUNG: Intubated and is on ventilator. Not labored breathing. NEUROLOGICAL: Sedation is off for past 9 hours. Higher mental function: The patient is awake but not verbalizing or following commands. Cranial nerves: Eyes are spontaneously open. Primary gaze is midline. The pupils are round, equal (3mm) and reactive to light. Extraocular movement is briefly tracked to right and left. No facial weakness. +ve gag. Is breathing over the vent. Could not assess rest of cranial nerves because of condition. Motor: The strength is withdrawls of bilateral upper extremities to painful stimuli and minimal withdrawl of lowers. Normal tone and bulk. Cerebellum:Could not assess. Sensation: Could not assess light touch but has intact to painful stimuli. CT of the head is reported as no acute intracranial process. Routine EEG (01/02/2021): Is an abnormal routine EEG. The background slowing is suggestive of moderate encephalopathy. There are no focal slowing, epileptiform discharges or seizure on the EEG. - Labs CBC & Chem 7: 01/02/21 03:32 01/02/21 04:30 Labs: Abnormal Lab Results - Last 24 Hours (Table) 01/02/21 01/02/21 01/02/21 Range/Units 00:38 03:32 03:32 WBC 14.8 H (3.8-10.6) k/uL RBC 3.33 L (3.80-5.40) m/uL Hgb 10.3 L (11.4-16.0) gm/dL Hct 33.3 L (34.0-46.0) % MCV 100.1 H (80.0-100.0) fL MCHC 30.9 L (31.0-37.0) g/dL Neutrophils # 13.3 H (1.3-7.7) k/uL Lymphocytes # 0.7 L (1.0-4.8) k/uL D-Dimer 2.51 H (<0.60) mg/L FEU ABG pH (7.35-7.45) ABG pCO2 (35-45) mmHg ABG pO2 (83-108) mmHg Sodium (137-145) mmol/L Chloride (98-107) mmol/L BUN (7-17) mg/dL Creatinine (0.52-1.04) mg/dL Glucose (74-99) mg/dL POC Glucose (mg/dL) 166 H (75-99) mg/dL Ferritin (10.0-291.0) ng/mL Lactate Dehydrogenase (313-618) U/L Creatine Kinase (30-135) U/L C-Reactive Protein (<1.0) mg/dL 01/02/21 01/02/21 01/02/21 Range/Units 04:30 05:34 11:28 WBC (3.8-10.6) k/uL RBC (3.80-5.40) m/uL Hgb (11.4-16.0) gm/dL Hct (34.0-46.0) % MCV (80.0-100.0) fL MCHC (31.0-37.0) g/dL Neutrophils # (1.3-7.7) k/uL Lymphocytes # (1.0-4.8) k/uL D-Dimer (<0.60) mg/L FEU ABG pH 7.47 H (7.35-7.45) ABG pCO2 32 L (35-45) mmHg ABG pO2 80 L (83-108) mmHg Sodium 147 H (137-145) mmol/L Chloride 120 H (98-107) mmol/L BUN 73 H (7-17) mg/dL Creatinine 1.47 H (0.52-1.04) mg/dL Glucose 187 H (74-99) mg/dL POC Glucose (mg/dL) 189 H (75-99) mg/dL Ferritin 685.9 H (10.0-291.0) ng/mL Lactate Dehydrogenase 905 H (313-618) U/L Creatine Kinase 27 L (30-135) U/L C-Reactive Protein 3.5 H (<1.0) mg/dL 01/02/21 Range/Units 17:35 WBC (3.8-10.6) k/uL RBC (3.80-5.40) m/uL Hgb (11.4-16.0) gm/dL Hct (34.0-46.0) % MCV (80.0-100.0) fL MCHC (31.0-37.0) g/dL Neutrophils # (1.3-7.7) k/uL Lymphocytes # (1.0-4.8) k/uL D-Dimer (<0.60) mg/L FEU ABG pH (7.35-7.45) ABG pCO2 (35-45) mmHg ABG pO2 (83-108) mmHg Sodium (137-145) mmol/L Chloride (98-107) mmol/L BUN (7-17) mg/dL Creatinine (0.52-1.04) mg/dL Glucose (74-99) mg/dL POC Glucose (mg/dL) 198 H (75-99) mg/dL Ferritin (10.0-291.0) ng/mL Lactate Dehydrogenase (313-618) U/L Creatine Kinase (30-135) U/L C-Reactive Protein (<1.0) mg/dL Microbiology - Last 24 Hours (Table) 12/29/20 14:24 Urine Culture - Final Urine,Voided Escherichia coli Klebsiella ornithinolytica Assessment and Plan Assessment: Altered mental status due to Cerebral anoxia/hypoxia secondary to respiratory failure related to pneumonia and Covid 19 infection also component of the altered mental status due to metabolic of acute kidney insufficiency and slight hypernatremia. Acute hypoxic respiratory failure secondary to do COVID-19 pneumonia requiring intubation and mechanical ventilation. Acute kidney insufficiency trending down. Slight elevated the liver function test with the last AST of 85 and ALT of 82. Status post cardiac arrest was pulseless logical activity for 7 minutes status post intubation mechanical ventilation on 12/24/2020 and there was questionable anoxic brain injury. History of coronary artery disease Severe aortic stenosis Severe cardiomyopathy and the left ventricle dysfunction with ejection fraction of 30%. Atrial fibrillation/atrial flutter type 2 diabetes History of hypertension History of atrial fibrillation on anticoagulation Plan: * I ordered ammonia level is elevated will defer the management to the primary/ICU team. * Ordered TSH, vitamin B12 and folate level. * Dr. Alexander ordered MRI of the brain but currently it's the cannot be done since the patient is intubated on a ventilator. Possibly if the patient's mentation does not improve then aligned we will couldn't reconsider at getting a repeat CT of the head F MR the brain cannot be done. * Cardiology is on board. * Will Defer the rest of the medical management to the primary/ICU team The patient's condition is very guarded. Bebeto Daniels M.D. Neuro-hospitalist Time with Patient: Less than 30
[2021-01-03 00:29] LABS: Glucose,Whole Blood 192 mg/dL (75-99)
[2021-01-03] MEDS: INSULIN ASPART (NovoLOG) 100 UNIT/ML VIAL SQ SCH ×10 (00:33→22:59)
[2021-01-03] MEDS: ALBUTEROL HFA INHALER INHALATION SCH ×5 (03:46→19:04)
[2021-01-03 04:16] LABS: Basophils % (A) 0 %; Eosinophils % (A) 0 %; HCT 35.1 % (34.0-46.0); HGB 11.1 gm/dL (11.4-16.0); Hypochromasia Slight; Lymphocytes # (A) 0.7 k/uL (1.0-4.8); Lymphocytes % (A) 5 %; MCH 32.2 pg (25.0-35.0); MCHC 31.7 g/dL (31.0-37.0); MCV 101.6 fL (80.0-100.0); Mean Platelet Volume 8.6; Monocytes # (A) 0.6 k/uL (0-1.0); Monocytes % (A) 4 %; Neutrophils # (A) 14.2 k/uL (1.3-7.7); Neutrophils % (A) 91 %; Platelet Count 250 k/uL (150-450); RBC 3.45 m/uL (3.80-5.40); WBC 15.6 k/uL (3.8-10.6)
[2021-01-03 04:33] LABS: C Reactive Protein 2.6 mg/dL (<1.0); Calcium 8.4 mg/dL (8.4-10.2); Potassium 3.7 mmol/L (3.5-5.1)
[2021-01-03] MEDS: CEFEPIME 1 GM in SODIUM CHLORIDE 0.9% 50 ML IVPB SCH ×3 (04:58→20:59)
[2021-01-03 05:15] LABS: ABG Base Excess -3.1 mmol/L; ABG HCO3 22 mmol/L (21-25); ABG Oxygen Saturation 98.2 % (94-97); ABG PCO2 35 mmHg (35-45); ABG PO2 115 mmHg (83-108); ABG TCO2 23 mmol/L (19-24); Allen Test Performed? Yes
[2021-01-03] MEDS ORDERED: POTASSIUM CHLORIDE 20 MEQ in WATER FOR INJECTION 1 100ML.BAG IVPB STA (05:30)
[2021-01-03] MEDS: INSULIN DETEMIR (LEVEMIR) 100 UNIT/ML SYR SQ SCH ×2 (06:42→21:31)
--- NOTE | 2021-01-03 07:48 | P.PN ---
Subjective HISTORY OF PRESENTING ILLNESS This is a pleasant 75-year-old with past medical history significant for paroxysmal atrial fibrillation, COVID-19 pneumonia, cardiac arrest, cardiomyopathy ejection fraction 30-35%, moderate to severe aortic stenosis, possible anoxic brain injury. Patient had presented 12/23/2020 with shortness of breath having recently been diagnosed with [place] pneumonia. She has been unable to wean the vent and remains intubated and sedated. Currently remains in A. fib with controlled ventricular rates on amiodarone oral. Labs reviewed, white blood cell 14.8, hemoglobin 10.3, platelets 203, d-dimer 2.5, sodium 147, BUN 73, creatinine 1.47. Chest x-ray 01/02/2021 shows cardiomegaly and background chronic parenchymal changes with persistent patchy by basilar infiltrates. 01/03 Telemetry reviewed with heart rates predominantly controlled, continued a fib with heart rates 70s to 100. Patient is not on any pressors. Remains unresponsive and not following commands. Remains intubated. Sodium improved to 143, creatinine 1.58, white blood cell count 15.6, hemoglobin 11.1. REVIEW OF SYSTEMS At the time of my exam: Unable to supply secondary to sedation PHYSICAL EXAMINATION Vital signs reviewed. CONSTITUTIONAL: No apparent distress, chronically ill appearing, sedated on ventilator. HEENT: Head is normocephalic. Pupils are equal, round. Sclerae anicteric. Mucous membranes of the mouth are moist. No JVD. No carotid bruit. CHEST EXAMINATION: Coarse breath sounds bilateralls HEART EXAMINATION: Irregular rate and rhythm. S1, S2 heard. +3/6 systolic murmur. ABDOMEN: Soft, nontender. Positive bowel sounds. EXTREMITIES: 2+ peripheral pulses, no lower extremity edema and no calf tenderness. NEUROLOGIC EXAMINATION: Patient is awake, alert and oriented x3. ASSESSMENT 1. COVID-19 pneumonia 2. Mildly elevated troponins likely type II mechanism 3. Cardiomyopathy ejection fraction 30-35% 4. Moderate to severe aortic stenosis, may be component of low-flow low gradient 5. Chronic kidney disease 6. Respiratory failure with inability to wean from ventilator 7. Staus post cardiac arrest, questionable anoxic brain injury 8. Paroxysmal atrial fibrillation, currently controlled ventricular rates 9. Hypernatremia PLAN Continue to monitor neurologic progress. Continue with heart failure regimen with metoprolol, hydralazine. Ideally UVALDO inhibitor however monitor kidney function. Hypernatremia has improved and continue with tube feeds as able. Prognosis guarded. Objective - Vital Signs Vital signs: Vital Signs Temp 97.9 F 01/03/21 04:00 Pulse 74 01/03/21 07:00 Resp 26 H 01/03/21 07:00 BP 121/69 12/30/20 21:00 Pulse Ox 98 01/03/21 07:00 Intake & Output 01/02/21 01/03/21 01/03/21 18:59 06:59 18:59 Intake Total 197.572 7562 104 Output Total 770 630 50 Balance 123.515 864 54 Weight 86.2 kg Intake: IV 73 33 3 Dextrose 5%-0.45% NaCl 1, 40 000 ml @ 20 mls/hr IV . Q24H [facility] Rx#:[id number] pressure bag 33 33 3 Intake, IV Titration 820.515 875 75 Amount Cefepime 1 gm In Sodium 50 50 Chloride 0.9% 50 ml @ 12. 5 mls/hr IVPB Q8H [facility] Rx# :[id number] Dexmedetomidine/0.9% NaCl 20.515 (Pmx) 400 mcg In Empty Bag 1 bag @ Titrate IV . Q0M [facility] Rx#:[id number] Dextrose 5% in Water 1, 750 825 75 000 ml @ 75 mls/hr IV . [id number] [facility] Rx#:[id number] Tube Feeding 286 26 Other 300 Output: Urine 770 630 50 Other: Voiding Method Indwelling Catheter Indwelling Catheter ABP, PAP, CO, CI - Last Documented Arterial Blood Pressure 129/60 - Labs CBC & Chem 7: 01/03/21 03:55 01/03/21 03:55 Labs: Abnormal Lab Results - Last 24 Hours (Table) 01/02/21 01/02/21 01/02/21 Range/Units 04:30 11:28 17:35 WBC (3.8-10.6) k/uL RBC (3.80-5.40) m/uL Hgb (11.4-16.0) gm/dL MCV (80.0-100.0) fL Neutrophils # (1.3-7.7) k/uL Lymphocytes # (1.0-4.8) k/uL ABG pO2 (83-108) mmHg ABG O2 Saturation (94-97) % Chloride (98-107) mmol/L Carbon Dioxide (22-30) mmol/L BUN (7-17) mg/dL Creatinine (0.52-1.04) mg/dL Glucose (74-99) mg/dL POC Glucose (mg/dL) 189 H 198 H (75-99) mg/dL Ferritin 685.9 H (10.0-291.0) ng/mL Lactate Dehydrogenase (313-618) U/L C-Reactive Protein (<1.0) mg/dL 01/03/21 01/03/21 01/03/21 Range/Units 00:28 03:55 03:55 WBC 15.6 H (3.8-10.6) k/uL RBC 3.45 L (3.80-5.40) m/uL Hgb 11.1 L (11.4-16.0) gm/dL MCV 101.6 H (80.0-100.0) fL Neutrophils # 14.2 H (1.3-7.7) k/uL Lymphocytes # 0.7 L (1.0-4.8) k/uL ABG pO2 (83-108) mmHg ABG O2 Saturation (94-97) % Chloride 117 H (98-107) mmol/L Carbon Dioxide 19 L (22-30) mmol/L BUN 74 H (7-17) mg/dL Creatinine 1.58 H (0.52-1.04) mg/dL Glucose 203 H (74-99) mg/dL POC Glucose (mg/dL) 192 H (75-99) mg/dL Ferritin (10.0-291.0) ng/mL Lactate Dehydrogenase 745 H (313-618) U/L C-Reactive Protein 2.6 H (<1.0) mg/dL 01/03/21 Range/Units 05:12 WBC (3.8-10.6) k/uL RBC (3.80-5.40) m/uL Hgb (11.4-16.0) gm/dL MCV (80.0-100.0) fL Neutrophils # (1.3-7.7) k/uL Lymphocytes # (1.0-4.8) k/uL ABG pO2 115 H (83-108) mmHg ABG O2 Saturation 98.2 H (94-97) % Chloride (98-107) mmol/L Carbon Dioxide (22-30) mmol/L BUN (7-17) mg/dL Creatinine (0.52-1.04) mg/dL Glucose (74-99) mg/dL POC Glucose (mg/dL) (75-99) mg/dL Ferritin (10.0-291.0) ng/mL Lactate Dehydrogenase (313-618) U/L C-Reactive Protein (<1.0) mg/dL Microbiology - Last 24 Hours (Table) 12/29/20 14:24 Urine Culture - Final Urine,Voided Escherichia coli Klebsiella ornithinolytica
--- NOTE | 2021-01-03 08:11 | XR ---
EXAMINATION TYPE: XR chest 1V portable DATE OF EXAM: 01/03/2021 COMPARISON: Chest x-ray 01/02/2021 HISTORY: Abnormal chest x-ray, intubated TECHNIQUE: Single frontal view of the chest is obtained. FINDINGS: Endotracheal tube, NG tube, left jugular central venous catheter are overlying appropriate positions. Patient is rotated and post median sternotomy. There are overlying artifacts. No evident pneumothorax or sizable effusion. Patchy basilar density is noted, interstitium mildly increased. Aor ta is dense. Heart size is likely stable, possibly accentuated by rotation. IMPRESSION: Possible basilar atelectasis, correlate to exclude pneumonia, edema.
[2021-01-03] MEDS: APIXABAN 2.5 MG TABLET PO SCH ×2 (08:54→21:29)
[2021-01-03] MEDS: ASCORBIC ACID 500 MG TAB PO SCH (08:54)
[2021-01-03] MEDS: AMIODARONE 200 MG TAB PO SCH ×3 (08:54→21:29)
[2021-01-03] MEDS: CHOLECALCIFEROL 25 MCG (1000 IU) TABLET PO SCH (08:54)
[2021-01-03] MEDS: DEXAMETHASONE SOD PHOSPHATE 10 MG/ML 1 ML VIAL IV SCH (08:54)
[2021-01-03] MEDS: CHLORHEXIDINE GLUCONATE 15 ML CUP MUCOUS MEM SCH ×2 (08:54→21:31)
[2021-01-03] MEDS: hydrALAZINE HCL 50 MG TAB PO SCH ×3 (08:54→21:29)
[2021-01-03] MEDS: PANTOPRAZOLE 40 MG/10 ML VIAL IVP SCH ×2 (08:54→21:30)
[2021-01-03] MEDS: METOPROLOL TARTRATE 50 MG TAB PO SCH ×2 (08:54→21:29)
[2021-01-03] MEDS: FAMOTIDINE 20 MG/2 ML VIAL IV SCH (08:54)
[2021-01-03] MEDS: ZINC SULFATE 220 MG CAP PO SCH (08:54)
--- NOTE | 2021-01-03 10:39 | P.PN ---
Subjective Progress Note Date: 01/03/21 Principal diagnosis: Acute hypoxemic respiratory failure secondary COVID-19 pneumonia 12/27/2020, the patient is being seen for a follow-up. Patient is a 75-year-old here patient with community related pneumonia with secondary respiratory failure. The patient also has severe valvular heart disease with severe aortic stenosis. The patient is post cardiac pulmonary arrest with a PEA rhythm that lasted around 7 minutes post intubation on 12/24/2020. The patient also has new onset paroxysmal atrial fibrillation. The patient is diabetic. On today's evaluation, the patient remains sedated. The patient on Profore running at 60 mg/kg/m. The patient is well sedated and she is calm and comfortable on mechanical ventilator. She is an assist-control mode with a rate of 26 with a tidal volume of 400 and PEEP of 13 with a FiO2 of 40%. The blood gases from today shows a pH of 7.34 with a pCO2 of 36 and pO2 of 105. Peak airway pressure 31. Static airway airway pressure 23. The patient had a follow-up chest x-ray that showed no evidence of any pneumothorax. There is persistent but the pulmonary infiltrates consistent with community related pneumonia. Pulmonary ed dia cannot be completely excluded. Previous echocardiogram in this patient echocardiogram showed global hypokinesis with an ejection fraction of 3035%. There was also moderate to severe degree of aortic valve was 58 with a mean gradient of 37. Hemodynamically, the patient remains on pressors. The patient is running on a low-dose of norepinephrine urine at 0.03 units per kilogram per minute. The patient is in a sinus rhythm and the patient is also on IV heparin. Patient is sitting up and feeding for nutritional support. The patient is on vital high protein at 60 mL an hour which is currently at goal. Afebrile. She is also on Decadron 6 mg IV every 24 hours. She remains on amiodarone 400 mg by mouth twice a day and Levemir insulin for blood sugar control 30 units at night and 20 units in the morning along with a fasting coverage. She remains on IV Pepcid. 12/28/2020, the patient is being seen for a follow-up. The patient remains intubated on a mechanical ventilator. This morning, the patient is on propofol at 40 mg/kg per minute and the patient is also on Versed at 1 mg an hour. She is intubated on a mechanical ventilator. She remains on assist control mode at a rate of 26 with a volume of 400 and FiO2 of 60% with a PEEP of 9. The cages at 7.4 episodes of 36 and pO2 77. Chest x-rays on changes consistent with diffuse but the pulmonary infiltrates consistent with community related pneumonia. Since yesterday, the patient was diuresed IV Lasix. The patient was given a total of 60 mg of IV Lasix and she has been negative fluid balance. Nevertheless, no major improvement in her oxygenation nor her chest x-ray findings. She is off pressors. She remains on IV heparin per protocol. The cardiac rhythm is sinus. She is receiving enteral feeding for nutritional support. White cell count of 15.7 with a hemoglobin of 10.1. Creatinine is at 1.4 with a BUN of 64. Electrolytes are normal. AST and ALP are 33 and 49 respectively. LDH level is at 970. CRP level is at 22.6. The d-dimer from today is at 0.7. The patient remains on Decadron 6 mg IV every 24 hours. When the process of getting the patient is sedation holiday. We'll use Cleviprex if needed for tighter blood pressure control. otherwise, no other significant events overnight. The patient on Levemir insulin 30 units at bedtime and 20 units in the morning along with sliding scale coverage and 4 units of regular insulin every 4 hours coverage. 12/29/2020, the patient is being seen for a follow-up. Remains on a mechanical ventilator. Remains on Precedex for sedation. Note that I think this patient off sedation yesterday. Following her sedation holiday, the patient did not wake up completely. She was becoming more restless and hypertensive at that point Cleviprex was admitted for blood pressure control is currently running at 2 mg an hour. Later on during the day, Precedex was also added for sedation at around 4:30 AM this morning and Precedex is running at 0.2 g. Remains intubated. The patient remains on assist control mode at the rate of 26 with a tidal volume of 100 and FiO2 is currently at 40% with a PEEP of 6. We managed to cut down the PEEP overnight slowly maintaining a saturation above 90%. Current pulse ox is 96%. Morning blood gases showed a pH of 7.47 with a pCO2 of 35 and pO2 of 78 and this was on FiO2 of 40%. Chest x-ray from today showing bi lateral pulmonary infiltrates, with probably some improvement in infiltrates patient the right lung base. ET tube remains in a good location. The patient also has a left IJ triple-lumen catheter in place. The patient was receiving daily diuretics. The net fluid balance over the past 24 hours has been -2.4 L. The peak airway pressure on a mechanical ventilator is 16. No significant orotracheal secretions. Creatinine today is at 1.4 which is essentially stable. Sodium level is at 146 slightly higher compared to yesterday as the patient is being diuresed. In terms of inflammatory markers, the patient has a LDH level of 1100 and his CRP level of 16.5. The white cell count is slightly elevated today at 19.2. In terms of her medication coverage, the patient remains on Decadron 6 g IV every 24 hours. The patient is still on she will feeds and currently she is receiving enteral feeding for nutritional support and she is on vital high protein at the rate of 16 mL an hour. Blood sugars are under adequate control and patient is receiving Levemir insulin 30 units at bedtime and 20 units in the morning along with a sliding scale coverage. Patient was reevaluated today on 12/30/2020, patient remains in the ICU, intubated and mechanically ventilated. Remains sedated on Precedex. Dose is 0.4 mcg/kg/h. IV fluid is 0.9 at 20 mL per hour. Patient is not arousable. She seems to get intermittent episodes of atrial fibrillation with RVR with any minimal agitation hence unable to address weaning on this patient today. Ventilator settings are assist control of 26, volume is 400 FiO2 40% PEEP of 5 ABG showed a pO2 of 80 pCO2 of 35 pH of 7.50. No changes were made in the ventilator settings. Chest x-ray continues to show bilateral infiltrates. Patient had a T-max of 101.7. Sputum cultures are negative. Blood cultures remain negative. Patient remains on enteral feedings. Elisa peterson has a left IJ triple-lumen catheter in place. Remains on diuretics intermittently. CBC count is 19.0 hemoglobin is 11.5. Sodium is 150. Hence we'll change her IV fluid to D5W. BUN is 60 creatinine 1.40. Considering the patient is having significant episodes of atrial fibrillation with RVR, patient was placed on oral anticoagulation in the form of Eliquis 2.5 mg twice a day and we can discontinue Lovenox. Remains on albuterol, remains on Decadron. Remains on the COVID-19 cocktail. And she remains on Precedex. Considering her atrial fibrillation with RVR, I have no plans to wean and extubate the patient, she is presently not weanable Reevaluated today on 12/31/2020, patient remains in the ICU, intubated and mechanically ventilated remains on Precedex. At 0.6 mcg/kg per hour. Remains on D5W at 50 mL per hour. She is on enteral feeding using vital HP. Continues to have hypernatremia, and we are recommending that the patient receives free water via nasogastric tube. Her ventilator settings are assist control rate of 26 tidal volume 400 FiO2 40% PEEP of 5 ABG showed a pO2 of 74 pCO2 of 33 pH of 7.52, and I lowered down her rate down to 24. Patient remains in atrial fibrillation but seems to be controlled rate is 92. The pressure seems to be a bit elevated at 173/76. Neurologically the patient does not seem to be responding to any verbal or painful stimuli, hence I'm recommending a CT of the brain, I'm also recommending neurologic evaluation. In the meantime we will discontinue Precedex and assess mental status. Clearly the patient is not ready for any form of weaning. Chest x-ray continues to show cardiomegaly and parenchymal changes, there is definite improvement in her multifocal opacities related to her underlying COVID-19 pneumonia. And that is clearly reflected on the improvement in the ABG. Appendectomy were reviewed sodium is 150 BUN is 63 creatinine 1.50 slightly worse compared to yesterday. Patient remains on updrafts, remains on amiodarone. Eliquis. Cefepime, Decadron, Pepcid, insulin, Toprol, sputum is positive for Klebsiella and proteus mirabilis. Both are sensitive to cefepime. Patient was reevaluated today on 01/01/2021, remains in the ICU, intubated and mechanically ventilated. No major ion exchange operator the last 24 hours, patient remains unresponsive to any verbal or painful stimuli. CT of the brain showed no evidence of active disease. And neurological consultation is pending. I strongly believe the patient also sustained some anoxic brain injury related to her initial cardiac arrest. Her ventilator settings are assist control rate of 24 to 400 FiO2 40% and PEEP of 5. ABG showed a pO2 of 84 pCO2 33 pH of 7.49. Patient remains on Precedex. And I would likely place on hold and continue to assess mental status on a regular basis. He she does not requiring any narcotics or any paralytics. Yesterday she developed some coffee-ground emesis, and Eliquis was placed on hold, Protonix was increased to twice a day, however no further evidence of any GI bleeding, we'll restart Eliquis today. Patient remains in atrial flutter with a rate of 93. She is also on enteral feeding using vital HP at 20 mL per hour. Neurological consultation is pending on this patient. Chest x-ray continues to show cardiomegaly, chronic parenchymal changes, and possibly left patchy basilar atelectasis, possible infiltrate. CBC today showed leukocytosis with WBC count of 16.1 hemoglobin of 11.3. D-dimer is 2.95. Elec trolytes showed sodium of 148 potassium 4.1 chloride 118 bicarb 23 BUN is 69 creatinine is 1.51. Renal profile seems to be holding about the same Reevaluated today on 01/02/2021, patient remains in the ICU, intubated and mechanically ventilated. Patient remains on assist control rate of 24 volume is 400 FiO2 40% PEEP of 5 ABG showed a pO2 of 80 pCO2 32 pH of 7.47 patient is on Precedex at 0.3, and she is on IV fluid at KVO. She is still receiving water at 300 mL every 6 hours via orogastric tube. Patient is still receiving vital HP , patient is scheduled to have EGD today. And I continuing her Precedex. Patient remains unresponsive except today for the first time she seems to open her eyes to voice. And open eyes to verbal stimuli. However does not seem to be following any other instructions. Her atrial fibrillation is well controlled, remains on Eliquis. Patient was seen by urology yesterday, and EEG was scheduled to be done today. I have changed her IV fluid to D5W at 75 mL per hour since she continues to have slightly elevated sodium. WBC count today is 14.8 hemoglobin is 10.3. D-dimer is 2.51. Sodium is 147 today. Chloride is 120 BUN is 73 creatinine 1.47. LDH is 905 C-reactive protein is 3.5. The patient is seen today 01/03/2021 in follow-up. She remains intubated on mechanical ventilator. Current settings are assist control at a rate of 24, tidal volume 400, FiO2 40% and a PEEP of 5. Morning blood gases reveal a P O2 of 1:15, pCO2 35, pH 7.40. She remains off sedation. She is awake, tracking with her eyes, not following specific commands however. She has D5W at 75 ML's per hour. She is being nourished with vital HP at 21 ML's per hour which is goal. She's getting free water flushes of 300 ML's every 4 hours. She has been in atrial fibrillation. Anticoagulated with Eliquis. Sputum is positive for Klebsiella and Proteus. Urine culture positive for E. coli and klebsiella. She remains on cefepime. White count 15.6. Hemoglobin 11.1. Lymphocytes 0.7. Sodium 143. Potassium 3.7. Bicarb 19. Creatinine 1.58. Glucose 203. LDH 745. C-reactive protein 2.6. TSH 3.72. She remains on bronchodilators, Decadron. Objective - Vital Signs Vital signs: Vital Signs Temp 97.7 F 01/03/21 08:00 Pulse 77 01/03/21 10:00 Resp 14 01/03/21 10:00 BP 121/69 12/30/20 21:00 Pulse Ox 98 01/03/21 10:00 Intake & Output 01/02/21 01/03/21 01/03/21 18:59 06:59 18:59 Intake Total 630.127 6481 338 Output Total 770 630 280 Balance 123.515 864 58 Weight 86.2 kg Intake: IV 73 33 12 Dextrose 5%-0.45% NaCl 1, 40 000 ml @ 20 mls/hr IV . Q24H [facility] Rx#:[id number] pressure bag 33 33 12 Intake, IV Titration 820.515 875 300 Amount Cefepime 1 gm In Sodium 50 50 Chloride 0.9% 50 ml @ 12. 5 mls/hr IVPB Q8H [facility] Rx# :[id number] Dexmedetomidine/0.9% NaCl 20.515 (Pmx) 400 mcg In Empty Bag 1 bag @ Titrate IV . Q0M [facility] Rx#:[id number] Dextrose 5% in Water 1, 750 825 300 000 ml @ 75 mls/hr IV . [id number] [facility] Rx#:[id number] Tube Feeding 286 26 Other 300 Output: Urine 770 630 280 Other: Voiding Method Indwelling Catheter Indwelling Catheter Indwelling Catheter ABP, PAP, CO, CI - Last Documented Arterial Blood Pressure 113/60 - Exam GENERAL EXAM: Awake, tracking with her eyes, intubated, 75-year-old female patient, on mechanical ventilator, comfortable in no apparent distress. HEAD: Normocephalic. EYES: Normal reaction of pupils, equal size. NOSE: Clear with pink turbinates. THROAT: Oral endotracheal and gastric tube secured in place. No erythema or exudates. NECK: No masses, no JVD. CHEST: No chest wall deformity. LUNGS: Equal air entry with bibasilar crackles. CVS: S1 and S2 normal with positive systolic audible murmur, irregular rhythm. ABDOMEN: No hepatosplenomegaly, normal bowel sounds, no guarding or rigidity. SPINE: No scoliosis or deformity SKIN: No rashes CENTRAL NERVOUS SYSTEM: Awake, not following specific commands, tone is normal in all 4 extremities. EXTREMITIES: There is trace peripheral edema. No clubbing, no cyanosis. Peripheral pulses are intact. - Labs CBC & Chem 7: 01/03/21 03:55 01/03/21 03:55 Labs: Abnormal Lab Results - Last 24 Hours (Table) 01/02/21 01/02/21 01/02/21 Range/Units 04:30 11:28 17:35 WBC (3.8-10.6) k/uL RBC (3.80-5.40) m/uL Hgb (11.4-16.0) gm/dL MCV (80.0-100.0) fL Neutrophils # (1.3-7.7) k/uL Lymphocytes # (1.0-4.8) k/uL ABG pO2 (83-108) mmHg ABG O2 Saturation (94-97) % Chloride (98-107) mmol/L Carbon Dioxide (22-30) mmol/L BUN (7-17) mg/dL Creatinine (0.52-1.04) mg/dL Glucose (74-99) mg/dL POC Glucose (mg/dL) 189 H 198 H (75-99) mg/dL Ferritin 685.9 H (10.0-291.0) ng/mL Lactate Dehydrogenase (313-618) U/L C-Reactive Protein (<1.0) mg/dL 01/03/21 01/03/21 01/03/21 Range/Units 00:28 03:55 03:55 WBC 15.6 H (3.8-10.6) k/uL RBC 3.45 L (3.80-5.40) m/uL Hgb 11.1 L (11.4-16.0) gm/dL MCV 101.6 H (80.0-100.0) fL Neutrophils # 14.2 H (1.3-7.7) k/uL Lymphocytes # 0.7 L (1.0-4.8) k/uL ABG pO2 (83-108) mmHg ABG O2 Saturation (94-97) % Chloride 117 H (98-107) mmol/L Carbon Dioxide 19 L (22-30) mmol/L BUN 74 H (7-17) mg/dL Creatinine 1.58 H (0.52-1.04) mg/dL Glucose 203 H (74-99) mg/dL POC Glucose (mg/dL) 192 H (75-99) mg/dL Ferritin (10.0-291.0) ng/mL Lactate Dehydrogenase 745 H (313-618) U/L C-Reactive Protein 2.6 H (<1.0) mg/dL 01/03/21 Range/Units 05:12 WBC (3.8-10.6) k/uL RBC (3.80-5.40) m/uL Hgb (11.4-16.0) gm/dL MCV (80.0-100.0) fL Neutrophils # (1.3-7.7) k/uL Lymphocytes # (1.0-4.8) k/uL ABG pO2 115 H (83-108) mmHg ABG O2 Saturation 98.2 H (94-97) % Chloride (98-107) mmol/L Carbon Dioxide (22-30) mmol/L BUN (7-17) mg/dL Creatinine (0.52-1.04) mg/dL Glucose (74-99) mg/dL POC Glucose (mg/dL) (75-99) mg/dL Ferritin (10.0-291.0) ng/mL Lactate Dehydrogenase (313-618) U/L C-Reactive Protein (<1.0) mg/dL Microbiology - Last 24 Hours (Table) 12/29/20 14:24 Urine Culture - Final Urine,Voided Escherichia coli Klebsiella ornithinolytica Assessment and Plan Assessment: 1 Acute hypoxic respiratory failure secondary to COVID-19 pneumonia requiring intubation and mechanical ventilation. 2 Status post cardiac arrest with pulseless electrical activity for 7 minutes, status post intubation and mechanical ventilation since 12/24/2020. Possible anoxic brain injury. Neurological consultation. 3 Severe aortic stenosis. 4 Severe cardiomyopathy and LV dysfunction with ejection fraction of 30%. 5 Atrial fibrillation/atrial flutter. 6 Type 2 diabetes. 7 Acute kidney injury, likely secondary to acute tubular necrosis. And related to cardiac arrest possibly related to COVID-19 infection. 8 Elevated inflammatory markers secondary to acute COVID-19 infection/pneumonia 9 Non-ST elevation IN is suspected. 10 Possible underlying bacterial pneumonia secondary to Klebsiella and Proteus m irabilis. Hence the patient will remain on cefepime for now. 11 Possible anoxic brain injury. 12 Coffee-ground emesis, possibly erosive gastritis, Protonix is 40 mg twice a day. Remains on Eliquis Plan: The patient was seen and evaluated by Dr. Lewis Chest x-ray and labs reviewed Continue cefepime, Decadron, bronchodilators Anticoagulated with Eliquis We'll plan for spontaneous breathing trial and possible extubation today Plan to extubate to BiPAP We will continue to follow and make further recommendations based on her clinical status Critical care time 38 minutes I, the cosigning physician, performed a history & physical examination of the patient. Lungs sounds with crackles in the bilateral bases. Maintaining good O2 saturations in the 90s on 40% FiO2 via mechanical ventilator. I discussed the assessment and plan of care with my nurse practitioner, Kelin Ha. I attest to the above note as dictated by her. Time with Patient: Greater than 30
--- NOTE | 2021-01-03 10:41 | XR ---
EXAMINATION TYPE: XR chest 1V portable DATE OF EXAM: 01/03/2021 COMPARISON: Chest x-ray 01/03/2021 at earlier time HISTORY: NG tube placement TECHNIQUE: Single frontal view of the chest is obtained. FINDINGS: There is been interval repositioning of NG tube which is coiled within the stomach, distal tip is within the thoracic esophagus. No other significant interval change. IMPRESSION: NG tube is folded as described.
[2021-01-03 11:30] LABS: Glucose,Whole Blood 108 mg/dL (75-99)
--- NOTE | 2021-01-03 12:01 | XR ---
EXAMINATION TYPE: XR chest 1V portable DATE OF EXAM: 01/03/2021 Comparison: 01/03/2021 Clinical History: 75-year-old female post NG insertion, confirm placement for tube feed Findings: ET tube satisfactory. NG tube courses below the diaphragm. Median sternotomy wires are present. Clips in mediastinum. Left CVC tip at the caval atrial junction. Patient is rotated toward the left. Heart borderline enlarged. Mild interstitial opacities in the lower lungs. Peripheral left base is underpe netrated and not well assessed. Impression: Rotated exam. NG tube appears satisfactory after repositioning. Mild interstitial densities in the lo wer lungs are similar.
[2021-01-03] MEDS: polyethylene glycoL 3350 17 GM POWD.PACK PO SCH (14:30)
[2021-01-03] MEDS: DEXTROSE 5% IN WATER 1,000 ML IV SCH (14:31)
[2021-01-03 16:30] LABS: Ferritin 527.2 ng/mL (10.0-291.0)
--- NOTE | 2021-01-03 17:51 | P.PN ---
Subjective Progress Note Date: 01/03/21 Principal diagnosis: shortness of breath Patient is a 75-year-old female with a history of prior angina, diabetes, hypothyroidism, dyslipidemia, and hypertension who presented with complaint of weakness and syncope. She started having upper respiratory symptoms approxi mately 4-5 days ago. She went to obtain an outpatient Covid test and passed out. She has completed a 2 series Pfizer vaccine earlier this year. In the ER she underwent an extensive evaluation. On arrival her oxygenation was 71% on room air. She was started on BiPAP. Initial laboratory analysis showed a sodium of 132, carbon dioxide 19, anion gap 11, BUN 56, creatinine 1.9, S2 83, troponin 0.247, CRP 22.8, BNP 21,100. Covid testing was positive. Chest x-ray showed diffuse bilateral interstitial infiltrates. She was given a dose of dexamethasone. She was seen by pulmonary who felt she could be managed on selective care. She was continued on dexamethasone. She is not a candidate for eRemdesivir secondary to her high oxygen requirements. On the afternoon of 12/24 she had sudden decline in heart rate and had PEA arrest lasting approximately 5 minutes. She was transitioned to the ICU and started on propofol for sedation. She did require small amounts of levo. She was noted to have A. fib after [place] was achieved and she was subsequently transitioned from Lovenox to heparin drip. She was seen by cardiology secondary to her echocardiogram with severe aortic stenosis and PEA arrest. She did require increasing PEEP on 12/25 that was able to be decreased on 12/26. People slowly weaned down. On her initial sedation holiday she did not wake up completely and was restless and hypertensive requiring a cough a proximal drip. She was then started on Precedex and continued to not respond to stimuli she underwent head CT which showed no acute process, neurology was consulted. She conitnued to have A fib wtih RVR and ewas transitioned from heparin gtt to eliquis. Extubated on 01/03. Additional testing: EEG-background slowing suggestive of encephalopathy Make an echo with ejection fraction 30-35% Patient seen and examined at bedside. 8 with eyes open and tracking movements around the room. Does not follow commands. Per nursing no acute events overnight. General: Ill appearing, no distress, appears at stated age Derm: warm, dry Head: atraumatic, normocephalic, symmetric Eyes: Pupils equal round reactive to light, no lid lesion, anicteric sclera Mouth: no lip lesion, mucus membranes dry Cardiovascular: S1S2 reg, + murmur, positive posterior tibial pulse bilateral, Lungs: Coarse breath sounds bilateral, equal chest rise, Abdominal: soft, nontender to palpation, no guarding, no appreciable organomegaly Ext: no gross muscle atrophy, trace edema, no contractures Neuro: Moving all 4 extremities independently, pupils equal round reactive to light, not following commands, withdrawal to pain in bilateral upper and lower extremities Psych: Blunted affect, currently nonverbal, does not appear anxious COVID-19 pneumonia, Klebsiella and proteus pneumnia Acute hypoxic respiratory failure Acute kidney injury, Non-anion gap metabolic acidosis Transaminitis secondary to above and cardiac arrest Septic shock, resolved Acute enephalopathy- metabolic vs hypoxic - Vit D, zinc, vitamin C - Dexamethasone, Pepcid - Wean O2 as able - Pulm recs - Lovenox - cefepime - follow inflammatory labs -Follow CMP Severe Aortic Stenosis Syncope- likely due to hypoxia versus severe aortic stenosis Type II NSTEMI- likely due to hypoxia, not consistent with ACS Aborted sudden cardiac Atrial fibrillation with rapid ventricular response Severe systp;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 Blake Herbert at [place] if requesting records for further evaluation if appropriate - not a candidate for rate control at this time due to hypotnesion - metoprolol - hold lisinopril due to VERONICA - hydralazine - follow BP HLD - statin DM 2 - Long acting, SSI, and fixed dose insulin - increased - follow BS with steroids - check A1C ASCAD - plavix, BB, statin Hypernatremia - on D5W, transition off and increased free water in tube feeds - follow sodium levels Constipation - miralax Hyponatremia, resolved Hypothyroidism, synthroid Daughter updated over the phone [phone] DVT prophylaxis: ketty Discussed with: patient, nursing Anticipated discharge date: in 8-10days Anticipated discharge place: undetermined A total of 35 minutes was spent on the care of this complex patient more than 50% of the time was spent in counseling and care coordination. Objective - Vital Signs Vital signs: Vital Signs Temp 97.9 F 01/03/21 04:00 Pulse 74 01/03/21 07:00 Resp 26 H 01/03/21 07:00 BP 121/69 12/30/20 21:00 Pulse Ox 98 01/03/21 07:00 Intake & Output 01/02/21 01/03/21 01/03/21 18:59 06:59 18:59 Intake Total 810.251 2567 104 Output Total 770 630 50 Balance 123.515 864 54 Weight 86.2 kg Intake: IV 73 33 3 Dextrose 5%-0.45% NaCl 1, 40 000 ml @ 20 mls/hr IV . Q24H [facility] Rx#:[id number] pressure bag 33 33 3 Intake, IV Titration 820.515 875 75 Amount Cefepime 1 gm In Sodium 50 50 Chloride 0.9% 50 ml @ 12. 5 mls/hr IVPB Q8H [facility] Rx# :[id number] Dexmedetomidine/0.9% NaCl 20.515 (Pmx) 400 mcg In Empty Bag 1 bag @ Titrate IV . Q0M [facility] Rx#:[id number] Dextrose 5% in Water 1, 750 825 75 000 ml @ 75 mls/hr IV . [id number] [facility] Rx#:[id number] Tube Feeding 286 26 Other 300 Output: Urine 770 630 50 Other: Voiding Method Indwelling Catheter Indwelling Catheter ABP, PAP, CO, CI - Last Documented Arterial Blood Pressure 129/60 - Labs CBC & Chem 7: 01/03/21 03:55 01/03/21 03:55 Labs: Abnormal Lab Results - Last 24 Hours (Table) 01/02/21 01/02/21 01/02/21 Range/Units 04:30 11:28 17:35 WBC (3.8-10.6) k/uL RBC (3.80-5.40) m/uL Hgb (11.4-16.0) gm/dL MCV (80.0-100.0) fL Neutrophils # (1.3-7.7) k/uL Lymphocytes # (1.0-4.8) k/uL ABG pO2 (83-108) mmHg ABG O2 Saturation (94-97) % Chloride (98-107) mmol/L Carbon Dioxide (22-30) mmol/L BUN (7-17) mg/dL Creatinine (0.52-1.04) mg/dL Glucose (74-99) mg/dL POC Glucose (mg/dL) 189 H 198 H (75-99) mg/dL Ferritin 685.9 H (10.0-291.0) ng/mL Lactate Dehydrogenase (313-618) U/L C-Reactive Protein (<1.0) mg/dL 01/03/21 01/03/21 01/03/21 Range/Units 00:28 03:55 03:55 WBC 15.6 H (3.8-10.6) k/uL RBC 3.45 L (3.80-5.40) m/uL Hgb 11.1 L (11.4-16.0) gm/dL MCV 101.6 H (80.0-100.0) fL Neutrophils # 14.2 H (1.3-7.7) k/uL Lymphocytes # 0.7 L (1.0-4.8) k/uL ABG pO2 (83-108) mmHg ABG O2 Saturation (94-97) % Chloride 117 H (98-107) mmol/L Carbon Dioxide 19 L (22-30) mmol/L BUN 74 H (7-17) mg/dL Creatinine 1.58 H (0.52-1.04) mg/dL Glucose 203 H (74-99) mg/dL POC Glucose (mg/dL) 192 H (75-99) mg/dL Ferritin (10.0-291.0) ng/mL Lactate Dehydrogenase 745 H (313-618) U/L C-Reactive Protein 2.6 H (<1.0) mg/dL 01/03/21 Range/Units 05:12 WBC (3.8-10.6) k/uL RBC (3.80-5.40) m/uL Hgb (11.4-16.0) gm/dL MCV (80.0-100.0) fL Neutrophils # (1.3-7.7) k/uL Lymphocytes # (1.0-4.8) k/uL ABG pO2 115 H (83-108) mmHg ABG O2 Saturation 98.2 H (94-97) % Chloride (98-107) mmol/L Carbon Dioxide (22-30) mmol/L BUN (7-17) mg/dL Creatinine (0.52-1.04) mg/dL Glucose (74-99) mg/dL POC Glucose (mg/dL) (75-99) mg/dL Ferritin (10.0-291.0) ng/mL Lactate Dehydrogenase (313-618) U/L C-Reactive Protein (<1.0) mg/dL Microbiology - Last 24 Hours (Table) 12/29/20 14:24 Urine Culture - Final Urine,Voided Escherichia coli Klebsiella ornithinolytica
[2021-01-03] MEDS ORDERED: EPINEPHrine 10 ML SYRINGE (0.1 MG/ML) ONE (18:00)
[2021-01-03] MEDS ORDERED: SODIUM BICARB 8.4% 50 ML SYR (1 MEQ/ML) ONE (18:00)
[2021-01-03] MEDS ORDERED: PROPOFOL 10 MG/ML 20 ML VIAL IV ONE (18:01)
[2021-01-03 18:08] LABS: Glucose,Whole Blood 160 mg/dL (75-99)
[2021-01-03] MEDS: ATORVASTATIN 40 MG TAB PO SCH (21:29)
[2021-01-04] MEDS ORDERED: ALBUTEROL HFA INHALER INHALATION ONE
[2021-01-04] MEDS: DEXTROSE 5% IN WATER 1,000 ML IV SCH ×2 (00:12→15:57)
[2021-01-04 01:28] LABS: Glucose,Whole Blood 189 mg/dL (75-99)
[2021-01-04] MEDS: ALBUTEROL HFA INHALER INHALATION SCH ×3 (02:25→09:09)
[2021-01-04] MEDS: CEFEPIME 1 GM in SODIUM CHLORIDE 0.9% 50 ML IVPB SCH ×3 (04:22→20:30)
[2021-01-04 04:50] LABS: HCT 33.7 % (34.0-46.0); HGB 10.7 gm/dL (11.4-16.0); Hypochromasia Slight; MCH 32.1 pg (25.0-35.0); MCHC 31.7 g/dL (31.0-37.0); MCV 101.3 fL (80.0-100.0); Mean Platelet Volume 8.5; Platelet Count 252 k/uL (150-450); RBC 3.32 m/uL (3.80-5.40); RDW 13.1 % (11.5-15.5); WBC 17.3 k/uL (3.8-10.6)
[2021-01-04 05:23] LABS: Albumin 2.4 g/dL (3.5-5.0); Calcium 8.5 mg/dL (8.4-10.2); Magnesium 2.4 mg/dL (1.6-2.3); Phosphorus 3.8 mg/dL (2.5-4.5); Potassium 4.1 mmol/L (3.5-5.1); Total Bilirubin 0.8 mg/dL (0.2-1.3); Total Protein 5.2 g/dL (6.3-8.2)
[2021-01-04 06:34] LABS: Glucose,Whole Blood 225 mg/dL (75-99)
[2021-01-04] MEDS: INSULIN ASPART (NovoLOG) 100 UNIT/ML VIAL SQ SCH ×6 (06:39→18:30)
[2021-01-04] MEDS: INSULIN DETEMIR (LEVEMIR) 100 UNIT/ML SYR SQ SCH ×2 (06:45→20:32)
[2021-01-04] MEDS ORDERED: LEVOTHYROXINE 50 MCG TAB PO SCH (09:00)
[2021-01-04] MEDS: CHOLECALCIFEROL 25 MCG (1000 IU) TABLET PO SCH (09:05)
[2021-01-04] MEDS: AMIODARONE 200 MG TAB PO SCH ×3 (09:06→20:31)
[2021-01-04] MEDS: PANTOPRAZOLE 40 MG/10 ML VIAL IVP SCH ×2 (09:06→20:32)
[2021-01-04] MEDS: APIXABAN 2.5 MG TABLET PO SCH ×2 (09:06→20:31)
[2021-01-04] MEDS: ZINC SULFATE 220 MG CAP PO SCH (09:06)
[2021-01-04] MEDS: CLOPIDOGREL 75 MG TAB PO SCH (09:06)
[2021-01-04] MEDS: ASCORBIC ACID 500 MG TAB PO SCH (09:06)
[2021-01-04] MEDS: METOPROLOL TARTRATE 50 MG TAB PO SCH ×2 (09:06→20:32)
[2021-01-04] MEDS: hydrALAZINE HCL 50 MG TAB PO SCH ×3 (09:06→20:32)
[2021-01-04] MEDS: DEXAMETHASONE SOD PHOSPHATE 10 MG/ML 1 ML VIAL IV SCH (09:07)
[2021-01-04] MEDS: FAMOTIDINE 20 MG/2 ML VIAL IV SCH (09:07)
[2021-01-04] MEDS: polyethylene glycoL 3350 17 GM POWD.PACK PO SCH (09:24)
--- NOTE | 2021-01-04 10:08 | P.PN ---
Subjective Progress Note Date: 01/04/21 Principal diagnosis: Acute hypoxic respiratory failure secondary to COVID-19 pneumonia 12/27/2020, the patient is being seen for a follow-up. Patient is a 75-year-old here patient with community related pneumonia with secondary respiratory failure. The patient also has severe valvular heart disease with severe aortic stenosis. The patient is post cardiac pulmonary arrest with a PEA rhythm that lasted around 7 minutes post intubation on 12/24/2020. The patient also has new onset paroxysmal atrial fibrillation. The patient is diabetic. On today's evaluation, the patient remains sedated. The patient on Profore running at 60 mg/kg/m. The patient is well sedated and she is calm and comfortable on mechanical ventilator. She is an assist-control mode with a rate of 26 with a tidal volume of 400 and PEEP of 13 with a FiO2 of 40%. The blood gases from today shows a pH of 7.34 with a pCO2 of 36 and pO2 of 105. Peak airway pressure 31. Static airway airway pressure 23. The patient had a follow-up chest x-ray that showed no evidence of any pneumothorax. There is persistent but the pulmonary infiltrates consistent with community related pneumonia. Pulmonary e jose francisco cannot be completely excluded. Previous echocardiogram in this patient echocardiogram showed global hypokinesis with an ejection fraction of 3035%. There was also moderate to severe degree of aortic valve was 58 with a mean gradient of 37. Hemodynamically, the patient remains on pressors. The patient is running on a low-dose of norepinephrine urine at 0.03 units per kilogram per minute. The patient is in a sinus rhythm and the patient is also on IV heparin. Patient is sitting up and feeding for nutritional support. The patient is on vital high protein at 60 mL an hour which is currently at goal. Afebrile. She is also on Decadron 6 mg IV every 24 hours. She remains on amiodarone 400 mg by mouth twice a day and Levemir insulin for blood sugar control 30 units at night and 20 units in the morning along with a fasting coverage. She remains on IV Pepcid. 12/28/2020, the patient is being seen for a follow-up. The patient remains intubated on a mechanical ventilator. This morning, the patient is on propofol at 40 mg/kg per minute and the patient is also on Versed at 1 mg an hour. She is intubated on a mechanical ventilator. She remains on assist control mode at a rate of 26 with a volume of 400 and FiO2 of 60% with a PEEP of 9. The cages at 7.4 episodes of 36 and pO2 77. Chest x-rays on changes consistent with diffuse but the pulmonary infiltrates consistent with community related pneumonia. Since yesterday, the patient was diuresed IV Lasix. The patient was given a total of 60 mg of IV Lasix and she has been negative fluid balance. Nevertheless, no major improvement in her oxygenation nor her chest x-ray findings. She is off pressors. She remains on IV heparin per protocol. The cardiac rhythm is sinus. She is receiving enteral feeding for nutritional support. White cell count of 15.7 with a hemoglobin of 10.1. Creatinine is at 1.4 with a BUN of 64. Electrolytes are normal. AST and ALP are 33 and 49 respectively. LDH level is at 970. CRP level is at 22.6. The d-dimer from today is at 0.7. The patient remains on Decadron 6 mg IV every 24 hours. When the process of getting the patient is sedation holiday. We'll use Cleviprex if needed for tighter blood pressure control. otherwise, no other significant events overnight. The patient on Levemir insulin 30 units at bedtime and 20 units in the morning along with sliding scale coverage and 4 units of regular insulin every 4 hours coverage. 12/29/2020, the patient is being seen for a follow-up. Remains on a mechanical ventilator. Remains on Precedex for sedation. Note that I think this patient off sedation yesterday. Following her sedation holiday, the patient did not wak e up completely. She was becoming more restless and hypertensive at that point Cleviprex was admitted for blood pressure control is currently running at 2 mg an hour. Later on during the day, Precedex was also added for sedation at around 4:30 AM this morning and Precedex is running at 0.2 g. Remains intubated. The patient remains on assist control mode at the rate of 26 with a tidal volume of 100 and FiO2 is currently at 40% with a PEEP of 6. We managed to cut down the PEEP overnight slowly maintaining a saturation above 90%. Current pulse ox is 96%. Morning blood gases showed a pH of 7.47 with a pCO2 of 35 and pO2 of 78 and this was on FiO2 of 40%. Chest x-ray from today showing b ilateral pulmonary infiltrates, with probably some improvement in infiltrates patient the right lung base. ET tube remains in a good location. The patient also has a left IJ triple-lumen catheter in place. The patient was receiving daily diuretics. The net fluid balance over the past 24 hours has been -2.4 L. The peak airway pressure on a mechanical ventilator is 16. No significant orotracheal secretions. Creatinine today is at 1.4 which is essentially stable. Sodium level is at 146 slightly higher compared to yesterday as the patient is being diuresed. In terms of inflammatory markers, the patient has a LDH level of 1100 and his CRP level of 16.5. The white cell count is slightly elevated today at 19.2. In terms of her medication coverage, the patient remains on Decadron 6 g IV every 24 hours. The patient is still on she will feeds and currently she is receiving enteral feeding for nutritional support and she is on vital high protein at the rate of 16 mL an hour. Blood sugars are under adequate control and patient is receiving Levemir insulin 30 units at bedtime and 20 units in the morning along with a sliding scale coverage. Patient was reevaluated today on 12/30/2020, patient remains in the ICU, intubated and mechanically ventilated. Remains sedated on Precedex. Dose is 0.4 mcg/kg/h. IV fluid is 0.9 at 20 mL per hour. Patient is not arousable. She seems to get intermittent episodes of atrial fibrillation with RVR with any minimal agitation hence unable to address weaning on this patient today. Ventilator settings are assist control of 26, volume is 400 FiO2 40% PEEP of 5 ABG showed a pO2 of 80 pCO2 of 35 pH of 7.50. No changes were made in the venti lator settings. Chest x-ray continues to show bilateral infiltrates. Patient had a T-max of 101.7. Sputum cultures are negative. Blood cultures remain negative. Patient remains on enteral feedings. Elisa peterson has a left IJ triple- lumen catheter in place. Remains on diuretics intermittently. CBC count is 19.0 hemoglobin is 11.5. Sodium is 150. Hence we'll change her IV fluid to D5W. BUN is 60 creatinine 1.40. Considering the patient is having significant episodes of atrial fibrillation with RVR, patient was placed on oral anticoagulation in the form of Eliquis 2.5 mg twice a day and we can discontinue Lovenox. Remains on albuterol, remains on Decadron. Remains on the COVID-19 cocktail. And she remains on Precedex. Considering her atrial fibrillation with RVR, I have no plans to wean and extubate the patient, she is presently not weanable Reevaluated today on 12/31/2020, patient remains in the ICU, intubated and mechanically ventilated remains on Precedex. At 0.6 mcg/kg per hour. Remains on D5W at 50 mL per hour. She is on enteral feeding using vital HP. Continues to have hypernatremia, and we are recommending that the patient receives free water via nasogastric tube. Her ventilator settings are assist control rate of 26 tidal volume 400 FiO2 40% PEEP of 5 ABG showed a pO2 of 74 pCO2 of 33 pH of 7.52, and I lowered down her rate down to 24. Patient remains in atrial fibrillation but seems to be controlled rate is 92. The pressure seems to be a bit elevated at 173/76. Neurologically the patient does not seem to be responding to any verbal or painful stimuli, hence I'm recommending a CT of the brain, I'm also recommending neurologic evaluation. In the meantime we will discontinue Precedex and assess mental status. Clearly the patient is not ready for any form of weaning. Chest x-ray continues to show cardiomegaly and parenchymal changes, there is definite improvement in her multifocal opacities related to her underlying COVID-19 pneumonia. And that is clearly reflected on the improvement in the ABG. Appendectomy were reviewed sodium is 150 BUN is 63 creatinine 1.50 slightly worse compared to yesterday. Patient remains on updrafts, remains on amiodarone. Eliquis. Cefepime, Decadron, Pepcid, insulin, Toprol, sputum is positive for Klebsiella and proteus mirabilis. Both are sensitive to cefepime. Patient was reevaluated today on 01/01/2021, remains in the ICU, intubated and mechanically ventilated. No major record changer tester the last 24 hours, patient remains unresponsive to any verbal or painful stimuli. CT of the brain showed no evidence of active disease. And neurological consultation is pending. I strongly believe the patient also sustained some anoxic brain injury related to her initial cardiac arrest. Her ventilator settings are assist control rate of 24 to 400 FiO2 40% and PEEP of 5. ABG showed a pO2 of 84 pCO2 33 pH of 7.49. Patient remains on Precedex. And I would likely place on hold and continue to assess mental status on a regular basis. He she does not requiring any narcotics or any paralytics. Yesterday she developed some coffee-ground emesis, and Eliquis was placed on hold, Protonix was increased to twice a day, however no further evidence of any GI bleeding, we'll restart Eliquis today. Patient remains in atrial flutter with a rate of 93. She is also on enteral feeding using vital HP at 20 mL per hour. Neurological consultation is pending on this patient. Chest x-ray continues to show cardiomegaly, chronic parenchymal changes, and possibly left patchy basilar atelectasis, possible infiltrate. CBC today showed leukocytosis with WBC count of 16.1 hemoglobin of 11.3. D-dimer is 2.95. Laura ctrolytes showed sodium of 148 potassium 4.1 chloride 118 bicarb 23 BUN is 69 creatinine is 1.51. Renal profile seems to be holding about the same Reevaluated today on 01/02/2021, patient remains in the ICU, intubated and mechanically ventilated. Patient remains on assist control rate of 24 volume is 400 FiO2 40% PEEP of 5 ABG showed a pO2 of 80 pCO2 32 pH of 7.47 patient is on Precedex at 0.3, and she is on IV fluid at KVO. She is still receiving water at 300 mL every 6 hours via orogastric tube. Patient is still receiving vital HP , patient is scheduled to have EGD today. And I continuing her Precedex. Patient remains unresponsive except today for the first time she seems to open her eyes to voice. And open eyes to verbal stimuli. However does not seem to be following any other instructions. Her atrial fibrillation is well controlled, remains on Eliquis. Patient was seen by urology yesterday, and EEG was scheduled to be done today. I have changed her IV fluid to D5W at 75 mL per hour since she continues to have slightly elevated sodium. WBC count today is 14.8 hemoglobin is 10.3. D-dimer is 2.51. Sodium is 147 today. Chloride is 120 BUN is 73 creatinine 1.47. LDH is 905 C-reactive protein is 3.5. The patient is seen today 01/03/2021 in follow-up. She remains intubated on mechanical ventilator. Current settings are assist control at a rate of 24, tidal volume 400, FiO2 40% and a PEEP of 5. Morning blood gases reveal a P O2 of 1:15, pCO2 35, pH 7.40. She remains off sedation. She is awake, tracking with her eyes, not following specific commands however. She has D5W at 75 ML's per hour. She is being nourished with vital HP at 21 ML's per hour which is goal. She's getting free water flushes of 300 ML's every 4 hours. She has been in atrial fibrillation. Anticoagulated with Eliquis. Sputum is positive for Klebsiella and Proteus. Urine culture positive for E. coli and klebsiella. She remains on cefepime. White count 15.6. Hemoglobin 11.1. Lymphocytes 0.7. Sodium 143. Potassium 3.7. Bicarb 19. Creatinine 1.58. Glucose 203. LDH 745. C-reactive protein 2.6. TSH 3.72. She remains on bronchodilators, Decadron. Patient was reevaluated today on 01/04/2021, she was extubated yesterday, and tolerated the extubation well. She is on 5 L nasal cannula, O2 sats is 97%. Patient remains on enteral feeding via nasogastric tube will vital HP at 21 mL per hour. Patient remains encephalopathic, she is awake, opens eyes, but does not follow any instructions. Her atrial fibrillation is under controlled rate, patient will be likely transferred today to the cardiac floor on telemetry, discussed her condition with the neurologist on the case, he is agreeable that the patient is encephalopathic, and this is related to her anoxic brain injury or related to COVID-19 infection. This is clearly metabolic encephalopathy. Could also be anoxic encephalopathy ABC today is relatively unremarkable electrolytes are normal bicarb is 18 BUN is 70 creatinine is 1.51. Remains on IV fluid at 75 mL per hour in the form of D5 W. Patient remains on the COVID-19 cocktail, and she is also on Eliquis at 2.5 mg twice a day. Objective - Vital Signs Vital signs: Vital Signs Temp 97.8 F 01/04/21 08:00 Pulse 77 01/04/21 10:00 Resp 18 01/04/21 10:00 BP 121/69 12/30/20 21:00 Pulse Ox 98 01/04/21 10:00 Intake & Output 01/03/21 01/04/21 01/04/21 18:59 06:59 18:59 Intake Total 974 1487 397 Output Total 692 890 225 Balance 282 597 172 Weight 86.2 kg 88.4 kg Intake: IV 111 1014 234 Dextrose 5% in Water 1, 75 975 225 000 ml @ 75 mls/hr IV . [id number] [facility] Rx#:[id number] pressure bag 36 39 9 Intake, IV Titration 825 Amount Dextrose 5% in Water 1, 825 000 ml @ 75 mls/hr IV . [id number] [facility] Rx#:[id number] Tube Feeding 38 273 63 Other 200 100 Output: Urine 692 890 225 Other: Voiding Method Indwelling Catheter Indwelling Catheter ABP, PAP, CO, CI - Last Documented Arterial Blood Pressure 132/52 - Exam Physical Exam: Revealed 75-year-old female resting in bed, on nasal cannula, in no distress. Head: Atraumatic, normocephalic. HEENT:[Neck is supple.] [No neck masses.] [No thyromegaly.] [No JVD.] Endotracheal tube is intact. Orogastric tube is intact. Chest: [Symmetrical chest expansion minimal crackles at the bases. Cardiac Exam: [Irregular irregular rhythm. Normal S1 and S2, no S3 gallop, 3/6 systolic murmur thought the precordium best heard at the left apex. Abdomen: [Soft, nontender, no megaly, no rebound, no guarding, normal bowel sounds.] Extremities: [No clubbing, no edema, no cyanosis.] Pulses bilaterally. Neurological Exam, awake, opens eyes, and grimaces upon painful stimuli, does not follow any instructions. Psychiatric: Could not be assessed. Skin: No rashes. - Labs CBC & Chem 7: 01/04/21 04:35 01/04/21 04:35 Labs: Abnormal Lab Results - Last 24 Hours (Table) 01/03/21 01/03/21 01/03/21 Range/Units 03:55 11:29 18:07 WBC (3.8-10.6) k/uL RBC (3.80-5.40) m/uL Hgb (11.4-16.0) gm/dL Hct (34.0-46.0) % MCV (80.0-100.0) fL Chloride (98-107) mmol/L Carbon Dioxide (22-30) mmol/L BUN (7-17) mg/dL Creatinine (0.52-1.04) mg/dL Glucose (74-99) mg/dL POC Glucose (mg/dL) 108 H 160 H (75-99) mg/dL Magnesium (1.6-2.3) mg/dL Ferritin 527.2 H (10.0-291.0) ng/mL ALT (4-34) U/L Total Protein (6.3-8.2) g/dL Albumin (3.5-5.0) g/dL 01/03/21 01/04/21 01/04/21 Range/Units 23:06 04:35 04:35 WBC 17.3 H (3.8-10.6) k/uL RBC 3.32 L (3.80-5.40) m/uL Hgb 10.7 L (11.4-16.0) gm/dL Hct 33.7 L (34.0-46.0) % MCV 101.3 H (80.0-100.0) fL Chloride 115 H (98-107) mmol/L Carbon Dioxide 18 L (22-30) mmol/L BUN 70 H (7-17) mg/dL Creatinine 1.51 H (0.52-1.04) mg/dL Glucose 223 H (74-99) mg/dL POC Glucose (mg/dL) 189 H (75-99) mg/dL Magnesium 2.4 H (1.6-2.3) mg/dL Ferritin (10.0-291.0) ng/mL ALT 70 H (4-34) U/L Total Protein 5.2 L (6.3-8.2) g/dL Albumin 2.4 L (3.5-5.0) g/dL 01/04/21 Range/Units 06:32 WBC (3.8-10.6) k/uL RBC (3.80-5.40) m/uL Hgb (11.4-16.0) gm/dL Hct (34.0-46.0) % MCV (80.0-100.0) fL Chloride (98-107) mmol/L Carbon Dioxide (22-30) mmol/L BUN (7-17) mg/dL Creatinine (0.52-1.04) mg/dL Glucose (74-99) mg/dL POC Glucose (mg/dL) 225 H (75-99) mg/dL Magnesium (1.6-2.3) mg/dL Ferritin (10.0-291.0) ng/mL ALT (4-34) U/L Total Protein (6.3-8.2) g/dL Albumin (3.5-5.0) g/dL Assessment and Plan Assessment: Impression: Acute hypoxic respiratory failure secondary to COVID-19 pneumonia requiring intubation and mechanical ventilation. Patient was successfully extubated on 01/03/2021. Status post cardiac arrest with pulseless electrical activity for 7 minutes, status post intubation and mechanical ventilation since 12/24/2020. Possible anoxic brain injury. Anoxic brain injury and encephalopathy. Severe aortic stenosis. Severe cardiomyopathy and LV dysfunction with ejection fraction of 30%. Atrial fibrillation/atrial flutter. Type 2 diabetes. Acute kidney injury, likely secondary to acute tubular necrosis. And related to cardiac arrest possibly related to COVID-19 infection. Elevated inflammatory markers secondary to acute COVID-19 infection/pneumonia Non-ST elevation CO is suspected. Possible underlying bacterial pneumonia secondary to Klebsiella and Proteus mirabilis. Hence the patient will remain on cefepime for now. Coffee-ground emesis, possibly erosive gastritis, Protonix is 40 mg twice a day. Resume Eliquis Recommendation: Continue present supportive care measures. Continue oxygen via nasal cannula. Continue nutritional support via enteral feeding patient has a nasogastric tube in place. Continue anticoagulations therapy. Continue COVID-19 cocktail. Continue Decadron. Continue cefepime. Transferred to monitor bed on selective Overall prognosis remains relatively guarded. Patient continues to have significant encephalopathy. We will continue to follow. Time with Patient: Less than 30
[2021-01-04 11:59] LABS: Glucose,Whole Blood 213 mg/dL (75-99)
--- NOTE | 2021-01-04 18:05 | P.PN ---
Subjective Progress Note Date: 01/04/21 The patient is seen at bedside and she was transferred to the floors. Per the nurse she tracks throughout the room but is not following commands. Objective - Vital Signs Vital signs: Vital Signs Temp 98.4 F 01/04/21 16:00 Pulse 84 01/04/21 16:00 Resp 17 01/04/21 16:00 BP 151/62 01/04/21 16:00 Pulse Ox 96 01/04/21 16:54 Intake & Output 01/03/21 01/04/21 01/04/21 18:59 06:59 18:59 Intake Total 974 1487 397 Output Total 692 890 825 Balance 282 597 -428 Weight 86.2 kg 88.4 kg Intake: IV 111 1014 234 Dextrose 5% in Water 1, 75 975 225 000 ml @ 75 mls/hr IV . [id number] [facility] Rx#:[id number] pressure bag 36 39 9 Intake, IV Titration 825 Amount Dextrose 5% in Water 1, 825 000 ml @ 75 mls/hr IV . [id number] [facility] Rx#:[id number] Tube Feeding 38 273 63 Other 200 100 Output: Urine 692 890 825 Other: Voiding Method Indwelling Catheter Indwelling Catheter Indwelling Catheter ABP, PAP, CO, CI - Last Documented Arterial Blood Pressure 136/55 - Exam GENERAL: The patient is lying in bed and does not seem is not in acute distress. NEUROLOGICAL: Higher mental function: The patient is awake but not verbalizing or following commands. Cranial nerves: Eyes are spontaneously open. Primary gaze is midline. The pupils are round, equal (3mm) and reactive to light. Extraocular movement is tracking throughout the room and turning her neck to side and no nystagmus is note No facial weakness. Could not assess rest of cranial nerves. Motor: The strength is moving her uppers side to side and has good hand squeeze. Withdrawls to painful stimuli over lowers. Normal tone and bulk. Cerebellum:Could not assess. Sensation: Could not assess light touch but has intact to painful stimuli. CT of the head is reported as no acute intracranial process. Routine EEG (01/02/2021): Is an abnormal routine EEG. The background slowing is suggestive of moderate encephalopathy. There are no focal slowing, epileptiform discharges or seizure on the EEG. Vitamin B12 is 439 which is considered within normal limits. Folate serum is 9 which is considered low normal. TSH is 3.4 which is considered within normal limits Ammonia level is less than 9 which is within normal limits. - Labs CBC & Chem 7: 01/04/21 04:35 01/04/21 04:35 Labs: Abnormal Lab Results - Last 24 Hours (Table) 01/03/21 01/03/21 01/04/21 Range/Units 18:07 23:06 04:35 WBC 17.3 H (3.8-10.6) k/uL RBC 3.32 L (3.80-5.40) m/uL Hgb 10.7 L (11.4-16.0) gm/dL Hct 33.7 L (34.0-46.0) % MCV 101.3 H (80.0-100.0) fL Chloride (98-107) mmol/L Carbon Dioxide (22-30) mmol/L BUN (7-17) mg/dL Creatinine (0.52-1.04) mg/dL Glucose (74-99) mg/dL POC Glucose (mg/dL) 160 H 189 H (75-99) mg/dL Magnesium (1.6-2.3) mg/dL ALT (4-34) U/L Total Protein (6.3-8.2) g/dL Albumin (3.5-5.0) g/dL 01/04/21 01/04/21 01/04/21 Range/Units 04:35 06:32 11:57 WBC (3.8-10.6) k/uL RBC (3.80-5.40) m/uL Hgb (11.4-16.0) gm/dL Hct (34.0-46.0) % MCV (80.0-100.0) fL Chloride 115 H (98-107) mmol/L Carbon Dioxide 18 L (22-30) mmol/L BUN 70 H (7-17) mg/dL Creatinine 1.51 H (0.52-1.04) mg/dL Glucose 223 H (74-99) mg/dL POC Glucose (mg/dL) 225 H 213 H (75-99) mg/dL Magnesium 2.4 H (1.6-2.3) mg/dL ALT 70 H (4-34) U/L Total Protein 5.2 L (6.3-8.2) g/dL Albumin 2.4 L (3.5-5.0) g/dL Assessment and Plan Assessment: Altered mental status due to Cerebral anoxia/hypoxia secondary to respiratory failure related to pneumonia and Covid 19 infection also component of the altered mental status due to metabolic of acute kidney insufficiency and slight hypernatremia. Acute hypoxic respiratory failure secondary to do COVID-19 pneumonia requiring intubation and mechanical ventilation. Acute kidney insufficiency trending down. Slight elevated the liver function test with the last AST of 85 and ALT of 82. Status post cardiac arrest was pulseless logical activity for 7 minutes status post intubation mechanical ventilation on 12/24/2020 and there was questionable anoxic brain injury. History of coronary artery disease Severe aortic stenosis Severe cardiomyopathy and the left ventricle dysfunction with ejection fraction of 30%. Atrial fibrillation/atrial flutter type 2 diabetes History of hypertension History of atrial fibrillation on anticoagulation Plan: * MRI of the brain is ordered and pending to be done once the patient is stable. * Cardiology is on board. * Will Defer the rest of the medical management to the primary/Pulmonary team. The plan is discussed with the patient's nurse. The patient's condition is very guarded. Will follow-up with patient sporadically. Bebeto Daniels M.D. Neuro-hospitalist Time with Patient: Less than 30
[2021-01-04 18:09] LABS: Glucose,Whole Blood 263 mg/dL (75-99)
--- NOTE | 2021-01-04 19:31 | P.PN ---
Subjective Progress Note Date: 01/04/21 Principal diagnosis: shortness of breath w Patient is a 75-year-old female with a history of prior angina, diabetes, hypothyroidism, dyslipidemia, and hypertension who presented with complaint of weakness and syncope. She started having upper respiratory symptoms approx imately 4-5 days ago. She went to obtain an outpatient Covid test and passed out. She has completed a 2 series Pfizer vaccine earlier this year. In the ER she underwent an extensive evaluation. On arrival her oxygenation was 71% on room air. She was started on BiPAP. Initial laboratory analysis showed a sodium of 132, carbon dioxide 19, anion gap 11, BUN 56, creatinine 1.9, S2 83, troponin 0.247, CRP 22.8, BNP 21,100. Covid testing was positive. Chest x-ray showed diffuse bilateral interstitial infiltrates. She was given a dose of dexamethasone. She was seen by pulmonary who felt she could be managed on selective care. She was continued on dexamethasone. She is not a candidate for eRemdesivir secondary to her high oxygen requirements. On the afternoon of 12/24 she had sudden decline in heart rate and had PEA arrest lasting approximately 5 minutes. She was transitioned to the ICU and started on propofol for sedation. She did require small amounts of levo. She was noted to have A. fib after [place] was achieved and she was subsequently transitioned from Lovenox to heparin drip. She was seen by cardiology secondary to her echocardiogram with severe aortic stenosis and PEA arrest. She did require increasing PEEP on 12/25 that was able to be decreased on 12/26. People slowly weaned down. On her initial sedation holiday she did not wake up completely and was restless and hypertensive requiring a cough a proximal drip. She was then started on Precedex and continued to not respond to stimuli she underwent head CT which showed no acute process, neurology was consulted. She continued to have A fib with RVR and was transitioned from heparin gtt to eliquis. Extubated on 01/03. Still without verbalizing. Additional testing: EEG-background slowing suggestive of encephalopathy Make an echo with ejection fraction 30-35% Patient seen and examined at bedside. Tracking me around the room, not speaking Per nursing no acute events overnight. General: Ill appearing, no distress, appears at stated age Derm: warm, dry Head: atraumatic, normocephalic, symmetric Eyes: Pupils equal round reactive to light, no lid lesion, anicteric sclera Mouth: no lip lesion, mucus membranes dry Cardiovascular: S1S2 reg, + murmur, positive posterior tibial pulse bilateral, Lungs: Coarse breath sounds bilateral, equal chest rise, Abdominal: soft, nontender to palpation, no guarding, no appreciable organomegaly Ext: no gross muscle atrophy, trace edema, no contractures Neuro: Moving all 4 extremities independently, pupils equal round reactive to light, not following commands, withdrawal to pain in bilateral upper and lower extremities Psych: Blunted affect, currently nonverbal, does not appear anxious COVID-19 pneumonia, Klebsiella and proteus pneumnia Acute hypoxic respiratory failure Acute kidney injury, Non-anion gap metabolic acidosis Transaminitis secondary to above and cardiac arrest Septic shock, resolved Acute enephalopathy- metabolic vs hypoxic - Vit D, zinc, vitamin C - Dexamethasone, Pepcid - Wean O2 as able - Pulm recs - Lovenox - cefepime - follow inflammatory labs -Follow CMP Severe Aortic Stenosis Syncope- likely due to hypoxia versus severe aortic stenosis Type II NSTEMI- likely due to hypoxia, not consistent with ACS Aborted sudden cardiac Atrial fibrillation with rapid ventricular response Severe systolic cardiomyopathy with EF 30-35% HTN - careful fluid management - tele - amio - eliquis -Cardiology recommendations appreciated -Patient follows with Dr. Blake Herbert at [facility] if requesting records for further evaluation if appropriate - metoprolol - hold lisinopril due to VERONICA - hydralazine - follow BP HLD - statin DM 2 - Long acting, SSI, and fixed dose insulin - increased - follow BS with steroids - A1C 8.5 ASCAD - plavix, BB, statin Hypernatremia, resolved - on D 5, follow Na levels, did not tolerate increase in free water Constipation - miralax Hyponatremia, resolved Hypothyroidism, synthroid Daughter and updated over the phone [phone] DVT prophylaxis: ketty Discussed with: patient, nursing Anticipated discharge date: in 8-[address]: undetermined A total of 35 minutes was spent on the care of this complex patient more than 50% of the time was spent in counseling and care coordination. Objective - Vital Signs Vital signs: Vital Signs Temp 98.4 F 01/04/21 16:00 Pulse 84 01/04/21 16:00 Resp 17 01/04/21 16:00 BP 151/62 01/04/21 16:00 Pulse Ox 96 01/04/21 16:54 Intake & Output 01/04/21 01/04/21 01/05/21 06:59 18:59 06:59 Intake Total 1487 397 Output Total 890 825 Balance 597 -428 Weight 88.4 kg Intake: IV 1014 234 Dextrose 5% in Water 1, 975 225 000 ml @ 75 mls/hr IV . [id number] [facility] Rx#:[id number] pressure bag 39 9 Tube Feeding 273 63 Other 200 100 Output: Urine 890 825 Other: Voiding Method Indwelling Catheter Indwelling Catheter ABP, PAP, CO, CI - Last Documented Arterial Blood Pressure 136/55 - Labs CBC & Chem 7: 01/04/21 04:35 01/04/21 04:35 Labs: Abnormal Lab Results - Last 24 Hours (Table) 01/03/21 01/04/21 01/04/21 Range/Units 23:06 04:35 04:35 WBC 17.3 H (3.8-10.6) k/uL RBC 3.32 L (3.80-5.40) m/uL Hgb 10.7 L (11.4-16.0) gm/dL Hct 33.7 L (34.0-46.0) % MCV 101.3 H (80.0-100.0) fL Chloride 115 H (98-107) mmol/L Carbon Dioxide 18 L (22-30) mmol/L BUN 70 H (7-17) mg/dL Creatinine 1.51 H (0.52-1.04) mg/dL Glucose 223 H (74-99) mg/dL POC Glucose (mg/dL) 189 H (75-99) mg/dL Magnesium 2.4 H (1.6-2.3) mg/dL ALT 70 H (4-34) U/L Total Protein 5.2 L (6.3-8.2) g/dL Albumin 2.4 L (3.5-5.0) g/dL 01/04/21 01/04/21 01/04/21 Range/Units 06:32 11:57 18:08 WBC (3.8-10.6) k/uL RBC (3.80-5.40) m/uL Hgb (11.4-16.0) gm/dL Hct (34.0-46.0) % MCV (80.0-100.0) fL Chloride (98-107) mmol/L Carbon Dioxide (22-30) mmol/L BUN (7-17) mg/dL Creatinine (0.52-1.04) mg/dL Glucose (74-99) mg/dL POC Glucose (mg/dL) 225 H 213 H 263 H (75-99) mg/dL Magnesium (1.6-2.3) mg/dL ALT (4-34) U/L Total Protein (6.3-8.2) g/dL Albumin (3.5-5.0) g/dL
[2021-01-04 20:29] LABS: Glucose,Whole Blood 273 mg/dL (75-99)
[2021-01-04] MEDS: ATORVASTATIN 40 MG TAB PO SCH (20:31)
[2021-01-05 00:13] LABS: Glucose,Whole Blood 190 mg/dL (75-99)
[2021-01-05] MEDS: INSULIN ASPART (NovoLOG) 100 UNIT/ML VIAL SQ SCH ×8 (00:15→17:25)
[2021-01-05] MEDS: CEFEPIME 1 GM in SODIUM CHLORIDE 0.9% 50 ML IVPB SCH ×3 (04:09→20:40)
[2021-01-05 06:15] LABS: Glucose,Whole Blood 127 mg/dL (75-99)
[2021-01-05 06:38] LABS: HCT 35.2 % (34.0-46.0); Hypochromasia Slight; MCH 31.5 pg (25.0-35.0); MCHC 31.3 g/dL (31.0-37.0); MCV 100.8 fL (80.0-100.0); Mean Platelet Volume 8.5; Platelet Count 267 k/uL (150-450); RBC 3.49 m/uL (3.80-5.40); RDW 13.3 % (11.5-15.5); WBC 19.3 k/uL (3.8-10.6)
[2021-01-05] MEDS: DEXTROSE 5% IN WATER 1,000 ML IV SCH ×2 (06:44→16:34)
[2021-01-05] MEDS: LEVOTHYROXINE 50 MCG TAB PO SCH (06:44)
[2021-01-05] MEDS: INSULIN DETEMIR (LEVEMIR) 100 UNIT/ML SYR SQ SCH ×2 (06:44→20:32)
[2021-01-05 06:53] LABS: Calcium 8.7 mg/dL (8.4-10.2); Magnesium 2.4 mg/dL (1.6-2.3); Potassium 4.3 mmol/L (3.5-5.1)
[2021-01-05] MEDS: hydrALAZINE HCL 50 MG TAB PO SCH ×3 (08:27→20:31)
[2021-01-05] MEDS: ASCORBIC ACID 500 MG TAB PO SCH (08:27)
[2021-01-05] MEDS: METOPROLOL TARTRATE 50 MG TAB PO SCH ×2 (08:28→20:31)
[2021-01-05] MEDS: CLOPIDOGREL 75 MG TAB PO SCH (08:28)
[2021-01-05] MEDS: PANTOPRAZOLE 40 MG/10 ML VIAL IVP SCH ×2 (08:28→20:30)
[2021-01-05] MEDS: DEXAMETHASONE SOD PHOSPHATE 10 MG/ML 1 ML VIAL IV SCH (08:28)
[2021-01-05] MEDS: FAMOTIDINE 20 MG/2 ML VIAL IV SCH (08:28)
[2021-01-05] MEDS: CHOLECALCIFEROL 25 MCG (1000 IU) TABLET PO SCH (08:28)
[2021-01-05] MEDS: AMIODARONE 200 MG TAB PO SCH ×3 (08:28→20:31)
[2021-01-05] MEDS: ZINC SULFATE 220 MG CAP PO SCH (08:28)
[2021-01-05] MEDS: polyethylene glycoL 3350 17 GM POWD.PACK PO SCH (08:28)
[2021-01-05] MEDS: APIXABAN 2.5 MG TABLET PO SCH ×2 (08:28→20:31)
--- NOTE | 2021-01-05 10:04 | XR ---
EXAMINATION TYPE: XR chest 1V portable DATE OF EXAM: 01/05/2021 Comparison: 01/03/2021 Clinical History: 75-year-old female verify NG Findings: ET tube is satisfactory. Median sternotomy wires post-CABG clips. Heart mildly enlarged. Diffuse inte rstitial density persists. No mabel consolidation or pleural effusion. Impression: 1. Satisfactory NG tube. 2. Similar mild cardiomegaly. 3. Similar interstitial opacities.
--- NOTE | 2021-01-05 11:30 | P.PN ---
Subjective Progress Note Date: 01/05/21 No acute changes overnight. Pt still is non-verbal, does not follow commands. Objective - Vital Signs Vital signs: Vital Signs Temp 98.8 F 01/05/21 08:00 Pulse 65 01/05/21 08:00 Resp 17 01/05/21 08:00 BP 115/65 01/05/21 08:00 Pulse Ox 95 01/05/21 08:00 Intake & Output 01/04/21 01/05/21 01/05/21 18:59 06:59 18:59 Intake Total 397 Output Total 825 600 500 Balance -428 -600 -500 Weight 88.5 kg Intake: IV 234 Dextrose 5% in Water 1, 225 000 ml @ 75 mls/hr IV . [id number] [facility] Rx#:[id number] pressure bag 9 Tube Feeding 63 Other 100 Output: Urine 825 600 500 Stool 0 Other: Voiding Method Indwelling Catheter Indwelling Catheter Indwelling Catheter # Voids 0 # Bowel Movements 0 ABP, PAP, CO, CI - Last Documented Arterial Blood Pressure 136/55 - Exam Gen: Nonverbal, does not follow commands HEENT: normocephalic, atraumatic, good hearing acuity, moist mucous membranes Resp: good air exchange, breathing comfortably with no accessory muscle use CVS: good distal perfusion x 4, GI: soft, NTTP, ND : no SPT, no CVAT, salguero catheter is present MSK: no pitting edema, no clubbing - Labs CBC & Chem 7: 01/05/21 06:12 01/05/21 06:12 Labs: Abnormal Lab Results - Last 24 Hours (Table) 01/04/21 01/04/21 01/04/21 Range/Units 11:57 18:08 20:27 WBC (3.8-10.6) k/uL RBC (3.80-5.40) m/uL Hgb (11.4-16.0) gm/dL MCV (80.0-100.0) fL Chloride (98-107) mmol/L Carbon Dioxide (22-30) mmol/L BUN (7-17) mg/dL Creatinine (0.52-1.04) mg/dL Glucose (74-99) mg/dL POC Glucose (mg/dL) 213 H 263 H 273 H (75-99) mg/dL Magnesium (1.6-2.3) mg/dL 01/05/21 01/05/21 01/05/21 Range/Units 00:12 06:12 06:12 WBC 19.3 H (3.8-10.6) k/uL RBC 3.49 L (3.80-5.40) m/uL Hgb 11.0 L (11.4-16.0) gm/dL MCV 100.8 H (80.0-100.0) fL Chloride 117 H (98-107) mmol/L Carbon Dioxide 19 L (22-30) mmol/L BUN 66 H (7-17) mg/dL Creatinine 1.38 H (0.52-1.04) mg/dL Glucose 125 H (74-99) mg/dL POC Glucose (mg/dL) 190 H (75-99) mg/dL Magnesium 2.4 H (1.6-2.3) mg/dL 01/05/21 Range/Units 06:14 WBC (3.8-10.6) k/uL RBC (3.80-5.40) m/uL Hgb (11.4-16.0) gm/dL MCV (80.0-100.0) fL Chloride (98-107) mmol/L Carbon Dioxide (22-30) mmol/L BUN (7-17) mg/dL Creatinine (0.52-1.04) mg/dL Glucose (74-99) mg/dL POC Glucose (mg/dL) 127 H (75-99) mg/dL Magnesium (1.6-2.3) mg/dL Assessment and Plan Assessment: COVID-19 pneumonia, Klebsiella and proteus pneumnia Acute hypoxic respiratory failure Non-anion gap metabolic acidosis Septic shock, resolved Acute enephalopathy- metabolic vs hypoxic - Vit D, zinc, vitamin C - Dexamethasone, Pepcid - Wean O2 as able - Pulm recs - Lovenox - cefepime - follow inflammatory labs - Follow CMP Severe Aortic Stenosis Syncope- secondary to hypoxia and severe aortic stenosis Type II NSTEMI- secondary to hypoxia Aborted sudden cardiac PEA arrest Atrial fibrillation with rapid ventricular response Severe systolic cardiomyopathy with EF 30-35% HTN - careful fluid management [facility] -Cardiology recommendations appreciated -Patient follows with Dr. Blake Herbert at [place] if requesting records for further evaluation if appropriate - metoprolol - hydralazine - restarted lisinopril at 20mg daily (home dose is 20mg BID) - follow BP HLD - statin DM 2 - Long acting, SSI, and fixed dose insulin - increased - follow BS with steroids - A1C 8.5 ASCAD - plavix, BB, statin Hypernatremia, resolved - on D 5, follow Na levels, did not tolerate increase in free water Constipation - miralax Hyponatremia, resolved Hypothyroidism, synthroid Acute kidney injury, resolved; now with CKD III Transaminitis secondary to cardiac arrest Daughter and updated over the phone [phone] DVT prophylaxis: ketty Discussed with: patient, nursing Anticipated discharge date: TBD Anticipated discharge place: LTC vs Hospice
[2021-01-05 11:43] LABS: Glucose,Whole Blood 145 mg/dL (75-99)
--- NOTE | 2021-01-05 11:52 | P.PN ---
Subjective Progress Note Date: 01/05/21 Principal diagnosis: Acute hypoxemic respiratory failure secondary COVID-19 pneumonia 12/27/2020, the patient is being seen for a follow-up. Patient is a 75-year-old here patient with community related pneumonia with secondary respiratory failure. The patient also has severe valvular heart disease with severe aortic stenosis. The patient is post cardiac pulmonary arrest with a PEA rhythm that lasted around 7 minutes post intubation on 12/24/2020. The patient also has new onset paroxysmal atrial fibrillation. The patient is diabetic. On today's evaluation, the patient remains sedated. The patient on Profore running at 60 mg/kg/m. The patient is well sedated and she is calm and comfortable on mechanical ventilator. She is an assist-control mode with a rate of 26 with a tidal volume of 400 and PEEP of 13 with a FiO2 of 40%. The blood gases from today shows a pH of 7.34 with a pCO2 of 36 and pO2 of 105. Peak airway pressure 31. Static airway airway pressure 23. The patient had a follow-up chest x-ray that showed no evidence of any pneumothorax. There is persistent but the pulmonary infiltrates consistent with community related pneumonia. Pulmonary ed dia cannot be completely excluded. Previous echocardiogram in this patient echocardiogram showed global hypokinesis with an ejection fraction of 3035%. There was also moderate to severe degree of aortic valve was 58 with a mean gradient of 37. Hemodynamically, the patient remains on pressors. The patient is running on a low-dose of norepinephrine urine at 0.03 units per kilogram per minute. The patient is in a sinus rhythm and the patient is also on IV heparin. Patient is sitting up and feeding for nutritional support. The patient is on vital high protein at 60 mL an hour which is currently at goal. Afebrile. She is also on Decadron 6 mg IV every 24 hours. She remains on amiodarone 400 mg by mouth twice a day and Levemir insulin for blood sugar control 30 units at night and 20 units in the morning along with a fasting coverage. She remains on IV Pepcid. 12/28/2020, the patient is being seen for a follow-up. The patient remains intubated on a mechanical ventilator. This morning, the patient is on propofol at 40 mg/kg per minute and the patient is also on Versed at 1 mg an hour. She is intubated on a mechanical ventilator. She remains on assist control mode at a rate of 26 with a volume of 400 and FiO2 of 60% with a PEEP of 9. The cages at 7.4 episodes of 36 and pO2 77. Chest x-rays on changes consistent with diffuse but the pulmonary infiltrates consistent with community related pneumonia. Since yesterday, the patient was diuresed IV Lasix. The patient was given a total of 60 mg of IV Lasix and she has been negative fluid balance. Nevertheless, no major improvement in her oxygenation nor her chest x-ray findings. She is off pressors. She remains on IV heparin per protocol. The cardiac rhythm is sinus. She is receiving enteral feeding for nutritional support. White cell count of 15.7 with a hemoglobin of 10.1. Creatinine is at 1.4 with a BUN of 64. Electrolytes are normal. AST and ALP are 33 and 49 respectively. LDH level is at 970. CRP level is at 22.6. The d-dimer from today is at 0.7. The patient remains on Decadron 6 mg IV every 24 hours. When the process of getting the patient is sedation holiday. We'll use Cleviprex if needed for tighter blood pressure control. otherwise, no other significant events overnight. The patient on Levemir insulin 30 units at bedtime and 20 units in the morning along with sliding scale coverage and 4 units of regular insulin every 4 hours coverage. 12/29/2020, the patient is being seen for a follow-up. Remains on a mechanical ventilator. Remains on Precedex for sedation. Note that I think this patient off sedation yesterday. Following her sedation holiday, the patient did not wake up completely. She was becoming more restless and hypertensive at that point Cleviprex was admitted for blood pressure control is currently running at 2 mg an hour. Later on during the day, Precedex was also added for sedation at around 4:30 AM this morning and Precedex is running at 0.2 g. Remains intubated. The patient remains on assist control mode at the rate of 26 with a tidal volume of 100 and FiO2 is currently at 40% with a PEEP of 6. We managed to cut down the PEEP overnight slowly maintaining a saturation above 90%. Current pulse ox is 96%. Morning blood gases showed a pH of 7.47 with a pCO2 of 35 and pO2 of 78 and this was on FiO2 of 40%. Chest x-ray from today showing bi lateral pulmonary infiltrates, with probably some improvement in infiltrates patient the right lung base. ET tube remains in a good location. The patient also has a left IJ triple-lumen catheter in place. The patient was receiving daily diuretics. The net fluid balance over the past 24 hours has been -2.4 L. The peak airway pressure on a mechanical ventilator is 16. No significant orotracheal secretions. Creatinine today is at 1.4 which is essentially stable. Sodium level is at 146 slightly higher compared to yesterday as the patient is being diuresed. In terms of inflammatory markers, the patient has a LDH level of 1100 and his CRP level of 16.5. The white cell count is slightly elevated today at 19.2. In terms of her medication coverage, the patient remains on Decadron 6 g IV every 24 hours. The patient is still on she will feeds and currently she is receiving enteral feeding for nutritional support and she is on vital high protein at the rate of 16 mL an hour. Blood sugars are under adequate control and patient is receiving Levemir insulin 30 units at bedtime and 20 units in the morning along with a sliding scale coverage. Patient was reevaluated today on 12/30/2020, patient remains in the ICU, intubated and mechanically ventilated. Remains sedated on Precedex. Dose is 0.4 mcg/kg/h. IV fluid is 0.9 at 20 mL per hour. Patient is not arousable. She seems to get intermittent episodes of atrial fibrillation with RVR with any minimal agitation hence unable to address weaning on this patient today. Ventilator settings are assist control of 26, volume is 400 FiO2 40% PEEP of 5 ABG showed a pO2 of 80 pCO2 of 35 pH of 7.50. No changes were made in the ventilator settings. Chest x-ray continues to show bilateral infiltrates. Patient had a T-max of 101.7. Sputum cultures are negative. Blood cultures remain negative. Patient remains on enteral feedings. Elisa peterson has a left IJ triple-lumen catheter in place. Remains on diuretics intermittently. CBC count is 19.0 hemoglobin is 11.5. Sodium is 150. Hence we'll change her IV fluid to D5W. BUN is 60 creatinine 1.40. Considering the patient is having significant episodes of atrial fibrillation with RVR, patient was placed on oral anticoagulation in the form of Eliquis 2.5 mg twice a day and we can discontinue Lovenox. Remains on albuterol, remains on Decadron. Remains on the COVID-19 cocktail. And she remains on Precedex. Considering her atrial fibrillation with RVR, I have no plans to wean and extubate the patient, she is presently not weanable Reevaluated today on 12/31/2020, patient remains in the ICU, intubated and mechanically ventilated remains on Precedex. At 0.6 mcg/kg per hour. Remains on D5W at 50 mL per hour. She is on enteral feeding using vital HP. Continues to have hypernatremia, and we are recommending that the patient receives free water via nasogastric tube. Her ventilator settings are assist control rate of 26 tidal volume 400 FiO2 40% PEEP of 5 ABG showed a pO2 of 74 pCO2 of 33 pH of 7.52, and I lowered down her rate down to 24. Patient remains in atrial fibrillation but seems to be controlled rate is 92. The pressure seems to be a bit elevated at 173/76. Neurologically the patient does not seem to be responding to any verbal or painful stimuli, hence I'm recommending a CT of the brain, I'm also recommending neurologic evaluation. In the meantime we will discontinue Precedex and assess mental status. Clearly the patient is not ready for any form of weaning. Chest x-ray continues to show cardiomegaly and parenchymal changes, there is definite improvement in her multifocal opacities related to her underlying COVID-19 pneumonia. And that is clearly reflected on the improvement in the ABG. Appendectomy were reviewed sodium is 150 BUN is 63 creatinine 1.50 slightly worse compared to yesterday. Patient remains on updrafts, remains on amiodarone. Eliquis. Cefepime, Decadron, Pepcid, insulin, Toprol, sputum is positive for Klebsiella and proteus mirabilis. Both are sensitive to cefepime. Patient was reevaluated today on 01/01/2021, remains in the ICU, intubated and mechanically ventilated. No major pattern changer and repairer the last 24 hours, patient remains unresponsive to any verbal or painful stimuli. CT of the brain showed no evidence of active disease. And neurological consultation is pending. I strongly believe the patient also sustained some anoxic brain injury related to her initial cardiac arrest. Her ventilator settings are assist control rate of 24 to 400 FiO2 40% and PEEP of 5. ABG showed a pO2 of 84 pCO2 33 pH of 7.49. Patient remains on Precedex. And I would likely place on hold and continue to assess mental status on a regular basis. He she does not requiring any narcotics or any paralytics. Yesterday she developed some coffee-ground emesis, and Eliquis was placed on hold, Protonix was increased to twice a day, however no further evidence of any GI bleeding, we'll restart Eliquis today. Patient remains in atrial flutter with a rate of 93. She is also on enteral feeding using vital HP at 20 mL per hour. Neurological consultation is pending on this patient. Chest x-ray continues to show cardiomegaly, chronic parenchymal changes, and possibly left patchy basilar atelectasis, possible infiltrate. CBC today showed leukocytosis with WBC count of 16.1 hemoglobin of 11.3. D-dimer is 2.95. Elec trolytes showed sodium of 148 potassium 4.1 chloride 118 bicarb 23 BUN is 69 creatinine is 1.51. Renal profile seems to be holding about the same Reevaluated today on 01/02/2021, patient remains in the ICU, intubated and mechanically ventilated. Patient remains on assist control rate of 24 volume is 400 FiO2 40% PEEP of 5 ABG showed a pO2 of 80 pCO2 32 pH of 7.47 patient is on Precedex at 0.3, and she is on IV fluid at KVO. She is still receiving water at 300 mL every 6 hours via orogastric tube. Patient is still receiving vital HP , patient is scheduled to have EGD today. And I continuing her Precedex. Patient remains unresponsive except today for the first time she seems to open her eyes to voice. And open eyes to verbal stimuli. However does not seem to be following any other instructions. Her atrial fibrillation is well controlled, remains on Eliquis. Patient was seen by urology yesterday, and EEG was scheduled to be done today. I have changed her IV fluid to D5W at 75 mL per hour since she continues to have slightly elevated sodium. WBC count today is 14.8 hemoglobin is 10.3. D-dimer is 2.51. Sodium is 147 today. Chloride is 120 BUN is 73 creatinine 1.47. LDH is 905 C-reactive protein is 3.5. The patient is seen today 01/03/2021 in follow-up. She remains intubated on mechanical ventilator. Current settings are assist control at a rate of 24, tidal volume 400, FiO2 40% and a PEEP of 5. Morning blood gases reveal a P O2 of 1:15, pCO2 35, pH 7.40. She remains off sedation. She is awake, tracking with her eyes, not following specific commands however. She has D5W at 75 ML's per hour. She is being nourished with vital HP at 21 ML's per hour which is goal. She's getting free water flushes of 300 ML's every 4 hours. She has been in atrial fibrillation. Anticoagulated with Eliquis. Sputum is positive for Klebsiella and Proteus. Urine culture positive for E. coli and klebsiella. She remains on cefepime. White count 15.6. Hemoglobin 11.1. Lymphocytes 0.7. Sodium 143. Potassium 3.7. Bicarb 19. Creatinine 1.58. Glucose 203. LDH 745. C-reactive protein 2.6. TSH 3.72. She remains on bronchodilators, Decadron. Patient was reevaluated today on 01/04/2021, she was extubated yesterday, and tolerated the extubation well. She is on 5 L nasal cannula, O2 sats is 97%. Patient remains on enteral feeding via nasogastric tube will vital HP at 21 mL per hour. Patient remains encephalopathic, she is awake, opens eyes, but does not follow any instructions. Her atrial fibrillation is under controlled rate, patient will be likely transferred today to the cardiac floor on telemetry, discussed her condition with the neurologist on the case, he is agreeable that the patient is encephalopathic, and this is related to her anoxic brain injury or related to COVID-19 infection. This is clearly metabolic encephalopathy. Could also be anoxic encephalopathy ABC today is relatively unremarkable electrolytes are normal bicarb is 18 BUN is 70 creatinine is 1.51. Remains on IV fluid at 75 mL per hour in the form of D5 W. Patient remains on the COVID-19 cocktail, and she is also on Eliquis at 2.5 mg twice a day. The patient is seen today 01/05/2021 in follow-up on the regular medical floor. She does open her eyes spontaneously. No other purposeful movements. Does not follow any simple commands. She is maintaining good O2 saturations in the 90s on 2 L/m per nasal cannula. She remains being nourished via the left nares nasogastric tube with vital HP at 21 ML's per hour with free water flushes. Chest x-ray does show satisfactory NG tube placement. There is mild cardiomegaly and consistent interstitial opacities. Urine culture was positive for E. coli and Klebsiella ornithinolytica. Sputum culture positive for Klebsiella oxytoca and Proteus mirabilis. White count 19.3. Hemoglobin 11.0. Sodium 143. Potassium 4.3. Creatinine 1.38. Glucose 125. She remains anticoagulated with Eliquis. Antibiotics in the form of cefepime. She remains on Decadron 6 mg IV daily. Continued on vitamin supplements. Objective - Vital Signs Vital signs: Vital Signs Temp 98.8 F 01/05/21 08:00 Pulse 65 01/05/21 08:00 Resp 17 01/05/21 08:00 BP 115/65 01/05/21 08:00 Pulse Ox 95 01/05/21 08:00 Intake & Output 01/04/21 01/05/21 01/05/21 18:59 06:59 18:59 Intake Total 397 Output Total 825 600 500 Balance -428 -600 -500 Weight 88.5 kg Intake: IV 234 Dextrose 5% in Water 1, 225 000 ml @ 75 mls/hr IV . [id number] [facility] Rx#:[id number] pressure bag 9 Tube Feeding 63 Other 100 Output: Urine 825 600 500 Stool 0 Other: Voiding Method Indwelling Catheter Indwelling Catheter Indwelling Catheter # Voids 0 # Bowel Movements 0 ABP, PAP, CO, CI - Last Documented Arterial Blood Pressure 136/55 - Exam GENERAL EXAM: Awake, opens eyes but nonpurposeful, 75-year-old female patient, on 2 L nasal cannula, comfortable in no apparent distress. HEAD: Normocephalic. EYES: Normal reaction of pupils, equal size. NOSE: Left nares NG tube in place.Clear with pink turbinates. THROAT: No erythema or exudates. NECK: No masses, no JVD. CHEST: No chest wall deformity. LUNGS: Equal air entry with bibasilar crackles. CVS: S1 and S2 normal with positive systolic audible murmur, irregular rhythm. ABDOMEN: No hepatosplenomegaly, normal bowel sounds, no guarding or rigidity. SPINE: No scoliosis or deformity SKIN: No rashes CENTRAL NERVOUS SYSTEM: Awake, not following specific commands, tone is normal in all 4 extremities. EXTREMITIES: There is trace peripheral edema. No clubbing, no cyanosis. Peripheral pulses are intact. - Labs CBC & Chem 7: 01/05/21 06:12 01/05/21 06:12 Labs: Abnormal Lab Results - Last 24 Hours (Table) 01/04/21 01/04/21 01/04/21 Range/Units 11:57 18:08 20:27 WBC (3.8-10.6) k/uL RBC (3.80-5.40) m/uL Hgb (11.4-16.0) gm/dL MCV (80.0-100.0) fL Chloride (98-107) mmol/L Carbon Dioxide (22-30) mmol/L BUN (7-17) mg/dL Creatinine (0.52-1.04) mg/dL Glucose (74-99) mg/dL POC Glucose (mg/dL) 213 H 263 H 273 H (75-99) mg/dL Magnesium (1.6-2.3) mg/dL 01/05/21 01/05/21 01/05/21 Range/Units 00:12 06:12 06:12 WBC 19.3 H (3.8-10.6) k/uL RBC 3.49 L (3.80-5.40) m/uL Hgb 11.0 L (11.4-16.0) gm/dL MCV 100.8 H (80.0-100.0) fL Chloride 117 H (98-107) mmol/L Carbon Dioxide 19 L (22-30) mmol/L BUN 66 H (7-17) mg/dL Creatinine 1.38 H (0.52-1.04) mg/dL Glucose 125 H (74-99) mg/dL POC Glucose (mg/dL) 190 H (75-99) mg/dL Magnesium 2.4 H (1.6-2.3) mg/dL 01/05/21 Range/Units 06:14 WBC (3.8-10.6) k/uL RBC (3.80-5.40) m/uL Hgb (11.4-16.0) gm/dL MCV (80.0-100.0) fL Chloride (98-107) mmol/L Carbon Dioxide (22-30) mmol/L BUN (7-17) mg/dL Creatinine (0.52-1.04) mg/dL Glucose (74-99) mg/dL POC Glucose (mg/dL) 127 H (75-99) mg/dL Magnesium (1.6-2.3) mg/dL Assessment and Plan Assessment: 1 Acute hypoxic respiratory failure secondary to COVID-19 pneumonia requiring i ntubation and mechanical ventilation. Extubated and currently on 2 L/m per nasal cannula 2 Status post cardiac arrest with pulseless electrical activity for 7 minutes, status post intubation and mechanical ventilation since 12/24/2020. Possible anoxic brain injury. Neurology following 3 Severe aortic stenosis. 4 Severe cardiomyopathy and LV dysfunction with ejection fraction of 30%. 5 Atrial fibrillation/atrial flutter. 6 Type 2 diabetes. 7 Acute kidney injury, likely secondary to acute tubular necrosis. And related to cardiac arrest possibly related to COVID-19 infection. 8 Elevated inflammatory markers secondary to acute COVID-19 infection/pneumonia 9 Non-ST elevation SC is suspected. 10 Possible underlying bacterial pneumonia secondary to Klebsiella and Proteus mirabilis. Hence the patient will remain on cefepime for now. 11 Possible anoxic brain injury. 12 Coffee-ground emesis, possibly erosive gastritis, Protonix is 40 mg twice a day. Remains on Eliquis Plan: The patient was seen and evaluated by Dr. Lewis Chest x-ray and labs reviewed Continue cefepime, Decadron, bronchodilators Anticoagulated with Eliquis Will most likely need subacute rehabilitation Prognosis is guarded We will continue to follow and make further recommendations based on her clinical status I, the cosigning physician, performed a history & physical examination of the patient. Lungs sounds with crackles in the bilateral bases. Maintaining good O2 saturations in the 90s on 2 L/m per nasal cannula. I discussed the assessment and plan of care with my nurse practitioner, Kelin Ha. I attest to the above note as dictated by her.
[2021-01-05] MEDS: lisinopriL 20 MG TAB PO SCH (12:02)
[2021-01-05 16:54] LABS: Glucose,Whole Blood 166 mg/dL (75-99)
[2021-01-05] MEDS: ATORVASTATIN 40 MG TAB PO SCH (20:30)
[2021-01-05 20:39] LABS: Glucose,Whole Blood 132 mg/dL (75-99)
[2021-01-06 00:02] LABS: Glucose,Whole Blood 119 mg/dL (75-99)
[2021-01-06] MEDS: INSULIN ASPART (NovoLOG) 100 UNIT/ML VIAL SQ SCH ×8 (00:02→17:01)
[2021-01-06] MEDS: CEFEPIME 1 GM in SODIUM CHLORIDE 0.9% 50 ML IVPB SCH (04:20)
[2021-01-06 06:09] LABS: Glucose,Whole Blood 125 mg/dL (75-99)
[2021-01-06] MEDS: LEVOTHYROXINE 50 MCG TAB PO SCH (06:25)
[2021-01-06] MEDS: INSULIN DETEMIR (LEVEMIR) 100 UNIT/ML SYR SQ SCH ×2 (06:25→20:42)
[2021-01-06] MEDS: DEXTROSE 5% IN WATER 1,000 ML IV SCH (07:51)
[2021-01-06] MEDS: ZINC SULFATE 220 MG CAP PO SCH (07:57)
[2021-01-06] MEDS: hydrALAZINE HCL 50 MG TAB PO SCH ×3 (07:57→20:43)
[2021-01-06] MEDS: CHOLECALCIFEROL 25 MCG (1000 IU) TABLET PO SCH (07:57)
[2021-01-06] MEDS: polyethylene glycoL 3350 17 GM POWD.PACK PO SCH (07:58)
[2021-01-06] MEDS: PANTOPRAZOLE 40 MG/10 ML VIAL IVP SCH ×2 (07:58→20:42)
[2021-01-06] MEDS: AMIODARONE 200 MG TAB PO SCH ×3 (07:59→20:42)
[2021-01-06] MEDS: ASCORBIC ACID 500 MG TAB PO SCH (07:59)
[2021-01-06] MEDS: lisinopriL 20 MG TAB PO SCH ×2 (07:59→20:43)
[2021-01-06] MEDS: APIXABAN 2.5 MG TABLET PO SCH ×2 (07:59→20:43)
[2021-01-06] MEDS: FAMOTIDINE 20 MG/2 ML VIAL IV SCH (07:59)
[2021-01-06] MEDS: DEXAMETHASONE SOD PHOSPHATE 10 MG/ML 1 ML VIAL IV SCH (08:00)
[2021-01-06] MEDS: CLOPIDOGREL 75 MG TAB PO SCH (08:00)
--- NOTE | 2021-01-06 10:28 | P.PN ---
Subjective Progress Note Date: 01/06/21 Pt opens eyes spontaneously, sometimes appears to track me across the room, sometimes not. Does not follow commands. Withdraws to pain in all 4 extremities. Oxygen status improving. No infectious signs of symptoms, resolving with abx, now at 7 days of cefepime, course duration to be discussed with ID. TARIK NGTD. NGT or OGT have now been present for 13 days, discussed with daughter over the phone regarding need for exchanging to safer form of feeding to avoid necrosis of the esophagus - they will discuss as family and get back to team by tomorrow. Consideration of MRI vs EEG with SSEP per neurology to facilitate prognostication for family given likelihood of anoxic brain injury versus mixed toxic/metabolic/septic encephalopathy. Objective - Vital Signs Vital signs: Vital Signs Temp 98.1 F 01/06/21 07:55 Pulse 61 01/06/21 07:55 Resp 18 01/06/21 07:55 BP 146/71 01/06/21 07:55 Pulse Ox 95 01/06/21 07:55 Intake & Output 01/05/21 01/06/21 01/06/21 18:59 06:59 18:59 Intake Total 0 Output Total 750 1100 0 Balance -750 -1100 0 Weight 86.5 kg Intake: Oral 0 Output: Urine 750 1100 Stool 0 0 0 Other: Voiding Method Indwelling Catheter Indwelling Catheter Indwelling Catheter # Voids 0 # Bowel Movements 0 ABP, PAP, CO, CI - Last Documented Arterial Blood Pressure 136/55 - Exam Gen/Neuro: Nonverbal, does not follow commands, opens eyes spontaneously, withdraws to pain in all 4 extremities HEENT: normocephalic, atraumatic, good hearing acuity, moist mucous membranes Resp: good air exchange, breathing comfortably with no accessory muscle use CVS: good distal perfusion x 4, GI: soft, NTTP, ND : no SPT, no CVAT, salguero catheter is present MSK: no pitting edema, no clubbing - Labs CBC & Chem 7: 01/05/21 06:12 01/05/21 06:12 Labs: Abnormal Lab Results - Last 24 Hours (Table) 01/05/21 01/05/21 01/05/21 Range/Units 11:42 16:52 20:29 POC Glucose (mg/dL) 145 H 166 H 132 H (75-99) mg/dL 01/06/21 01/06/21 Range/Units 00:00 05:53 POC Glucose (mg/dL) 119 H 125 H (75-99) mg/dL Assessment and Plan Assessment: COVID-19 pneumonia, Klebsiella and proteus pneumnia Acute hypoxic respiratory failure Non-anion gap metabolic acidosis Acute enephalopathy- metabolic, septic vs anoxic - Vit D, zinc, vitamin C - Dexamethasone, Pepcid - Wean O2 as able - Pulm recs - Lovenox - cefepime - follow inflammatory labs - Follow CMP - NGT needs to be removed in next 1-3 days; replaced with either TPN or PEG tube to be decided - Neuro consult following, MRI vs EEG with SSEP or both to further chemical dependency counselor family on prognostication of brain injury - Brief GoC discussion on 01/06 - patient would still like to be full code, they are hopeful for improvement in the next 4 weeks. Severe Aortic Stenosis Syncope- secondary to hypoxia and severe aortic stenosis Type II NSTEMI- secondary to hypoxia Aborted sudden cardiac PEA arrest Atrial fibrillation with rapid ventricular response Severe systolic cardiomyopathy with EF 30-35% HTN - careful fluid management - tele - amio - eliquis -Cardiology recommendations appreciated -Patient follows with Dr. Blake Herbert at [place] if requesting records for further evaluation if appropriate - metoprolol - hydralazine - restarted lisinopril at 20mg daily (home dose is 20mg BID) on 01/05 -increased to 20mg BID on 01/06 - follow BP HLD - statin DM 2 - Long acting, SSI, and fixed dose insulin - increased - follow BS with steroids - A1C 8.5 ASCAD - plavix, BB, statin Hypernatremia, resolved - on D 5, follow Na levels, did not tolerate increase in free water Constipation - miralax Hyponatremia, resolved Hypothyroidism, synthroid Acute kidney injury, resolved; now with CKD III Transaminitis secondary to cardiac arrest Daughter updated over the phone [phone] on 01/06 DVT prophylaxis: ketty Discussed with: patient, nursing Anticipated discharge date: TBD Anticipated discharge place: LTC vs Hospice
[2021-01-06 10:47] LABS: Basophils % (A) 0 %; Eosinophils # (A) 0.1 k/uL (0-0.7); Eosinophils % (A) 1 %; HGB 11.2 gm/dL (11.4-16.0); Hypochromasia Slight; Lymphocytes # (A) 0.6 k/uL (1.0-4.8); Lymphocytes % (A) 4 %; MCH 31.4 pg (25.0-35.0); MCHC 31.1 g/dL (31.0-37.0); MCV 101.2 fL (80.0-100.0); Macrocytosis Slight; Mean Platelet Volume 8.3; Monocytes # (A) 0.4 k/uL (0-1.0); Monocytes % (A) 3 %; Neutrophils # (A) 14.7 k/uL (1.3-7.7); Neutrophils % (A) 92 %; Platelet Count 258 k/uL (150-450); RBC 3.55 m/uL (3.80-5.40); RDW 13.4 % (11.5-15.5)
[2021-01-06 11:00] LABS: Calcium 8.8 mg/dL (8.4-10.2); Magnesium 2.4 mg/dL (1.6-2.3); Potassium 4.9 mmol/L (3.5-5.1)
[2021-01-06 11:36] LABS: Glucose,Whole Blood 183 mg/dL (75-99)
--- NOTE | 2021-01-06 12:29 | P.PN ---
Subjective Progress Note Date: 01/06/21 Principal diagnosis: Acute hypoxemic respiratory failure secondary COVID-19 pneumonia 12/27/2020, the patient is being seen for a follow-up. Patient is a 75-year-old here patient with community related pneumonia with secondary respiratory failure. The patient also has severe valvular heart disease with severe aortic stenosis. The patient is post cardiac pulmonary arrest with a PEA rhythm that lasted around 7 minutes post intubation on 12/24/2020. The patient also has new onset paroxysmal atrial fibrillation. The patient is diabetic. On today's evaluation, the patient remains sedated. The patient on Profore running at 60 mg/kg/m. The patient is well sedated and she is calm and comfortable on mechanical ventilator. She is an assist-control mode with a rate of 26 with a tidal volume of 400 and PEEP of 13 with a FiO2 of 40%. The blood gases from today shows a pH of 7.34 with a pCO2 of 36 and pO2 of 105. Peak airway pressure 31. Static airway airway pressure 23. The patient had a follow-up chest x-ray that showed no evidence of any pneumothorax. There is persistent but the pulmonary infiltrates consistent with community related pneumonia. Pulmonary ed dia cannot be completely excluded. Previous echocardiogram in this patient echocardiogram showed global hypokinesis with an ejection fraction of 3035%. There was also moderate to severe degree of aortic valve was 58 with a mean gradient of 37. Hemodynamically, the patient remains on pressors. The patient is running on a low-dose of norepinephrine urine at 0.03 units per kilogram per minute. The patient is in a sinus rhythm and the patient is also on IV heparin. Patient is sitting up and feeding for nutritional support. The patient is on vital high protein at 60 mL an hour which is currently at goal. Afebrile. She is also on Decadron 6 mg IV every 24 hours. She remains on amiodarone 400 mg by mouth twice a day and Levemir insulin for blood sugar control 30 units at night and 20 units in the morning along with a fasting coverage. She remains on IV Pepcid. 12/28/2020, the patient is being seen for a follow-up. The patient remains intubated on a mechanical ventilator. This morning, the patient is on propofol at 40 mg/kg per minute and the patient is also on Versed at 1 mg an hour. She is intubated on a mechanical ventilator. She remains on assist control mode at a rate of 26 with a volume of 400 and FiO2 of 60% with a PEEP of 9. The cages at 7.4 episodes of 36 and pO2 77. Chest x-rays on changes consistent with diffuse but the pulmonary infiltrates consistent with community related pneumonia. Since yesterday, the patient was diuresed IV Lasix. The patient was given a total of 60 mg of IV Lasix and she has been negative fluid balance. Nevertheless, no major improvement in her oxygenation nor her chest x-ray findings. She is off pressors. She remains on IV heparin per protocol. The cardiac rhythm is sinus. She is receiving enteral feeding for nutritional support. White cell count of 15.7 with a hemoglobin of 10.1. Creatinine is at 1.4 with a BUN of 64. Electrolytes are normal. AST and ALP are 33 and 49 respectively. LDH level is at 970. CRP level is at 22.6. The d-dimer from today is at 0.7. The patient remains on Decadron 6 mg IV every 24 hours. When the process of getting the patient is sedation holiday. We'll use Cleviprex if needed for tighter blood pressure control. otherwise, no other significant events overnight. The patient on Levemir insulin 30 units at bedtime and 20 units in the morning along with sliding scale coverage and 4 units of regular insulin every 4 hours coverage. 12/29/2020, the patient is being seen for a follow-up. Remains on a mechanical ventilator. Remains on Precedex for sedation. Note that I think this patient off sedation yesterday. Following her sedation holiday, the patient did not wake up completely. She was becoming more restless and hypertensive at that point Cleviprex was admitted for blood pressure control is currently running at 2 mg an hour. Later on during the day, Precedex was also added for sedation at around 4:30 AM this morning and Precedex is running at 0.2 g. Remains intubated. The patient remains on assist control mode at the rate of 26 with a tidal volume of 100 and FiO2 is currently at 40% with a PEEP of 6. We managed to cut down the PEEP overnight slowly maintaining a saturation above 90%. Current pulse ox is 96%. Morning blood gases showed a pH of 7.47 with a pCO2 of 35 and pO2 of 78 and this was on FiO2 of 40%. Chest x-ray from today showing bi lateral pulmonary infiltrates, with probably some improvement in infiltrates patient the right lung base. ET tube remains in a good location. The patient also has a left IJ triple-lumen catheter in place. The patient was receiving daily diuretics. The net fluid balance over the past 24 hours has been -2.4 L. The peak airway pressure on a mechanical ventilator is 16. No significant orotracheal secretions. Creatinine today is at 1.4 which is essentially stable. Sodium level is at 146 slightly higher compared to yesterday as the patient is being diuresed. In terms of inflammatory markers, the patient has a LDH level of 1100 and his CRP level of 16.5. The white cell count is slightly elevated today at 19.2. In terms of her medication coverage, the patient remains on Decadron 6 g IV every 24 hours. The patient is still on she will feeds and currently she is receiving enteral feeding for nutritional support and she is on vital high protein at the rate of 16 mL an hour. Blood sugars are under adequate control and patient is receiving Levemir insulin 30 units at bedtime and 20 units in the morning along with a sliding scale coverage. Patient was reevaluated today on 12/30/2020, patient remains in the ICU, intubated and mechanically ventilated. Remains sedated on Precedex. Dose is 0.4 mcg/kg/h. IV fluid is 0.9 at 20 mL per hour. Patient is not arousable. She seems to get intermittent episodes of atrial fibrillation with RVR with any minimal agitation hence unable to address weaning on this patient today. Ventilator settings are assist control of 26, volume is 400 FiO2 40% PEEP of 5 ABG showed a pO2 of 80 pCO2 of 35 pH of 7.50. No changes were made in the ventilator settings. Chest x-ray continues to show bilateral infiltrates. Patient had a T-max of 101.7. Sputum cultures are negative. Blood cultures remain negative. Patient remains on enteral feedings. Elisa peterson has a left IJ triple-lumen catheter in place. Remains on diuretics intermittently. CBC count is 19.0 hemoglobin is 11.5. Sodium is 150. Hence we'll change her IV fluid to D5W. BUN is 60 creatinine 1.40. Considering the patient is having significant episodes of atrial fibrillation with RVR, patient was placed on oral anticoagulation in the form of Eliquis 2.5 mg twice a day and we can discontinue Lovenox. Remains on albuterol, remains on Decadron. Remains on the COVID-19 cocktail. And she remains on Precedex. Considering her atrial fibrillation with RVR, I have no plans to wean and extubate the patient, she is presently not weanable Reevaluated today on 12/31/2020, patient remains in the ICU, intubated and mechanically ventilated remains on Precedex. At 0.6 mcg/kg per hour. Remains on D5W at 50 mL per hour. She is on enteral feeding using vital HP. Continues to have hypernatremia, and we are recommending that the patient receives free water via nasogastric tube. Her ventilator settings are assist control rate of 26 tidal volume 400 FiO2 40% PEEP of 5 ABG showed a pO2 of 74 pCO2 of 33 pH of 7.52, and I lowered down her rate down to 24. Patient remains in atrial fibrillation but seems to be controlled rate is 92. The pressure seems to be a bit elevated at 173/76. Neurologically the patient does not seem to be responding to any verbal or painful stimuli, hence I'm recommending a CT of the brain, I'm also recommending neurologic evaluation. In the meantime we will discontinue Precedex and assess mental status. Clearly the patient is not ready for any form of weaning. Chest x-ray continues to show cardiomegaly and parenchymal changes, there is definite improvement in her multifocal opacities related to her underlying COVID-19 pneumonia. And that is clearly reflected on the improvement in the ABG. Appendectomy were reviewed sodium is 150 BUN is 63 creatinine 1.50 slightly worse compared to yesterday. Patient remains on updrafts, remains on amiodarone. Eliquis. Cefepime, Decadron, Pepcid, insulin, Toprol, sputum is positive for Klebsiella and proteus mirabilis. Both are sensitive to cefepime. Patient was reevaluated today on 01/01/2021, remains in the ICU, intubated and mechanically ventilated. No major supervisor records change the last 24 hours, patient remains unresponsive to any verbal or painful stimuli. CT of the brain showed no evidence of active disease. And neurological consultation is pending. I strongly believe the patient also sustained some anoxic brain injury related to her initial cardiac arrest. Her ventilator settings are assist control rate of 24 to 400 FiO2 40% and PEEP of 5. ABG showed a pO2 of 84 pCO2 33 pH of 7.49. Patient remains on Precedex. And I would likely place on hold and continue to assess mental status on a regular basis. He she does not requiring any narcotics or any paralytics. Yesterday she developed some coffee-ground emesis, and Eliquis was placed on hold, Protonix was increased to twice a day, however no further evidence of any GI bleeding, we'll restart Eliquis today. Patient remains in atrial flutter with a rate of 93. She is also on enteral feeding using vital HP at 20 mL per hour. Neurological consultation is pending on this patient. Chest x-ray continues to show cardiomegaly, chronic parenchymal changes, and possibly left patchy basilar atelectasis, possible infiltrate. CBC today showed leukocytosis with WBC count of 16.1 hemoglobin of 11.3. D-dimer is 2.95. Elec trolytes showed sodium of 148 potassium 4.1 chloride 118 bicarb 23 BUN is 69 creatinine is 1.51. Renal profile seems to be holding about the same Reevaluated today on 01/02/2021, patient remains in the ICU, intubated and mechanically ventilated. Patient remains on assist control rate of 24 volume is 400 FiO2 40% PEEP of 5 ABG showed a pO2 of 80 pCO2 32 pH of 7.47 patient is on Precedex at 0.3, and she is on IV fluid at KVO. She is still receiving water at 300 mL every 6 hours via orogastric tube. Patient is still receiving vital HP , patient is scheduled to have EGD today. And I continuing her Precedex. Patient remains unresponsive except today for the first time she seems to open her eyes to voice. And open eyes to verbal stimuli. However does not seem to be following any other instructions. Her atrial fibrillation is well controlled, remains on Eliquis. Patient was seen by urology yesterday, and EEG was scheduled to be done today. I have changed her IV fluid to D5W at 75 mL per hour since she continues to have slightly elevated sodium. WBC count today is 14.8 hemoglobin is 10.3. D-dimer is 2.51. Sodium is 147 today. Chloride is 120 BUN is 73 creatinine 1.47. LDH is 905 C-reactive protein is 3.5. The patient is seen today 01/03/2021 in follow-up. She remains intubated on mechanical ventilator. Current settings are assist control at a rate of 24, tidal volume 400, FiO2 40% and a PEEP of 5. Morning blood gases reveal a P O2 of 1:15, pCO2 35, pH 7.40. She remains off sedation. She is awake, tracking with her eyes, not following specific commands however. She has D5W at 75 ML's per hour. She is being nourished with vital HP at 21 ML's per hour which is goal. She's getting free water flushes of 300 ML's every 4 hours. She has been in atrial fibrillation. Anticoagulated with Eliquis. Sputum is positive for Klebsiella and Proteus. Urine culture positive for E. coli and klebsiella. She remains on cefepime. White count 15.6. Hemoglobin 11.1. Lymphocytes 0.7. Sodium 143. Potassium 3.7. Bicarb 19. Creatinine 1.58. Glucose 203. LDH 745. C-reactive protein 2.6. TSH 3.72. She remains on bronchodilators, Decadron. Patient was reevaluated today on 01/04/2021, she was extubated yesterday, and tolerated the extubation well. She is on 5 L nasal cannula, O2 sats is 97%. Patient remains on enteral feeding via nasogastric tube will vital HP at 21 mL per hour. Patient remains encephalopathic, she is awake, opens eyes, but does not follow any instructions. Her atrial fibrillation is under controlled rate, patient will be likely transferred today to the cardiac floor on telemetry, discussed her condition with the neurologist on the case, he is agreeable that the patient is encephalopathic, and this is related to her anoxic brain injury or related to COVID-19 infection. This is clearly metabolic encephalopathy. Could also be anoxic encephalopathy ABC today is relatively unremarkable electrolytes are normal bicarb is 18 BUN is 70 creatinine is 1.51. Remains on IV fluid at 75 mL per hour in the form of D5 W. Patient remains on the COVID-19 cocktail, and she is also on Eliquis at 2.5 mg twice a day. The patient is seen today 01/05/2021 in follow-up on the regular medical floor. She does open her eyes spontaneously. No other purposeful movements. Does not follow any simple commands. She is maintaining good O2 saturations in the 90s on 2 L/m per nasal cannula. She remains being nourished via the left nares nasogastric tube with vital HP at 21 ML's per hour with free water flushes. Chest x-ray does show satisfactory NG tube placement. There is mild cardiomegaly and consistent interstitial opacities. Urine culture was positive for E. coli and Klebsiella ornithinolytica. Sputum culture positive for Klebsiella oxytoca and Proteus mirabilis. White count 19.3. Hemoglobin 11.0. Sodium 143. Potassium 4.3. Creatinine 1.38. Glucose 125. She remains anticoagulated with Eliquis. Antibiotics in the form of cefepime. She remains on Decadron 6 mg IV daily. Continued on vitamin supplements. The patient is seen today 01/06/2021 in follow-up on the regular medical floor. She is currently resting comfortably in bed. Awake, alert. Still not making any purposeful movements. Still not responding to any simple commands. No significant improvement in her neuro status. She is maintaining O2 saturations in the 90s on room air. She's been afebrile. Hemodynamically stable. Urine culture was positive for E. coli, Klebsiella ornithinolytica. Sputum culture positive for Klebsiella oxytoca, Proteus mirabilis. White count 16.0. Hemoglobin 11.2. Lymphocytes 0.6. Sodium 143. Potassium 4.9. Creatinine 1.23. She remains anticoagulated with Eliquis. Continued on vitamin supplements. Objective - Vital Signs Vital signs: Vital Signs Temp 98.1 F 01/06/21 10:23 Pulse 61 01/06/21 11:17 Resp 18 01/06/21 11:17 BP 155/73 01/06/21 10:23 Pulse Ox 91 L 01/06/21 10:23 Intake & Output 01/05/21 01/06/21 01/06/21 18:59 06:59 18:59 Intake Total 0 Output Total 750 1100 0 Balance -750 -1100 0 Weight 86.5 kg 86.5 kg Intake: Oral 0 Output: Urine 750 1100 Stool 0 0 0 Other: Voiding Method Indwelling Catheter Indwelling Catheter Indwelling Catheter # Voids 0 # Bowel Movements 0 ABP, PAP, CO, CI - Last Documented Arterial Blood Pressure 136/55 - Exam GENERAL EXAM: Awake, opens eyes but nonpurposeful, 75-year-old female patient, on room air, comfortable in no apparent distress. HEAD: Normocephalic. EYES: Normal reaction of pupils, equal size. NOSE: Left nares NG tube in place.Clear with pink turbinates. THROAT: No erythema or exudates. NECK: No masses, no JVD. CHEST: No chest wall deformity. LUNGS: Equal air entry with bibasilar crackles. CVS: S1 and S2 normal with positive systolic audible murmur, irregular rhythm. ABDOMEN: No hepatosplenomegaly, normal bowel sounds, no guarding or rigidity. SPINE: No scoliosis or deformity SKIN: No rashes CENTRAL NERVOUS SYSTEM: Awake, not following specific commands, tone is normal in all 4 extremities. EXTREMITIES: There is trace peripheral edema. No clubbing, no cyanosis. Peripheral pulses are intact. - Labs CBC & Chem 7: 01/06/21 10:33 01/06/21 10:33 Labs: Abnormal Lab Results - Last 24 Hours (Table) 01/05/21 01/05/21 01/06/21 Range/Units 16:52 20:29 00:00 WBC (3.8-10.6) k/uL RBC (3.80-5.40) m/uL Hgb (11.4-16.0) gm/dL MCV (80.0-100.0) fL Neutrophils # (1.3-7.7) k/uL Lymphocytes # (1.0-4.8) k/uL Chloride (98-107) mmol/L Carbon Dioxide (22-30) mmol/L BUN (7-17) mg/dL Creatinine (0.52-1.04) mg/dL Glucose (74-99) mg/dL POC Glucose (mg/dL) 166 H 132 H 119 H (75-99) mg/dL Magnesium (1.6-2.3) mg/dL 01/06/21 01/06/21 01/06/21 Range/Units 05:53 10:33 10:33 WBC 16.0 H (3.8-10.6) k/uL RBC 3.55 L (3.80-5.40) m/uL Hgb 11.2 L (11.4-16.0) gm/dL MCV 101.2 H (80.0-100.0) fL Neutrophils # 14.7 H (1.3-7.7) k/uL Lymphocytes # 0.6 L (1.0-4.8) k/uL Chloride 121 H (98-107) mmol/L Carbon Dioxide 15 L (22-30) mmol/L BUN 60 H (7-17) mg/dL Creatinine 1.23 H (0.52-1.04) mg/dL Glucose 165 H (74-99) mg/dL POC Glucose (mg/dL) 125 H (75-99) mg/dL Magnesium 2.4 H (1.6-2.3) mg/dL 01/06/21 Range/Units 11:33 WBC (3.8-10.6) k/uL RBC (3.80-5.40) m/uL Hgb (11.4-16.0) gm/dL MCV (80.0-100.0) fL Neutrophils # (1.3-7.7) k/uL Lymphocytes # (1.0-4.8) k/uL Chloride (98-107) mmol/L Carbon Dioxide (22-30) mmol/L BUN (7-17) mg/dL Creatinine (0.52-1.04) mg/dL Glucose (74-99) mg/dL POC Glucose (mg/dL) 183 H (75-99) mg/dL Magnesium (1.6-2.3) mg/dL Assessment and Plan Assessment: 1 Acute hypoxic respiratory failure secondary to COVID-19 pneumonia requiring intubation and mechanical ventilation. Extubated and currently on room air 2 Status post cardiac arrest with pulseless electrical activity for 7 minutes, status post intubation and mechanical ventilation since 12/24/2020. Possible anoxic brain injury. Neurology following 3 Severe aortic stenosis. 4 Severe cardiomyopathy and LV dysfunction with ejection fraction of 30%. 5 Atrial fibrillation/atrial flutter. 6 Type 2 diabetes. 7 Acute kidney injury, likely secondary to acute tubular necrosis. And related to cardiac arrest possibly related to COVID-19 infection. 8 Elevated inflammatory markers secondary to acute COVID-19 infection/pneumonia 9 Non-ST elevation [place] is suspected. 10 Possible underlying bacterial pneumonia secondary to Klebsiella and Proteus mirabilis. Hence the patient will remain on cefepime for now. 11 Possible anoxic brain injury. 12 Coffee-ground emesis, possibly erosive gastritis, Protonix is 40 mg twice a day. Remains on Eliquis Plan: The patient was seen and evaluated by Dr. Lewis Completed a course of cefepime Completed a course of Decadron Anticoagulated with Eliquis Remains on vitamin supplement Will most likely need subacute rehabilitation Prognosis is guarded We will continue to follow and make further recommendations based on her clinical status I, the cosigning physician, performed a history & physical examination of the patient. Lungs sounds with crackles in the bilateral bases. Maintaining good O2 saturations in the 90s on room air. I discussed the assessment and plan of care with my nurse practitioner, Kelin Ha. I attest to the above note as dictated by her.
--- NOTE | 2021-01-06 16:53 | P.PN ---
Subjective Progress Note Date: 01/06/21 I spoke with the patient nurse and she stated that she is about the same. Per the nurse she stated that the family was to proceed with a PEG tube. Objective - Vital Signs Vital signs: Vital Signs Temp 98 F 01/06/21 15:04 Pulse 68 01/06/21 15:04 Resp 18 01/06/21 15:04 BP 144/76 01/06/21 15:04 Pulse Ox 92 L 01/06/21 15:04 Intake & Output 01/05/21 01/06/21 01/06/21 18:59 06:59 18:59 Intake Total 0 Output Total 750 1100 625 Balance -750 -1100 -625 Weight 86.5 kg 86.5 kg Intake: Oral 0 Output: Urine 750 1100 625 Stool 0 0 0 Other: Voiding Method Indwelling Catheter Indwelling Catheter Indwelling Catheter # Voids 0 # Bowel Movements 0 ABP, PAP, CO, CI - Last Documented Arterial Blood Pressure 136/55 - Exam GENERAL: The patient is lying in bed and does not seem is not in acute distress. NEUROLOGICAL: Higher mental function: The patient is awake but not verbalizing or following commands. Patient would say "ouch" only to painful stimuli. Cranial nerves: Eyes are spontaneously open. Primary gaze is midline. The pupils are round, equal (3mm) and reactive to light. Extraocular movement is tracking throughout the room and turning her neck to side and no nystagmus is note No facial weakness. Say outch clearly. Could not assess rest of cranial nerves. Motor: The strength is moving her uppers side to side and has good hand squeeze. Withdrawls to painful stimuli over lowers. Normal tone and bulk. Cerebellum:Could not assess. Sensation: Could not assess light touch but has intact to painful stimuli. CT of the head is reported as no acute intracranial process. Routine EEG (01/02/2021): Is an abnormal routine EEG. The background slowing is suggestive of moderate encephalopathy. There are no focal slowing, epileptiform discharges or seizure on the EEG. Vitamin B12 is 439 which is considered within normal limits. Folate serum is 9 which is considered low normal. TSH is 3.4 which is considered within normal limits Ammonia level is less than 9 which is within normal limits. HbA1c: 8.5. - Labs CBC & Chem 7: 01/06/21 10:33 01/06/21 10:33 Labs: Abnormal Lab Results - Last 24 Hours (Table) 01/05/21 01/05/21 01/06/21 Range/Units 16:52 20:29 00:00 WBC (3.8-10.6) k/uL RBC (3.80-5.40) m/uL Hgb (11.4-16.0) gm/dL MCV (80.0-100.0) fL Neutrophils # (1.3-7.7) k/uL Lymphocytes # (1.0-4.8) k/uL Chloride (98-107) mmol/L Carbon Dioxide (22-30) mmol/L BUN (7-17) mg/dL Creatinine (0.52-1.04) mg/dL Glucose (74-99) mg/dL POC Glucose (mg/dL) 166 H 132 H 119 H (75-99) mg/dL Magnesium (1.6-2.3) mg/dL 01/06/21 01/06/21 01/06/21 Range/Units 05:53 10:33 10:33 WBC 16.0 H (3.8-10.6) k/uL RBC 3.55 L (3.80-5.40) m/uL Hgb 11.2 L (11.4-16.0) gm/dL MCV 101.2 H (80.0-100.0) fL Neutrophils # 14.7 H (1.3-7.7) k/uL Lymphocytes # 0.6 L (1.0-4.8) k/uL Chloride 121 H (98-107) mmol/L Carbon Dioxide 15 L (22-30) mmol/L BUN 60 H (7-17) mg/dL Creatinine 1.23 H (0.52-1.04) mg/dL Glucose 165 H (74-99) mg/dL POC Glucose (mg/dL) 125 H (75-99) mg/dL Magnesium 2.4 H (1.6-2.3) mg/dL 01/06/21 Range/Units 11:33 WBC (3.8-10.6) k/uL RBC (3.80-5.40) m/uL Hgb (11.4-16.0) gm/dL MCV (80.0-100.0) fL Neutrophils # (1.3-7.7) k/uL Lymphocytes # (1.0-4.8) k/uL Chloride (98-107) mmol/L Carbon Dioxide (22-30) mmol/L BUN (7-17) mg/dL Creatinine (0.52-1.04) mg/dL Glucose (74-99) mg/dL POC Glucose (mg/dL) 183 H (75-99) mg/dL Magnesium (1.6-2.3) mg/dL Assessment and Plan Assessment: Altered mental status due to Cerebral anoxia/hypoxia secondary to respiratory failure related to pneumonia and Covid 19 infection also component of the al tered mental status due to metabolic of acute kidney insufficiency and slight hypernatremia. Acute hypoxic respiratory failure secondary to do COVID-19 pneumonia requiring intubation and mechanical ventilation. Acute kidney insufficiency trending down. Slight elevated the liver function test with the last AST of 85 and ALT of 82. Status post cardiac arrest was pulseless logical activity for 7 minutes status post intubation mechanical ventilation on 12/24/2020 and there was questionable anoxic brain injury. History of coronary artery disease Severe aortic stenosis Severe cardiomyopathy and the left ventricle dysfunction with ejection fraction of 30%. Atrial fibrillation/atrial flutter type 2 diabetes History of hypertension History of atrial fibrillation on anticoagulation Plan: * MRI of the brain is ordered and pending. I spoke with the patient nurse regarding the MRI and the she stated that she'll contact and try to get this MRI completed. * Cardiology is on board. * Will Defer the rest of the medical management to the primary/Pulmonary team. The plan is discussed with the patient's nurse. The patient's condition is very guarded. Will follow-up with patient sporadically. Dr. Montgomery will start neurology coverage on 01/09/2021. Bebeto Daniels M.D. Neuro-hospitalist Time with Patient: Less than 30
[2021-01-06 16:59] LABS: Glucose,Whole Blood 208 mg/dL (75-99)
[2021-01-06 20:13] LABS: Glucose,Whole Blood 187 mg/dL (75-99)
[2021-01-06] MEDS: METOPROLOL TARTRATE 50 MG TAB PO SCH (20:43)
[2021-01-06] MEDS: ATORVASTATIN 40 MG TAB PO SCH (20:43)
[2021-01-07] LABS: Glucose,Whole Blood 176 mg/dL (75-99)
[2021-01-07] MEDS: INSULIN ASPART (NovoLOG) 100 UNIT/ML VIAL SQ SCH ×8 (00:22→17:21)
[2021-01-07 06:12] LABS: Glucose,Whole Blood 153 mg/dL (75-99)
[2021-01-07] MEDS: INSULIN DETEMIR (LEVEMIR) 100 UNIT/ML SYR SQ SCH ×2 (06:33→20:30)
[2021-01-07] MEDS: LEVOTHYROXINE 50 MCG TAB PO SCH (06:34)
[2021-01-07] MEDS: CHOLECALCIFEROL 25 MCG (1000 IU) TABLET PO SCH (07:54)
[2021-01-07] MEDS: ASCORBIC ACID 500 MG TAB PO SCH (07:54)
[2021-01-07] MEDS: FAMOTIDINE 20 MG TAB PO SCH (07:55)
[2021-01-07] MEDS: lisinopriL 20 MG TAB PO SCH ×2 (07:55→20:31)
[2021-01-07] MEDS: CLOPIDOGREL 75 MG TAB PO SCH ×2 (07:55→07:56)
[2021-01-07] MEDS: APIXABAN 2.5 MG TABLET PO SCH ×2 (07:55→20:31)
[2021-01-07] MEDS: METOPROLOL TARTRATE 50 MG TAB PO SCH ×2 (07:55→20:31)
[2021-01-07] MEDS: polyethylene glycoL 3350 17 GM POWD.PACK PO SCH (07:55)
[2021-01-07] MEDS: AMIODARONE 200 MG TAB PO SCH ×3 (07:55→20:31)
[2021-01-07] MEDS: ZINC SULFATE 220 MG CAP PO SCH (07:55)
[2021-01-07] MEDS: PANTOPRAZOLE 40 MG/10 ML VIAL IVP SCH ×2 (07:56→20:30)
[2021-01-07] MEDS: hydrALAZINE HCL 50 MG TAB PO SCH ×3 (07:56→20:31)
--- NOTE | 2021-01-07 11:35 | P.PN ---
Progress Note - Text Progress Note Date: 01/07/21 Patient remained stable. She is scheduled for PEG tube placement on Saturday.
[2021-01-07 11:38] LABS: Glucose,Whole Blood 126 mg/dL (75-99)
[2021-01-07 12:54] LABS: Calcium 9.1 mg/dL (8.4-10.2)
[2021-01-07 13:01] LABS: Magnesium 2.3 mg/dL (1.6-2.3)
[2021-01-07 13:04] LABS: Basophils % (A) 0 %; Eosinophils # (A) 0.1 k/uL (0-0.7); Eosinophils % (A) 1 %; HGB 11.8 gm/dL (11.4-16.0); Hypochromasia Slight; Lymphocytes # (A) 0.7 k/uL (1.0-4.8); Lymphocytes % (A) 4 %; MCH 31.7 pg (25.0-35.0); MCHC 31.1 g/dL (31.0-37.0); MCV 101.9 fL (80.0-100.0); Macrocytosis Slight; Monocytes # (A) 0.9 k/uL (0-1.0); Monocytes % (A) 5 %; Neutrophils # (A) 15.9 k/uL (1.3-7.7); Neutrophils % (A) 89 %; Platelet Count 158 k/uL (150-450); RBC 3.73 m/uL (3.80-5.40); RDW 13.7 % (11.5-15.5); WBC 17.9 k/uL (3.8-10.6)
[2021-01-07 16:53] LABS: Glucose,Whole Blood 152 mg/dL (75-99)
--- NOTE | 2021-01-07 16:55 | P.PN ---
Subjective Progress Note Date: 01/07/21 Principal diagnosis: shortness of breath w Patient is a 75-year-old female with a history of prior angina, diabetes, hypothyroidism, dyslipidemia, and hypertension who presented with complaint of weakness and syncope. She started having upper respiratory symptoms approximately 4-5 days ago. She went to obtain an outpatient Covid test and passed out. She has completed a 2 series Pfizer vaccine earlier this year. In the ER she underwent an extensive evaluation. On arrival her oxygenation was 71% on room air. She was started on BiPAP. Initial laboratory analysis showed a sodium of 132, carbon dioxide 19, anion gap 11, BUN 56, creatinine 1.9, S2 83, troponin 0.247, CRP 22.8, BNP 21,100. Covid testing was positive. Chest x-ray showed diffuse bilateral interstitial infiltrates. She was given a dose of dexamethasone. She was seen by pulmonary who felt she could be managed on selective care. She was continued on dexamethasone. She is not a candidate for eRemdesivir secondary to her high oxygen requirements. On the afternoon of 12/24 she had sudden decline in heart rate and had PEA arrest lasting approximately 5 minutes. She was transitioned to the ICU and started on propofol for sedation. She did require small amounts of levo. She was noted to have A. fib after [place] was achieved and she was subsequently transitioned from Lovenox to heparin drip. She was seen by cardiology secondary to her echocardiogram with severe aortic stenosis and PEA arrest. She did require increasing PEEP on 12/25 that was able to be decreased on 12/26. People slowly weaned down. On her initial sedation holiday she did not wake up completely and was restless and hypertensive requiring a cough a proximal drip. She was then started on Precedex and continued to not respond to stimuli she underwent head CT which showed no acute process, neurology was consulted. She continued to have A fib with RVR and was transitioned from heparin gtt to eliquis. Extubated on 01/03. Still without verbalizing. Paln is for PEG on 01/09. MRI completed 01/07. Additional testing: EEG-background slowing suggestive of encephalopathy Make an echo with ejection fraction 30-35% Patient seen and examined at bedside. Still tracks around the room, not speaking, does say "Ouch" to nail be stimulation. Per nursing no acute events overnight. General:non toxic, no distress, appears at stated age Derm: warm, dry Head: atraumatic, normocephalic, symmetric Eyes: Pupils equal round reactive to light, no lid lesion, anicteric sclera Mouth: no lip lesion, mucus membranes dry Cardiovascular: S1S2 reg, + murmur, positive posterior tibial pulse bilateral, Lungs:CTA bilateral, equal chest rise, Abdominal: soft, nontender to palpation, no guarding, no appreciable organ omegaly Ext: no gross muscle atrophy, trace edema, no contractures Neuro: Moving all 4 extremities independently, pupils equal round reactive to light, not following commands, withdrawal to pain in bilateral upper and lower extremities, Ouch to pain in b/l UE Psych: Blunted affect, currently nonverbal, does not appear anxious COVID-19 pneumonia, Klebsiella and proteus pneumnia Acute hypoxic respiratory failure Acute kidney injury, Non-anion gap metabolic acidosis Transaminitis secondary to above and cardiac arrest Septic shock, resolved Acute enephalopathy- metabolic vs hypoxic - Vit D, zinc, vitamin C - Dexamethasone, completed - protonix - Wean O2 as able - Pulm recs - Lovenox - cefepime completed 01/06 - follow inflammatory labs -Follow CMP Severe Aortic Stenosis Syncope- likely due to hypoxia versus severe aortic stenosis Type II NSTEMI- likely due to hypoxia, not consistent with ACS Aborted sudden cardiac Atrial fibrillation with rapid ventricular response Systolic cardiomyopathy with EF 30-35% HTN - careful fluid management - tele - amio - eliquis -Cardiology recommendations appreciated -Patient follows with Dr. Blake Herbert at [facility] if requesting records for further evaluation if appropriate - metoprolol - hold lisinopril due to VERONICA - hydralazine - follow BP HLD - statin DM 2 - Long acting, SSI, and fixed dose insulin - increased - follow BS with steroids - A1C 8.5 ASCAD - plavix, BB, statin Hypernatremia, resolved Constipation Hyponatremia, resolved Hypothyroidism, synthroid DVT prophylaxis: ketty Discussed with: patient, nursing Anticipated discharge date: in 2-[address]: SNF A total of 35 minutes was spent on the care of this complex patient more than 50% of the time was spent in counseling and care coordination. Objective - Vital Signs Vital signs: Vital Signs Temp 98.1 F 01/07/21 14:24 Pulse 69 01/07/21 14:24 Resp 18 01/07/21 14:24 BP 144/73 01/07/21 14:24 Pulse Ox 94 L 01/07/21 14:24 Intake & Output 01/06/21 01/07/21 01/07/21 18:59 06:59 18:59 Intake Total 0 0 Output Total 625 1300 800 Balance -885 -1300 800 Weight 86.5 kg 85 kg Intake: Oral 0 0 Output: Urine 625 1300 800 Stool 0 0 Other: Voiding Method Indwelling Catheter Indwelling Catheter Indwelling Catheter ABP, PAP, CO, CI - Last Documented Arterial Blood Pressure 136/55 - Labs CBC & Chem 7: 01/07/21 11:53 01/07/21 11:53 Labs: Abnormal Lab Results - Last 24 Hours (Table) 01/06/21 01/06/21 01/06/21 Range/Units 16:56 20:12 23:59 WBC (3.8-10.6) k/uL RBC (3.80-5.40) m/uL MCV (80.0-100.0) fL Neutrophils # (1.3-7.7) k/uL Lymphocytes # (1.0-4.8) k/uL Chloride (98-107) mmol/L Carbon Dioxide (22-30) mmol/L BUN (7-17) mg/dL Creatinine (0.52-1.04) mg/dL Glucose (74-99) mg/dL POC Glucose (mg/dL) 208 H 187 H 176 H (75-99) mg/dL 01/07/21 01/07/21 01/07/21 Range/Units 06:08 11:34 11:53 WBC 17.9 H (3.8-10.6) k/uL RBC 3.73 L (3.80-5.40) m/uL MCV 101.9 H (80.0-100.0) fL Neutrophils # 15.9 H (1.3-7.7) k/uL Lymphocytes # 0.7 L (1.0-4.8) k/uL Chloride (98-107) mmol/L Carbon Dioxide (22-30) mmol/L BUN (7-17) mg/dL Creatinine (0.52-1.04) mg/dL Glucose (74-99) mg/dL POC Glucose (mg/dL) 153 H 126 H (75-99) mg/dL 01/07/21 01/07/21 Range/Units 11:53 16:52 WBC (3.8-10.6) k/uL RBC (3.80-5.40) m/uL MCV (80.0-100.0) fL Neutrophils # (1.3-7.7) k/uL Lymphocytes # (1.0-4.8) k/uL Chloride 121 H (98-107) mmol/L Carbon Dioxide 16 L (22-30) mmol/L BUN 56 H (7-17) mg/dL Creatinine 1.17 H (0.52-1.04) mg/dL Glucose 146 H (74-99) mg/dL POC Glucose (mg/dL) 152 H (75-99) mg/dL
[2021-01-07 18:09] LABS: Glucose,Whole Blood 158 mg/dL (75-99)
--- NOTE | 2021-01-07 19:24 | MR ---
EXAMINATION TYPE: MR brain wo con DATE OF EXAM: 01/07/2021 COMPARISON: None HISTORY: cerebral anoxia, COVID There is cerebral cortical atrophy. There is no mass effect nor midline shift. There is no sign of in tracranial hemorrhage. Exam limited somewhat by motion. There is some mild linear increased signal in the periventricular white matter on the T2 and FLAIR images. The brainstem appears intact. There is thinning of the corpus callosum. There is some enlargement of the ventricles. Sella turcica is intact . There is possible increased signal in the left temporal lobe white matter and portillo matter on the T2 and FLAIR images. Unfortunately motion is degrading the images. IMPRESSION: Cerebral atrophy and chronic minimal small vessel ischemia. Hydrocephalus. Exam limited by motion. T here is possible infarct in the left temporal lobe cortex.
[2021-01-07 19:49] LABS: Glucose,Whole Blood 176 mg/dL (75-99)
[2021-01-07] MEDS: ATORVASTATIN 40 MG TAB PO SCH (20:31)
[2021-01-07 23:51] LABS: Glucose,Whole Blood 161 mg/dL (75-99)
[2021-01-08] MEDS: INSULIN ASPART (NovoLOG) 100 UNIT/ML VIAL SQ SCH ×8 (00:31→17:36)
[2021-01-08 05:44] LABS: Glucose,Whole Blood 163 mg/dL (75-99)
[2021-01-08] MEDS: LEVOTHYROXINE 50 MCG TAB PO SCH (05:46)
[2021-01-08 06:57] LABS: Glucose,Whole Blood 141 mg/dL (75-99)
[2021-01-08] MEDS: METOPROLOL TARTRATE 50 MG TAB PO SCH ×2 (07:53→22:30)
[2021-01-08] MEDS: ASCORBIC ACID 500 MG TAB PO SCH (07:53)
[2021-01-08] MEDS: AMIODARONE 200 MG TAB PO SCH ×3 (07:53→22:30)
[2021-01-08] MEDS: hydrALAZINE HCL 50 MG TAB PO SCH ×3 (07:53→22:30)
[2021-01-08] MEDS: ZINC SULFATE 220 MG CAP PO SCH (07:53)
[2021-01-08] MEDS: lisinopriL 20 MG TAB PO SCH ×2 (07:53→22:30)
[2021-01-08] MEDS: FAMOTIDINE 20 MG TAB PO SCH (07:53)
[2021-01-08] MEDS: CHOLECALCIFEROL 25 MCG (1000 IU) TABLET PO SCH (07:54)
[2021-01-08] MEDS: polyethylene glycoL 3350 17 GM POWD.PACK PO SCH (07:54)
[2021-01-08] MEDS: INSULIN DETEMIR (LEVEMIR) 100 UNIT/ML SYR SQ SCH ×2 (07:54→22:31)
[2021-01-08] MEDS: PANTOPRAZOLE 40 MG/10 ML VIAL IVP SCH ×2 (07:54→22:29)
[2021-01-08] MEDS: APIXABAN 2.5 MG TABLET PO SCH (08:33)
[2021-01-08 08:57] LABS: HCT 35.7 % (34.0-46.0); HGB 11.5 gm/dL (11.4-16.0); MCH 32.1 pg (25.0-35.0); MCHC 32.2 g/dL (31.0-37.0); MCV 99.9 fL (80.0-100.0); Macrocytosis Slight; Mean Platelet Volume 7.9; Platelet Count 278 k/uL (150-450); RBC 3.57 m/uL (3.80-5.40); RDW 14.4 % (11.5-15.5); WBC 15.4 k/uL (3.8-10.6)
[2021-01-08 09:12] LABS: African American GFR (CKD) 54 (>60 ml/min/1.73 sqM); Anion Gap 6 mmol/L; Blood Urea Nitrogen 52 mg/dL (7-17); Calcium 9.1 mg/dL (8.4-10.2); Carbon Dioxide 19 mmol/L (22-30); Chloride 120 mmol/L (98-107); Glucose 145 mg/dL (74-99); Magnesium 2.1 mg/dL (1.6-2.3); Non-African American GFR(CKD) 46 (>60 ml/min/1.73 sqM); Potassium 4.6 mmol/L (3.5-5.1); Sodium 145 mmol/L (137-145)
[2021-01-08 11:17] LABS: Glucose,Whole Blood 146 mg/dL (75-99)
--- NOTE | 2021-01-08 12:02 | P.PN ---
Progress Note - Text Progress Note Date: 01/08/21 Patient remains stable. She is scheduled for PEG tube placement tomorrow.
--- NOTE | 2021-01-08 14:25 | P.PN ---
Subjective Progress Note Date: 01/08/21 Principal diagnosis: shortness of breath Patient is a 75-year-old female with a history of prior angina, diabetes, hypothyroidism, dyslipidemia, and hypertension who presented with complaint of weakness and syncope. She started having upper respiratory symptoms approximately 4-5 days ago. She went to obtain an outpatient Covid test and passed out. She has completed a 2 series Pfizer vaccine earlier this year. In the ER she underwent an extensive evaluation. On arrival her oxygenation was 71% on room air. She was started on BiPAP. Initial laboratory analysis showed a sodium of 132, carbon dioxide 19, anion gap 11, BUN 56, creatinine 1.9, S2 83, troponin 0.247, CRP 22.8, BNP 21,100. Covid testing was positive. Chest x-ray showed diffuse bilateral interstitial infiltrates. She was given a dose of dexamethasone. She was seen by pulmonary who felt she could be managed on selective care. She was continued on dexamethasone. She is not a candidate for eRemdesivir secondary to her high oxygen requirements. On the afternoon of 12/24 she had sudden decline in heart rate and had PEA arrest lasting approximately 5 minutes. She was transitioned to the ICU and started on propofol for sedation. She did require small amounts of levo. She was noted to have A. fib after [place] was achieved and she was subsequently transitioned from Lovenox to heparin drip. She was seen by cardiology secondary to her echocardiogram with severe aortic stenosis and PEA arrest. She did require increasing PEEP on 12/25 that was able to be decreased on 12/26. People slowly weaned down. On her initial sedation holiday she did not wake up completely and was restless and hypertensive requiring a cough a proximal drip. She was then started on Precedex and continued to not respond to stimuli she underwent head CT which showed no acute process, neurology was consulted. She continued to have A fib with RVR and was transitioned from heparin gtt to eliquis. Extubated on 01/03. Still without verbalizing. Paln is for PEG on 01/09. MRI completed 01/07 with possible stroke, neurology reviewing as clinical exam does not appear consistent with acute stroke. Additional testing: EEG-background slowing suggestive of encephalopathy echo with ejection fraction 30-35% , severe aortic stenosis Patient seen and examined at bedside. Eyes open and focuses on U when speaking, still not following commands, moving arms independently, does say out bilateral upper extremity stimulation. Per nursing no acute events overnight. General:non toxic, no distress, appears at stated age Derm: warm, dry Head: atraumatic, normocephalic, symmetric Eyes: Pupils equal round reactive to light, no lid lesion, anicteric sclera Mouth: no lip lesion, mucus membranes dry Cardiovascular: S1S2 reg, + murmur, positive posterior tibial pulse bilateral, Lungs:CTA bilateral, equal chest rise, Abdominal: soft, nontender to palpation, no guarding, no appreciable organomegaly Ext: no gross muscle atrophy, trace edema, no contractures Neuro: Moving all 4 extremities independently, pupils equal round reactive to light, not following commands, withdrawal to pain in bilateral upper and lower extremities, Ouch to pain in b/l UE Psych: Blunted affect, currently nonverbal, does not appear anxious COVID-19 pneumonia, Klebsiella and proteus pneumnia Acute enephalopathy- metabolic vs hypoxic - Vit D, zinc, vitamin C - Dexamethasone, completed - protonix - Wean O2 as able - Pulm recs - Lovenox - cefepime completed 01/06 - follow inflammatory labs -Follow CMP Severe Aortic Stenosis Syncope- likely due to hypoxia versus severe aortic stenosis Type II NSTEMI- likely due to hypoxia, not consistent with ACS Aborted sudden cardiac Atrial fibrillation with rapid ventricular response Systolic cardiomyopathy with EF 30-35% HTN - careful fluid management - tele - amio - eliquis -Cardiology recommendations appreciated -Patient follows with Dr. Blaek Herbert at [facility] if requesting records for further evaluation if appropriate - metoprolol - Lisinopril - hydralazine - follow BP HLD - statin DM 2 - Long acting, SSI, and fixed dose insulin - follow BS with steroids - A1C 8.5 ASCAD - plavix, BB, statin Hypernatremia, resolved Constipation Hyponatremia, resolved Hypothyroidism, synthroid Acute hypoxic respiratory failure Acute kidney injury, Non-anion gap metabolic acidosis Transaminitis secondary to above and cardiac arrest Septic shock, resolved Daughter updated over the phone DVT prophylaxis: ketty Discussed with: patient, nursing Anticipated discharge date: in 2-[address]: SNF A total of 35 minutes was spent on the care of this complex patient more than 50% of the time was spent in counseling and care coordination. Objective - Vital Signs Vital signs: Vital Signs Temp 99.6 F 01/08/21 06:07 Pulse 76 01/08/21 07:43 Resp 16 01/08/21 06:07 BP 136/69 01/08/21 06:07 Pulse Ox 99 01/08/21 06:07 Intake & Output 01/07/21 01/08/21 01/08/21 18:59 06:59 18:59 Intake Total 0 400 Output Total 800 1050 100 Balance -800 -650 -100 Weight 85.5 kg Intake: IV 120 pressure bag 120 Oral 0 Tube Feeding 280 Output: Urine 800 1050 100 Stool 0 Other: Voiding Method Indwelling Catheter Indwelling Catheter Indwelling Catheter ABP, PAP, CO, CI - Last Documented Arterial Blood Pressure 136/55 - Labs CBC & Chem 7: 01/08/21 08:24 01/08/21 08:24 Labs: Abnormal Lab Results - Last 24 Hours (Table) 01/07/21 01/07/21 01/07/21 Range/Units 16:52 18:05 19:48 WBC (3.8-10.6) k/uL RBC (3.80-5.40) m/uL Chloride (98-107) mmol/L Carbon Dioxide (22-30) mmol/L BUN (7-17) mg/dL Creatinine (0.52-1.04) mg/dL Glucose (74-99) mg/dL POC Glucose (mg/dL) 152 H 158 H 176 H (75-99) mg/dL 01/07/21 01/08/21 01/08/21 Range/Units 23:50 05:42 06:56 WBC (3.8-10.6) k/uL RBC (3.80-5.40) m/uL Chloride (98-107) mmol/L Carbon Dioxide (22-30) mmol/L BUN (7-17) mg/dL Creatinine (0.52-1.04) mg/dL Glucose (74-99) mg/dL POC Glucose (mg/dL) 161 H 163 H 141 H (75-99) mg/dL 01/08/21 01/08/21 01/08/21 Range/Units 08:24 08:24 11:12 WBC 15.4 H (3.8-10.6) k/uL RBC 3.57 L (3.80-5.40) m/uL Chloride 120 H (98-107) mmol/L Carbon Dioxide 19 L (22-30) mmol/L BUN 52 H (7-17) mg/dL Creatinine 1.16 H (0.52-1.04) mg/dL Glucose 145 H (74-99) mg/dL POC Glucose (mg/dL) 146 H (75-99) mg/dL
--- NOTE | 2021-01-08 14:53 | P.PN ---
Subjective Progress Note Date: 01/08/21 Per the primary team, she is about the same and no worsening of her condition. She is pending to have PEG tube. Objective - Vital Signs Vital signs: Vital Signs Temp 99.6 F 01/08/21 06:07 Pulse 76 01/08/21 07:43 Resp 16 01/08/21 06:07 BP 136/69 01/08/21 06:07 Pulse Ox 99 01/08/21 06:07 Intake & Output 01/07/21 01/08/21 01/08/21 18:59 06:59 18:59 Intake Total 0 400 Output Total 800 1050 100 Balance -800 -650 -100 Weight 85.5 kg Intake: IV 120 pressure bag 120 Oral 0 Tube Feeding 280 Output: Urine 800 1050 100 Stool 0 Other: Voiding Method Indwelling Catheter Indwelling Catheter Indwelling Catheter ABP, PAP, CO, CI - Last Documented Arterial Blood Pressure 136/55 - Exam GENERAL: The patient is lying in bed and does not seem is not in acute distress. NEUROLOGICAL: Higher mental function: The patient is awake but not verbalizing or following commands. Patient would say "ouch" only to painful stimuli. Cranial nerves: Eyes are spontaneously open. Primary gaze is midline. The pupils are round, equal (3mm) and reactive to light. Extraocular movement is tracking throughout the room and turning her neck to side and no nystagmus is note No facial weakness. Say outch clearly. Could not assess rest of cranial nerves. Motor: The strength is moving her uppers side to side and has good hand squeeze. Withdrawls to painful stimuli over lowers. Normal tone and bulk. Cerebellum:Could not assess. Sensation: Could not assess light touch but has intact to painful stimuli. CT of the head is reported as no acute intracranial process. MRI Brain 01/07/21: Is reported as cerebral atrophy and chronic minimal small vessel ischemia. Hydrocephalus. Exam limited by motion. Exam is limited by motion. There is possible infarct in the left temporal lobe cortex. I personally reviewed the images and I don't appreciated any stroke over the left temporal region and feel this was more motion artifact. I spoke with current reading radiologist (Dr. Briggs) and he agrees with me. Routine EEG (01/02/2021): Is an abnormal routine EEG. The background slowing is suggestive of moderate encephalopathy. There are no focal slowing, epileptiform discharges or seizure on the EEG. Vitamin B12 is 439 which is considered within normal limits. Folate serum is 9 which is considered low normal. TSH is 3.4 which is considered within normal limits Ammonia level is less than 9 which is within normal limits. HbA1c: 8.5. - Labs CBC & Chem 7: 01/08/21 08:24 01/08/21 08:24 Labs: Abnormal Lab Results - Last 24 Hours (Table) 01/07/21 01/07/21 01/07/21 Range/Units 16:52 18:05 19:48 WBC (3.8-10.6) k/uL RBC (3.80-5.40) m/uL Chloride (98-107) mmol/L Carbon Dioxide (22-30) mmol/L BUN (7-17) mg/dL Creatinine (0.52-1.04) mg/dL Glucose (74-99) mg/dL POC Glucose (mg/dL) 152 H 158 H 176 H (75-99) mg/dL 01/07/21 01/08/21 01/08/21 Range/Units 23:50 05:42 06:56 WBC (3.8-10.6) k/uL RBC (3.80-5.40) m/uL Chloride (98-107) mmol/L Carbon Dioxide (22-30) mmol/L BUN (7-17) mg/dL Creatinine (0.52-1.04) mg/dL Glucose (74-99) mg/dL POC Glucose (mg/dL) 161 H 163 H 141 H (75-99) mg/dL 01/08/21 01/08/21 01/08/21 Range/Units 08:24 08:24 11:12 WBC 15.4 H (3.8-10.6) k/uL RBC 3.57 L (3.80-5.40) m/uL Chloride 120 H (98-107) mmol/L Carbon Dioxide 19 L (22-30) mmol/L BUN 52 H (7-17) mg/dL Creatinine 1.16 H (0.52-1.04) mg/dL Glucose 145 H (74-99) mg/dL POC Glucose (mg/dL) 146 H (75-99) mg/dL Assessment and Plan Assessment: Altered mental status due to multifactorial: Cerebral anoxia/hypoxia secondary to respiratory failure related to pneumonia and Covid 19 infection also component of the altered mental status due to metabolic of acute kidney insufficiency . Acute hypoxic respiratory failure secondary to do COVID-19 pneumonia Acute kidney insufficiency trending down. Slight elevated the liver function test with the last AST of 85 and ALT of 82.- improved and ALT 70 (last on 01/04) Status post cardiac arrest was pulseless logical activity for 7 minutes status post intubation mechanical ventilation on 12/24/2020 and there was questionable anoxic brain injury. History of coronary artery disease Severe aortic stenosis Severe cardiomyopathy and the left ventricle dysfunction with ejection fraction of 30%. Atrial fibrillation/atrial flutter type 2 diabetes History of hypertension History of atrial fibrillation on anticoagulation Plan: * MRI Brain is negative for stroke. * Pending to have PEG tube. * Cardiology is on board. * Will Defer the rest of the medical management to the primary/Pulmonary team. * Upon discharge recommend following-up with neurologist within 4 weeks. CONDITION: Guarded. The plan is discussed with the patient's daughter (Arlin) via phone and the pr imary team. There is no further neurological work-up. Neurology will sign off. Please reconsult if needed. Bebeto Daniels M.D. Neuro-hospitalist Time with Patient: Less than 30
[2021-01-08 17:33] LABS: Glucose,Whole Blood 148 mg/dL (75-99)
[2021-01-08 20:53] LABS: Glucose,Whole Blood 125 mg/dL (75-99)
[2021-01-08] MEDS: ATORVASTATIN 40 MG TAB PO SCH (22:30)
[2021-01-09 00:02] LABS: Glucose,Whole Blood 138 mg/dL (75-99)
[2021-01-09] MEDS: INSULIN ASPART (NovoLOG) 100 UNIT/ML VIAL SQ SCH ×8 (00:10→17:40)
[2021-01-09] MEDS: LEVOTHYROXINE 50 MCG TAB PO SCH (05:51)
[2021-01-09 05:52] LABS: Glucose,Whole Blood 88 mg/dL (75-99)
[2021-01-09 07:59] LABS: Glucose,Whole Blood 80 mg/dL (75-99)
[2021-01-09] MEDS: INSULIN DETEMIR (LEVEMIR) 100 UNIT/ML SYR SQ SCH ×2 (08:27→20:44)
[2021-01-09] MEDS: polyethylene glycoL 3350 17 GM POWD.PACK PO SCH (08:27)
[2021-01-09] MEDS: ZINC SULFATE 220 MG CAP PO SCH (08:27)
[2021-01-09] MEDS: FAMOTIDINE 20 MG TAB PO SCH (08:32)
[2021-01-09] MEDS: CHOLECALCIFEROL 25 MCG (1000 IU) TABLET PO SCH (08:32)
[2021-01-09] MEDS: ASCORBIC ACID 500 MG TAB PO SCH (08:32)
[2021-01-09] MEDS: METOPROLOL TARTRATE 50 MG TAB PO SCH ×2 (08:38→20:44)
[2021-01-09] MEDS: hydrALAZINE HCL 50 MG TAB PO SCH ×3 (08:39→20:44)
[2021-01-09] MEDS: PANTOPRAZOLE 40 MG/10 ML VIAL IVP SCH ×2 (08:39→20:44)
[2021-01-09] MEDS: AMIODARONE 200 MG TAB PO SCH ×3 (08:39→20:44)
[2021-01-09] MEDS: lisinopriL 20 MG TAB PO SCH ×2 (08:39→20:44)
--- NOTE | 2021-01-09 11:07 | XR ---
EXAMINATION TYPE: XR chest 1V portable DATE OF EXAM: 01/09/2021 Comparison: 12/05/2020 Clinical History: 75-year-old female shortness of breath Findings: Median sternotomy wires and post-CABG clips in the mediastinum. Heart is mildly enlarged. Interstitia l densities persist. No pleural effusion. Courses below the diaphragm. Impression: Mild cardiomegaly. Interstitial opacities persist, possible pulmonary vascular congestion.
[2021-01-09 11:14] LABS: HCT 36.9 % (34.0-46.0); HGB 11.3 gm/dL (11.4-16.0); Hypochromasia Slight; MCH 30.9 pg (25.0-35.0); MCHC 30.6 g/dL (31.0-37.0); MCV 100.9 fL (80.0-100.0); Macrocytosis Slight; Mean Platelet Volume 7.9; Platelet Count 265 k/uL (150-450); RBC 3.66 m/uL (3.80-5.40); RDW 14.5 % (11.5-15.5); WBC 18.8 k/uL (3.8-10.6)
--- NOTE | 2021-01-09 11:27 | P.PN ---
Subjective Progress Note Date: 01/09/21 Principal diagnosis: shortness of breath Patient is a 75-year-old female with a history of prior angina, diabetes, hypothyroidism, dyslipidemia, and hypertension who presented with complaint of weakness and syncope. She started having upper respiratory symptoms approxi mately 4-5 days ago. She went to obtain an outpatient Covid test and passed out. She has completed a 2 series Pfizer vaccine earlier this year. In the ER she underwent an extensive evaluation. On arrival her oxygenation was 71% on room air. She was started on BiPAP. Initial laboratory analysis showed a sodium of 132, carbon dioxide 19, anion gap 11, BUN 56, creatinine 1.9, S2 83, troponin 0.247, CRP 22.8, BNP 21,100. Covid testing was positive. Chest x-ray showed diffuse bilateral interstitial infiltrates. She was given a dose of dexamethasone. She was seen by pulmonary who felt she could be managed on selective care. She was continued on dexamethasone. She is not a candidate for eRemdesivir secondary to her high oxygen requirements. On the afternoon of 12/24 she had sudden decline in heart rate and had PEA arrest lasting approximately 5 minutes. She was transitioned to the ICU and started on propofol for sedation. She did require small amounts of levo. She was noted to have A. fib after [place] was achieved and she was subsequently transitioned from Lovenox to heparin drip. She was seen by cardiology secondary to her echocardiogram with severe aortic stenosis and PEA arrest. She did require increasing PEEP on 12/25 that was able to be decreased on 12/26. People slowly weaned down. On her initial sedation holiday she did not wake up completely and was restless and hypertensive requiring a cough a proximal drip. She was then started on Precedex and continued to not respond to stimuli she underwent head CT which showed no acute process, neurology was consulted. She continued to have A fib with RVR and was transitioned from heparin gtt to eliquis. Extubated on 01/03. Still without verbalizing. Paln is for PEG on 01/09. MRI completed 01/07 with possible stroke, neurology reviewing as clinical exam does not appear consistent with acute stroke. Additional testing: EEG-background slowing suggestive of encephalopathy echo with ejection fraction 30-35% , severe aortic stenosis Patient seen and examined at bedside. Less awake today and not focusing as much, follow Per nursing no acute events overnight. General:non toxic, no distress, appears at stated age Derm: warm, dry Head: atraumatic, normocephalic, symmetric Eyes: Pupils equal round reactive to light, no lid lesion, anicteric sclera Mouth: no lip lesion, mucus membranes dry Cardiovascular: S1S2 reg, + murmur, positive posterior tibial pulse bilateral, Lungs:CTA bilateral, equal chest rise, Abdominal: soft, nontender to palpation, no guarding, no appreciable organomegaly Ext: no gross muscle atrophy, trace edema, no contractures Neuro: Moving all 4 extremities independently, pupils equal round reactive to light, not following commands, withdrawal to pain in bilateral upper and lower extremities, Ouch to pain in right upper extremity Psych: lethargic, currently nonverbal, does not appear anxious COVID-19 pneumonia, Klebsiella and proteus pneumnia Acute enephalopathy- metabolic vs hypoxic - Vit D, zinc, vitamin C - Dexamethasone, completed - protonix - Wean O2 as able - Pulm recs - Lovenox - cefepime completed 01/06 - follow inflammatory labs -Follow CMP Recurrent Fevers - check CXR - UA - Monitor fever profile - check procalcitonin Severe Aortic Stenosis Syncope- likely due to hypoxia versus severe aortic stenosis Type II NSTEMI- likely due to hypoxia, not consistent with ACS Aborted sudden cardiac Atrial fibrillation with rapid ventricular response Systolic cardiomyopathy with EF 30-35% HTN - careful fluid management - tele - amio - eliquis -Cardiology recommendations appreciated -Patient follows with Dr. Blake Herbert at [facility] if requesting records for further evaluation if appropriate - metoprolol - Lisinopril - hydralazine - follow BP HLD - statin DM 2 - Long acting, SSI, and fixed dose insulin - follow BS with steroids - A1C 8.5 ASCAD - plavix, BB, statin Hypernatremia, resolved Constipation Hyponatremia, resolved Hypothyroidism, synthroid Acute hypoxic respiratory failure Acute kidney injury, Non-anion gap metabolic acidosis Transaminitis secondary to above and cardiac arrest Septic shock, resolved DVT prophylaxis: ketty Discussed with: patient, nursing Anticipated discharge date: in 2-[address]: SNF A total of 35 minutes was spent on the care of this complex patient more than 50% of the time was spent in counseling and care coordination. Objective - Vital Signs Vital signs: Vital Signs Temp 99.9 F H 01/09/21 10:00 Pulse 74 01/09/21 10:00 Resp 13 01/09/21 10:00 BP 139/71 01/09/21 10:00 Pulse Ox 95 01/09/21 10:00 Intake & Output 01/08/21 01/09/21 01/09/21 18:59 06:59 18:59 Intake Total 336 Output Total 1000 1000 Balance -1000 -664 Weight 83.5 kg Intake: Oral 0 Tube Feeding 336 Output: Urine 1000 1000 Stool 0 Other: Voiding Method Indwelling Catheter Indwelling Catheter ABP, PAP, CO, CI - Last Documented Arterial Blood Pressure 136/55 - Labs CBC & Chem 7: 01/09/21 10:50 01/08/21 08:24 Labs: Abnormal Lab Results - Last 24 Hours (Table) 01/08/21 01/08/21 01/09/21 Range/Units 17:32 20:51 00:00 WBC (3.8-10.6) k/uL RBC (3.80-5.40) m/uL Hgb (11.4-16.0) gm/dL MCV (80.0-100.0) fL MCHC (31.0-37.0) g/dL POC Glucose (mg/dL) 148 H 125 H 138 H (75-99) mg/dL 01/09/21 Range/Units 10:50 WBC 18.8 H (3.8-10.6) k/uL RBC 3.66 L (3.80-5.40) m/uL Hgb 11.3 L (11.4-16.0) gm/dL MCV 100.9 H (80.0-100.0) fL MCHC 30.6 L (31.0-37.0) g/dL POC Glucose (mg/dL) (75-99) mg/dL
[2021-01-09 11:30] LABS: ALT 32 U/L (4-34); AST 35 U/L (14-36); African American GFR (CKD) 49 (>60 ml/min/1.73 sqM); Albumin 2.9 g/dL (3.5-5.0); Alkaline Phosphatase 129 U/L (38-126); Anion Gap 6 mmol/L; Blood Urea Nitrogen 48 mg/dL (7-17); Calcium 9.1 mg/dL (8.4-10.2); Carbon Dioxide 21 mmol/L (22-30); Chloride 121 mmol/L (98-107); Glucose 78 mg/dL (74-99); Magnesium 2.2 mg/dL (1.6-2.3); Non-African American GFR(CKD) 43 (>60 ml/min/1.73 sqM); Phosphorus 4.1 mg/dL (2.5-4.5); Potassium 4.6 mmol/L (3.5-5.1); Sodium 148 mmol/L (137-145); Total Bilirubin 0.8 mg/dL (0.2-1.3); Total Protein 5.9 g/dL (6.3-8.2)
--- NOTE | 2021-01-09 11:57 | P.PN ---
Subjective Progress Note Date: 01/09/21 Principal diagnosis: Aspiration, malnutrition We were consulted to evaluate [place] for PEG tube placement. Patient with breakthrough case of cold blood that resulted in hospitalization. She did have an arrest during the hospital stay. CPR was initiated quickly. Code lasted a pproximate 7 minutes until return of vitals. Patient has had confusion and has failed her swallow evaluation. Neurology has been following this patient closely. Hopes are that the patient will see gradual improvement in her clinical course. As a means of feeding her we are asked to place PEG tube. Objective - Vital Signs Vital signs: Vital Signs Temp 99.9 F H 01/09/21 10:00 Pulse 74 01/09/21 10:00 Resp 13 01/09/21 10:00 BP 139/71 01/09/21 10:00 Pulse Ox 95 01/09/21 10:00 Intake & Output 01/08/21 01/09/21 01/09/21 18:59 06:59 18:59 Intake Total 336 Output Total 1000 1000 Balance -1000 -664 Weight 83.5 kg Intake: Oral 0 Tube Feeding 336 Output: Urine 1000 1000 Stool 0 Other: Voiding Method Indwelling Catheter Indwelling Catheter ABP, PAP, CO, CI - Last Documented Arterial Blood Pressure 136/55 - Exam Abdomen: Soft, nontender, nondistended - Labs CBC & Chem 7: 01/09/21 10:50 01/09/21 10:50 Labs: Abnormal Lab Results - Last 24 Hours (Table) 01/08/21 01/08/21 01/09/21 Range/Units 17:32 20:51 00:00 WBC (3.8-10.6) k/uL RBC (3.80-5.40) m/uL Hgb (11.4-16.0) gm/dL MCV (80.0-100.0) fL MCHC (31.0-37.0) g/dL Sodium (137-145) mmol/L Chloride (98-107) mmol/L Carbon Dioxide (22-30) mmol/L BUN (7-17) mg/dL Creatinine (0.52-1.04) mg/dL POC Glucose (mg/dL) 148 H 125 H 138 H (75-99) mg/dL Alkaline Phosphatase (38-126) U/L Total Protein (6.3-8.2) g/dL Albumin (3.5-5.0) g/dL 01/09/21 01/09/21 Range/Units 10:50 10:50 WBC 18.8 H (3.8-10.6) k/uL RBC 3.66 L (3.80-5.40) m/uL Hgb 11.3 L (11.4-16.0) gm/dL MCV 100.9 H (80.0-100.0) fL MCHC 30.6 L (31.0-37.0) g/dL Sodium 148 H (137-145) mmol/L Chloride 121 H (98-107) mmol/L Carbon Dioxide 21 L (22-30) mmol/L BUN 48 H (7-17) mg/dL Creatinine 1.24 H (0.52-1.04) mg/dL POC Glucose (mg/dL) (75-99) mg/dL Alkaline Phosphatase 129 H (38-126) U/L Total Protein 5.9 L (6.3-8.2) g/dL Albumin 2.9 L (3.5-5.0) g/dL Assessment and Plan (1) Aspiration into airway Narrative/Plan: 75-year-old female with aspiration/malnutrition. I had a long discussion with the patient's daughter Arlin by phone. Initially called the patient's but no answer. Family would like to proceed with PEG tube placement. The patient was more lethargic than she was yesterday. Procedure will be scheduled for tomorrow barring any further decline in her clinical condition. Risks of bleeding, infection, bowel injury, aspiration, anesthesia complications reviewed. They understand and wish to proceed. Current Visit: Yes Status: Acute Code(s): T17.908A - UNSP FB IN RESP TRACT, PART UNSP CAUSING OTH INJURY, INIT SNOMED Code(s): 482298872
[2021-01-09 12:12] LABS: Glucose,Whole Blood 89 mg/dL (75-99)
[2021-01-09 12:12] LABS: Amorphous Sediment,Urine Rare /hpf; Appearance,Urine Turbid (Clear); Bacteria,Urine Moderate /hpf; Bilirubin,Urine Negative (Negative); Blood,Urine Large (Negative); Color,Urine Light Red; Glucose,Urine (UA) Negative (Negative); Ketones,Urine Negative (Negative); Leukocyte Esterase,Urine Moderate (Negative); Mucus,Urine Rare /hpf; Nitrite,Urine Negative (Negative); PH, Urine 5.5 (5.0-8.0); Protein,Urine 1+ (Negative); RBC,Urine >182 /hpf (0-5); Specific Gravity,Urine 1.018 (1.001-1.035); Squamous Epithelial Cell,Urine 1 /hpf (0-4); Urobilinogen,Urine <2.0 mg/dL (<2.0); WBC,Urine 70 /hpf (0-5)
[2021-01-09] MEDS: DEXTROSE 5%-0.45% NACL 1,000 ML IV SCH (16:17)
[2021-01-09 17:03] LABS: Glucose,Whole Blood 147 mg/dL (75-99)
[2021-01-09] MEDS: PIPERACILLIN-TAZOBACTAM 3.375 GM in SODIUM CHLORIDE 0.9% 100 ML IVPB SCH (19:33)
[2021-01-09] MEDS: ATORVASTATIN 40 MG TAB PO SCH (20:43)
[2021-01-09] MEDS: ACETAMINOPHEN TAB 325 MG TAB PO PRN (20:45)
[2021-01-09 23:59] LABS: Glucose,Whole Blood 169 mg/dL (75-99)
[2021-01-10] MEDS: INSULIN ASPART (NovoLOG) 100 UNIT/ML VIAL SQ SCH ×8 (00:06→16:36)
[2021-01-10] MEDS: DEXTROSE 5%-0.45% NACL 1,000 ML IV SCH ×2 (02:16→16:57)
[2021-01-10] MEDS: PIPERACILLIN-TAZOBACTAM 3.375 GM in SODIUM CHLORIDE 0.9% 100 ML IVPB SCH ×2 (02:16→11:56)
[2021-01-10] MEDS: LEVOTHYROXINE 50 MCG TAB PO SCH (05:12)
[2021-01-10 05:51] LABS: Glucose,Whole Blood 88 mg/dL (75-99)
[2021-01-10 07:31] LABS: Glucose,Whole Blood 102 mg/dL (75-99)
[2021-01-10] MEDS: INSULIN DETEMIR (LEVEMIR) 100 UNIT/ML SYR SQ SCH ×2 (07:31→20:58)
[2021-01-10] MEDS: hydrALAZINE HCL 50 MG TAB PO SCH ×3 (07:34→19:03)
[2021-01-10] MEDS: PANTOPRAZOLE 40 MG/10 ML VIAL IVP SCH ×2 (07:34→19:04)
[2021-01-10] MEDS: AMIODARONE 200 MG TAB PO SCH ×3 (07:34→19:03)
[2021-01-10] MEDS: METOPROLOL TARTRATE 50 MG TAB PO SCH ×2 (07:34→19:03)
[2021-01-10] MEDS: lisinopriL 20 MG TAB PO SCH ×2 (07:34→19:04)
[2021-01-10] MEDS: polyethylene glycoL 3350 17 GM POWD.PACK PO SCH (11:24)
[2021-01-10] MEDS: FAMOTIDINE 20 MG TAB PO SCH (11:24)
[2021-01-10] MEDS: ZINC SULFATE 220 MG CAP PO SCH (11:24)
[2021-01-10] MEDS: CHOLECALCIFEROL 25 MCG (1000 IU) TABLET PO SCH (11:24)
[2021-01-10] MEDS: ASCORBIC ACID 500 MG TAB PO SCH (11:24)
[2021-01-10 11:48] LABS: Glucose,Whole Blood 129 mg/dL (75-99)
[2021-01-10] MEDS ORDERED: PROPOFOL 10 MG/ML 20 ML VIAL IV ONE (12:32)
[2021-01-10] MEDS ORDERED: IV FLUID CONTINUATION 1,000 ML IV ONE (12:33)
--- NOTE | 2021-01-10 13:32 | P.PN ---
Subjective Patient was seen and evaluated by me this morning. She was alert but not following commands or answering any questions. She appears congested Objective - Vital Signs Vital signs: Vital Signs Temp 99.8 F H 01/10/21 08:00 Pulse 88 01/10/21 08:00 Resp 18 01/10/21 08:00 BP 151/73 01/10/21 08:00 Pulse Ox 95 01/10/21 08:00 Intake & Output 01/09/21 01/10/21 01/10/21 18:59 06:59 18:59 Intake Total 659 80 100 Output Total 600 0 Balance 59 80 100 Weight 83.5 kg 80 kg Intake: IV 100 Intake, IV Titration 375 Amount Dextrose 5%-0.45% NaCl 1, 375 000 ml @ 75 mls/hr IV . [id number] [facility] Rx#:[id number] Tube Feeding 224 80 Other 60 Output: Urine 600 Stool 0 Other: Voiding Method Indwelling Catheter # Voids 1,800 ABP, PAP, CO, CI - Last Documented Arterial Blood Pressure 136/55 - Exam General: The patient is awake and alert, in no distress Eye: there is normal conjunctiva bilaterally. Neck: The neck is supple, there is no JVD. Cardiovascular: Normal S1-S2, no S3-S4, no murmurs. Respiratory: Lungs with diffuse rhonchi and rales Gastrointestinal: Abdomen is soft, nontender Musculoskeletal: There is no pedal edema. . Skin: Skin is warm and dry - Labs CBC & Chem 7: 01/09/21 10:50 01/09/21 10:50 Labs: Abnormal Lab Results - Last 24 Hours (Table) 01/09/21 01/09/21 01/10/21 Range/Units 16:56 23:57 07:29 POC Glucose (mg/dL) 147 H 169 H 102 H (75-99) mg/dL 01/10/21 Range/Units 11:47 POC Glucose (mg/dL) 129 H (75-99) mg/dL Microbiology - Last 24 Hours (Table) 01/09/21 11:55 Urine Culture - Preliminary Urine,Voided Assessment and Plan Assessment: Patient is a 75-year-old female with a history of prior angina, diabetes, hypothyroidism, dyslipidemia, and hypertension who presented with complaint of weakness and syncope. She started having upper respiratory symptoms approximately 4-5 days ago. She went to obtain an outpatient Covid test and passed out. She has completed a 2 series Pfizer vaccine earlier this year. In the ER she underwent an extensive evaluation. On arrival her oxygenation was 71% on room air. She was started on BiPAP. Initial laboratory analysis showed a sodium of 132, carbon dioxide 19, anion gap 11, BUN 56, creatinine 1.9, S2 83, troponin 0.247, CRP 22.8, BNP 21,100. Covid testing was positive. Chest x-ray showed diffuse bilateral interstitial infiltrates. She was given a dose of dexamethasone. She was seen by pulmonary who felt she could be managed on selective care. She was continued on dexamethasone. She is not a candidate for eRemdesivir secondary to her high oxygen requirements. On the afternoon of 12/24 she had sudden decline in heart rate and had PEA arrest lasting approximately 5 minutes. She was transitioned to the ICU and started on propofol for sedation. She did require small amounts of levo. She was noted to have A. fib after [place] was achieved and she was subsequently transitioned from Lovenox to heparin drip. She was seen by cardiology secondary to her echocardiogram with severe aortic stenosis and PEA arrest. She did require increasing PEEP on 12/25 that was able to be decreased on 12/26. People slowly weaned down. On her initial sedation holiday she did not wake up completely and was restless and hypertensive requiring a cough a proximal drip. She was then started on Precedex and continued to not respond to stimuli she underwent head CT which showed no acute process, neurology was consulted. She continued to have A fib with RVR and was transitioned from heparin gtt to eliquis. Extubated on 01/03. Still without verbalizing. Paln is for PEG on 01/09. MRI completed 01/07 with possible stroke, neurology reviewing as clinical exam does not appear consistent with acute stroke. Additional testing: EEG-background slowing suggestive of encephalopathy echo with ejection fraction 30-35% , severe aortic stenosis COVID-19 pneumonia, Klebsiella and proteus pneumnia Acute enephalopathy- metabolic vs hypoxic - Vit D, zinc, vitamin C, Dexamethasone completed, protonix - Wean O2 as able - Lovenox - cefepime completed 01/06 Severe Aortic Stenosis Syncope- likely due to hypoxia versus severe aortic stenosis Type II NSTEMI- likely due to hypoxia, not consistent with ACS Aborted sudden cardiac Atrial fibrillation with rapid ventricular response Systolic cardiomyopathy with EF 30-35% HTN - careful fluid management - tele - amio - eliquis -Cardiology recommendations appreciated -Patient follows with Dr. Blake Herbert at [facility] if requesting records for further evaluation if appropriate - metoprolol - Lisinopril - hydralazine - follow BP HLD - statin DM 2 - Long acting, SSI, and fixed dose insulin - follow BS with steroids - A1C 8.5 ASCAD - plavix, BB, statin Hypernatremia, resolved Constipation Hyponatremia, resolved Hypothyroidism, synthroid Acute hypoxic respiratory failure Acute kidney injury, Non-anion gap metabolic acidosis Transaminitis secondary to above and cardiac arrest Septic shock, resolved DVT prophylaxis: ketty Discussed with: patient, nursing Anticipated discharge date: in 2-[address]: SNF A total of 35 minutes was spent on the care of this complex patient more than 50% of the time was spent in counseling and care coordination.
--- NOTE | 2021-01-10 14:16 | P.PCN ---
Date of Procedure: 01/10/21 Procedure(s) Performed: PREOPERATIVE DIAGNOSIS: Malnutrition/aspiration POSTOPERATIVE DIAGNOSIS: Same PROCEDURE: EGD with PEG tube placement SURGEON: Merlin EBL: Minimal ANESTHESIA: Sedation COMPLICATIONS: None OPERATIVE PROCEDURE: The patient was placed in the supine position on the endoscopy table. The patient was sedated per anesthesia that time. The Olympus gastroscope was inserted into the oropharynx and passed under direct visualization to the region of the duodenum. No obstruction was seen. The pylorus was widely patent. The stomach was carefully inspected. The stomach was fully insufflated with air. The abdominal wall was inspected. The light was seen shining through the abdominal wall in the left upper quadrant. This site was chosen for PEG tube placement. The area was prepped in the usual sterile fashion. This area was then localized with lidocaine. No air was evident when aspirating while advancing the localizing needle into the stomach until the stomach was reached. A small vertical incision was made using the scalpel. The Seldinger needle was advanced into the lumen of the stomach the wire was advanced. The wire was grasped with an endoscopic snare. The wire was pulled through the oropharynx. The catheter was then connected to the guidewire and catheter were pulled anteriorly until the hub of the PEG tube catheter was seated against the anterior wall the stomach. The circular bolster was applied and tightened down. The endoscope was then readvanced into the stomach. There was no evidence of any bleeding and there was appropriate tightness on the bolster. The catheter was cut appropriately. The dual port feeding adapter was applied. DISPOSITION: Stable to recovery room
[2021-01-10 16:32] LABS: Glucose,Whole Blood 140 mg/dL (75-99)
[2021-01-10] MEDS: ATORVASTATIN 40 MG TAB PO SCH (19:03)
[2021-01-11 00:24] LABS: Glucose,Whole Blood 180 mg/dL (75-99)
[2021-01-11] MEDS: INSULIN ASPART (NovoLOG) 100 UNIT/ML VIAL SQ SCH ×8 (00:30→18:13)
[2021-01-11] MEDS: DEXTROSE 5%-0.45% NACL 1,000 ML IV SCH ×2 (05:03→18:03)
[2021-01-11] MEDS: LEVOTHYROXINE 50 MCG TAB PO SCH (05:48)
[2021-01-11 05:57] LABS: Glucose,Whole Blood 102 mg/dL (75-99)
[2021-01-11] MEDS: INSULIN DETEMIR (LEVEMIR) 100 UNIT/ML SYR SQ SCH ×2 (06:57→21:26)
[2021-01-11] MEDS: CHOLECALCIFEROL 25 MCG (1000 IU) TABLET PO SCH (08:10)
[2021-01-11] MEDS: ASCORBIC ACID 500 MG TAB PO SCH (08:10)
[2021-01-11] MEDS: AMIODARONE 200 MG TAB PO SCH ×3 (08:10→21:22)
[2021-01-11] MEDS: hydrALAZINE HCL 50 MG TAB PO SCH ×3 (08:12→21:22)
[2021-01-11] MEDS: lisinopriL 20 MG TAB PO SCH ×2 (08:12→21:23)
[2021-01-11] MEDS: ZINC SULFATE 220 MG CAP PO SCH (08:12)
[2021-01-11] MEDS: METOPROLOL TARTRATE 50 MG TAB PO SCH ×2 (08:12→21:24)
[2021-01-11] MEDS: FAMOTIDINE 20 MG TAB PO SCH (08:12)
[2021-01-11] MEDS: PANTOPRAZOLE 40 MG/10 ML VIAL IVP SCH ×2 (08:12→21:22)
[2021-01-11] MEDS: polyethylene glycoL 3350 17 GM POWD.PACK PO SCH (08:12)
--- NOTE | 2021-01-11 11:20 | P.PN ---
<Lyn Leiva - Last Filed: 01/11/21 11:13> Subjective Progress Note Date: 01/11/21 CHIEF COMPLAINT: Malnutrition HISTORY OF PRESENT ILLNESS: Patient is postop day #1 status post PEG tube placement. Tube feedings have been started. She is currently at 20 mL per hour. No residual reported. No nausea or vomiting. Per nursing staff there had been clearish drainage from PEG tube site that was cleaned off. Afebrile. Labs pending for today PHYSICAL EXAM: VITAL SIGNS: Reviewed. GENERAL: Well-developed in no acute distress. HEENT: No sclera icterus. Extraocular movements grossly intact. Moist buccal mucosa. Head is atraumatic, normocephalic. ABDOMEN: Soft. Nondistended. Nontender. PEG tube site clean dry and intact NEUROLOGIC: Awake and nonverbal ASSESSMENT: 1. Severe protein calorie malnutrition/aspiration. Status post PEG tube placement PLAN: -Continue to titrate tube feedings -Continue supportive care Physician Oil Drilling Engineer note has been reviewed by physician. Signing provider agrees with the documented findings, assessment, and plan of care. Objective - Vital Signs Vital signs: Vital Signs Temp 97.5 F L 01/11/21 10:00 Pulse 64 01/11/21 10:00 Resp 20 01/11/21 10:00 BP 117/76 01/11/21 10:00 Pulse Ox 96 01/11/21 10:00 Intake & Output 01/10/21 01/11/21 01/11/21 18:59 06:59 18:59 Intake Total 850 80 Output Total 650 600 Balance 200 -520 Intake: IV 100 Intake, IV Titration 750 Amount Dextrose 5%-0.45% NaCl 1, 750 000 ml @ 75 mls/hr IV . [id number] [facility] Rx#:[id number] Other 80 Output: Urine 650 600 Stool 0 Other: Voiding Method Indwelling Catheter ABP, PAP, CO, CI - Last Documented Arterial Blood Pressure 136/55 - Labs CBC & Chem 7: 01/09/21 10:50 01/09/21 10:50 Labs: Abnormal Lab Results - Last 24 Hours (Table) 01/10/21 01/10/21 01/11/21 Range/Units 11:47 16:31 00:23 POC Glucose (mg/dL) 129 H 140 H 180 H (75-99) mg/dL 01/11/21 Range/Units 05:46 POC Glucose (mg/dL) 102 H (75-99) mg/dL Microbiology - Last 24 Hours (Table) 01/09/21 11:55 Urine Culture - Final Urine,Voided <Kelvin Boyer - Last Filed: 01/11/21 12:16> Subjective As above. Patient tolerating tube feeds at 20. Continue gradually advancing. Will follow. Objective - Vital Signs Vital signs: Vital Signs Temp 97.5 F L 01/11/21 10:00 Pulse 64 01/11/21 10:00 Resp 20 01/11/21 10:00 BP 117/76 01/11/21 10:00 Pulse Ox 96 01/11/21 10:00 Intake & Output 01/10/21 01/11/21 01/11/21 18:59 06:59 18:59 Intake Total 850 80 Output Total 650 600 Balance 200 -520 Intake: IV 100 Intake, IV Titration 750 Amount Dextrose 5%-0.45% NaCl 1, 750 000 ml @ 75 mls/hr IV . [id number] [facility] Rx#:[id number] Other 80 Output: Urine 650 600 Stool 0 Other: Voiding Method Indwelling Catheter ABP, PAP, CO, CI - Last Documented Arterial Blood Pressure 136/55 - Labs CBC & Chem 7: 01/11/21 07:29 01/09/21 10:50 Labs: Abnormal Lab Results - Last 24 Hours (Table) 01/10/21 01/11/21 01/11/21 Range/Units 16:31 00:23 05:46 RBC (4.10-5.20) X 10*6/uL Hgb (12.0-15.0) g/dL Hct (37.2-46.3) % MCV (80.0-97.0) fL MCHC (32.0-37.0) g/dL RDW (11.5-14.5) % Immature Gran # (0.00-0.04) X 10*3/uL Neutrophils # (1.80-7.70) X 10*3/uL Lymphocytes # (0.90-5.00) X 10*3/uL POC Glucose (mg/dL) 140 H 180 H 102 H (75-99) mg/dL 01/11/21 01/11/21 Range/Units 07:29 11:58 RBC 3.32 L (4.10-5.20) X 10*6/uL Hgb 10.4 L (12.0-15.0) g/dL Hct 34.8 L (37.2-46.3) % MCV 104.8 H (80.0-97.0) fL MCHC 29.9 L (32.0-37.0) g/dL RDW 14.9 H (11.5-14.5) % Immature Gran # 0.05 H (0.00-0.04) X 10*3/uL Neutrophils # 8.23 H (1.80-7.70) X 10*3/uL Lymphocytes # 0.56 L (0.90-5.00) X 10*3/uL POC Glucose (mg/dL) 136 H (75-99) mg/dL Microbiology - Last 24 Hours (Table) 01/09/21 11:55 Urine Culture - Final Urine,Voided Assessment and Plan (1) Aspiration into airway Current Visit: Yes Status: Acute Code(s): T17.908A - UNSP FB IN RESP TRACT, PART UNSP CAUSING OTH INJURY, INIT SNOMED Code(s): 324292190
[2021-01-11 11:25] LABS: Basophils # (A) 0.01 X 10*3/uL (0.00-0.10); Basophils % (A) 0.1 %; Eosinophils # (A) 0.12 X 10*3/uL (0.04-0.35); Eosinophils % (A) 1.3 %; HCT 34.8 % (37.2-46.3); HGB 10.4 g/dL (12.0-15.0); Lymphocytes # (A) 0.56 X 10*3/uL (0.90-5.00); Lymphocytes % (A) 5.9 %; MCH 31.3 pg (27.0-32.0); MCHC 29.9 g/dL (32.0-37.0); MCV 104.8 fL (80.0-97.0); Mean Platelet Volume 10.5 fL (9.5-12.2); Monocytes # (A) 0.57 X 10*3/uL (0.20-1.00); Neutrophils # (A) 8.23 X 10*3/uL (1.80-7.70); Neutrophils % (A) 86.2 %; Platelet Count 208 X 10*3/uL (140-440); RBC 3.32 X 10*6/uL (4.10-5.20); RDW 14.9 % (11.5-14.5); WBC 9.54 X 10*3/uL (4.50-10.00)
[2021-01-11 12:02] LABS: Glucose,Whole Blood 136 mg/dL (75-99)
--- NOTE | 2021-01-11 14:07 | P.PN ---
Subjective Progress Note Date: 01/11/21 Patient is alert and looking around. She is not talking or following commands otherwise. Objective - Vital Signs Vital signs: Vital Signs Temp 97.5 F L 01/11/21 10:00 Pulse 64 01/11/21 10:00 Resp 20 01/11/21 10:00 BP 117/76 01/11/21 10:00 Pulse Ox 96 01/11/21 10:00 Intake & Output 01/10/21 01/11/21 01/11/21 18:59 06:59 18:59 Intake Total 850 80 Output Total 650 600 Balance 200 -520 Weight 80 kg Intake: IV 100 Intake, IV Titration 750 Amount Dextrose 5%-0.45% NaCl 1, 750 000 ml @ 75 mls/hr IV . [id number] [facility] Rx#:[id number] Other 80 Output: Urine 650 600 Stool 0 Other: Voiding Method Indwelling Catheter ABP, PAP, CO, CI - Last Documented Arterial Blood Pressure 136/55 - Exam General: The patient is awake and alert, in no distress Eye: there is normal conjunctiva bilaterally. Neck: The neck is supple, there is no JVD. Cardiovascular: Normal S1-S2, no S3-S4, no murmurs. Respiratory: Lungs with diffuse rhonchi and rales Gastrointestinal: Abdomen is soft, nontender Musculoskeletal: There is no pedal edema. . Skin: Skin is warm and dry - Labs CBC & Chem 7: 01/11/21 07:29 01/09/21 10:50 Labs: Abnormal Lab Results - Last 24 Hours (Table) 01/10/21 01/11/21 01/11/21 Range/Units 16:31 00:23 05:46 RBC (4.10-5.20) X 10*6/uL Hgb (12.0-15.0) g/dL Hct (37.2-46.3) % MCV (80.0-97.0) fL MCHC (32.0-37.0) g/dL RDW (11.5-14.5) % Immature Gran # (0.00-0.04) X 10*3/uL Neutrophils # (1.80-7.70) X 10*3/uL Lymphocytes # (0.90-5.00) X 10*3/uL POC Glucose (mg/dL) 140 H 180 H 102 H (75-99) mg/dL 01/11/21 01/11/21 Range/Units 07:29 11:58 RBC 3.32 L (4.10-5.20) X 10*6/uL Hgb 10.4 L (12.0-15.0) g/dL Hct 34.8 L (37.2-46.3) % MCV 104.8 H (80.0-97.0) fL MCHC 29.9 L (32.0-37.0) g/dL RDW 14.9 H (11.5-14.5) % Immature Gran # 0.05 H (0.00-0.04) X 10*3/uL Neutrophils # 8.23 H (1.80-7.70) X 10*3/uL Lymphocytes # 0.56 L (0.90-5.00) X 10*3/uL POC Glucose (mg/dL) 136 H (75-99) mg/dL Microbiology - Last 24 Hours (Table) 01/09/21 11:55 Urine Culture - Final Urine,Voided Assessment and Plan Assessment: Patient is a 75-year-old female with a history of prior angina, diabetes, hypothyroidism, dyslipidemia, and hypertension who presented with complaint of weakness and syncope. She started having upper respiratory symptoms approximately 4-5 days prior to admission. She went to obtain an outpatient Covid test and passed out. She has completed a 2 series Pfizer vaccine earlier this year. In the ER she underwent an extensive evaluation. She was started on BiPAP. Covid testing was positive. Chest x-ray showed diffuse bilateral interstitial infiltrates. On the afternoon of 12/24 she had sudden decline in heart rate and had PEA arrest lasting approximately 5 minutes. She was transitioned to the ICU and started on propofol for sedation. She did require small amounts of levo. She was noted to have A. fib after [place]. She was seen by cardiology secondary to her echocardiogram with severe aortic stenosis and PEA arrest. Extubated on 01/03. Still without verbalizing. Paln is for PEG on 01/09. MRI completed 01/07 with possible stroke, neurology reviewing as clinical exam does not appear consistent with acute stroke. Additional testing: EEG-background slowing suggestive of encephalopathy echo with ejection fraction 30-35% , severe aortic stenosis COVID-19 pneumonia, Klebsiella and proteus pneumnia Acute enephalopathy- metabolic vs hypoxic Suspected hypoxic brain injury - Vit D, zinc, vitamin C, Dexamethasone completed, protonix - Wean O2 as able - Lovenox - cefepime completed 01/06 -Patient had extensive workup including computed tomography scan and MRI of the brain both normal Severe Aortic Stenosis Syncope- likely due to hypoxia versus severe aortic stenosis Type II NSTEMI- likely due to hypoxia, not consistent with ACS Aborted sudden cardiac Atrial fibrillation with rapid ventricular response Systolic cardiomyopathy with EF 30-35% HTN - careful fluid management - tele - amio - eliquis -Cardiology recommendations appreciated -Patient follows with Dr. Blake Herbert at [place] if requesting records for further evaluation if appropriate - metoprolol - Lisinopril - hydralazine - follow BP HLD - statin DM 2 - Long acting, SSI, and fixed dose insulin - follow BS with steroids - A1C 8.5 ASCAD - plavix, BB, statin Hypernatremia, resolved Constipation Hyponatremia, resolved Hypothyroidism, synthroid Acute hypoxic respiratory failure Acute kidney injury, Non-anion gap metabolic acidosis Transaminitis secondary to above and cardiac arrest Septic shock, resolved DVT prophylaxis: ketty Discussed with: patient, nursing Anticipated discharge date: in 2-[address]: SNF A total of 35 minutes was spent on the care of this complex patient more than 50% of the time was spent in counseling and care coordination.
[2021-01-11 14:11] LABS: African American GFR (CKD) 51.2 (60.0-200.0); Anion Gap 8.2 mmol/L (4.00-12.00); BUN/Creat Ratio 30.83 Ratio (12.00-20.00); Carbon Dioxide 21.8 mmol/L (21.6-31.8); Non-African American GFR(CKD) 44.2 (60.0-200.0); Potassium 3.8 mmol/L (3.5-5.5)
[2021-01-11 16:56] LABS: Glucose,Whole Blood 187 mg/dL (75-99)
[2021-01-11 19:56] LABS: Glucose,Whole Blood 177 mg/dL (75-99)
[2021-01-11] MEDS: ATORVASTATIN 40 MG TAB PO SCH (21:24)
[2021-01-12 00:57] LABS: Glucose,Whole Blood 203 mg/dL (75-99)
[2021-01-12] MEDS: INSULIN ASPART (NovoLOG) 100 UNIT/ML VIAL SQ SCH ×8 (01:11→18:03)
[2021-01-12] MEDS: LEVOTHYROXINE 50 MCG TAB PO SCH (05:31)
[2021-01-12 05:35] LABS: Glucose,Whole Blood 171 mg/dL (75-99)
[2021-01-12] MEDS: INSULIN DETEMIR (LEVEMIR) 100 UNIT/ML SYR SQ SCH ×2 (07:37→21:29)
[2021-01-12] MEDS: PANTOPRAZOLE 40 MG/10 ML VIAL IVP SCH ×2 (09:29→21:27)
[2021-01-12] MEDS: hydrALAZINE HCL 50 MG TAB PO SCH ×3 (09:29→21:27)
[2021-01-12] MEDS: ZINC SULFATE 220 MG CAP PO SCH (09:30)
[2021-01-12] MEDS: lisinopriL 20 MG TAB PO SCH ×2 (09:30→21:27)
[2021-01-12] MEDS: FAMOTIDINE 20 MG TAB PO SCH (09:30)
[2021-01-12] MEDS: ASCORBIC ACID 500 MG TAB PO SCH (09:30)
[2021-01-12] MEDS: AMIODARONE 200 MG TAB PO SCH ×3 (09:31→21:27)
[2021-01-12] MEDS: CHOLECALCIFEROL 25 MCG (1000 IU) TABLET PO SCH (09:31)
[2021-01-12] MEDS: polyethylene glycoL 3350 17 GM POWD.PACK PO SCH (09:31)
[2021-01-12] MEDS: METOPROLOL TARTRATE 50 MG TAB PO SCH ×2 (09:31→21:27)
[2021-01-12] MEDS: DEXTROSE 5%-0.45% NACL 1,000 ML IV SCH ×2 (10:07→21:28)
[2021-01-12 10:31] LABS: African American GFR (CKD) 53 (>60 ml/min/1.73 sqM); Anion Gap 6 mmol/L; Blood Urea Nitrogen 39 mg/dL (7-17); Calcium 8.6 mg/dL (8.4-10.2); Carbon Dioxide 20 mmol/L (22-30); Chloride 120 mmol/L (98-107); Glucose 158 mg/dL (74-99); Non-African American GFR(CKD) 46 (>60 ml/min/1.73 sqM); Potassium 4.2 mmol/L (3.5-5.1); Sodium 146 mmol/L (137-145)
--- NOTE | 2021-01-12 11:30 | P.PN ---
<Lyn Leiva - Last Filed: 01/12/21 11:29> Subjective Progress Note Date: 01/12/21 CHIEF COMPLAINT: Malnutrition HISTORY OF PRESENT ILLNESS: Patient is postop day #2 status post PEG tube placement. Patient is tolerating tube feedings. Tube feeds are currently at 50 mL per hour. The tube feeds will be increased later today up to 56 mL per hour which is goal. No residual reported. No nausea or vomiting. Afebrile sodium 146 potassium 4.2 creatinine 1.17 PHYSICAL EXAM: VITAL SIGNS: Reviewed. GENERAL: Well-developed in no acute distress. HEENT: No sclera icterus. Extraocular movements grossly intact. Moist buccal mucosa. Head is atraumatic, normocephalic. ABDOMEN: Soft. Nondistended. Nontender. PEG tube site clean dry and intact NEUROLOGIC: Awake and nonverbal ASSESSMENT: 1. Severe protein calorie malnutrition/aspiration. Status post PEG tube placement PLAN: -Continue to titrate tube feedings to goal -Continue supportive care Physician Ditch Rider note has been reviewed by physician. Signing provider agrees with the documented findings, assessment, and plan of care. Objective - Vital Signs Vital signs: Vital Signs Temp 98.2 F 01/12/21 08:00 Pulse 80 01/12/21 08:00 Resp 22 01/12/21 08:00 BP 143/72 01/12/21 08:00 Pulse Ox 97 01/12/21 08:00 Intake & Output 01/11/21 01/12/21 01/12/21 18:59 06:59 18:59 Intake Total 860 50 Output Total 900 600 Balance -40 -550 Weight 80 kg 84.5 kg Intake: Intake, IV Titration 750 Amount Dextrose 5%-0.45% NaCl 1, 750 000 ml @ 75 mls/hr IV . [id number] [facility] Rx#:[id number] Tube Feeding 50 50 Other 60 Output: Urine 900 600 Other: Voiding Method Indwelling Catheter ABP, PAP, CO, CI - Last Documented Arterial Blood Pressure 136/55 - Labs CBC & Chem 7: 01/11/21 07:29 01/12/21 09:45 Labs: Abnormal Lab Results - Last 24 Hours (Table) 01/11/21 01/11/21 01/11/21 Range/Units 07:29 11:58 16:36 Sodium 151 H (135-145) mmol/L Chloride 121 H (96-109) mmol/L Carbon Dioxide (22-30) mmol/L BUN 37.0 H (9.0-27.0) mg/dL Creatinine (0.52-1.04) mg/dL Est GFR (CKD-EPI)AfAm 51.2 L (60.0-200.0) Est GFR (CKD-EPI)NonAf 44.2 L (60.0-200.0) BUN/Creatinine Ratio 30.83 H (12.00-20.00) Ratio Glucose (74-99) mg/dL POC Glucose (mg/dL) 136 H 187 H (75-99) mg/dL Calcium 8.0 L (8.7-10.3) mg/dL 01/11/21 01/12/21 01/12/21 Range/Units 19:56 00:56 05:15 Sodium (135-145) mmol/L Chloride (96-109) mmol/L Carbon Dioxide (22-30) mmol/L BUN (9.0-27.0) mg/dL Creatinine (0.52-1.04) mg/dL Est GFR (CKD-EPI)AfAm (60.0-200.0) Est GFR (CKD-EPI)NonAf (60.0-200.0) BUN/Creatinine Ratio (12.00-20.00) Ratio Glucose (74-99) mg/dL POC Glucose (mg/dL) 177 H 203 H 171 H (75-99) mg/dL Calcium (8.7-10.3) mg/dL 01/12/21 Range/Units 09:45 Sodium 146 H (135-145) mmol/L Chloride 120 H (96-109) mmol/L Carbon Dioxide 20 L (22-30) mmol/L BUN 39 H (9.0-27.0) mg/dL Creatinine 1.17 H (0.52-1.04) mg/dL Est GFR (CKD-EPI)AfAm (60.0-200.0) Est GFR (CKD-EPI)NonAf (60.0-200.0) BUN/Creatinine Ratio (12.00-20.00) Ratio Glucose 158 H (74-99) mg/dL POC Glucose (mg/dL) (75-99) mg/dL Calcium (8.7-10.3) mg/dL <Kelvin Boyer - Last Filed: 01/12/21 13:55> Subjective As above. Patient doing well. Bolster loosened slightly. Continue tube feeds. We'll sign off. Please call if needed. Objective - Vital Signs Vital signs: Vital Signs Temp 98.2 F 01/12/21 08:00 Pulse 80 01/12/21 08:15 Resp 22 01/12/21 08:15 BP 143/72 01/12/21 08:00 Pulse Ox 97 01/12/21 08:00 Intake & Output 01/11/21 01/12/21 01/12/21 18:59 06:59 18:59 Intake Total 860 50 Output Total 900 600 100 Balance -40 -550 -100 Weight 80 kg 84.5 kg Intake: Intake, IV Titration 750 Amount Dextrose 5%-0.45% NaCl 1, 750 000 ml @ 75 mls/hr IV . [id number] [facility] Rx#:[id number] Tube Feeding 50 50 Other 60 Output: Urine 900 600 100 Uretheral (Dong) 100 Other: Voiding Method Indwelling Catheter Indwelling Catheter ABP, PAP, CO, CI - Last Documented Arterial Blood Pressure 136/55 - Labs CBC & Chem 7: 01/11/21 07:29 01/12/21 09:45 Labs: Abnormal Lab Results - Last 24 Hours (Table) 01/11/21 01/11/21 01/11/21 Range/Units 07:29 16:36 19:56 Sodium 151 H (135-145) mmol/L Chloride 121 H (96-109) mmol/L Carbon Dioxide (22-30) mmol/L BUN 37.0 H (9.0-27.0) mg/dL Creatinine (0.52-1.04) mg/dL Est GFR (CKD-EPI)AfAm 51.2 L (60.0-200.0) Est GFR (CKD-EPI)NonAf 44.2 L (60.0-200.0) BUN/Creatinine Ratio 30.83 H (12.00-20.00) Ratio Glucose (74-99) mg/dL POC Glucose (mg/dL) 187 H 177 H (75-99) mg/dL Calcium 8.0 L (8.7-10.3) mg/dL 01/12/21 01/12/21 01/12/21 Range/Units 00:56 05:15 09:45 Sodium 146 H (135-145) mmol/L Chloride 120 H (96-109) mmol/L Carbon Dioxide 20 L (22-30) mmol/L BUN 39 H (9.0-27.0) mg/dL Creatinine 1.17 H (0.52-1.04) mg/dL Est GFR (CKD-EPI)AfAm (60.0-200.0) Est GFR (CKD-EPI)NonAf (60.0-200.0) BUN/Creatinine Ratio (12.00-20.00) Ratio Glucose 158 H (74-99) mg/dL POC Glucose (mg/dL) 203 H 171 H (75-99) mg/dL Calcium (8.7-10.3) mg/dL 01/12/21 Range/Units 11:39 Sodium (135-145) mmol/L Chloride (96-109) mmol/L Carbon Dioxide (22-30) mmol/L BUN (9.0-27.0) mg/dL Creatinine (0.52-1.04) mg/dL Est GFR (CKD-EPI)AfAm (60.0-200.0) Est GFR (CKD-EPI)NonAf (60.0-200.0) BUN/Creatinine Ratio (12.00-20.00) Ratio Glucose (74-99) mg/dL POC Glucose (mg/dL) 147 H (75-99) mg/dL Calcium (8.7-10.3) mg/dL Assessment and Plan (1) Aspiration into airway Current Visit: Yes Status: Acute Code(s): T17.908A - UNSP FB IN RESP TRACT, PART UNSP CAUSING OTH INJURY, INIT SNOMED Code(s): 827912975
[2021-01-12 11:40] LABS: Glucose,Whole Blood 147 mg/dL (75-99)
--- NOTE | 2021-01-12 16:29 | P.PN ---
Subjective Patient is alert and looking around. She is not talking or following commands otherwise. No significant change in her mental status compared to yesterday Objective - Vital Signs Vital signs: Vital Signs Temp 99.2 F 01/12/21 14:00 Pulse 57 L 01/12/21 14:00 Resp 20 01/12/21 14:00 BP 112/54 01/12/21 14:00 Pulse Ox 95 01/12/21 14:00 Intake & Output 01/11/21 01/12/21 01/12/21 18:59 06:59 18:59 Intake Total 860 50 Output Total 900 600 700 Balance -40 -550 -700 Weight 80 kg 84.5 kg Intake: Intake, IV Titration 750 Amount Dextrose 5%-0.45% NaCl 1, 750 000 ml @ 75 mls/hr IV . [id number] [facility] Rx#:[id number] Tube Feeding 50 50 Other 60 Output: Urine 900 600 700 Uretheral (Dong) 100 Other: Voiding Method Indwelling Catheter Indwelling Catheter ABP, PAP, CO, CI - Last Documented Arterial Blood Pressure 136/55 - Exam General: The patient is awake and alert, in no distress Eye: there is normal conjunctiva bilaterally. Neck: The neck is supple, there is no JVD. Cardiovascular: Normal S1-S2, no S3-S4, no murmurs. Respiratory: Lungs with diffuse rhonchi and rales Gastrointestinal: Abdomen is soft, nontender Musculoskeletal: There is no pedal edema. . Skin: Skin is warm and dry - Labs CBC & Chem 7: 01/11/21 07:29 01/12/21 09:45 Labs: Abnormal Lab Results - Last 24 Hours (Table) 01/11/21 01/11/21 01/12/21 Range/Units 16:36 19:56 00:56 Sodium (137-145) mmol/L Chloride (98-107) mmol/L Carbon Dioxide (22-30) mmol/L BUN (7-17) mg/dL Creatinine (0.52-1.04) mg/dL Glucose (74-99) mg/dL POC Glucose (mg/dL) 187 H 177 H 203 H (75-99) mg/dL 01/12/21 01/12/21 01/12/21 Range/Units 05:15 09:45 11:39 Sodium 146 H (137-145) mmol/L Chloride 120 H (98-107) mmol/L Carbon Dioxide 20 L (22-30) mmol/L BUN 39 H (7-17) mg/dL Creatinine 1.17 H (0.52-1.04) mg/dL Glucose 158 H (74-99) mg/dL POC Glucose (mg/dL) 171 H 147 H (75-99) mg/dL Assessment and Plan Assessment: Patient is a 75-year-old female with a history of prior angina, diabetes, hypothyroidism, dyslipidemia, and hypertension who presented with complaint of weakness and syncope. She started having upper respiratory symptoms approximately 4-5 days prior to admission. She went to obtain an outpatient Covid test and passed out. She has completed a 2 series Pfizer vaccine earlier this year. In the ER she underwent an extensive evaluation. She was started on BiPAP. Covid testing was positive. Chest x-ray showed diffuse bilateral interstitial infiltrates. On the afternoon of 12/24 she had sudden decline in heart rate and had PEA arrest lasting approximately 5 minutes. She was transitioned to the ICU and started on propofol for sedation. She did require small amounts of levo. She was noted to have A. fib after [place]. She was seen by cardiology secondary to her echocardiogram with severe aortic stenosis and PEA arrest. Extubated on 01/03. Still without verbalizing. Paln is for PEG on 01/09. MRI completed 01/07 with possible stroke, neurology reviewing as clinical exam does not appear consistent with acute stroke. Additional testing: EEG-background slowing suggestive of encephalopathy echo with ejection fraction 30-35% , severe aortic stenosis COVID-19 pneumonia, Klebsiella and proteus pneumnia Acute enephalopathy- metabolic vs hypoxic Suspected hypoxic brain injury - Vit D, zinc, vitamin C, Dexamethasone completed, protonix - Wean O2 as able - Lovenox - cefepime completed 01/06 -Patient had extensive workup including computed tomography scan and MRI of the brain both normal Severe Aortic Stenosis Syncope- likely due to hypoxia versus severe aortic stenosis Type II NSTEMI- likely due to hypoxia, not consistent with ACS Aborted sudden cardiac Atrial fibrillation with rapid ventricular response Systolic cardiomyopathy with EF 30-35% HTN - careful fluid management - tele - amio - eliquis -Cardiology recommendations appreciated -Patient follows with Dr. Blake Herbert at [place] if requesting records for further evaluation if appropriate - metoprolol - Lisinopril - hydralazine - follow BP HLD - statin DM 2 - Long acting, SSI, and fixed dose insulin - follow BS with steroids - A1C 8.5 ASCAD - plavix, BB, statin Hypernatremia, resolved Constipation Hyponatremia, resolved Hypothyroidism, synthroid Acute hypoxic respiratory failure Acute kidney injury, Non-anion gap metabolic acidosis Transaminitis secondary to above and cardiac arrest Septic shock, resolved DVT prophylaxis: eliquis Discussed with: patient, nursing Anticipated discharge date: in 2-[address]: SNF A total of 35 minutes was spent on the care of this complex patient more than 50% of the time was spent in counseling and care coordination.
[2021-01-12 16:44] LABS: Glucose,Whole Blood 98 mg/dL (75-99)
[2021-01-12] MEDS: ATORVASTATIN 40 MG TAB PO SCH (21:27)
[2021-01-13 01:04] LABS: Glucose,Whole Blood 94 mg/dL (75-99)
[2021-01-13] MEDS: INSULIN ASPART (NovoLOG) 100 UNIT/ML VIAL SQ SCH ×4 (01:07→04:59)
[2021-01-13 03:36] LABS: Glucose,Whole Blood 115 mg/dL (75-99)
[2021-01-13] MEDS: LEVOTHYROXINE 50 MCG TAB PO SCH (05:54)
[2021-01-13 06:22] VITALS: RESP 18
[2021-01-13 06:29] LABS: Glucose,Whole Blood 161 mg/dL (75-99)
[2021-01-13] MEDS: INSULIN DETEMIR (LEVEMIR) 100 UNIT/ML SYR SQ SCH (07:09)
[2021-01-13 08:39] LABS: Basophils % (A) 0 %; Eosinophils # (A) 0.1 k/uL (0-0.7); Eosinophils % (A) 1 %; HCT 35.7 % (34.0-46.0); Hypochromasia Slight; Lymphocytes # (A) 0.6 k/uL (1.0-4.8); Lymphocytes % (A) 5 %; MCH 31.3 pg (25.0-35.0); MCHC 30.8 g/dL (31.0-37.0); MCV 101.8 fL (80.0-100.0); Macrocytosis Slight; Mean Platelet Volume 8.2; Monocytes # (A) 0.6 k/uL (0-1.0); Monocytes % (A) 5 %; Neutrophils # (A) 10.7 k/uL (1.3-7.7); Neutrophils % (A) 88 %; Platelet Count 198 k/uL (150-450); RBC 3.51 m/uL (3.80-5.40); RDW 14.8 % (11.5-15.5); WBC 12.1 k/uL (3.8-10.6)
[2021-01-13 08:58] LABS: African American GFR (CKD) 59 (>60 ml/min/1.73 sqM); Anion Gap 6 mmol/L; Blood Urea Nitrogen 40 mg/dL (7-17); Calcium 8.7 mg/dL (8.4-10.2); Carbon Dioxide 19 mmol/L (22-30); Chloride 121 mmol/L (98-107); Glucose 187 mg/dL (74-99); Magnesium 2.1 mg/dL (1.6-2.3); Non-African American GFR(CKD) 51 (>60 ml/min/1.73 sqM); Potassium 4.5 mmol/L (3.5-5.1); Sodium 146 mmol/L (137-145)
[2021-01-13 10:17] VITALS: BP 122/71; TEMP 98.4
--- NOTE | 2021-01-13 10:25 | P.DS ---
Providers Date of admission: 12/23/20 15:15 Expected date of discharge: 01/13/21 Attending physician: Kat Peralta DO Consults: 12/23/20 15:15 Consult Physician Routine Consulting Provider: Chidi Daniels Consult Reason/Comments: covid, hypoxic respiratory failure Do you want consulting provider notified?: Yes 12/24/20 15:53 Consult Physician Routine Consulting Provider: Cameron Soliz Consult Reason/Comments: COVID with + Troponin and severe Do you want consulting provider notified?: Yes 12/31/20 12:19 Consult Physician Routine Consulting Provider: Kayley Montgomery Consult Reason/Comments: anoxic brain injury Do you want consulting provider notified?: Yes 01/06/21 15:29 Consult Physician Routine Consulting Provider: Kelvin Boyer Consult Reason/Comments: peg tube placement Do you want consulting provider notified?: Yes Primary care physician: Jovani Kincaid MD Hospital Course: Patient is a 75-year-old female with a history of prior angina, diabetes, hypothyroidism, dyslipidemia, and hypertension who presented with complaint of weakness and syncope. She started having upper respiratory symptoms approximately 4-5 days prior to admission. She went to obtain an outpatient Covid test and passed out. She has completed a 2 series Pfizer vaccine earlier this year. In the ER she underwent an extensive evaluation. She was started on BiPAP. Covid testing was positive. Chest x-ray showed diffuse bilateral interstitial infiltrates. On the afternoon of 12/24 she had sudden decline in heart rate and had PEA arrest lasting approximately 5 minutes. She was transitioned to the ICU and started on propofol for sedation. She did require small amounts of levo. She was noted to have A. fib after [place]. She was seen by cardiology secondary to her echocardiogram with severe aortic stenosis and PEA arrest. Extubated on 01/03. Still without verbalizing. PEG on 01/09. MRI completed 01/07 with possible stroke, neurology reviewing as clinical exam does not appear consistent with acute stroke. Patient was seen and evaluated by PT/OT. Plan to discharge to rehab. Plan of care discussed with her daughter Barbara. We will use and use of her medical problems administering this hospitalization. Additional testing: EEG-background slowing suggestive of encephalopathy echo with ejection fraction 30-35% , severe aortic stenosis COVID-19 pneumonia, Klebsiella and proteus pneumnia Acute enephalopathy- metabolic vs hypoxic Suspected hypoxic brain injury Severe Aortic Stenosis Syncope- likely due to hypoxia versus severe aortic stenosis Type II NSTEMI- likely due to hypoxia, not consistent with ACS Aborted sudden cardiac Atrial fibrillation with rapid ventricular response Systolic cardiomyopathy with EF 30-35% HTN HLD DM 2 - A1C 8.5 Patient Condition at Discharge: Stable Plan - Discharge Summary Discharge Rx Participant: No New Discharge Prescriptions: New Insulin Detemir (Levemir) [Levemir] 20 unit SQ DAILY@0700 ml Metoprolol Tartrate [Lopressor] 50 mg PO BID tab Ascorbic Acid [Vitamin C] 1,000 mg PO DAILY tab Cholecalciferol [Vitamin D3 (25 Mcg = 1000 Iu)] 100 mcg PO DAILY tablet hydrALAZINE HCL [Apresoline] 50 mg PO TID tab Amiodarone [Cordarone] 200 mg PO TID tab Insulin Detemir (Levemir) [Levemir] 30 unit SQ HS ml polyethylene glycoL 3350 [Miralax] 17 gm PO DAILY packet Zinc Sulfate [Orazinc] 220 mg PO DAILY cap Continue Rosuvastatin [Crestor] 20 mg PO HS lisinopriL [Zestril] 20 mg PO BID Omeprazole 20 mg PO DAILY Levothyroxine Sodium [Euthyrox] 50 mcg PO DAILY Discontinued INSULIN ASPART (NovoLOG) [NovoLOG (formulary)] 10 - 15 unit SQ AC-TID Insulin Glargine,Hum.rec.anlog [Lantus Solostar Pen] 35 unit SQ DAILY Furosemide [Lasix] 20 mg PO DAILY Ergocalciferol [Vitamin D2 (1250 Mcg = 80131 Iu)] 1,250 mcg PO Q7D amLODIPine [Norvasc] 10 mg PO DAILY Carvedilol [Coreg] 25 mg PO BID No Action Clopidogrel [Plavix] 75 mg PO DAILY Discharge Medication List Clopidogrel [Plavix] 75 mg PO DAILY 12/23/20 [History] Levothyroxine Sodium [Euthyrox] 50 mcg PO DAILY 12/23/20 [History] Omeprazole 20 mg PO DAILY 12/23/20 [History] Rosuvastatin [Crestor] 20 mg PO HS 12/23/20 [History] lisinopriL [Zestril] 20 mg PO BID 12/23/20 [History] Amiodarone [Cordarone] 200 mg PO TID tab 01/13/21 [Rx] Ascorbic Acid [Vitamin C] 1,000 mg PO DAILY tab 01/13/21 [Rx] Cholecalciferol [Vitamin D3 (25 Mcg = 1000 Iu)] 100 mcg PO DAILY tablet 01/13/21 [Rx] Insulin Detemir (Levemir) [Levemir] 20 unit SQ DAILY@0700 ml 01/13/21 [Rx] Insulin Detemir (Levemir) [Levemir] 30 unit SQ HS ml 01/13/21 [Rx] Metoprolol Tartrate [Lopressor] 50 mg PO BID tab 01/13/21 [Rx] Zinc Sulfate [Orazinc] 220 mg PO DAILY cap 01/13/21 [Rx] hydrALAZINE HCL [Apresoline] 50 mg PO TID tab 01/13/21 [Rx] polyethylene glycoL 3350 [Miralax] 17 gm PO DAILY packet 01/13/21 [Rx] Follow up Appointment(s)/Referral(s): Cindy Landin NPC [Family Provider] - 1-2 days Discharge Disposition: TRANSFER TO SNF/ECF
[2021-01-13] MEDS: CHOLECALCIFEROL 25 MCG (1000 IU) TABLET PO SCH (10:35)
[2021-01-13] MEDS: polyethylene glycoL 3350 17 GM POWD.PACK PO SCH (10:35)
[2021-01-13] MEDS: hydrALAZINE HCL 50 MG TAB PO SCH (10:35)
[2021-01-13] MEDS: lisinopriL 20 MG TAB PO SCH (10:36)
[2021-01-13] MEDS: ZINC SULFATE 220 MG CAP PO SCH (10:36)
[2021-01-13] MEDS: METOPROLOL TARTRATE 50 MG TAB PO SCH (10:36)
[2021-01-13] MEDS: AMIODARONE 200 MG TAB PO SCH (10:36)
[2021-01-13] MEDS: PANTOPRAZOLE 40 MG/10 ML VIAL IVP SCH (10:37)
[2021-01-13] MEDS: ASCORBIC ACID 500 MG TAB PO SCH (10:37)
[2021-01-13] MEDS: FAMOTIDINE 20 MG TAB PO SCH (10:37)
[2021-01-13 11:32] LABS: Glucose,Whole Blood 197 mg/dL (75-99)
[2021-01-13 11:44] VITALS: PULSE 84
[2021-01-13 13:02] VITALS: BMI 32.7
--- NOTE | 2021-01-16 10:49 | CDI ---
Documentation Clarification Form Date: 01/16/2021 10:35:43 AM From: Chicho Franz Admit Date: 12/23/2020 03:15:00 PM Patient Name: Trish Manuel Visit Number: [id number] Discharge Date: 01/13/2021 01:13:00 PM ATTENTION: The Clinical Documentation Specialists (CDI) and [facility] Coding Staff appreciate your assistance in clarifying documentation. Please respond to the clarification below the line at the bottom and electronically sign. The CDI & [facility] Coding staff will review the response and follow-up if needed. Please note: Queries are made part of the Legal Health Record. If you have any questions, please contact the author of this message via ITS. Dr. Micaela Thapa The patient presented with the following clinical indicators. Additional clarification regarding the etiology/cause of the clinical indicators is requested. Likely sepsis is documented in progress note 12/25. Not mentioned in the discharge summary. Need to know if sepsis was ruled out. History/Risk Factors: COVID PNA, hypotension Clinical Indicators: ED: WBC: 10.6 Lactic acid: WNL Blood cultures: N/A Vitals signs: Temp 98.7, B/P 125/61, pulse 48 Treatment: ID Consult: COVID Antibiotics: IV IV Bolus: In your professional opinion, please clarify if these findings signify one of the following conditions: [ ] Sepsis POA [ ] Sepsis, Not POA [ X ] Sepsis ruled out [ ] Severe Sepsis with organ failure [ ] Septic Shock [ ] SIRS, without underlying infectious process [ ] Other, please specify [ ] Unable to determine SIRS Criteria: 2 or more of the following may indicate SIRS -Temperature < 96.8F (36C) or > 101.0F (38.3C) -Heart Rate > 90 bpm -Respiratory Rate > 20 breaths/min or PaCO2 < 32 mmHg -White Blood Cell Count > 12,000 or < 4,000 cells/mm3 or > 10% ban MTDD
== END 2021-01-13 13:13 | DRG 207 ==
LOC: EC 11:57 → 3SCARD 15:15 → 2SICU 12-24 18:18 → 3SCARD 01-04 11:54 → 4SSUR 01-08 01:12
PROVIDERS: ADMIT Internal Medicine; ATTEND Internal Medicine
PROC: 3E0333Z Introduction of Anti-inflammatory into Peripheral Vein, Percutaneous Approach (ICD-10-PCS; 2020-12-23)
PROC: 5A09357 Assistance with Respiratory Ventilation, Less than 24 Consecutive Hours, Continuous Positive Airway Pressure (ICD-10-PCS; 2020-12-23)
PROC: 5A12012 Performance of Cardiac Output, Single, Manual (ICD-10-PCS; 2020-12-24)
PROC: 0BH17EZ Insertion of Endotracheal Airway into Trachea, Via Natural or Artificial Opening (ICD-10-PCS; 2020-12-24)
PROC: 5A1955Z Respiratory Ventilation, Greater than 96 Consecutive Hours (ICD-10-PCS; principal; 2020-12-25)
PROC: 02HV33Z Insertion of Infusion Device into Superior Vena Cava, Percutaneous Approach (ICD-10-PCS; 2020-12-25)
PROC: 0DH63UZ Insertion of Feeding Device into Stomach, Percutaneous Approach (ICD-10-PCS; 2021-01-10)
DX: U07.1 COVID-19 (principal); J12.82 Pneumonia due to coronavirus disease 2019; J96.01 Acute respiratory failure with hypoxia; N17.0 Acute kidney failure with tubular necrosis; E43 Unspecified severe protein-calorie malnutrition; G93.41 Metabolic encephalopathy; I46.9 Cardiac arrest, cause unspecified; I21.A1 Myocardial infarction type 2; J15.0 Pneumonia due to Klebsiella pneumoniae; E87.1 Hypo-osmolality and hyponatremia; E87.4 Mixed disorder of acid-base balance; I48.19 Other persistent atrial fibrillation; I48.4 Atypical atrial flutter; G93.1 Anoxic brain damage, not elsewhere classified; E87.0 Hyperosmolality and hypernatremia; I50.22 Chronic systolic (congestive) heart failure; B96.1 Klebsiella pneumoniae [K. pneumoniae] as the cause of diseases classified elsewhere; B96.20 Unspecified Escherichia coli [E. coli] as the cause of diseases classified elsewhere; E03.9 Hypothyroidism, unspecified; N18.30 Chronic kidney disease, stage 3 unspecified; E11.22 Type 2 diabetes mellitus with diabetic chronic kidney disease; E78.5 Hyperlipidemia, unspecified; I12.9 Hypertensive chronic kidney disease with stage 1 through stage 4 chronic kidney disease, or unspecified chronic kidney disease; I25.2 Old myocardial infarction; I25.10 Atherosclerotic heart disease of native coronary artery without angina pectoris; I25.5 Ischemic cardiomyopathy; K59.00 Constipation, unspecified; I35.0 Nonrheumatic aortic (valve) stenosis; N25.89 Other disorders resulting from impaired renal tubular function; I45.10 Unspecified right bundle-branch block; Z79.01 Long term (current) use of anticoagulants; Z79.02 Long term (current) use of antithrombotics/antiplatelets; Z79.4 Long term (current) use of insulin; Z79.890 Hormone replacement therapy; Z79.899 Other long term (current) drug therapy; Z80.1 Family history of malignant neoplasm of trachea, bronchus and lung; Z87.891 Personal history of nicotine dependence; Z95.1 Presence of aortocoronary bypass graft; Z95.5 Presence of coronary angioplasty implant and graft
CPT/HCPCS: 36415; 36600; 43246; 70450; 70551; 71045; 80048; 80053; 81001; 82140; 82533; 82550; 82607; 82728; 82746; 82805; 83036; 83605; 83615; 83735; 83880; 84100; 84145; 84443; 84484; 85025; 85027; 85379; 85610; 85730; 86140; 87040; 87070; 87077; 87086; 87186; 87205; 87635; 92950; 93005; 93306; 93308; 94002; 94003; 94640; 94660; 94760; 95816; 96361; 96372; 96374; 99291